=== PATIENT | female | born 1955 | race Caucasian/White ===

== ENCOUNTER → 2017-01-13 | Outpatient (CLI) | payer OTHER ==
[~2017-01-13] MED LIST: ALBU17IN INH; BISO5TAB2 PO; BUPR150T11 PO; CLOP75TA2 PO; ECOT81TA5 PO; FURO40TA2 PO; GABA250S PO; GEMF600T PO; K-TA10TA2 PO; METF500T PO; NEUR300C PO; PERCOCET PO; POTA10IN2 PO; PREG50CA PO; SERT-138 PO; SERT-141 PO; VESI10TA PO; VITAD1000T PO; cetrizine PO
== END ==
LOC: M LAB 12:04
PROVIDERS: ATTEND Family Medicine
DX: I10 Essential (primary) hypertension (principal)

== ENCOUNTER → 2017-01-17 | Outpatient (CLI) | payer OTHER ==
[~2017-01-17] VITALS: Ht 154.9 cm; Wt 108.9 kg
[~2017-01-17] MED LIST changes: +LIDOCAINE 2% INJ 100 MG/5 ML SDV (FOR ANES.) As Ordered ONE; +PROPOFOL 200 MG/20 ML VIAL As Ordered ONE
[2017-01-17] MEDS: NS 1,000 ML IV SCH ×2 (10:34→10:36)
--- NOTE | 2017-01-17 11:34 | ROOR ---
Patient Name: Gilmar John Procedure Date: 01/17/2017 11:13 AM Date of : 1955 Age: 61 Room: [facility] Gender: Female Note Status: Finalized Procedure: Colonoscopy Indications: Screening for colorectal malignant neoplasm Providers: Jose C PALACIOS MD Referring MD: Ryann Jean Baptiste MD Requesting Provider: Medicines: Monitored Anesthesia Care Complications: No immediate complications. Procedure: Pre-Anesthesia Assessment: - The heart rate, respiratory rate, oxygen saturations, blood pressure, adequacy of pulmonary ventilation, and response to care were monitored throughout the procedure. The Colonoscope was introduced through the anus and advanced to the cecum, identified by appendiceal orifice and ileocecal valve. The colonoscopy was performed without difficulty. The patient tolerated the procedure well. The quality of the bowel preparation was good. Findings: The perianal and digital rectal examinations were normal. (Exam: Complete, Prep: Good or Excellent.) A 10 mm polyp was found in the ileocecal valve. The polyp was flat. The polyp was removed with a hot snare. Polyp resection was incomplete. The resected tissue was retrieved. Coagulation for destruction of remaining portion of lesion using argon plasma at 0.8 liters/minute and 20 conner was successful. A few small-mouthed diverticula were found in the sigmoid colon. Small Internal Hemorrhoids. The exam was otherwise without abnormality on direct and retroflexion views. Impression: - One 10 mm polyp at the ileocecal valve, removed with a hot snare. Incomplete resection. Resected tissue retrieved. remaining polypoid tissue ablated/treated with argon plasma coagulation (APC). - No residual polyp is seen - Mild diverticulosis in the sigmoid colon and Small Internal Hemorrhoids. - The examination was otherwise normal on direct and retroflexion views. Recommendation: - Repeat colonoscopy in 3 years for surveillance. - Telephone endoscopist for pathology results in 2 weeks. Jose C Palacios MD Jose C PALACIOS MD 01/17/2017 11:33:41 AM This report has been signed electronically. Number of Addenda: 0 Note Initiated On: 01/17/2017 11:13 AM Estimated Blood Loss: Estimated blood loss: none.
[2017-01-17 11:59] VITALS: BP 150/80
== END | disposition home or self-care (01) ==
LOC: M OPP 08:56
PROVIDERS: ATTEND Internal Medicine Gastroenterology
DX: Z12.11 Encounter for screening for malignant neoplasm of colon (principal); D12.0 Benign neoplasm of cecum; K57.30 Diverticulosis of large intestine without perforation or abscess without bleeding; K64.8 Other hemorrhoids; Z86.010 Personal history of colon polyps; I10 Essential (primary) hypertension; E78.5 Hyperlipidemia, unspecified; E11.9 Type 2 diabetes mellitus without complications; R12 Heartburn; R06.83 Snoring; M19.90 Unspecified osteoarthritis, unspecified site; G25.81 Restless legs syndrome; J44.9 Chronic obstructive pulmonary disease, unspecified; R91.1 Solitary pulmonary nodule; R06.02 Shortness of breath; R93.429 Abnormal radiologic findings on diagnostic imaging of unspecified kidney; F12.20 Cannabis dependence, uncomplicated; Z79.82 Long term (current) use of aspirin; Z79.84 Long term (current) use of oral hypoglycemic drugs; Z79.899 Other long term (current) drug therapy; Z80.41 Family history of malignant neoplasm of ovary; Z80.8 Family history of malignant neoplasm of other organs or systems

== ENCOUNTER → 2017-02-16 | Outpatient (CLI) | payer OTHER ==
[~2017-02-16] MED LIST changes: -LIDOCAINE 2% INJ 100 MG/5 ML SDV (FOR ANES.) As Ordered ONE; -PROPOFOL 200 MG/20 ML VIAL As Ordered ONE; -SERT-141 PO; +SERT50TA PO
--- NOTE | 2017-02-16 11:16 | REPMRS ---
Patient History The patient states she had a clinical breast exam in 02/04 Patient is postmenopausal. Family history of uterine cancer in mother at age 50 or over. Digital Woman Screen Mammo: February 16, 2017 - Exam #: [id number] Bilateral CC and MLO view(s) were taken. Technologist: Madonna Bautista, Technologist Prior study comparison: January 16, 2016, digital woman screen mammo performed at [facility]. August 15, 2014, digital woman screen mammo performed at [facility]. FINDINGS: There are scattered fibroglandular densities. There has been no change in the appearance of the mammogram from the prior studies. There is a mild amount of residual fibroglandular tissue which is fairly symmetric. There is no interval development of dominant mass, architectural distortion, or clustered microcalcification suggestive of malignancy. There are scattered, small, benign calcifications of doubtful clinical significance including many secretory type calcifications in each breast, stable. Scattered lymph nodes are seen in the axillae. No significant changes when compared with prior studies. ASSESSMENT: BI-RADS/ACR category 2 mammogram. Benign finding(s). Recommendation Routine screening mammogram in 1 year (for women over age 40). This mammogram was interpreted with the aid of an FDA-approved computer-aided dectection system. A. Negative x-ray reports should not delay biopsy if a dominant or clinically suspicious mass is present. B. Four to eight percent of cancers are not identified by mammography. C. Adenosis and dense breast may obscure an underlying neoplasm. Electronically Signed By: Ankit Bush MD 02/16/17 [id number]
== END ==
LOC: M WHC 09:49
PROVIDERS: ATTEND Nurse Practitioner Family
DX: Z12.31 Encounter for screening mammogram for malignant neoplasm of breast (principal); Z78.0 Asymptomatic menopausal state; R92.8 Other abnormal and inconclusive findings on diagnostic imaging of breast

== ENCOUNTER → 2017-05-27 | Outpatient (CLI) | payer OTHER ==
[~2017-05-27] MED LIST changes: +METF500T13 PO; -VESI10TA PO; +VESI10TA2 PO
== END ==
LOC: M LAB 11:54
PROVIDERS: ATTEND Family Medicine
DX: E11.40 Type 2 diabetes mellitus with diabetic neuropathy, unspecified (principal)

== ENCOUNTER → 2017-05-27 | Outpatient (REF) | payer OTHER | LOC: M SFHCPLAZ 11:40 | PROVIDERS: ATTEND Family Medicine | DX: E11.40 Type 2 diabetes mellitus with diabetic neuropathy, unspecified (principal); Z53.9 Procedure and treatment not carried out, unspecified reason ==

== ENCOUNTER → 2017-09-01 | Outpatient (CLI) | payer OTHER ==
[2017-09-01 10:47] LABS: ANION GAP 6 MEQ/L (8-16); BLOOD UREA NITROGEN 16 MG/DL (7-18); CALCIUM LEVEL 9.3 MG/DL (8.8-10.2); CARBON DIOXIDE LEVEL 31 MEQ/L (21-32); CHLORIDE LEVEL 105 MEQ/L (98-107); CREATININE FOR GFR 0.71 MG/DL (0.55-1.02); GLOMERULAR FILTRATION RATE > 60.0 (>45); GLUCOSE, FASTING 128 MG/DL (80-110); POTASSIUM SERUM 4.2 MEQ/L (3.5-5.1); SODIUM LEVEL 142 MEQ/L (136-145)
== END ==
LOC: M LAB 09:28
PROVIDERS: ATTEND Family Medicine
DX: E11.40 Type 2 diabetes mellitus with diabetic neuropathy, unspecified (principal)

== ENCOUNTER → 2017-09-12 | Outpatient (REF) | payer OTHER ==
[2017-09-12 13:47] LABS: ANION GAP 7 MEQ/L (8-16); BLOOD UREA NITROGEN 15 MG/DL (7-18); CARBON DIOXIDE LEVEL 28 MEQ/L (21-32); CHLORIDE LEVEL 107 MEQ/L (98-107); CREATININE FOR GFR 0.59 MG/DL (0.55-1.02); GLOMERULAR FILTRATION RATE > 60.0 (>45); GLUCOSE, FASTING 101 MG/DL (80-110); POTASSIUM SERUM 4.2 MEQ/L (3.5-5.1); SODIUM LEVEL 142 MEQ/L (136-145)
== END ==
LOC: M SFHCPLAZ 11:22
PROVIDERS: ATTEND Family Medicine
DX: E87.6 Hypokalemia (principal)

== ENCOUNTER → 2017-12-13 | Outpatient (REF) | payer OTHER ==
[2017-12-13 14:39] LABS: ESTIMATED AVERAGE GLUCOSE 120 MG/DL (60-110); HEMOGLOBIN A1c 5.8 %
== END ==
LOC: M SFHCPLAZ 11:25
DX: E11.40 Type 2 diabetes mellitus with diabetic neuropathy, unspecified (principal)

== ENCOUNTER → 2018-04-13 | Outpatient (CLI) | payer OTHER | LOC: M WHC 13:49 | DX: Z12.31 Encounter for screening mammogram for malignant neoplasm of breast (principal) | CPT/HCPCS: 77067 ==

== ENCOUNTER → 2018-05-03 | Outpatient (REF) | payer OTHER ==
[2018-05-03 13:39] LABS: ESTIMATED AVERAGE GLUCOSE 128 MG/DL (60-110); HEMOGLOBIN A1c 6.1 %
[2018-05-03 13:40] LABS: ANION GAP 10 MEQ/L (8-16); BLOOD UREA NITROGEN 14 MG/DL (7-18); CALCIUM LEVEL 9.1 MG/DL (8.8-10.2); CARBON DIOXIDE LEVEL 28 MEQ/L (21-32); CHLORIDE LEVEL 107 MEQ/L (98-107); GLOMERULAR FILTRATION RATE > 60.0 (>45); GLUCOSE, FASTING 120 MG/DL (70-100); POTASSIUM SERUM 4.5 MEQ/L (3.5-5.1); SODIUM LEVEL 145 MEQ/L (136-145)
== END ==
LOC: M SFHCPLAZ 11:26
DX: E11.40 Type 2 diabetes mellitus with diabetic neuropathy, unspecified (principal); I10 Essential (primary) hypertension

== ENCOUNTER 2018-06-24 13:36 | Emergency (ER) | payer OTHER | END 2018-06-24 15:32 | disposition home or self-care (01) | LOC: M ED 13:36 | DX: Z77.098 Contact with and (suspected) exposure to other hazardous, chiefly nonmedicinal, chemicals (principal); R06.02 Shortness of breath; E11.9 Type 2 diabetes mellitus without complications; I10 Essential (primary) hypertension; Z79.899 Other long term (current) drug therapy; Z79.82 Long term (current) use of aspirin; Z79.84 Long term (current) use of oral hypoglycemic drugs | CPT/HCPCS: 99284 ==

== ENCOUNTER 2018-07-14 10:15 | Emergency (ER) | payer OTHER ==
[2018-07-14 11:34] LABS: KETONE, URINE AUTO RFX TRACE mg/dL (NEGATIVE); LEUKOCYTE ESTERASE UR AUTO RFX NEGATIVE (NEGATIVE); MUCUS, URINE RFX SMALL (NEGATIVE); NITRITE, URINE AUTO RFX NEGATIVE (NEGATIVE); RBC, URINE AUTO RFX 1 /HPF (0-3); SPECIFIC GRAVITY UR AUTO RFX 1.023 (1.002-1.035); SQUAM EPITHELIAL CELL UR AURFX 3 /HPF (0-6); WBC, URINE AUTO RFX 1 /HPF (0-3)
[2018-07-14 11:37] LABS: BASO % 0.3 % (0.0-1.0); EOS % 0.2 % (0.0-3.0); HEMATOCRIT 43.5 % (36.0-47.0); HEMOGLOBIN 14.6 g/dl (12.0-15.5); IMMATURE GRANULOCYTE % 0.9 % (0-3.0); LYMPH # 0.8 10^3/uL (1.5-4.5); MEAN CORPUSCULAR HEMOGLOBIN 29.3 pg (27.0-33.0); MEAN CORPUSCULAR HGB CONC 33.6 g/dl (32.0-36.5); MEAN CORPUSCULAR VOLUME 87.3 fl (80.0-96.0); MONO # 1.3 10^3/uL (0.0-0.8); MONO % 9.1 % (0.0-5.0); NEUTROPHILS # 11.6 10^3/uL (1.8-7.7); NEUTROPHILS % 83.5 % (36.0-66.0); PLATELET COUNT, AUTOMATED 143 10^3/uL (150-450); RED BLOOD COUNT 4.98 10^6/uL (4.00-5.40); RED CELL DISTRIBUTION WIDTH 15.6 % (11.5-14.5); WHITE BLOOD COUNT 13.9 10^3/uL (4.0-10.0)
[2018-07-14 11:51] LABS: ANION GAP 9 MEQ/L (8-16); BLOOD UREA NITROGEN 12 MG/DL (7-18); CARBON DIOXIDE LEVEL 25 MEQ/L (21-32); CHLORIDE LEVEL 102 MEQ/L (98-107); GLOMERULAR FILTRATION RATE > 60.0 (>45); GLUCOSE, FASTING 157 MG/DL (70-100); POTASSIUM SERUM 4.3 MEQ/L (3.5-5.1); SODIUM LEVEL 136 MEQ/L (136-145)
[2018-07-14 12:00] LABS: POS COUNT POS FLAG
[2018-07-14] MEDS: ONDANSETRON 4MG/2ML VIAL (J2405) IV (12:01)
[2018-07-14] MEDS: MORPHINE 4 MG/ML 1ML VIAL/SYRINGE (J2270) IV (12:02)
[2018-07-14] MEDS: NS 1,000 ML IV (12:02)
== END 2018-07-14 12:40 | disposition home or self-care (01) ==
LOC: M ED 10:15
DX: N28.1 Cyst of kidney, acquired (principal); N20.0 Calculus of kidney; R16.1 Splenomegaly, not elsewhere classified; E11.9 Type 2 diabetes mellitus without complications; I10 Essential (primary) hypertension; J44.9 Chronic obstructive pulmonary disease, unspecified; E78.5 Hyperlipidemia, unspecified; Z87.891 Personal history of nicotine dependence
CPT/HCPCS: J2270

== ENCOUNTER → 2018-07-17 | Outpatient (CLI) | payer OTHER | LOC: M SMT 15:08 | DX: J06.9 Acute upper respiratory infection, unspecified (principal) | CPT/HCPCS: 71046 ==

== ENCOUNTER → 2018-07-17 | Outpatient (REF) | payer OTHER ==
[2018-07-17 13:38] LABS: AMORPHOUS SEDIMENT LARGE (NEGATIVE); APPEARANCE, URINE TURBID (CLEAR); BACTERIA, URINE AUTO NEGATIVE (NEGATIVE); BILIRUBIN, URINE AUTO 1+ (NEGATIVE); BLOOD, URINE BLOOD NEGATIVE (NEGATIVE); GLUCOSE, URINE (UA) AUTO NEGATIVE (NEGATIVE); KETONE, URINE AUTO TRACE mg/dL (NEGATIVE); LEUKOCYTE ESTERASE, URINE AUTO NEGATIVE (NEGATIVE); MUCUS, URINE SMALL (NEGATIVE); NITRITE, URINE AUTO NEGATIVE (NEGATIVE); PROTEIN, URINE AUTO 1+ mg/dL (NEGATIVE); RBC, URINE AUTO 0 /HPF (0-3); SPECIFIC GRAVITY URINE AUTO 1.026 (1.002-1.035); SQUAMOUS EPITHELIAL CELL UR AU 0 /HPF (0-6); WBC, URINE AUTO 0 /HPF (0-3)
[2018-07-17 13:41] LABS: COLOR, URINE DK YELLOW (YELLOW)
== END ==
LOC: M SMT 12:55
DX: R31.0 Gross hematuria (principal)

== ENCOUNTER → 2018-10-18 | Outpatient (REF) | payer OTHER ==
[2018-10-18 18:13] LABS: APPEARANCE, URINE HAZY (CLEAR); BACTERIA, URINE AUTO NEGATIVE (NEGATIVE); BILIRUBIN, URINE AUTO NEGATIVE (NEGATIVE); BLOOD, URINE BLOOD NEGATIVE (NEGATIVE); COLOR, URINE YELLOW (YELLOW); GLUCOSE, URINE (UA) AUTO NEGATIVE (NEGATIVE); KETONE, URINE AUTO NEGATIVE (NEGATIVE); LEUKOCYTE ESTERASE, URINE AUTO NEGATIVE (NEGATIVE); MUCUS, URINE SMALL (NEGATIVE); NITRITE, URINE AUTO NEGATIVE (NEGATIVE); PROTEIN, URINE AUTO NEGATIVE (NEGATIVE); RBC, URINE AUTO 0 /HPF (0-3); SPECIFIC GRAVITY URINE AUTO 1.011 (1.002-1.035); SQUAMOUS EPITHELIAL CELL UR AU 2 /HPF (0-6); UROBILINOGEN, URINE AUTO 0.2 mg/dL (0.0-2.0); WBC, URINE AUTO 0 /HPF (0-3)
== END ==
LOC: M SMT 17:14
DX: R39.15 Urgency of urination (principal)
CPT/HCPCS: 81001

== ENCOUNTER → 2019-01-31 | Outpatient (REF) | payer OTHER ==
[~2019-01-31] MED LIST changes: +NAPR-50 PO; +NORCOTAB PO; +ZOFR4TAB14 PO
[2019-01-31 19:01] LABS: ALBUMIN 4.1 GM/DL (3.2-5.2); ALT/SGPT 29 U/L (12-78); BILIRUBIN,TOTAL 0.4 MG/DL (0.2-1.0); BLOOD UREA NITROGEN 12 MG/DL (7-18); CARBON DIOXIDE LEVEL 29 MEQ/L (21-32); CHLORIDE LEVEL 106 MEQ/L (98-107); CHOLESTEROL LEVEL 109 MG/DL (<200); CHOLESTEROL RISK RATIO 4.739 (<5); CREATININE FOR GFR 0.69 MG/DL (0.55-1.30); GLOMERULAR FILTRATION RATE > 60.0 (>45); GLUCOSE, FASTING 94 MG/DL (70-100); HDL CHOLESTEROL 23 MG/DL (>40); LDL CHOLESTEROL 49 MG/DL (<100); NON-HDL-C 86 MG/DL; POTASSIUM SERUM 4.6 MEQ/L (3.5-5.1); SODIUM LEVEL 142 MEQ/L (136-145); TRIGLYCERIDES LEVEL 185 MG/DL (<150)
[2019-01-31 19:47] LABS: HEMOGLOBIN A1c 5.7 %
== END ==
LOC: M SFHCPLAZ 14:55
PROVIDERS: ATTEND Family Medicine
DX: I10 Essential (primary) hypertension (principal); E11.40 Type 2 diabetes mellitus with diabetic neuropathy, unspecified; E78.5 Hyperlipidemia, unspecified

== ENCOUNTER → 2019-05-23 | Outpatient (CLI) | payer OTHER ==
[~2019-05-23] MED LIST changes: +HYDR-3715 PO; -NAPR-50 PO; +NAPR-837 PO; -NORCOTAB PO; +OXYC1TAB23 PO; -PERCOCET PO; +SERT-141 PO; -SERT50TA PO
--- NOTE | 2019-05-23 15:41 | REP ---
Clinical: Lung screening. History smoking. Comparison: 07/28/2012 Technique: Axial low-dose noncontrast images from the thoracic inlet to the upper abdomen using lung screening technique. Findings: There is a 3.5 cm mass along the posteromedial right upper lobe at the level of the yesenia inseparable from the mediastinum based on lung screening examination. Further mediastinal adenopathy cannot be excluded. No effusion. Impression: 3.5 cm mass lesion in the medial right upper lobe posteriorly and inseparable from the mediastinum. Contrast enhanced chest CT is recommended. Electronically Signed by Cristhian Estrada MD 05/23/2019 03:33 P
== END ==
LOC: M RAD 13:28
PROVIDERS: ATTEND Family Medicine
DX: F17.211 Nicotine dependence, cigarettes, in remission (principal); R91.8 Other nonspecific abnormal finding of lung field

== ENCOUNTER → 2019-06-01 | Outpatient (CLI) | payer OTHER ==
[~2019-06-01] MED LIST changes: +ALLE10TA62 PO; +ATOR1TAB21 PO; +BISO5TAB14 PO; +CARB5INJ3 IV; +DITR5TAB PO; +LIDO2.5C15 TOP; +LISI-542 PO; +OLAN10TA2 PO; +ONDA-83 PO; +ONDA8TAB8 PO; +OXYB5TAB10 PO; +PANT40TA3 PO; +PEG6SYR SC; +PROC10TA4 PO; +PROTPAK PO; +TECE1200 IV; +VENTAER INH; +ZOLO50TA PO; +[UNRECOGNIZED DRUG - CODE] IV; +[UNRECOGNIZED DRUG - OTHER] INH
--- NOTE | 2019-06-02 07:34 | REP ---
CT chest without contrast: History: "Other nonspecific abnormal finding of the lung field". Comparison CT study is from May 23, 2019. CT study from July 28, [address] findings: Today's CT study confirms the presence of an irregular nodular mass lesion in the right upper lobe posteriorly and medially. This measures 3.2 cm in greatest right to left dimension by 2.4 cm by 1.8 cm. It abuts the major fissure inferiorly and the visceral pleural surface anteriorly. There is a 4 mm nodule in the right upper lobe anteriorly visualized on page 41 of 94 in series 201 of today's study. There is also an area of pleuroparenchymal fibrosis in the right middle lobe anteromedially visualized on page 41. There is a subpleural nodular density 10 mm in diameter in the right middle lobe on page 51. There is a 5 mm nodule adjacent to the peripheral pleura of the right lower lobe on page 50. No contralateral pulmonary nodule is appreciated. There is fairly bulky right hilar adenopathy. There is subcarinal mediastinal adenopathy. The enlarged subcarinal node measures 2.3 x 2.7 cm. There is a 3.1 x 3.3 cm pretracheal lymph node and several other less enlarged lymph nodes. No adrenal lesion is seen. There is a low-density area at the upper pole of the left kidney suggestive of a cyst. This is not completely included in the field of view. There is mild diffuse fatty infiltration of the liver. No pleural or pericardial effusion is seen. No axillary or supraclavicular adenopathy is seen. Impression: Findings consistent with right upper lobe bronchogenic malignancy with right hilar and mediastinal lymphadenopathy. There are multiple small noncalcified pulmonary nodules in the right lung as well. All of these are unchanged however, from the [address] study. Probable upper pole left renal cyst. Electronically Signed by Nirmal Osei MD 06/02/2019 11:59 A
== END ==
LOC: M RAD 16:25
PROVIDERS: ATTEND Internal Medicine Pulmonary Disease
DX: R91.8 Other nonspecific abnormal finding of lung field (principal)

== ENCOUNTER 2019-06-21 11:29 | Day surgery (SDC) | payer OTHER ==
[~2019-06-21] VITALS: Ht 154.9 cm; Wt 100.2 kg
[~2019-06-21 11:29] MED LIST changes: -BISO5TAB14 PO; +BISO5TAB5 PO; -CARB5INJ3 IV; -LIDO2.5C15 TOP; +LIDOCAINE 2% INJ 100 MG/5 ML SDV (FOR ANES.) As Ordered ONE; +LR 1,000 ML IV ONE; +MIDAZOLAM INJ 2 MG/2 ML VIAL (J2250) As Ordered ONE; -OLAN10TA2 PO; -ONDA-83 PO; -ONDA8TAB8 PO; +ONDANSETRON 4MG/2ML VIAL (J2405) As Ordered ONE; -OXYB5TAB10 PO; -PANT40TA3 PO; -PEG6SYR SC; -PROC10TA4 PO; +PROPOFOL 200 MG/20 ML VIAL As Ordered ONE; -PROTPAK PO; +ROCURONIUM BROMIDE 50 MG/5 ML VIAL As Ordered ONE; -TECE1200 IV; -[UNRECOGNIZED DRUG - CODE] IV; -[UNRECOGNIZED DRUG - OTHER] INH; +dexameTHASONE 4 MG/ML 1ML VIAL (J1100) As Ordered ONE; +fentaNYL 100 MCG/2 ML INJECTION (J3010) As Ordered ONE
[2019-06-21] MEDS ORDERED: LIDOCAINE 1% MDV 20ML VIAL As Ordered ONE (12:08)
[2019-06-21] MEDS ORDERED: EPINEPHrine 1MG/10ML SYRINGE 1.5IN As Ordered ONE (12:08)
[2019-06-21] MEDS ORDERED: CETACAINE SPRAY 5GM As Ordered ONE (12:08)
[2019-06-21] MEDS ORDERED: THROMBIN SOLN 5,000 UNITS VIAL As Ordered ONE (12:08)
[2019-06-21] MEDS ORDERED: LIDOCAINE VISCOUS 2% SOLN 15ML UDC As Ordered ONE (12:09)
[2019-06-21] MEDS ORDERED: PHENYLEPHRINE 0.5% NASAL SPRAY 15 ML As Ordered ONE (12:09)
[2019-06-21] MEDS ORDERED: ACETYLCYSTEINE 20% 30 ML VIAL As Ordered ONE (12:09)
[2019-06-21] MEDS ORDERED: LABETALOL HCL 100 MG/20 ML VIAL As Ordered ONE (12:50)
[2019-06-21] MEDS ORDERED: PHENYLephrine HCL 500 MCG/5 ML (100MCG/ML) SYRINGE (J2370) As Ordered ONE (13:06)
[2019-06-21] MEDS ORDERED: SUGAMMADEX SODIUM 500 MG/5 ML VIAL (BRIDION) As Ordered ONE (13:24)
--- NOTE | 2019-06-21 13:43 | RO ---
DATE OF PROCEDURE: 06/21/2019 PREOPERATIVE DIAGNOSIS: Abnormal chest x-ray with right lung mass and mediastinal hilar adenopathy. POSTOPERATIVE DIAGNOSIS: Abnormal chest x-ray with right lung mass and mediastinal hilar adenopathy, with chronic obstructive bronchitis. PROCEDURE: Fiberoptic bronchoscopy with endobronchial ultrasound and right upper lobe biopsies done endobronchially as well as fine needle aspiration (FNA) of a subcarinal node. SURGEON: Alexander Zayas MD COMPUTER INFORMATION SYSTEMS INSTRUCTOR: ANESTHESIA: General. CONSENT: Informed consent was obtained prior to the procedure. OPERATIVE FINDINGS: 1. Significant compromise to the right upper lobe. 2. [place] of the medial basilar segment of the right lower lobe. 3. Diffuse changes of chronic bronchitis. PROCEDURE: After the patient was identified and the above anesthesia given, the fiberoptic bronchoscope was easily passed via the existing endotracheal tube. The trachea was patent. Yesenia was broadened and did not move well. Percepta brushes were passed in right and left mainstem bronchi The left lung was entered first. Diffuse changes of chronic bronchitis were noted, but all segments, subsegments easily identified and otherwise generally widely patent. Right lung was then entered. There was significant compromise of all the subsegments of the right upper lobe. Bronchus intermedius was opened as well as the right middle lobe, but there was significant fishmouth deformity of the superior segment of the right lower lobe. The remainder of the basilar segments were open and diffuse changes of chronic bronchitis were noted. Biopsies were taken of the right upper lobe main yesenia at the first subsegment. There was minimal bleeding easily controlled with 2 mL of topical epinephrine and saline lavage. The endobronchial ultrasound scope was then passed. Multiple passes were made with the 20 and 21 gauge needles under ultrasound guidances. Good cellular material was obtained. No bleeding was encountered. After four passes were made, the regular bronchoscope was then introduced. No bleeding was encountered. The scope was then withdrawn and that portion of the procedure was terminated. Thoracoscopic examination done immediately postprocedure showed no evidence of pneumothorax. The procedure was terminated. Care was then turned over to the anesthesia department for extubation. No immediate complications noted and oxygen saturation remained greater than 90% throughout the exam. [facility]
[2019-06-21] MEDS ORDERED: LEVALBUTEROL 1.25 MG/0.5 ML CONCENTRATE NEB As Ordered ONE (13:45)
[2019-06-21] MEDS ORDERED: PROMETHAZINE INJ 25 MG/ML VIAL (J2550) IV PRN (14:00)
[2019-06-21] MEDS ORDERED: oxyCODONE 5MG TAB PO PRN (14:00)
[2019-06-21] MEDS ORDERED: fentaNYL 100 MCG/2 ML INJECTION (J3010) IV PRN (14:00)
[2019-06-21] MEDS ORDERED: LR 1,000 ML IV SCH (14:00)
[2019-06-21] MEDS ORDERED: METOCLOPRAMIDE INJ 10MG/2ML VIAL (J2765) IV PRN (14:00)
[2019-06-21] MEDS ORDERED: LEVALBUTEROL 1.25 MG/0.5 ML CONCENTRATE NEB INH ONE (14:30)
[2019-06-21 15:10] VITALS: BP 104/51
== END 2019-06-21 15:15 | disposition home or self-care (01) ==
LOC: M SDC 11:29
PROVIDERS: ATTEND Internal Medicine Pulmonary Disease
DX: C34.11 Malignant neoplasm of upper lobe, right bronchus or lung (principal); R91.8 Other nonspecific abnormal finding of lung field; R59.0 Localized enlarged lymph nodes; E11.9 Type 2 diabetes mellitus without complications; I12.9 Hypertensive chronic kidney disease with stage 1 through stage 4 chronic kidney disease, or unspecified chronic kidney disease; E78.5 Hyperlipidemia, unspecified; K21.9 Gastro-esophageal reflux disease without esophagitis; F32.9 Major depressive disorder, single episode, unspecified; J44.9 Chronic obstructive pulmonary disease, unspecified; N18.9 Chronic kidney disease, unspecified; Z87.891 Personal history of nicotine dependence; F12.90 Cannabis use, unspecified, uncomplicated; Z79.899 Other long term (current) drug therapy
CPT/HCPCS: 31628; 31652; 76000; 88104; 88173; 88305; 88313; 88341; 88342; J1100; J2250; J2370; J2405; J3010

== ENCOUNTER → 2019-07-11 | Outpatient (CLI) | payer OTHER ==
[~2019-07-11] MED LIST changes: -LIDOCAINE 2% INJ 100 MG/5 ML SDV (FOR ANES.) As Ordered ONE; -LR 1,000 ML IV ONE; -MIDAZOLAM INJ 2 MG/2 ML VIAL (J2250) As Ordered ONE; -ONDANSETRON 4MG/2ML VIAL (J2405) As Ordered ONE; -PROPOFOL 200 MG/20 ML VIAL As Ordered ONE; -ROCURONIUM BROMIDE 50 MG/5 ML VIAL As Ordered ONE; +[UNRECOGNIZED DRUG - OTHER] INH; -dexameTHASONE 4 MG/ML 1ML VIAL (J1100) As Ordered ONE; -fentaNYL 100 MCG/2 ML INJECTION (J3010) As Ordered ONE
--- NOTE | 2019-07-11 21:24 | REP ---
Whole body PET CT scan for staging of lung malignancy: Comparison is the chest CT dated 06/01/2019. Whole-body scanning is performed from skull base to the upper thighs. Neck and supraclavicular areas: There are no hypermetabolic foci. Chest: There is hypermetabolic uptake in the patient's known right upper lobe posteromedial lung mass with a maximal standard uptake value of 10.7. There are enlarged lymph nodes in the right hilus, anterior mediastinum, superior mediastinum, thoracic inlet on the right and subcarinal mediastinum with a maximal standard uptake value of 12.1. Abdomen, pelvis and upper thighs: The there are no hepatic or adrenal foci. There are no retroperitoneal or mesenteric foci. There is nonspecific bowel uptake. There is a right renal cortical 8.2 cm Bosniak type 1 upper pole cyst. Impression: The patient's known posteromedial right upper lobe lung mass is hypermetabolic. There are confluent hypermetabolic lymph nodes in the anterior-superior mediastinum, right hilus and subcarinal mediastinum. There is a hypermetabolic focus at the thoracic inlet on the right. No other hypermetabolic foci are identified. The study is performed with 8.8 mCi of F 18 FDG. Electronically Signed by Chuck Hawthorne MD 07/11/2019 09:15 P
== END ==
LOC: M PLARAD 12:07
PROVIDERS: ATTEND Internal Medicine Pulmonary Disease
DX: C34.91 Malignant neoplasm of unspecified part of right bronchus or lung (principal)
CPT/HCPCS: 78815; A9552

== ENCOUNTER → 2019-07-12 | Outpatient (CLI) | payer OTHER ==
--- NOTE | 2019-07-16 12:29 | MEDONC ---
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 REFERRING PHYSICIAN: Alexander Zayas MD HISTORY OF PRESENT ILLNESS: Gilmar is a 63-year-old woman with COPD followed by Dr. Zayas, serially following lung findings. Since 2008 she has had some indeterminate nodular densities on chest CT, in 2011 pretracheal lymphadenopathy. Chest imaging resumed 2018 when on 06/01/[address] showed bulky right hilar adenopathy, subcarinal mediastinal adenopathy measuring 2.3 x 2.7 and 3.1 x 3.3. She underwent bronchoscopic biopsy 06/21/2019 of a right upper lobe lesion, positive for reactive squamous lining with unremarkable mucous glands but the subcarinal biopsy was positive for small cell carcinoma. PET CT on 07/11/2019 shows uptake in the known right upper lobe lung mass, the confluent mediastinal and hilar and subcarinal adenopathy. In addition, there is a right thoracic inlet hypermetabolic focus and right renal Bosniak type 8.2 cm upper pole cyst. Pulmonary function tests show a FEV-1 of 69% predicted, FEV-1 / FVC 90%. The patient has been seen by Dr. Linder of radiation oncology. The case is to be presented in tumor board next week to determine whether, after calculations of potential collateral lung damage, this patient is a reasonable candidate for chemoradiation or systemic therapy alone. Today she is accompanied by her daughter and healthcare proxy, Riya. She acknowledges an episode of hemoptysis after biopsy but not before. She has had about 20 pounds weight loss in the last 3-6 months. She has peripheral neuropathy from type 2 diabetes. She has a new primary care doctor, Ryann Jean Baptiste MD. PAST MEDICAL HISTORY: Type 2 diabetes, hypertension, hypercholesterolemia, peripheral neuropathy, osteoarthritis. PAST SURGICAL HISTORY: Multiple disk surgery involving cervical and lumbar spine. Question of bone cyst removal, D and C, tubal ligation, hysterectomy and unilateral ovary resection, carpal tunnel surgery, tendon release surgery. ALLERGIES: No known drug allergies. MEDICATIONS: - albuterol 2 puffs q. 4 to 6 hours p.r.n. - atorvastatin 20 mg daily - cetirizine 10 mg daily - Lisinopril 5 mg daily - oxybutynin chloride 5 mg daily - potassium chloride 10 mEq daily - sertraline 50 mg daily - Vaping 1 inhalation b.i.d. SOCIAL HISTORY The patient is , living with her daughter in [place]. Denies alcohol. She is on disability for back pain. 86 pack-year smoking history, stopped 10 years ago. FAMILY HISTORY: Mother had leukemia in her 70s and ovarian cancer in her 40s. Father had lung cancer, was a smoker sister. Sister had some kind of cancer. Another sister had cancer. REVIEW OF SYSTEMS: 12 system written review completed by the patient. Positive for shortness of breath with walking, wheezing with walking, occasional nausea, history of kidney stones, depression. Remainder of 12 system review negative. PHYSICAL EXAMINATION: Weight 101 kg, BMI 42, temperature 97.9, blood pressure 125/70, heart rate 101, respiratory 20, O2 sat 90%. Patient is an overweight, pleasant older woman in no distress, accompanied by a younger woman. Respiratory: Distant breath sounds bilaterally. No overt wheezing. No rales. Cardiac: S1, S2. Regular rate and rhythm. No murmur nor gallop. Abdomen: Protuberant, soft, nondistended, nontender. No hepatosplenomegaly or mass. Extremities: No edema. Lymph nodes: No submandibular, cervical, supraclavicular or axillary adenopathy bilaterally. LABORATORY DATA: CBC, CMP, PT/PTT pending. IMPRESSION: 63-year-old woman with limited versus extensive stage right lung small cell lung carcinoma with bulky hilar and mediastinal adenopathy, subcarinal node biopsy positive for small cell carcinoma, right lung biopsy negative. ECOG performance status of 1, history of peripheral neuropathy secondary to diabetes. PLAN: 1. Brain MRI with gadolinium to complete staging. 2. Discussed case in tumor board next week. 3. Provisionally, have planned treatment with carboplatin, etoposide for four cycles along with atezolizomab if extensive stage disease versus carboplatin, etoposide with radiation for 4 to 6 cycles if limited stage disease. I discussed with Gilmar and her daughter the prognosis of limited versus extensive stage disease today. I explained that without radiation, treatment is non curative, with radiation the recurrence rate within 5 years is quite high. I answered all of Gilmar's and her daughter's questions to their apparent satisfaction. 4. Port placement. 5. Return to clinic after MRI and tumor board. Electronically Signed by Trisha Wan MD 07/16/2019 06:18 P DD: Trisha Wan MD 07/12/2019 02:55 P DT: breann 07/16/2019 12:02 P CC: MD Alexander Cifuentes MD Kate E. Skipton, MD
--- NOTE | 2019-07-17 15:55 | RADONC ---
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 STAGE: Limited. ECOG PERFORMANCE STATUS: 0 CONSULTATION NOTE: Ms. John is a pleasant, 63-year-old white female with the diagnosis of what appears to be a limited stage small-cell lung carcinoma involving her mediastinum and right upper lobe who is presenting to us for discussion of possible consolidative thoracic radiation therapy combined with chemotherapy as a therapeutic option. HISTORY OF PRESENT ILLNESS: The patient was in her usual state of health until a low-dose lung screening CT scan was done on 05/23/2019. This showed a sizable right upper lobe mediastinal fullness. She was referred to Dr. Zayas and on 06/21/2019 a subcarinal lymph node biopsy was undertaken, which was diagnostic for small cell lung carcinoma. A subsequent PET scan was done, which showed hypermetabolic uptake in a right upper lobe mass. There were confluent hypermetabolic lymph nodes in the anterior/superior mediastinum, the right hilus and the subcarinal mediastinum. There was also hypermetabolic foci at the thoracic inlet on the right. Pulmonary functions were done and the patient's FEV-1 is 1.45. Her diffusion capacity is at 79% of predicted. The patient is now presenting to me for discussion of possible external beam ration therapy. PAST MEDICAL HISTORY: The patient's past medical history is positive for arthritis, asthma, COPD, diabetes, hypercholesterolemia, hypertension, and stress urinary incontinence. The patient has had cervical fusion surgery, a cholecystectomy, dilation and curettage, hysterectomy, laminectomy, pilonidal cyst removal, right carpal tunnel surgery and a tubal ligation. SOCIAL HISTORY: The patient has smoked two packs of cigarettes per day for 43 years for an 86 pack-year smoking history. She reports that she quit 10 years ago. She is also a heavy past alcoholic drinker and quit drinking 15 years ago. She reports using marijuana as well. She continues to smoke marijuana for pain control. ALLERGIES: The patient has NO KNOWN DRUG ALLERGIES. FAMILY HISTORY: The patient's family history is positive for a father with lung cancer and a mother with leukemia. REVIEW OF SYSTEMS: The patient's review of systems is positive for some anxiety, shortness of breath and dental problems. Her review of systems is otherwise noncontributory. Denies nausea, vomiting, fevers, chills, night sweats, diplopia, headaches, anxiety or depression, anorexia, weight loss, visual disturbances, chest pain, urinary or bowel difficulties, bone pain, or neurological problems. PHYSICAL EXAMINATION: The patient is a well-developed, well-nourished,.63-year-old female in no acute distress. HEENT exam is normocephalic, atraumatic. Extraocular movements are intact. There is no palpable cervical, supraclavicular, infraclavicular, axillary, or inguinal lymphadenopathy present. Lungs are clear to auscultation and percussion. Heart has a regular rate and rhythm. Abdomen is benign with no hepatosplenomegaly, masses, or tenderness. Skeletal examination reveals no tenderness to pressure or percussion of the bony skeleton. Extremities reveal no clubbing, cyanosis, or edema. Neurologic exam is grossly intact, as is the remainder of the physical examination. ASSESSMENT: At this point, the patient appears that she most likely will be able to undergo radiation therapy and indeed has limited stage disease. I therefore have discussed with the patient in detail the potential benefits as well as possible acute and chronic sequelae of external beam radiation therapy. We discussed the logistics of treatment planning, simulation and subsequent fractionated daily radiation treatments. At this time, however I cannot say for sure whether or not she can tolerate radiation. I have therefore set her up for a differential lung scan to further evaluate her overall ventilation and perfusion status. In addition, we are setting the patient up for initiation of CT guided treatment planning in order to generate a dose volume histogram. Once we have the differential lung scan and dose volume histogram, we can compare these and utilize her overall pulmonary functions in order to determine whether or not we can safely deliver radiation to incorporate all these areas of disease. I have personally reviewed and reviewed with the patient the patient's CT scan. There are multiple areas of disease and I suspect a significant portion of her right lung will be sacrificed in our treatment. Considering her actual FEV-1 is 1.45 this may be a limiting factor. I have discussed with this patient all of these issues. Once the studies are done, we will be sitting down and discussing this further to see whether or not she wishes to pursue initial radiation with concomitant chemotherapy. In addition, I have placed this patient on our list for discussion at our multidisciplinary tumor conference. I have also discussed this with her medical oncologist, Dr. Wan, to let her know our thought processes and that we are presently undergoing workup to see whether or not she can safely tolerate radiation. Once these issues are resolved, final recommendations can be made. Thank you for allowing us to participate in the care of this very pleasant woman. I will keep you informed as to any new developments as they occur. As always with warm personal regards. cc: MD Alexander Sanabria MD David Rechlin, DO, [facility] Ryann Jean Baptiste MD
== END ==
LOC: M ONCR 09:47
PROVIDERS: ATTEND Radiology Radiation Oncology
DX: C34.90 Malignant neoplasm of unspecified part of unspecified bronchus or lung (principal)

== ENCOUNTER → 2019-07-17 | Outpatient (CLI) | payer OTHER ==
[~2019-07-17] MED LIST changes: +BUPIVACAINE HCL 0.5% 10 ML VIAL As Ordered ONE; +LIDOCAINE 2% MDV 20 ML VIAL As Ordered ONE; +MIDAZOLAM INJ 2 MG/2 ML VIAL (J2250) As Ordered ONE; +ceFAZolin 1GM INJ (J0690 PER 500MG) As Ordered ONE; +diphenhydrAMINE INJ 50MG/ML VIAL (J1200) As Ordered ONE; +fentaNYL 100 MCG/2 ML INJECTION (J3010) As Ordered ONE
--- NOTE | 2019-07-17 14:48 | ROOPDOC ---
[facility] Report Of Operation Report of Operation DATE OF PROCEDURE: 07/17/2019 PREOPERATIVE DIAGNOSIS: Lung cancer. POSTOPERATIVE DIAGNOSIS: Lung cancer. PROCEDURE: Ultrasound guided right internal jugular vein cannulation. Fluoroscopic guided right internal jugular vein tunneled central venous catheter with subcutaneous port placement with placement of a power injectable Bard Matteson Power Port with 23 centimeter length catheter. SURGEON: Dr. Malachi Jones M.D. PIPELINE MAINTENANCE SUPERVISOR: Angela Peace ANESTHESIA: Local with sedation with 2 mg of Versed and 50 g of fentanyl and 20 mL of 2% lidocaine mixed with 0.5% Marcaine. SEDATION TIME: 28 minutes. The sedation was administered by myself through the access in the right internal jugular vein. The cardiopulmonary monitoring during sedation was performed by and gestured nurse monitoring the case. Administration of sedation and cardiopulmonary monitoring were performed under my direct supervision and direction. I was present for and directed the entire case. There were no sedation related complications. Patient was stable post sedation and returned to pre-sedation status. ANTIBIOTICS: Ancef 2 g FLUOROSCOPY TIME: 0.1 minutes. CONTRAST: None. ESTIMATED BLOOD LOSS: 15 mL. IV FLUID: 100 mL. COMPLICATIONS: None. DRAINS: None. SPECIMENS: None. IMPLANTS: Right internal jugular vein tunneled central venous catheter with subcutaneous port placement using a Bard Matteson Power Port which is power injectable. INDICATION: Patient is a 63-year-old female with lung cancer who requires access for chemotherapy and blood draws. Patient will undergo a right tunneled central venous catheter placement with subcutaneous port. Procedure was described and explained to the patient in detail including drawing of pictures showing the procedure and anatomy associated with insertion of the tunneled central venous catheter was subcutaneous port. Risks, benefits, and alternative treatment options were discussed with the patient. Alternative treatment options included, but were not limited to, no intervention. Benefits included, but were not limited to, access for chemotherapy infusion centrally, avoiding recurrent venous cannulations , IV placements and sclerosis of peripheral veins. Risks included, but were not limited to, infection, bleeding, pneumothorax, hemothorax, possible need for further open surgical intervention, renal failure requiring hemodialysis, failure of the tunneled central venous catheter with subcutaneous port to function requiring evaluation, revision and/or replacement, adverse and/or allergic reaction to the sedation medications and/or local anesthetics, anesthetic and sedation complication, possible need for transfusion of blood products, allergic reaction and/or complication from the prepping and draping materials, bruising, scarring, cerebrovascular accident, myocardial infarction, pulmonary embolus, deep venous thrombosis, poor satisfaction, poor results, poor outcome, loss of limb and loss of life. Risks of not performing the port insertion included but were not limited to inability to gain access for chemotherapy, inability to gain access for blood draws and laboratory evaluation, sclerosis and thrombophlebitis of peripheral veins and pain associated with continued peripheral cannulations. Patient's questions were answered. Patient voices understanding of these risks, benefits, and alternative treatment options. Patient voices acceptance of the risks associated with placement of a central venous tunneled catheter with subcutaneous port placement and consents to proceed with tunneled central venous catheter with subcutaneous port placement. No guarantees or promises were made to the patient regarding the results or outcome of the procedure. DESCRIPTION OF PROCEDURE: Patient was taken to the angiography suite, placed supine on the angiography room table, and prepped and draped in a standard surgical fashion. A time-out was conducted by myself and the team members involved in the procedure, confirming the correct procedure, patient, and laterality. Ultrasound was then used to evaluate the right internal jugular vein, which was noted to be easily compressible, widely patent, and free of thrombus. Ultrasound was then used to guide cannulation of the right internal jugular vein with a micropuncture needle with real-time concurrent visualization of the entry of the needle into the right internal jugular vein with a hardcopy image preserved. The skin overlying the right internal jugular vein was anesthetized with 2% lidocaine mixed with 0.5% Marcaine prior to cannulation. Once the right internal jugular vein was cannulated, the micropuncture wire was advanced through the micropuncture needle, which was up-sized to a micropuncture sheath. A J wire was advanced through the micropuncture sheath. The right internal jugular vein was then dilated under fluoroscopic guidance, and a #8-[place] Islander introducer sheath was positioned through the right internal jugular vein into the superior vena cava. The wire was removed, and the #8-[place] single lumen catheter, which had been tunneled from a puncture wound in the right chest and brought out at the puncture wound at the right internal jugular vein entry site, was advanced through the introducer sheath under fluoroscopic guidance. The introducer sheath was then removed, and the catheter was positioned with the tip in the superior vena cava/right atrial junction under fluoroscopic guidance. The catheter was cut to a length of 23 cm and attached to the port. A pocket was created in the right chest after anesthetizing the overlying tissue with 2% lidocaine mixed with 0.5% Marcaine. The port was placed in the pocket and cannulated using an access needle. The port was noted to aspirate and flush easily and then was flushed with heparinized saline. The incision in the chest was closed using # 4-0 Monocryl suture in inverted interrupted fashion. The puncture wound in the right neck was closed using a #4-0 Monocryl in inverted interrupted fashion. Steri-Strips and dressings were applied. Patient tolerated the procedure well. All instrument, sponge, and needle counts were correct at the end of the case. There were no complications. Dr. Jones was present for and directed the entire case. Patient was transferred to the recovery area and subsequently discharged in stable condition. The tunneled central venous catheter with subcutaneous port is stable for use for access. RADIOLOGIC SUPERVISION AND INTERPRETATION: The ultrasound showed the right internal jugular vein to be easily compressible, widely patent, and free of thrombus. Ultrasound was used to guide cannulation of the right internal jugular vein with real-time concurrent visualization of the entry of the needle into the right internal jugular vein. The right internal jugular vein was then dilated under fluoroscopic guidance with a #8-[place] introducer sheath placed under fluoroscopic guidance. The 8 [place] single lumen catheter was advanced through the introducer sheath positioned with the tip in the superior vena/right atrial junction using fluoroscopic guidance with final fluoroscopic image showing the catheter and port to be in good position and good alignment with the tip in the superior vena cava/right atrial junction with no pneumo- or hemothorax noted. The tunneled central venous catheter with subcutaneous port is stable for use. Delmar Jones MD Jul 17, 2019 14:48
[2019-07-17 15:36] VITALS: BP 134/72
--- NOTE | 2019-07-17 15:42 | ECGEPIP ---
[facility] Test Date: 2019-07-17 Pat Name: ABBE BLOOD Department: Room: - Gender: Female Extension Service Specialist In Charge: CIERA : 1955 Requested By: Delmar Clinton Order Number: [id number] Reading MD: Larisa Lincoln Measurements Intervals Boyd Rate: 80 P: 72 NC: 191 QRS: -30 QRSD: 150 T: 95 QT: 415 QTc: 481 Interpretive Statements SINUS RHYTHM LEFT BUNDLE BRANCH BLOCK NO PRIOR Electronically Signed on 07-17-2019 15:41:41 EDT by Larisa Lincoln
== END ==
LOC: M IRPRO 13:25
PROVIDERS: ATTEND Surgery Vascular Surgery
DX: C34.90 Malignant neoplasm of unspecified part of unspecified bronchus or lung (principal); I10 Essential (primary) hypertension; E11.9 Type 2 diabetes mellitus without complications; J44.9 Chronic obstructive pulmonary disease, unspecified; F32.9 Major depressive disorder, single episode, unspecified
CPT/HCPCS: 36563; 76937; 77001; 93005; 99152; 99153; C1788; C1894; J0690; J1200; J2250; J3010

== ENCOUNTER 2019-07-19 14:06 | Outpatient (RCR) | payer OTHER ==
[~2019-07-19 14:06] MED LIST changes: -BISO5TAB5 PO; +BISO5TAB9 PO; -BUPIVACAINE HCL 0.5% 10 ML VIAL As Ordered ONE; -LIDOCAINE 2% MDV 20 ML VIAL As Ordered ONE; -MIDAZOLAM INJ 2 MG/2 ML VIAL (J2250) As Ordered ONE; -ceFAZolin 1GM INJ (J0690 PER 500MG) As Ordered ONE; -diphenhydrAMINE INJ 50MG/ML VIAL (J1200) As Ordered ONE; -fentaNYL 100 MCG/2 ML INJECTION (J3010) As Ordered ONE
--- NOTE | 2019-07-21 07:12 | RADONC ---
RADIATION ONCOLOGY SIMULATION NOTE DATE: 07/19/2019 CHART #: [id number] Ms. John was taken to the CT scan for CT simulation of her right lung field. CT was accomplished without difficulty or discomfort. Radiation treatment planning is underway. As per my discussion with Dr. Wan, I am not yet quite sure whether or not this patient will tolerate radiation to incorporate such a large area. She has marginal pulmonary functions at this point. We have obtained a differential lung scan and we will generate a dose volume histogram from our treatment planning CT scan in order to further evaluate her overall breathing capacity once radiation is completed. Clearly, if the patient is able to tolerate radiation we will coordinate her care with her medical oncologist. If not, then systemic therapy alone would need to be given. An immobilization device was also created today without difficulty or discomfort. It will be used throughout the course of treatment. I was physically present throughout the course of CT simulation.
--- NOTE | 2019-07-22 09:12 | RADONC ---
RADIATION ONCOLOGY PROGRESS NOTE: DATE: 07/20/2019 CHART NUMBER: [id number] DIAGNOSIS: Small cell lung carcinoma. I have obtained the patient's pulmonary functions which show an FEV-1 of 1.45 and a diffusion capacity of 75%. We have also undertaken treatment planning and generated a dose volume histogram. According to the present level of comparison, I do not believe this patient will be able to tolerate radiation without significant lung compromise. She is overweight and the resulting residual lung would be extremely limited. For the sake of thoroughness, I have attempted to obtain a differential lung scan. She initially was scheduled to have her differential lung scan on the 07/18/2019, but did not show up for that one. It was rescheduled for today at 11 and the patient failed to show up for that one as well. I ordered those scans in order to rule out the possibility that we may be shahid and be able to treat this portion of lung without too much loss of lung function. We will again try and schedule this patient for a differential lung scan, however, I have spoken with Dr. Wan, and at this point with the information we have, I do not believe she is a candidate for concurrent chemo and radiation. I have recommended chemotherapy alone initially and re-evaluation and possible radiation if needed in attempt to achieve local control for any of her residual disease. Once again, if the patient does comply and undergo pulmonary function tests. I will leave it up to my covering physician Dr. Troy Drake MD to see whether or not he would feel comfortable treating this patient with her present pulmonary functions. Once again a full plan has been generated and should we be surprised with the results of the differential lung scan, recommendations may change. As of now chemotherapy is recommended. cc: Trisha Wan MD
== END 2019-07-21 ==
LOC: M ONCR 14:06
PROVIDERS: ATTEND Radiology Radiation Oncology
DX: C34.11 Malignant neoplasm of upper lobe, right bronchus or lung (principal)

== ENCOUNTER 2019-07-24 10:15 | Outpatient (RCR) | payer OTHER ==
[2019-08-08] MEDS ORDERED: OLAN10TA2 PO (10:37)
[2019-08-08] MEDS ORDERED: PROC10TA4 PO (10:37)
[2019-08-08] MEDS ORDERED: ONDA8TAB8 PO (10:37)
== END 2019-08-20 ==
LOC: M ONCR 10:15
PROVIDERS: ATTEND Radiology Radiation Oncology
DX: C34.11 Malignant neoplasm of upper lobe, right bronchus or lung (principal)

== ENCOUNTER → 2019-07-25 | Outpatient (CLI) | payer OTHER ==
[~2019-07-25] MED LIST changes: +BISO5TAB14 PO; -BISO5TAB9 PO; +CARB5INJ3 IV; +LIDO2.5C15 TOP; +OLAN10TA2 PO; +ONDA-83 PO; +ONDA8TAB8 PO; +OXYB5TAB10 PO; +PANT40TA3 PO; +PEG6SYR SC; +PROC10TA4 PO; +PROTPAK PO; +TECE1200 IV; +[UNRECOGNIZED DRUG - CODE] IV
--- NOTE | 2019-07-25 08:09 | REP ---
Clinical: History of lung cancer with chest pain. Technique: PA and lateral. Comparison: 07/17/2018. Findings: Cardiac silhouette is normal. Gpjbyk-J-[id number] identified with tip in the SVC. Hilar adenopathy cannot be excluded. Chronic changes noted without focal consolidation, obvious effusion or pneumothorax. Impression: 1. Cannot exclude hilar adenopathy. 2. Relatively chronic-appearing bibasilar changes. Electronically Signed by Cristhian Estrada MD 07/25/2019 08:00 A
--- NOTE | 2019-07-25 09:51 | REP ---
NUCLEAR LUNG DIFFERENTIATION VENTILATION AND PERFUSION SCAN: Following the intravenous administration of 1.0 mCi of technetium-99m tagged MAA and the inhalation of the 2 mCi of technetium-99m DTPA aerosol multiple images are obtained in the anterior and posterior projections. There are extensive matching ventilation and perfusion defects in both upper lobes and to a lesser extent in both lower lobes. Differentiated counts are obtained in the upper, middle, and lower thirds of each lung. The mean perfusion of the left lung is 46.3% and of the right lung is 53.7%. The mean ventilation of the left lung is 44.8%, on the right lung 55.2%. Electronically Signed by Chuck Mayo MD 07/25/2019 09:53 A
== END ==
LOC: M RAD 07:19
PROVIDERS: ATTEND Radiology Radiation Oncology
DX: C34.11 Malignant neoplasm of upper lobe, right bronchus or lung (principal)
CPT/HCPCS: 71046; 78598; A9540; A9567

== ENCOUNTER → 2019-09-07 | Outpatient (REF) | payer OTHER, MEDICAID ==
[~2019-09-07] MED LIST changes: -BISO5TAB14 PO; +BISO5TAB9 PO; -CARB5INJ3 IV; -LIDO2.5C15 TOP; -ONDA-83 PO; -OXYB5TAB10 PO; -PANT40TA3 PO; -PEG6SYR SC; -PROTPAK PO; -TECE1200 IV; -[UNRECOGNIZED DRUG - CODE] IV
[2019-09-07 19:17] LABS: BLOOD UREA NITROGEN 14 MG/DL (7-18); CALCIUM LEVEL 9.1 MG/DL (8.8-10.2); CARBON DIOXIDE LEVEL 28 MEQ/L (21-32); CHLORIDE LEVEL 105 MEQ/L (98-107); CREATININE FOR GFR 0.82 MG/DL (0.55-1.30); GLOMERULAR FILTRATION RATE > 60.0 (>45); GLUCOSE, FASTING 89 MG/DL (70-100); POTASSIUM SERUM 4.3 MEQ/L (3.5-5.1); SODIUM LEVEL 140 MEQ/L (136-145)
[2019-09-07 19:41] LABS: MALB URINE SIEMENS 21.5 MG/L
== END ==
LOC: M SFHCPLAZ 14:50
PROVIDERS: ATTEND Family Medicine
DX: E11.40 Type 2 diabetes mellitus with diabetic neuropathy, unspecified (principal); I10 Essential (primary) hypertension

== ENCOUNTER → 2019-09-14 | Outpatient (CLI) | payer OTHER ==
[~2019-09-14] MED LIST changes: +ISOVUE-370 76% 100ML VIAL (Q9967) As Ordered ONE; +LIDO2.5C15 TOP
--- NOTE | 2019-09-14 19:09 | REP ---
REASON FOR EXAM: Small cell carcinoma of the lung. COMPARISON: The latest prior 06/01/2019. CONTRAST: 100 mL Isovue-370. There is right paratracheal adenopathy which measures 1.3 cm short axis dimension. This has significantly improved compared to the prior exam. There is subcarinal and right hilar adenopathy which has markedly improved compared to the prior exam. There are no pleural or pericardial effusions. The imaged upper abdomen shows splenomegaly and a large partially imaged renal cyst on the left. Evaluation of the osseous structures shows them to be stable and intact. Evaluation of the lung boggs shows the right upper lobe lung mass seen on the prior exam to have decreased in size significantly. This previously measured 3.2 cm an its greatest right to left dimension and now measures 2.1 cm in that same dimension and previously measured 1.8 cm in the opposite dimension and today this measures 0.9 cm in the opposite dimension. Once again, it abuts the major fissure but is not causing tenting of the fissure. There are multiple small pulmonary nodules particularly in the right lung. These nodules have decreased in size and some of the smaller nodules have even abated. I see no definite evidence of an abnormal new nodule, mass or opacity. IMPRESSION:There has been significant improvement as described above. Electronically Signed by Osmany Jones DO 09/17/2019 02:50 P
== END ==
LOC: M RAD 09:53
PROVIDERS: ATTEND Internal Medicine Medical Oncology
DX: C34.90 Malignant neoplasm of unspecified part of unspecified bronchus or lung (principal)
CPT/HCPCS: 71260; Q9967

== ENCOUNTER 2019-10-15 10:37 | Inpatient (IN) | payer OTHER ==
[~2019-10-15] VITALS: Ht 152.4 cm; Wt 55.5 kg
[~2019-10-15 10:37] MED LIST changes: -ISOVUE-370 76% 100ML VIAL (Q9967) As Ordered ONE
[2019-10-15] MEDS ORDERED: ONDANSETRON 4MG/2ML VIAL (J2405) IV ONE (11:30)
[2019-10-15] MEDS ORDERED: ALBUTEROL SULFATE 2.5 MG/0.5 ML INH NEB SOLN NEB ONE (11:30)
[2019-10-15 11:54] LABS: INR 1.19; PROTHROMBIN TIME 14.8 SECONDS (11.8-14.0)
--- NOTE | 2019-10-15 11:56 | REP ---
Clinical: Coughing and wheezing. History of lung cancer . Comparison: 11/24/2018 . Technique: PA and lateral. Findings: The mediastinum and cardiac silhouette are normal. Ehcsmo-H-Jnwe with tip in the SVC remains stable. The lung boggs are clear and without acute consolidation, effusion, or pneumothorax. The skeletal structures are intact and normal. Impression: 1. No acute cardiopulmonary process. Electronically Signed by Cristhian Estrada MD 10/15/2019 11:47 A
[2019-10-15 12:16] LABS: ALBUMIN 3.9 GM/DL (3.2-5.2); ALT/SGPT 36 U/L (12-78); BILIRUBIN,DIRECT 0.3 MG/DL (0.0-0.2); CK-MB VALUE MASS < 1.0 NG/ML (<3.6); CPK CREATINE PHOSPHOKINASE 30 U/L (26-192); LIPASE 73 U/L (73-393); MB/CK RELATIVE INDEX 3.33 (< OR =4); TOTAL PROTEIN 6.7 GM/DL (6.4-8.2); TROPONIN I < 0.02 NG/ML (< 0.10)
[2019-10-15 12:22] LABS: HEMATOCRIT 26.1 % (36.0-47.0); HEMOGLOBIN 8.6 g/dl (12.0-15.5); MEAN CORPUSCULAR HEMOGLOBIN 30.1 pg (27.0-33.0); MEAN CORPUSCULAR VOLUME 91.3 fl (80.0-96.0); RED BLOOD COUNT 2.86 10^6/uL (4.00-5.40); WHITE BLOOD COUNT 12.4 10^3/uL (4.0-10.0)
[2019-10-15] MEDS ORDERED: NS 1,000 ML IV ONE (12:45)
[2019-10-15 13:00] LABS: PLATELET COUNT, AUTOMATED 94 10^3/uL (150-450)
[2019-10-15 13:03] LABS: LYMPHOCYTES 1 % (16-44); MONOCYTES 1 % (0-5); NEUTROPHILS 93 % (28-66)
[2019-10-15 13:04] LABS: ANISOCYTOSIS 2+; HYPOCHROMASIA 2+; PLATELET ESTIMATE DECREASED (NORMAL); TEAR DROP CELLS 1+
[2019-10-15] MEDS ORDERED: ISOVUE-370 76% 100ML VIAL (Q9967) As Ordered ONE (13:14)
--- NOTE | 2019-10-15 15:06 | REP ---
Clinical: Diffuse abdominal pain with history of lung cancer. Technique: Axial contrast enhanced images from the lung bases to the pubic symphysis with coronal and sagittal re-formations using 100 ml Isovue 370 intravenous contrast material. Comparison: 07/14/2018. Findings: Lung bases are clear. Visualized heart and pericardium normal. Liver suggests fatty infiltration and mild hepatomegaly without focal hepatic lesion identified. Mild splenomegaly is suspected. The pancreas is unremarkable. The patient is status post cholecystectomy. Bilateral adrenal glands and right kidney are normal. Large multiloculated cystic changes to the left kidney suggest dilated calyces rather than renal cyst and findings are relatively stable when compared to prior CT dated 2018. The enteric system is without obstruction or acute inflammatory process. Pelvis demonstrates normal bladder and evidence of prior hysterectomy. Atherosclerotic changes to the aorta and vasculature noted without aneurysm or dissection. No ascites. No free air. No intraperitoneal or retroperitoneal adenopathy. Musculoskeletal structures demonstrate age-related changes without focal abnormality. Impression: 1. Hepatosplenomegaly suggested along with mild hepatic steatosis. No focal hepatic or splenic lesion noted. 2. Large cystic component to the left kidney remains stable compared to 2018 and may represent focally dilated renal calyces versus multiloculated renal cyst. 3. No ascites. No adenopathy. No obvious mass lesion. Electronically Signed by Cristhian Estrada MD 10/15/2019 02:57 P
[2019-10-15] MEDS ORDERED: TECE1200 IV (15:55)
[2019-10-15] MEDS ORDERED: PEG6SYR SC (15:55)
[2019-10-15] MEDS ORDERED: CARB5INJ3 IV (15:55)
[2019-10-15] MEDS ORDERED: [UNRECOGNIZED DRUG - CODE] IV (15:55)
[2019-10-15] MEDS ORDERED: OXYB5TAB10 PO (15:55)
[2019-10-15] MEDS ORDERED: NORCO, ANEXSIA 5/325MG TABLET (HYDROcodone/ACETAMINOPHEN) PO PRN (17:15)
[2019-10-15] MEDS ORDERED: MORPHINE 2 MG/ML 1ML VIAL (J2270) IV PRN (17:15)
[2019-10-15] MEDS ORDERED: ALBUTEROL SULFATE 2.5 MG/0.5 ML INH NEB SOLN INH PRN (17:15)
[2019-10-15] MEDS ORDERED: ACETAMINOPHEN TAB 650MG DOSE (2X325MG) PO PRN (17:15)
--- NOTE | 2019-10-15 17:44 | HPE ---
DATE OF ADMISSION: 10/15/2019 PRIMARY CARE PROVIDER: Ryann Jean Baptiste MD ONCOLOGIST: Trisha Wan MD CHIEF COMPLAINT: Abdominal pain, nausea, vomiting. HISTORY: Gilmar John is a 64-year-old patient of Dr. Jean Baptiste'mattie, being treated through [facility] for small cell lung cancer diagnosed 07/09, is on carboplatin/etoposide/atezolizumab with treatments on 10/08/2019, 10/09/2019, and 10/10/2019. She has been having abdominal pain, nausea, and vomiting since then. She denies diarrhea. No fever or chills. No flank pain. She feels "sick all over." She was seen by Sharon Marie, Nurse Practitioner at [facility] on 10/08/2019, noted she was having nausea despite antiemetics, though she was not specific which antiemetic she had taken to try to help her. She was sent by [facility] to the emergency room for nausea and diffuse abdominal pain. CT of the abdomen and pelvis showed no clear cause for this. She is being admitted for further evaluation. She has a past history of smoking-induced chronic obstructive pulmonary disease (COPD), with an FEV1 of 1.45. There is a history of degenerative disc disease with chronic back pain , type 2 diabetes, hyperlipidemia, history of depression, hypertensive heart disease, left hydronephrosis with a complex renal cyst, stress incontinence, restless leg syndrome, vitamin D deficiency, peripheral arterial disease, and a history of renal stones. SURGICAL HISTORY: L4-L5 discectomy 2003, C1-C2 discectomy 2003, tubal ligation 1977, adenomatous colon polyp 2006, redo multilevel decompression lumbar laminectomy L4-L5, removal of scar tissue, decompression of nerve roots 01/01, hysteroscopy with polypectomy 01/02, total vaginal hysterectomy with left salpingo-oophorectomy (LSO) and cystoscopy for postmenopausal bleeding 12/03, right carpal tunnel 2012, colonoscopy 01/07 with tubovillous adenoma removed, port placed for chemotherapy 07/09, bronchoscopy 07/09. FAMILY HISTORY: Father of liver cancer, had hypertension. Mother had ovarian cancer, leukemia and hypertension. Sister with hypertension and pancreatitis. SOCIAL HISTORY: Quit smoking 5 years ago. No alcohol use. She went through 10th grade; it was special education. It should be noted she is functionally illiterate and education material needs to be provided with recognition of this. ALLERGIES: None known. MEDICATIONS: - albuterol inhaler two puffs every 6 hours as needed - lisinopril 5 mg daily - sertraline 50 mg daily - atorvastatin 20 mg daily - potassium chloride 10 mEq twice a day - cetirizine 10 mg daily - oxybutynin 5 mg twice daily REVIEW OF SYSTEMS: No rectal bleeding, epistaxis, hematemesis, hematuria, flank pain, chest pain, cough, wheeze, rashes. PHYSICAL EXAMINATION: Blood pressure 148/68, pulse of 100, respiratory rate 19, 99% oxygen (O2) saturation, afebrile. Ill appearance. She has chemotherapy alopecia. Pupils equal and reactive to light. Tympanic membranes (TMs) normal, pharynx benign. Neck: No masses. Lungs: Clear. Heart: Regular without murmur. Abdomen: Soft, diffusely mildly tender. No guarding, rebound or referred pain. No ascites. Extremities: No clubbing, cyanosis, edema. LABORATORY: White count 12.4 with 93% neutrophils, hemoglobin 8.6, platelets 94, INR is 1.1. Sodium 137, potassium 3.6, creatinine 0.6. Liver functions normal. Lipase normal. CT of the abdomen and pelvis showed no acute findings. Hepatosplenomegaly, fatty liver, large cystic component left kidney, stable from 2018. No ascites, no adenopathy. Chest x-ray: No active disease. IMPRESSION: 1. Abdominal pain, etiology is unknown. Could be related to chemotherapy. She will be admitted to the hospitalist service, put her on clear liquids, IV fluids will be provided. Repeat lab work in the morning. Analgesics have been ordered. 2. Diabetes. His last hemoglobin A1c was 6% showing excellent control on dietary therapy. Not ordering fingersticks or sliding scale. She is essentially under dietary control and her blood sugar can be monitored off daily labs. 3. Hypertension. Continue lisinopril 5 mg daily. 4. Hyperlipidemia. Continue current dose of atorvastatin. 5. Urinary incontinence. Continue oxybutynin 5 mg twice a day. 6. History of depression. Continue sertraline 50 mg daily to avoid selective serotonin reuptake inhibitor (SSRI) withdrawal syndrome.
[2019-10-15] MEDS: PANTOPRAZOLE 40MG INJ (PROTONIX) (C9113) IV SCH (18:45)
[2019-10-15] MEDS: ATORVASTATIN 20 MG TAB PO SCH (18:46)
[2019-10-15] MEDS: SERTRALINE HCL 50 MG TAB PO SCH (18:46)
[2019-10-15] MEDS: LISINOPRIL 5 MG TAB PO SCH (18:46)
--- NOTE | 2019-10-15 19:38 | ECGEPIP ---
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
[2019-10-15] MEDS: ALBUTEROL SULFATE 2.5 MG/0.5 ML INH NEB SOLN INH SCH (20:00)
[2019-10-15] MEDS ORDERED: ENOXAPARIN 40 MG/0.4 ML SYRINGE (J1650) SC SCH (21:00)
[2019-10-15] MEDS: POTASSIUM CHLORIDE 10 MEQ SR TABLET PO SCH (21:13)
[2019-10-15] MEDS: oxyBUTYnin 5 MG TAB PO SCH (21:13)
[2019-10-15] MEDS: KCL 20MEQ IN D5/0.45NS 1000ML 1,000 ML IV SCH (21:13)
[2019-10-15 22:00] VITALS: BP 161/77
[2019-10-16 02:00] VITALS: BP 154/68
[2019-10-16] MEDS: ONDANSETRON 4MG/2ML VIAL (J2405) IV PRN ×2 (05:19→15:12)
[2019-10-16] MEDS: KCL 20MEQ IN D5/0.45NS 1000ML 1,000 ML IV SCH ×3 (05:20→20:19)
[2019-10-16 06:00] VITALS: BP 104/55
[2019-10-16 07:02] LABS: HEMATOCRIT 22.8 % (36.0-47.0); HEMOGLOBIN 7.2 g/dl (12.0-15.5); MEAN CORPUSCULAR HEMOGLOBIN 29.3 pg (27.0-33.0); MEAN CORPUSCULAR HGB CONC 31.6 g/dl (32.0-36.5); MEAN CORPUSCULAR VOLUME 92.7 fl (80.0-96.0); RED BLOOD COUNT 2.46 10^6/uL (4.00-5.40); WHITE BLOOD COUNT 4.9 10^3/uL (4.0-10.0)
[2019-10-16 07:03] LABS: PLATELET COUNT, AUTOMATED 66 10^3/uL (150-450)
[2019-10-16] MEDS: ALBUTEROL SULFATE 2.5 MG/0.5 ML INH NEB SOLN INH SCH ×4 (07:17→20:00)
[2019-10-16 07:26] LABS: ALBUMIN 3.2 GM/DL (3.2-5.2); ALT/SGPT 34 U/L (12-78); AMYLASE 32 U/L (25-115); BILIRUBIN,TOTAL 0.8 MG/DL (0.2-1.0); BLOOD UREA NITROGEN 22 MG/DL (7-18); CALCIUM LEVEL 8.2 MG/DL (8.8-10.2); CARBON DIOXIDE LEVEL 28 MEQ/L (21-32); CHLORIDE LEVEL 105 MEQ/L (98-107); CREATININE FOR GFR 0.59 MG/DL (0.55-1.30); GLOMERULAR FILTRATION RATE > 60.0 (>45); GLUCOSE, FASTING 123 MG/DL (70-100); LIPASE 135 U/L (73-393); POTASSIUM SERUM 3.7 MEQ/L (3.5-5.1); SODIUM LEVEL 138 MEQ/L (136-145); TOTAL PROTEIN 5.7 GM/DL (6.4-8.2)
[2019-10-16] MEDS ORDERED: METOCLOPRAMIDE INJ 10MG/2ML VIAL (J2765) As Ordered ONE (09:00)
[2019-10-16] MEDS ORDERED: METOCLOPRAMIDE INJ 10MG/2ML VIAL (J2765) IV ONE (09:15)
[2019-10-16] MEDS: SERTRALINE HCL 50 MG TAB PO SCH (09:48)
[2019-10-16] MEDS: ATORVASTATIN 20 MG TAB PO SCH (09:49)
[2019-10-16] MEDS: POTASSIUM CHLORIDE 10 MEQ SR TABLET PO SCH ×2 (09:49→20:20)
[2019-10-16] MEDS: oxyBUTYnin 5 MG TAB PO SCH ×2 (09:49→20:19)
[2019-10-16] MEDS: LISINOPRIL 5 MG TAB PO SCH (09:49)
[2019-10-16 10:00] VITALS: BP 108/48
[2019-10-16] MEDS ORDERED: PROMETHAZINE 25 MG TAB PO PRN (13:15)
[2019-10-16] MEDS: METOCLOPRAMIDE INJ 10MG/2ML VIAL (J2765) IV SCH ×2 (13:35→20:20)
[2019-10-16 14:00] VITALS: BP 113/55
[2019-10-16] MEDS: PANTOPRAZOLE 40MG INJ (PROTONIX) (C9113) IV SCH (17:46)
[2019-10-16 18:00] VITALS: BP 107/51
[2019-10-16 22:00] VITALS: BP 139/87
[2019-10-16] MEDS ORDERED: PROCHLORPERAZINE 10 MG/2 ML VIAL (J0780) IV PRN (22:00)
[2019-10-17] VITALS (16 sets, daily range): BP systolic 111–143; BP diastolic 53–95
[2019-10-17] MEDS: METOCLOPRAMIDE INJ 10MG/2ML VIAL (J2765) IV SCH ×4 (02:22→20:44)
[2019-10-17] MEDS: KCL 20MEQ IN D5/0.45NS 1000ML 1,000 ML IV SCH ×3 (04:29→17:15)
[2019-10-17 05:54] LABS: MEAN CORPUSCULAR HEMOGLOBIN 29.8 pg (27.0-33.0); MEAN CORPUSCULAR HGB CONC 32.2 g/dl (32.0-36.5); MEAN CORPUSCULAR VOLUME 92.6 fl (80.0-96.0); RED BLOOD COUNT 2.15 10^6/uL (4.00-5.40); WHITE BLOOD COUNT 3.6 10^3/uL (4.0-10.0)
[2019-10-17 05:55] LABS: HEMATOCRIT 19.9 % (36.0-47.0); HEMOGLOBIN 6.4 g/dl (12.0-15.5)
[2019-10-17 05:59] LABS: PLATELET COUNT, AUTOMATED 44 10^3/uL (150-450)
[2019-10-17 06:40] LABS: ALBUMIN 3.1 GM/DL (3.2-5.2); ALT/SGPT 30 U/L (12-78); BILIRUBIN,TOTAL 0.5 MG/DL (0.2-1.0); BLOOD UREA NITROGEN 11 MG/DL (7-18); CARBON DIOXIDE LEVEL 28 MEQ/L (21-32); CHLORIDE LEVEL 108 MEQ/L (98-107); CREATININE FOR GFR 0.54 MG/DL (0.55-1.30); GLOMERULAR FILTRATION RATE > 60.0 (>45); GLUCOSE, FASTING 102 MG/DL (70-100); SODIUM LEVEL 139 MEQ/L (136-145); TOTAL PROTEIN 5.5 GM/DL (6.4-8.2)
[2019-10-17] MEDS: ONDANSETRON 4MG/2ML VIAL (J2405) IV PRN ×2 (06:42→12:52)
[2019-10-17] MEDS: ALBUTEROL SULFATE 2.5 MG/0.5 ML INH NEB SOLN INH SCH ×3 (08:00→20:00)
--- NOTE | 2019-10-17 08:11 | IPNPDOC ---
Text Note Date of Service The patient was seen on 10/16/19. NOTE This is a note for an encounter on 10/16/2019: Subjective: -Profound nausea with dry heaving, not responding to zofran 4mg -Otherwise no pain at this time Objective: General: Pale, ill appearing, lying in bed in NAD HEENT: Alopecia, anicteric, pallor, MMM, clear posterior oropharynx Pulm: CTAB Cardiac: RRR, no noted murmurs, no JVD Ext: No edema, warm, good pulses Neuro: Cranial nerves appear intact, no focal deficits, AOx3 Labs: Worsening anemia, thrombocytopenia and borderline leukopenia. reviewed. WBC 3.6, Hgb 7.2, plts 66, Cr stable at 0.54 Micro: BCx negative, bland admission UA Assessment: 64 year old woman with squamous cells lung cancer on carbo/etop/atezo, last tx on 10/10/2019 who presented with abdominal pain with profound nausea with dry heaving with course complicated by persistent nausea and dry heaving with ongoing antiemetics escalation and now dropping counts with worsening anemia, thrombocytopenia and leukopenia. Plan: 1. Abdominal pain, etiology is unknown. Likely to be related to chemotherapy. -continue IV fluids with K at 125cc/hr -Pain has subsided with adequate analgesics N/V persists, for now placed on zofran at 8Q6 IV PRN, compazine 10Q6 PRN and reglan 10Q6 IV PRN -EKG 10/17 AM given escalating antiemetics -continue protonix 2. Diabetes. His last hemoglobin A1c was 6% showing excellent control on dietary therapy. -Monitored blood sugars in daily BMP 3. Hypertension. -Continue lisinopril 5 mg daily. 4. Hyperlipidemia. -Continue current dose of atorvastatin. 5. Urinary incontinence. -Continue oxybutynin 5 mg twice a day. 6. History of depression. -Continue sertraline 50 mg daily to avoid selective serotonin reuptake inhibitor (SSRI) withdrawal syndrome. 7. Developing pancytopenia in the setting of recent chemotherapy: -monitor daily -supportive blood products as needed DVT ppx: none, give declining platelets Dispo: inpatient VS,Fishbone, I+O VS, Fishbone, I+O Laboratory Tests 10/17/19 05:39 Vital Signs Date Time Temp Pulse Resp B/P (MAP) Pulse Ox O2 Delivery O2 Flow Rate FiO2 10/17/19 06:00 97.4 77 18 122/55 (77) 95 Room Air I&O- Last 24 Hours up to 6 AM 10/17/19 06:00 Intake Total 3350 ml Output Total 2200 ml Balance 1150 ml FARZAD LORENZANA MD Oct 17, 2019 08:11
[2019-10-17] MEDS: SODIUM CHLORIDE 0.9% INJ 10 ML SYR IV SCH (09:00)
[2019-10-17] MEDS: POTASSIUM CHLORIDE 10 MEQ SR TABLET PO SCH ×2 (09:16→20:45)
[2019-10-17] MEDS: oxyBUTYnin 5 MG TAB PO SCH ×2 (09:16→20:44)
[2019-10-17] MEDS: LISINOPRIL 5 MG TAB PO SCH (09:16)
[2019-10-17] MEDS: ATORVASTATIN 20 MG TAB PO SCH (09:16)
[2019-10-17] MEDS: SERTRALINE HCL 50 MG TAB PO SCH (09:16)
--- NOTE | 2019-10-17 17:54 | IPNPDOC ---
Text Note Date of Service The patient was seen on 10/17/19. NOTE Subjective: -Much improvement in her nausea and dry heaving -Otherwise no abdominal pain at this time Objective: Vitals: see below. hemodynamically stable and afebrile General: Very pale as has been previously noted, ill appearing, sitting up in bed in NAD, more awake, alert and interactive today, conversant even. HEENT: Alopecia, anicteric, pallor, MMM, clear posterior oropharynx Pulm: CTAB Cardiac: RRR, no noted murmurs, no JVD Abd: Normoactive bowel sounds, distended, nontender on palpation Ext: No edema, warm, good pulses Neuro: Cranial nerves appear intact, no focal deficits, AOx3 Labs: Worsening anemia, thrombocytopenia and borderline leukopenia. reviewed. WB C 3.6, Hgb 6.4, plts 44, Cr stable at 0.54 Micro: BCx negative, bland admission UA Assessment: 64 year old woman with squamous cells lung cancer on carbo/etop/atezo, last tx on 10/10/2019 who presented with abdominal pain with profound nausea with dry heaving with course complicated by persistent nausea and dry heaving with ongoing antiemetics escalation and now dropping counts with worsening anemia, thrombocytopenia and leukopenia. Plan: 1. Abdominal pain, etiology is unknown. Likely to be related to chemotherapy with profound nausea -continue IV fluids with K at 125cc/hr -Pain has subsided with adequate analgesics N/V persists, for now placed on zofran at 8Q6 IV PRN, compazine 10Q6 PRN and reglan 10Q6 IV PRN and working relative well -Follow up on ordered EKG not yet done, given escalating antiemetics -continue protonix -Liberalize her diet to regular, she hates the jello diet and it makes her nauseous, prefers soup 2. Diabetes. His last hemoglobin A1c was 6% showing excellent control on dietary therapy. -Monitored blood sugars in daily BMP 3. Hypertension. -Continue lisinopril 5 mg daily. 4. Hyperlipidemia. -Continue current dose of atorvastatin. 5. Urinary incontinence. -Continue oxybutynin 5 mg twice a day. 6. History of depression. -Continue sertraline 50 mg daily to avoid selective serotonin reuptake inhibitor (SSRI) withdrawal syndrome. 7. Developing pancytopenia 2/2 reent chemotherapy: -monitor daily -supportive blood products as needed, receiving 2u of pRBCs today -neutropenic precautions 8. SCLC: on carbo/etoposide/atezo on 10/10. -developing post chemo pancytopenia and giving supportive measures and products as stated above -To call oncologist on Tuesday, did not get to before 5PM today DVT ppx: none, given worsening thrombocytopenia, SCDs Dispo: inpatient VS,Fishbone, I+O VS, Fishbone, I+O Laboratory Tests 10/17/19 05:39 Vital Signs Date Time Temp Pulse Resp B/P (MAP) Pulse Ox O2 Delivery O2 Flow Rate FiO2 10/17/19 06:00 97.4 77 18 122/55 (77) 95 Room Air I&O- Last 24 Hours up to 6 AM 10/17/19 06:00 Intake Total 3350 ml Output Total 2200 ml Balance 1150 ml FARZAD LORENZANA MD Oct 17, 2019 08:14
[2019-10-17] MEDS: PANTOPRAZOLE 40MG INJ (PROTONIX) (C9113) IV SCH (20:44)
[2019-10-18] VITALS (7 sets, daily range): BP systolic 123–147; BP diastolic 60–68
[2019-10-18] MEDS: KCL 20MEQ IN D5/0.45NS 1000ML 1,000 ML IV SCH ×3 (01:15→16:15)
[2019-10-18] MEDS: METOCLOPRAMIDE INJ 10MG/2ML VIAL (J2765) IV SCH ×4 (01:59→20:16)
[2019-10-18] MEDS: ONDANSETRON 4MG/2ML VIAL (J2405) IV PRN (04:13)
[2019-10-18 05:46] LABS: HEMATOCRIT 23.7 % (36.0-47.0); HEMOGLOBIN 7.8 g/dl (12.0-15.5); MEAN CORPUSCULAR HEMOGLOBIN 30.2 pg (27.0-33.0); MEAN CORPUSCULAR HGB CONC 32.9 g/dl (32.0-36.5); MEAN CORPUSCULAR VOLUME 91.9 fl (80.0-96.0); RED BLOOD COUNT 2.58 10^6/uL (4.00-5.40)
[2019-10-18 06:09] LABS: ALBUMIN 3.1 GM/DL (3.2-5.2); ALT/SGPT 26 U/L (12-78); BILIRUBIN,TOTAL 1.2 MG/DL (0.2-1.0); BLOOD UREA NITROGEN 12 MG/DL (7-18); CARBON DIOXIDE LEVEL 27 MEQ/L (21-32); CHLORIDE LEVEL 109 MEQ/L (98-107); CREATININE FOR GFR 0.61 MG/DL (0.55-1.30); GLOMERULAR FILTRATION RATE > 60.0 (>45); GLUCOSE, FASTING 105 MG/DL (70-100); POTASSIUM SERUM 4.3 MEQ/L (3.5-5.1); SODIUM LEVEL 141 MEQ/L (136-145); TOTAL PROTEIN 5.2 GM/DL (6.4-8.2)
[2019-10-18 06:11] LABS: PLATELET COUNT, AUTOMATED 26 10^3/uL (150-450); WHITE BLOOD COUNT 1.9 10^3/uL (4.0-10.0)
[2019-10-18] MEDS: ALBUTEROL SULFATE 2.5 MG/0.5 ML INH NEB SOLN INH SCH ×4 (07:34→20:00)
[2019-10-18] MEDS: SODIUM CHLORIDE 0.9% INJ 10 ML SYR IV SCH (07:55)
[2019-10-18] MEDS: ATORVASTATIN 20 MG TAB PO SCH (08:06)
[2019-10-18] MEDS: oxyBUTYnin 5 MG TAB PO SCH ×2 (08:06→20:16)
[2019-10-18] MEDS: POTASSIUM CHLORIDE 10 MEQ SR TABLET PO SCH (08:06)
[2019-10-18] MEDS: LISINOPRIL 5 MG TAB PO SCH (08:06)
[2019-10-18] MEDS: SERTRALINE HCL 50 MG TAB PO SCH (08:06)
[2019-10-18 08:49] LABS: BASO % 1.1 % (0.0-1.0); EOS % 1.1 % (0.0-3.0); LYMPH # 0.7 10^3/uL (1.5-5.0); MONO # 0.1 10^3/uL (0.0-0.8); MONO % 5.1 % (0.0-5.0); NEUTROPHILS % 45.6 % (36.0-66.0)
[2019-10-18 08:59] LABS: NEUTROPHILS # 0.8 10^3/uL (1.5-8.5)
--- NOTE | 2019-10-18 11:44 | ECGEPIP ---
[facility] Test Date: 2019-10-17 Pat Name: ABBE BLOOD Department: Room: [place] [address] Gender: Female Hourly Shift: KARLA : 1955 Requested By: FARZAD Abraham Order Number: [id number] Reading MD: Dereck Govea Measurements Intervals [place] Rate: 80 P: 64 HI: 176 QRS: 2 QRSD: 78 T: 69 QT: 351 QTc: 405 Interpretive Statements SINUS RHYTHM SEPTAL INFARCT, PROBABLY OLD NON-SPECIFIC STT ABNORMALITIES SEPTAL INFARCT NEW COMPARED TO 10/15/2019 LIKELY DUE TO DIFFERENT LEAD PLACEMENT Electronically Signed on 10-18-2019 11:44:40 EST by Dereck Govea
--- NOTE | 2019-10-18 13:15 | IPNPDOC ---
Text Note Date of Service The patient was seen on 10/18/19. NOTE Subjective: -Great improvement in her nausea, tolerating a regular diet -No abdominal pain at this time -No subjective fevers, chills, bleeding, diarrhea, or sore throat. 12 point ROS was reviewed and otherwise negative Objective: Vitals: see below. hemodynamically stable and afebrile General: Pale, lying in bed in NAD, conversant, expecting daughter to visit her today HEENT: Alopecia, anicteric, pallor, MMM, clear posterior oropharynx Pulm: CTAB Cardiac: RRR, no noted murmurs, no JVD Abd: Normoactive bowel sounds, distended, nontender on palpation Ext: No edema, warm, good pulses Neuro: Cranial nerves appear intact, no focal deficits, AOx3 Labs: Reviewed. Worsening pancytopenia. WBC 1,8, ANC 0.8, Hgb now 7.8 after 2u pRBCs yesterday, plts 26 Micro: BCx negative, bland admission UA EKG: with QTc <400. NSR Assessment: 64 year old woman with squamous cells lung cancer on carbo/etop/atezo, last tx on 10/10/2019 who presented with abdominal pain with profound nausea with dry heaving with course complicated now under control with 3 IV antiemetics, with course now c/b worsening pancytopenia 2/2 recent chemo. Plan: 1. Abdominal pain, etiology is unknown. Likely to be related to chemotherapy with profound nausea -continue IV fluids with 20K at 125cc/hr -Pain has subsided with adequate analgesics -Continue zofran 8Q6 IV PRN, compazine 10Q6 PRN and reglan 10Q6 IV PRN working relative well staggered -EKG was without prolonged QTc on 10/17 -continue protonix -Tolerating some of her regular diet now 2. Diabetes. His last hemoglobin A1c was 6% showing excellent control on dietary therapy. -Monitored blood sugars in daily BMP 3. Hypertension. -Continue lisinopril 5 mg daily. 4. Hyperlipidemia. -Continue current dose of atorvastatin. 5. Urinary incontinence. -Continue oxybutynin 5 mg twice a day. 6. History of depression. -Continue sertraline 50 mg daily to avoid selective serotonin reuptake inhibitor (SSRI) withdrawal syndrome. 7. Worsening pancytopenia 2/2 recent chemotherapy: -monitor daily -supportive blood products as needed, s/p 2u of pRBCs on 10/17 -neutropenic precautions -Spoke with Dr. Genao, covering for onc about pancytopenia and recommended on holding off the granulocyte stimulant (neupogen) at this time, may need it if pancytopenia worsens and is persistent. 8. SCLC: on carbo/etoposide/atezo on 10/10. -developing post chemo pancytopenia and giving supportive measures and products as stated above -To call oncologist on Tuesday, did not get to before 5PM today DVT ppx: none, given worsening thrombocytopenia, SCDs Dispo: inpatient floor until ANC>1.5 and nausea can be controlled with PO antiemetics VS,Fishbone, I+O VS, Fishbone, I+O Laboratory Tests 10/18/19 05:28 Vital Signs Date Time Temp Pulse Resp B/P (MAP) Pulse Ox O2 Delivery O2 Flow Rate FiO2 10/18/19 10:00 98.7 78 18 147/68 (94) 98 Room Air I&O- Last 24 Hours up to 6 AM 10/18/19 06:00 Intake Total 3000 ml Output Total 1500 ml Balance 1500 ml FARZAD LORENZANA MD Oct 18, 2019 13:15
[2019-10-18] MEDS: PANTOPRAZOLE 40MG INJ (PROTONIX) (C9113) IV SCH (17:23)
[2019-10-19] MEDS: KCL 20MEQ IN D5/0.45NS 1000ML 1,000 ML IV SCH ×2 (00:31→08:24)
[2019-10-19] MEDS: METOCLOPRAMIDE INJ 10MG/2ML VIAL (J2765) IV SCH ×4 (01:24→20:54)
[2019-10-19 02:00] VITALS: BP 125/62
[2019-10-19 06:00] VITALS: BP 109/46
[2019-10-19 06:33] LABS: HEMATOCRIT 24.3 % (36.0-47.0); MEAN CORPUSCULAR HEMOGLOBIN 30.3 pg (27.0-33.0); MEAN CORPUSCULAR HGB CONC 32.9 g/dl (32.0-36.5); RED BLOOD COUNT 2.64 10^6/uL (4.00-5.40)
[2019-10-19 06:38] LABS: ALBUMIN 3.1 GM/DL (3.2-5.2); ALT/SGPT 25 U/L (12-78); BILIRUBIN,TOTAL 0.6 MG/DL (0.2-1.0); BLOOD UREA NITROGEN 8 MG/DL (7-18); CALCIUM LEVEL 8.4 MG/DL (8.8-10.2); CARBON DIOXIDE LEVEL 27 MEQ/L (21-32); CHLORIDE LEVEL 108 MEQ/L (98-107); CREATININE FOR GFR 0.58 MG/DL (0.55-1.30); GLOMERULAR FILTRATION RATE > 60.0 (>45); GLUCOSE, FASTING 111 MG/DL (70-100); POTASSIUM SERUM 4.2 MEQ/L (3.5-5.1); SODIUM LEVEL 141 MEQ/L (136-145); TOTAL PROTEIN 5.5 GM/DL (6.4-8.2)
[2019-10-19 06:40] LABS: WHITE BLOOD COUNT 1.3 10^3/uL (4.0-10.0)
[2019-10-19 06:42] LABS: PLATELET COUNT, AUTOMATED 13 10^3/uL (150-450)
[2019-10-19] MEDS: ALBUTEROL SULFATE 2.5 MG/0.5 ML INH NEB SOLN INH SCH ×4 (07:47→19:41)
[2019-10-19] MEDS: SERTRALINE HCL 50 MG TAB PO SCH (08:21)
[2019-10-19] MEDS: oxyBUTYnin 5 MG TAB PO SCH ×2 (08:21→20:55)
[2019-10-19] MEDS: ATORVASTATIN 20 MG TAB PO SCH (08:22)
[2019-10-19] MEDS: LISINOPRIL 5 MG TAB PO SCH (08:22)
[2019-10-19] MEDS: SODIUM CHLORIDE 0.9% INJ 10 ML SYR IV SCH (08:24)
[2019-10-19 10:00] VITALS: BP 116/62
[2019-10-19 13:00] LABS: BASO % 0.8 % (0.0-1.0); EOS % 2.3 % (0.0-3.0); LYMPH # 0.8 10^3/uL (1.5-5.0); LYMPH % 62.1 % (24.0-44.0); MONO # 0.1 10^3/uL (0.0-0.8); MONO % 6.1 % (0.0-5.0); NEUTROPHILS % 28.7 % (36.0-66.0)
[2019-10-19 13:01] LABS: NEUTROPHILS # 0.4 10^3/uL (1.5-8.5)
--- NOTE | 2019-10-19 13:18 | IPNPDOC ---
Text Note Date of Service The patient was seen on 10/19/19. NOTE Subjective: -Nausea well controlled with IV antimetics -Anxious to get home and asking when she might be able to go -No abdominal pain -No subjective fevers, chills, bleeding, diarrhea, or sore throat. 10 point ROS was reviewed and otherwise negative Objective: Vitals: see below. hemodynamically stable and afebrile General: Pale, grooming herself in NAD, conversant, asking about potential of discharge home HEENT: Alopecia, anicteric, pallor, MMM, clear posterior oropharynx Pulm: CTAB Cardiac: RRR, no noted murmurs, no JVD Abd: Normoactive bowel sounds, obese, non distended, nontender on palpation Ext: No edema, warm, good pulses Neuro: Cranial nerves appear intact, no focal deficits, AOx3, normal gait Labs: Reviewed. Worsening pancytopenia. WBC 1,3, ANC pending, Hgb stable at 8, plts downtrended to 13 Micro: BCx negative, bland admission UA EKG: with QTc <400. NSR on 10/17 Assessment: 64 year old woman with squamous cells lung cancer on carbo/etop/atezo, last tx on 10/10/2019 who presented with abdominal pain with profound nausea with dry heaving with course complicated now under control with 3 IV antiemetics, with course now c/b worsening pancytopenia 2/2 recent chemo. Plan: 1. Abdominal pain, etiology is unknown. Likely to be related to chemotherapy with profound nausea -continue IV fluids with 20K at 125cc/hr -Pain has subsided with adequate analgesics -Switch zofran 8Q6 IV PRN to PO, while maintaining compazine 10Q6 PRN if persistent -continue protonix -Tolerating a regular diet now 2. Diabetes. His last hemoglobin A1c was 6% showing excellent control on dietary therapy. -Monitored blood sugars in daily BMP 3. Hypertension. -Continue lisinopril 5 mg daily. 4. Hyperlipidemia. -Continue current dose of atorvastatin. 5. Urinary incontinence. -Continue oxybutynin 5 mg twice a day. 6. History of depression. -Continue sertraline 50 mg daily to avoid selective serotonin reuptake inhibitor (SSRI) withdrawal syndrome. 7. Worsening pancytopenia 2/2 recent chemotherapy: -monitor daily -supportive blood products as needed, s/p 2u of pRBCs on 10/17 -neutropenic precautions -Spoke with Dr. Genao, covering for onc about pancytopenia and no neupogen at this time, may need it if pancytopenia worsens and is persistent. -Goal plts>10 when afebrile, >20 if febrile, >50 if evidence of bleeding -Hgb goal>8 8. SCLC: on carbo/etoposide/atezo on 10/10. -developing post chemo pancytopenia and giving supportive measures and products as stated above DVT ppx: none, given worsening thrombocytopenia, SCDs Dispo: inpatient floor until ANC>1.5 and nausea can be controlled with PO antiemetics VS,Fishbone, I+O VS, Fishbone, I+O Laboratory Tests 10/19/19 05:56 Vital Signs Date Time Temp Pulse Resp B/P (MAP) Pulse Ox O2 Delivery O2 Flow Rate FiO2 10/19/19 10:00 97.8 90 16 116/62 (80) 96 Room Air I&O- Last 24 Hours up to 6 AM 10/19/19 06:00 Intake Total 2156 ml Output Total 0 ml Balance 2156 ml FARZAD LORENZANA MD Oct 19, 2019 13:18
[2019-10-19] MEDS ORDERED: ONDANSETRON 4 MG TAB (S0181) PO PRN (13:45)
[2019-10-19] MEDS ORDERED: FLUCONAZOLE 50MG TABLET PO ONE (13:45)
[2019-10-19 14:00] VITALS: BP 122/62
[2019-10-19] MEDS: SODIUM CHLORIDE 0.9% INJ 10 ML SYR IV PRN ×3 (16:38→20:55)
[2019-10-19] MEDS: PANTOPRAZOLE 40MG INJ (PROTONIX) (C9113) IV SCH (17:59)
[2019-10-19 18:00] VITALS: BP 123/56
[2019-10-19] MEDS: CLOTRIMAZOLE 1% VAG CR 45 GM TOP SCH (20:55)
[2019-10-19 22:00] VITALS: BP 141/68
[2019-10-20] VITALS (9 sets, daily range): BP systolic 107–152; BP diastolic 49–71
[2019-10-20] MEDS: SODIUM CHLORIDE 0.9% INJ 10 ML SYR IV PRN ×2 (02:11→05:51)
[2019-10-20] MEDS: METOCLOPRAMIDE INJ 10MG/2ML VIAL (J2765) IV SCH (02:11)
[2019-10-20 06:12] LABS: HEMATOCRIT 24.6 % (36.0-47.0); MEAN CORPUSCULAR HGB CONC 32.5 g/dl (32.0-36.5); MEAN CORPUSCULAR VOLUME 92.1 fl (80.0-96.0); RED BLOOD COUNT 2.67 10^6/uL (4.00-5.40)
[2019-10-20 06:40] LABS: ALBUMIN 3.1 GM/DL (3.2-5.2); ALT/SGPT 26 U/L (12-78); BILIRUBIN,TOTAL 0.6 MG/DL (0.2-1.0); BLOOD UREA NITROGEN 9 MG/DL (7-18); CALCIUM LEVEL 8.7 MG/DL (8.8-10.2); CARBON DIOXIDE LEVEL 29 MEQ/L (21-32); CHLORIDE LEVEL 106 MEQ/L (98-107); CREATININE FOR GFR 0.69 MG/DL (0.55-1.30); GLOMERULAR FILTRATION RATE > 60.0 (>45); GLUCOSE, FASTING 82 MG/DL (70-100); POTASSIUM SERUM 4.2 MEQ/L (3.5-5.1); SODIUM LEVEL 141 MEQ/L (136-145); TOTAL PROTEIN 5.8 GM/DL (6.4-8.2)
[2019-10-20 06:42] LABS: WHITE BLOOD COUNT 1.7 10^3/uL (4.0-10.0)
[2019-10-20 06:44] LABS: PLATELET COUNT, AUTOMATED 9 10^3/uL (150-450)
[2019-10-20] MEDS: ALBUTEROL SULFATE 2.5 MG/0.5 ML INH NEB SOLN INH SCH ×4 (07:34→20:00)
[2019-10-20 07:51] LABS: BASO % 0.6 % (0.0-1.0); EOS % 1.7 % (0.0-3.0); LYMPH # 1.1 10^3/uL (1.5-5.0); LYMPH % 60.6 % (24.0-44.0); MONO # 0.1 10^3/uL (0.0-0.8); MONO % 5.6 % (0.0-5.0); NEUTROPHILS % 30.9 % (36.0-66.0)
[2019-10-20 07:57] LABS: NEUTROPHILS # 0.6 10^3/uL (1.5-8.5)
[2019-10-20] MEDS: POTASSIUM CHLORIDE 10 MEQ SR TABLET PO SCH (08:43)
[2019-10-20] MEDS: oxyBUTYnin 5 MG TAB PO SCH ×2 (08:43→21:09)
[2019-10-20] MEDS: ATORVASTATIN 20 MG TAB PO SCH (08:44)
[2019-10-20] MEDS: SERTRALINE HCL 50 MG TAB PO SCH (08:44)
[2019-10-20] MEDS: LISINOPRIL 5 MG TAB PO SCH (08:46)
[2019-10-20] MEDS: SODIUM CHLORIDE 0.9% INJ 10 ML SYR IV SCH (08:46)
[2019-10-20] MEDS: CLOTRIMAZOLE 1% VAG CR 45 GM TOP SCH ×2 (08:47→21:10)
[2019-10-20] MEDS: PANTOPRAZOLE 40MG INJ (PROTONIX) (C9113) IV SCH (17:25)
--- NOTE | 2019-10-20 17:38 | IPNPDOC ---
Text Note Date of Service The patient was seen on 10/20/19. NOTE Subjective: -Nausea well controlled now with good PO -Yesterday she reported symptoms c/w vaginal candidiasis and got 150mg fluconazole and started on clotrimazole external cream for relief --> this morning has some improvement in the itching. -No abdominal pain -No subjective fevers, chills, bleeding, diarrhea, or sore throat. 10 point ROS was reviewed and otherwise negative Objective: Vitals: see below. hemodynamically stable and afebrile General: Pale, no NAD, conversant HEENT: Alopecia, anicteric, pallor, MMM, clear posterior oropharynx with no thrush or lesions Pulm: CTAB Cardiac: RRR, no noted murmurs, no JVD Abd: Normoactive bowel sounds, obese, non distended, nontender on palpation Ext: No edema, warm, good pulses Neuro: Cranial nerves appear intact, no focal deficits, AOx3, normal gait Labs: Reviewed. Worsening pancytopenia. WBC 1.7 this AM from 1.3, ANC now back up to 0.6, Hgb stable at 8, plts now 9 Micro: BCx negative, bland admission UA EKG: with QTc <400. NSR on 10/17 Assessment: 64 year old woman with squamous cells lung cancer on carbo/etop/atezo, last tx on 10/10/2019 who presented with abdominal pain with profound nausea with dry heaving with course complicated now under control, with course c/b worsening pancytopenia 2/2 recent chemo. Plan: 1. Abdominal pain, etiology is unknown. Likely to be related to chemotherapy with profound nausea -s/p IV fluids, now taking good PO -Pain has resolved with adequate analgesics -Continue zofran 8Q6 IV PRN to PO, dc IV reglan -continue protonix PO -Tolerating a regular diet now 2. Diabetes. His last hemoglobin A1c was 6% showing excellent control on dietary therapy. -Monitorblood sugars in daily BMP 3. Hypertension. -Continue lisinopril 5 mg daily. 4. Hyperlipidemia. -Continue current dose of atorvastatin. 5. Urinary incontinence. -Continue oxybutynin 5 mg twice a day. 6. History of depression. -Continue sertraline 50 mg daily to avoid selective serotonin reuptake inhibitor (SSRI) withdrawal syndrome. 7. Worsening pancytopenia 2/2 recent chemotherapy: -monitor daily -supportive blood products as needed, s/p 2u of pRBCs on 10/17, and got 1 pool of platelets 10/20 -neutropenic precautions -Spoke with Dr. Genao, covering for onc about pancytopenia and no neupogen at this time, may need it if pancytopenia worsens and is persistent, will monitor for now -Goal plts>10 when afebrile, >20 if febrile, >50 if evidence of bleeding. Transfuse 1 pool of leukoreduced platelets this morning, 10/20. -Hgb goal>8 8. SCLC: on carbo/etoposide/atezo on 10/10. -Has post chemo pancytopenia and giving supportive measures and products as stated above -Will follow up with oncologist as an outpatient DVT ppx: none, given thrombocytopenia, SCDs Dispo: inpatient floor until ANC>500 and nausea can be controlled with PO antiemetics VS,Fishbone, I+O VS, Fishbone, I+O Laboratory Tests 10/20/19 05:53 Vital Signs Date Time Temp Pulse Resp B/P (MAP) Pulse Ox O2 Delivery O2 Flow Rate FiO2 10/20/19 06:00 97.6 78 15 152/71 (98) 98 Room Air I&O- Last 24 Hours up to 6 AM 10/20/19 06:00 Intake Total 3110 ml Balance 3110 ml FARZAD LORENZANA MD Oct 20, 2019 07:43
[2019-10-21] VITALS (11 sets, daily range): BP systolic 107–133; BP diastolic 55–77
[2019-10-21 05:32] LABS: HEMATOCRIT 24.2 % (36.0-47.0); HEMOGLOBIN 7.9 g/dl (12.0-15.5); MEAN CORPUSCULAR HEMOGLOBIN 30.5 pg (27.0-33.0); MEAN CORPUSCULAR HGB CONC 32.6 g/dl (32.0-36.5); MEAN CORPUSCULAR VOLUME 93.4 fl (80.0-96.0); RED BLOOD COUNT 2.59 10^6/uL (4.00-5.40); WHITE BLOOD COUNT 2.3 10^3/uL (4.0-10.0)
[2019-10-21 05:37] LABS: PLATELET COUNT, AUTOMATED 7 10^3/uL (150-450)
[2019-10-21 06:02] LABS: ALBUMIN 3.2 GM/DL (3.2-5.2); ALT/SGPT 25 U/L (12-78); BILIRUBIN,TOTAL 0.5 MG/DL (0.2-1.0); BLOOD UREA NITROGEN 9 MG/DL (7-18); CALCIUM LEVEL 8.5 MG/DL (8.8-10.2); CARBON DIOXIDE LEVEL 29 MEQ/L (21-32); CHLORIDE LEVEL 108 MEQ/L (98-107); CREATININE FOR GFR 0.67 MG/DL (0.55-1.30); GLOMERULAR FILTRATION RATE > 60.0 (>45); GLUCOSE, FASTING 86 MG/DL (70-100); SODIUM LEVEL 142 MEQ/L (136-145); TOTAL PROTEIN 5.9 GM/DL (6.4-8.2)
[2019-10-21 07:15] LABS: BASO % 0.9 % (0.0-1.0); EOS % 1.4 % (0.0-3.0); LYMPH # 1.3 10^3/uL (1.5-5.0); LYMPH % 57.3 % (24.0-44.0); MONO # 0.1 10^3/uL (0.0-0.8); MONO % 4.6 % (0.0-5.0); NEUTROPHILS % 34.9 % (36.0-66.0)
[2019-10-21 07:18] LABS: NEUTROPHILS # 0.8 10^3/uL (1.5-8.5)
[2019-10-21] MEDS: ALBUTEROL SULFATE 2.5 MG/0.5 ML INH NEB SOLN INH SCH ×3 (07:29→15:09)
[2019-10-21] MEDS: ATORVASTATIN 20 MG TAB PO SCH (10:47)
[2019-10-21] MEDS: SERTRALINE HCL 50 MG TAB PO SCH (10:47)
[2019-10-21] MEDS: POTASSIUM CHLORIDE 10 MEQ SR TABLET PO SCH (10:47)
[2019-10-21] MEDS: LISINOPRIL 5 MG TAB PO SCH (10:48)
[2019-10-21] MEDS: oxyBUTYnin 5 MG TAB PO SCH (10:48)
[2019-10-21] MEDS: CLOTRIMAZOLE 1% VAG CR 45 GM TOP SCH (10:49)
[2019-10-21] MEDS: SODIUM CHLORIDE 0.9% INJ 10 ML SYR IV SCH (10:49)
[2019-10-21] MEDS: SODIUM CHLORIDE 0.9% INJ 10 ML SYR IV PRN (14:39)
[2019-10-21 15:58] LABS: HEMATOCRIT 23.1 % (36.0-47.0); HEMOGLOBIN 7.5 g/dl (12.0-15.5); MEAN CORPUSCULAR HEMOGLOBIN 30.4 pg (27.0-33.0); MEAN CORPUSCULAR HGB CONC 32.5 g/dl (32.0-36.5); MEAN CORPUSCULAR VOLUME 93.5 fl (80.0-96.0); RED BLOOD COUNT 2.47 10^6/uL (4.00-5.40); WHITE BLOOD COUNT 3.1 10^3/uL (4.0-10.0)
[2019-10-21 16:01] LABS: PLATELET COUNT, AUTOMATED 17 10^3/uL (150-450)
[2019-10-21] MEDS ORDERED: PROTPAK PO (16:25)
[2019-10-21] MEDS ORDERED: ONDA4TAB5 PO (16:25)
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
== END 2019-10-21 17:15 | disposition home or self-care (01) | DRG 660 ==
LOC: M ED 10:37 → M ED INP 10:38 → M MS4PR 18:34 → OBSVTOIN 10-16 20:42 → M MSPAV 10-17 16:02
PROVIDERS: ADMIT Family Medicine; ATTEND Internal Medicine
PROC: 30233N1 Transfusion of Nonautologous Red Blood Cells into Peripheral Vein, Percutaneous Approach (ICD-10-PCS; principal; 2019-10-17)
DX: D61.810 Antineoplastic chemotherapy induced pancytopenia (principal); E11.51 Type 2 diabetes mellitus with diabetic peripheral angiopathy without gangrene; I11.9 Hypertensive heart disease without heart failure; C34.91 Malignant neoplasm of unspecified part of right bronchus or lung; B37.3 Candidiasis of vulva and vagina; E55.9 Vitamin D deficiency, unspecified; J44.9 Chronic obstructive pulmonary disease, unspecified; R10.9 Unspecified abdominal pain; R11.2 Nausea with vomiting, unspecified; Z79.899 Other long term (current) drug therapy; E78.5 Hyperlipidemia, unspecified; G25.81 Restless legs syndrome; Z87.891 Personal history of nicotine dependence; R32 Unspecified urinary incontinence; F32.9 Major depressive disorder, single episode, unspecified

== ENCOUNTER 2019-10-25 08:23 | Outpatient (CLI) | payer OTHER ==
[~2019-10-25] VITALS: Ht 152.4 cm; Wt 91.6 kg
[2019-10-25] VITALS (9 sets, daily range): BP systolic 124–152; BP diastolic 56–71
[~2019-10-25 08:23] MED LIST changes: +CARB5INJ3 IV; +ONDA4TAB5 PO; +OXYB5TAB10 PO; +PANT40TA3 PO; +PEG6SYR SC; +PROTPAK PO; +TECE1200 IV; +[UNRECOGNIZED DRUG - CODE] IV
[2019-10-25] MEDS ORDERED: diphenhydrAMINE 50 MG CAP PO ONE (08:45)
[2019-10-25] MEDS ORDERED: ACETAMINOPHEN TAB 650MG DOSE (2X325MG) PO ONE (08:45)
[2019-10-25] MEDS ORDERED: SODIUM CHLORIDE 0.9% INJ 10 ML SYR IV SCH (09:00)
== END 2019-10-25 13:00 | disposition home or self-care (01) ==
LOC: M INFU 08:23
PROVIDERS: ATTEND Internal Medicine Medical Oncology
DX: D64.9 Anemia, unspecified (principal)
CPT/HCPCS: 36430; P9016

== ENCOUNTER → 2019-10-30 | Day surgery (SDC) | payer OTHER ==
[~2019-10-30] VITALS: Ht 152.4 cm; Wt 91.1 kg
[~2019-10-30] MED LIST changes: +LIDOCAINE 2% INJ 100 MG/5 ML SDV (FOR ANES.) As Ordered ONE; +NS 1,000 ML IV ONE; +PROPOFOL 200 MG/20 ML VIAL As Ordered ONE; +ePHEDrine SULFATE 25 MG/5 ML(5MG/ML) SYRINGE As Ordered ONE
--- NOTE | 2019-10-30 12:10 | ROOR ---
Patient Name: Gilmar John Procedure Date: 10/30/2019 11:07 AM Date of : 1955 Age: 64 Room: [facility] Gender: Female Note Status: Finalized Procedure: Upper GI endoscopy Indications: Acute post hemorrhagic anemia Providers: Shiv Dietz MD Referring MD: Ryann Jean Baptiste MD Requesting Provider: Medicines: Monitored Anesthesia Care Complications: No immediate complications. Procedure: Pre-Anesthesia Assessment: - Prior to the procedure, a History and Physical was performed, and patient medications and allergies were reviewed. The patient is competent. The risks and benefits of the procedure and the sedation options and risks were discussed with the patient. All questions were answered and informed consent was obtained. Patient identification and proposed procedure were verified by the physician, the nurse and the anesthesiologist in the procedure room. Mental Status Examination: alert and oriented. Airway Examination: normal oropharyngeal airway and neck mobility. Respiratory Examination: clear to auscultation. CV Examination: normal. Prophylactic Antibiotics: The patient does not require prophylactic antibiotics. Prior Anticoagulants: The patient has taken no previous anticoagulant or antiplatelet agents. ASA Grade Assessment: III - A patient with severe systemic disease. After reviewing the risks and benefits, the patient was deemed in satisfactory condition to undergo the procedure. The anesthesia plan was to use monitored anesthesia care (MAC). Immediately prior to administration of medications, the patient was re-assessed for adequacy to receive sedatives. The heart rate, respiratory rate, oxygen saturations, blood pressure, adequacy of pulmonary ventilation, and response to care were monitored throughout the procedure. The physical status of the patient was re-assessed after the procedure. The Endoscope was introduced through the mouth, and advanced to the second part of duodenum. The upper GI endoscopy was accomplished without difficulty. The patient tolerated the procedure well. Findings: The examined esophagus was normal. No gross lesions were noted in the entire examined stomach. Biopsies were taken with a cold forceps for Helicobacter pylori testing. Verification of patient identification for the specimen was done by the physician and nurse using the patient's name, date and medical record number. Estimated blood loss was minimal. One non-bleeding cratered duodenal ulcer with a clean ulcer base (Maurilio Class III) was found in the duodenal bulb. The lesion was 10 mm in largest dimension. Impression: - Normal esophagus. - No gross lesions in the stomach. Biopsied. - One non-bleeding duodenal ulcer with a clean ulcer base (Maurilio Class III). Recommendation: - Patient has a contact number available for emergencies. The signs and symptoms of potential delayed complications were discussed with the patient. Return to normal activities tomorrow. Written discharge instructions were provided to the patient. - Clear liquid diet for 1 day, then advance as tolerated to high fiber diet. - Continue present medications. - Await pathology results. - Use Protonix (pantoprazole) 40 mg PO twice daily - to be taken in morning (1/2 hour before breakfast) and at bedtime ( atleast 3 hours after last meal) for 8 weeks. - If Biopsy shows H. pylori will need therapy with antibiotic course.. - Telephone GI clinic for pathology results in 2 weeks. - Return to primary care physician. Shiv Dietz MD Shiv Dietz MD 10/30/2019 12:09:54 PM Electronically signed by Shiv Dietz MD Number of Addenda: 0 Note Initiated On: 10/30/2019 11:07 AM Estimated Blood Loss: Estimated blood loss was minimal.
[2019-10-30 12:26] VITALS: BP 122/57
--- NOTE | 2019-10-30 14:16 | ROOR ---
Patient Name: Gilmar John Procedure Date: 10/30/2019 11:08 AM Date of : 1955 Age: 64 Room: [facility] Gender: Female Note Status: Finalized Procedure: Colonoscopy Indications: Acute post hemorrhagic anemia Providers: Shiv Dietz MD Referring MD: Ryann Jean Baptiste MD Requesting Provider: Medicines: Monitored Anesthesia Care Complications: No immediate complications. Procedure: Pre-Anesthesia Assessment: - Prior to the procedure, a History and Physical was performed, and patient medications and allergies were reviewed. The patient is competent. The risks and benefits of the procedure and the sedation options and risks were discussed with the patient. All questions were answered and informed consent was obtained. Patient identification and proposed procedure were verified by the physician, the nurse and the anesthesiologist in the procedure room. Mental Status Examination: alert and oriented. Airway Examination: normal oropharyngeal airway and neck mobility. Respiratory Examination: clear to auscultation. CV Examination: normal. Prophylactic Antibiotics: The patient does not require prophylactic antibiotics. Prior Anticoagulants: The patient has taken no previous anticoagulant or antiplatelet agents. ASA Grade Assessment: III - A patient with severe systemic disease. After reviewing the risks and benefits, the patient was deemed in satisfactory condition to undergo the procedure. The anesthesia plan was to use monitored anesthesia care (MAC). Immediately prior to administration of medications, the patient was re-assessed for adequacy to receive sedatives. The heart rate, respiratory rate, oxygen saturations, blood pressure, adequacy of pulmonary ventilation, and response to care were monitored throughout the procedure. The physical status of the patient was re-assessed after the procedure. The Colonoscope was introduced through the anus and advanced to the terminal ileum, with identification of the appendiceal orifice and IC valve. The colonoscopy was performed without difficulty. The patient tolerated the procedure well. The quality of the bowel preparation was good. The terminal ileum, ileocecal valve, appendiceal orifice, and rectum were photographed. Scope insertion time was 4 minutes. Scope withdrawal time was 9 minutes. The total duration of the procedure was 14 minutes. Findings: The perianal and digital rectal examinations were normal. The terminal ileum appeared normal. A 15 mm polyp was found in the ileocecal valve. The polyp was sessile. The polyp was removed with a cold snare. Resection and retrieval were complete. Verification of patient identification for the specimen was done by the physician and nurse using the patient's name, date and medical record number. Estimated blood loss was minimal. For hemostasis, two hemostatic clips were successfully placed. There was no bleeding at the end of the procedure. Two sessile polyps were found in the ascending colon. The polyps were 4 to 6 mm in size. These polyps were removed with a cold biopsy forceps. Resection and retrieval were complete. Non-bleeding external and internal hemorrhoids were found during retroflexion. The hemorrhoids were medium-sized. Impression: - The examined portion of the ileum was normal. - One 15 mm polyp at the ileocecal valve, removed with a cold snare. Resected and retrieved. Clips were placed. - Two 4 to 6 mm polyps in the ascending colon, removed with a cold biopsy forceps. Resected and retrieved. - Non-bleeding external and internal hemorrhoids. Recommendation: - Resume previous diet. - Continue present medications. - Await pathology results. - Repeat colonoscopy in 3 years for surveillance based on pathology results. - Return to GI clinic in [facility] (address [address], [address], [place] [address]) in 4 -- 6 weeks. Please call GI clinic @ [phone] for apppointment date and time. - Return to primary care physician. Shiv Dietz MD Shiv Dietz MD 10/30/2019 2:15:54 PM Electronically signed by Shiv Dietz MD Number of Addenda: 0 Note Initiated On: 10/30/2019 11:08 AM Estimated Blood Loss: Estimated blood loss was minimal.
== END | disposition home or self-care (01) ==
LOC: M OPP 10:32
PROVIDERS: ATTEND Internal Medicine Gastroenterology
DX: K64.8 Other hemorrhoids (principal); D12.0 Benign neoplasm of cecum; D12.2 Benign neoplasm of ascending colon; K26.9 Duodenal ulcer, unspecified as acute or chronic, without hemorrhage or perforation; D62 Acute posthemorrhagic anemia; E11.9 Type 2 diabetes mellitus without complications; Z79.899 Other long term (current) drug therapy

== ENCOUNTER → 2019-11-07 | Outpatient (CLI) | payer OTHER ==
[~2019-11-07] MED LIST changes: +ISOVUE-370 76% 100ML VIAL (Q9967) As Ordered ONE; -LIDOCAINE 2% INJ 100 MG/5 ML SDV (FOR ANES.) As Ordered ONE; -NS 1,000 ML IV ONE; -PROPOFOL 200 MG/20 ML VIAL As Ordered ONE; -ePHEDrine SULFATE 25 MG/5 ML(5MG/ML) SYRINGE As Ordered ONE
--- NOTE | 2019-11-07 15:48 | REP ---
CT brain: 11/07/2019. Indication: Small cell lung carcinoma. Metastatic workup. Comparison: None. Technique: Axial images of the brain were obtained from skull base to vertex with and without IV contrast. 75 ml Isovue 370 were administered. Findings: There is no acute intracranial hemorrhage, acute cortical infarction, mass effect, hydrocephalus or cranial pathologic contrast enhancement. The calvarium is intact. Impression: No acute intracranial process or intracranial metastatic disease. Electronically Signed by Fredi Pugh DO 11/07/2019 03:40 P
== END ==
LOC: M RAD 14:54
PROVIDERS: ATTEND Internal Medicine Medical Oncology
DX: C34.90 Malignant neoplasm of unspecified part of unspecified bronchus or lung (principal)
CPT/HCPCS: 70470; Q9967

== ENCOUNTER → 2019-12-17 | Outpatient (REF) | payer OTHER, MEDICAID ==
[~2019-12-17] MED LIST changes: +BISO5TAB14 PO; -BISO5TAB9 PO; -ISOVUE-370 76% 100ML VIAL (Q9967) As Ordered ONE; +ONDA-83 PO; -ONDA4TAB5 PO
[2019-12-17 18:06] LABS: APPEARANCE, URINE CLEAR (CLEAR); BACTERIA, URINE AUTO NEGATIVE (NEGATIVE); BILIRUBIN, URINE AUTO NEGATIVE (NEGATIVE); BLOOD, URINE BLOOD NEGATIVE (NEGATIVE); COLOR, URINE YELLOW (YELLOW); GLUCOSE, URINE (UA) AUTO NEGATIVE (NEGATIVE); KETONE, URINE AUTO NEGATIVE (NEGATIVE); LEUKOCYTE ESTERASE, URINE AUTO NEGATIVE (NEGATIVE); NITRITE, URINE AUTO NEGATIVE (NEGATIVE); PROTEIN, URINE AUTO NEGATIVE (NEGATIVE); RBC, URINE AUTO 0 /HPF (0-3); SPECIFIC GRAVITY URINE AUTO 1.015 (1.002-1.035); SQUAMOUS EPITHELIAL CELL UR AU 1 /HPF (0-6); WBC, URINE AUTO 2 /HPF (0-3)
== END ==
LOC: M SMT 17:10
PROVIDERS: ATTEND Nurse Practitioner Women's Health
DX: R39.15 Urgency of urination (principal)

== ENCOUNTER → 2019-12-18 | Outpatient (CLI) | payer OTHER ==
--- NOTE | 2019-12-19 13:05 | RADONC ---
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 STAGE: Limited. ECOG PERFORMANCE STATUS: 0. CONSULTATION NOTE: Ms. John is a very pleasant 64-year-old white female with what was originally thought to be a limited stage small-cell lung carcinoma who was initially seen by me on July 12, 2019 for discussion of thoracic consolidative radiation therapy combined with her chemotherapy. At that time, great care was taken in treatment planning and lung evaluation. It was determined that we could not incorporate the areas of disease safely within in a radiation field without causing significant damage to her breathing and quality of life. Since then, the patient has undergone chemotherapy consisting of four cycles of carboplatin, etoposide, and atezolizumab. Radiation was given from 08/08/2019 to 10/08/2019. A CT scan of the chest was done on September 14, 2019 and showed only a partial response. There was a 1.3 cm right paratracheal lymph node and a right lung mass measuring 2.1 cm. There were multiple pulmonary nodules present, particularly in the right lung, that had decreased in size. Some of the smaller nodules had even abated. This was noted to be a significant improvement, but still just a partial response. No PET scan has been done and no repeat CT scan of the chest has been done now over 3 months later. The patient has been referred to me, however, for discussion of prophylactic cranial irradiation. PAST MEDICAL HISTORY: The patient's past medical history is positive for arthritis, asthma, COPD, diabetes, hypercholesterolemia, hypertension and stress urinary incontinence. The patient has had cervical fusion surgery, cholecystectomy, dilation and curettage, hysterectomy, laminectomy, pilonidal cyst removal, and right carpal tunnel surgery, as well as, a tubal ligation. ALLERGIES: The patient has NO KNOWN DRUG ALLERGIES. SOCIAL HISTORY: The patient has smoked two packs of cigarettes per day for 43 years, for an 86 pack-year smoking history, she says she quit 10 years ago. She was a heavy drinker in the past, but quit drinking 15 years ago. FAMILY HISTORY: The patient's family history is positive for a father with lung cancer and a mother with leukemia. REVIEW OF SYSTEMS: The patient's review of systems is positive for shortness of breath and dental problems. It is otherwise generally noncontributory. Denies nausea, vomiting, fevers, chills, night sweats, diplopia, headaches, anxiety or depression, anorexia, weight loss, visual disturbances, chest pain, urinary or bowel difficulties, bone pain, or neurological problems. PHYSICAL EXAMINATION: The patient is a well-developed, well-nourished female in no acute distress. HEENT exam is normocephalic, atraumatic. Extraocular movements are intact. There is no palpable cervical, supraclavicular, infraclavicular, axillary, or inguinal lymphadenopathy present. Lungs are clear to auscultation and percussion. Heart has a regular rate and rhythm. Abdomen is benign with no hepatosplenomegaly, masses, or tenderness. Skeletal examination reveals no tenderness to pressure or percussion of the bony skeleton. Extremities reveal no clubbing, cyanosis, or edema. Neurologic exam is grossly intact, as is the remainder of the physical examination. ASSESSMENT: At this time, I do not believe this patient would be a candidate for prophylactic cranial irradiation. Indeed, she has only achieved a partial response to treatment as of her CT scan in August. Clearly, there is no theoretical basis for treating the brain when we have not achieved complete response below the blood brain barrier. At this time, however, I do not have all the information necessary. I am ordering a PET/CT scan to be undertaken to further evaluate her present level of disease. Indeed, the CT scan which she had done was delivered prior to her last chemotherapy. Once again, in summary, I am ordering a PET/CT scan to be undertaken on this patient to find out whether or not she is in remission. We will be seeing her following the PET/CT for reconsultation and final recommendations. If there is active disease, then clearly she would not be a candidate for prophylactic cranial irradiation. If there is no evidence of disease, then further discussion will be undertaken. Thank you for allowing us to participate in the care of this very pleasant woman. If I could be of any further assistance or provide you with any information, please feel free to contact me at anytime. As always warm regards. cc: MD Alexander Sanabria MD David Rechlin DO, [facility] Ryann Jean Baptiste MD
== END ==
LOC: M ONCR 13:26
PROVIDERS: ATTEND Radiology Radiation Oncology
DX: C34.91 Malignant neoplasm of unspecified part of right bronchus or lung (principal)

== ENCOUNTER → 2019-12-26 | Outpatient (CLI) | payer OTHER ==
--- NOTE | 2019-12-26 16:55 | REPMRS ---
Patient History The patient states she had a clinical breast exam in 07/2019. Patient is postmenopausal, has history of lung cancer at age 63, and had previous chemotherapy at age 63. Family history of endometrial cancer at age 50 or over in mother. No Hormone Replacement Therapy Digital Woman Screen Mammo: December 26, 2019 - Exam #: [id number] Bilateral CC and MLO view(s) were taken. Technologist: Sona Mulligan, Technologist Prior study comparison: April 13, 2018, digital woman screen mammo performed at [facility]. February 16, 2017, digital woman screen mammo performed at [facility]. January 16, 2016, digital woman screen mammo performed at [facility]. FINDINGS: There are scattered fibroglandular densities. There is a stable pattern of bilateral benign secretory calcifications. There has been no change in the appearance of the mammogram from the prior studies. There is a mild amount of scattered fibroglandular density which is fairly symmetric. There is no interval development of dominant mass, architectural distortion, or grouped microcalcification suggestive of malignancy. 3-D tomosynthesis shows no additional findings. Assessment: BI-RADS/ACR category 2 mammogram. Benign Findings. Recommendation Routine screening mammogram of both breasts in 1 year (for women over age 40). This patient's Lifetime Breast Cancer Risk is estimated at 6.9 %. This mammogram was interpreted with the aid of an FDA-approved computer-aided dectection system. Electronically Signed By: Axel Osei MD 12/26/19 0039
== END ==
LOC: M WHC 12:16
PROVIDERS: ATTEND Nurse Practitioner Family
DX: Z12.31 Encounter for screening mammogram for malignant neoplasm of breast (principal)

== ENCOUNTER → 2020-01-07 | Outpatient (CLI) | payer OTHER ==
[~2020-01-07] MED LIST changes: +GASTROGRAFIN SOLUTION 30ML (Q9963) As Ordered ONE; +ISOVUE-370 76% 100ML VIAL (Q9967) As Ordered ONE
[2020-01-07 14:00] LABS: BLOOD UREA NITROGEN 15 MG/DL (7-18); CREATININE FOR GFR 0.72 MG/DL (0.55-1.30); GLOMERULAR FILTRATION RATE > 60.0 (>45)
--- NOTE | 2020-01-07 15:33 | REP ---
CT chest with IV contrast: History: Malignant neoplasm of the right upper lobe. CT contrast dose: 100 mL of intravenous Isovue 370. CT comparison study: September 14, 2019. CT findings: There is a right-sided Egxotb-I-Bkff catheter noted in place. There is continued improvement in the residual small curvilinear band-like opacity at the site where originally, June 01, [address] study showed a 3 cm lung mass. There are stable scattered predominately subpleural non-calcified sub-centimeter pulmonary parenchymal nodules unchanged. No new pulmonary mass lesion or nodule is seen. No pleural effusion is noted. No adrenal lesion is seen. The bottom edge of the field of view demonstrates low density at the upper pole of the left kidney consistent with the previously identified cyst. No pleural or pericardial effusion is seen. There is vascular calcification including left coronary artery vascular calcification. No bony destructive lesion is seen. The patient is status post anterior discectomy and fusion plating in the cervical spine. Impression: Significant improvement noted right upper lobe opacity with a small residual curvilinear band of density. Stable subcentimeter noncalcified pulmonary nodules. No acute disease. Electronically Signed by Nirmal Osei MD 01/07/2020 04:23 P
--- NOTE | 2020-01-07 15:48 | REP ---
CT abdomen and pelvis with IV and oral contrast: History: Malignant neoplasm right upper lobe lung. Comparison CT abdomen and pelvis October 15, 2019. CT contrast dose: 100 mL of intravenous Isovue [address] findings: There is mild diffuse fatty infiltration of the liver again noted. No focal liver mass lesion is seen. No adrenal lesion is observed. Spleen is homogeneous in texture, and enlarged measuring 15.6 cm in craniocaudal dimension. This is similar to the prior study. 14.3 cm in craniocaudal span on 10/15/2019 by my measurement. No focal splenic lesion is seen. There is a cyst in the upper pole of the left kidney which measures 8.2 cm in greatest diameter. This is unchanged. No pancreatic lesion is observed. No retroperitoneal mass or adenopathy is seen. Small and large intestinal bowel loops are unremarkable. The uterus is surgically absent. No ovarian or adnexal pathology is appreciated. Small and large intestinal bowel loops are unremarkable. Urinary bladder is intact. Vascular calcification is noted in the aorta and its branches. Impression: Fatty infiltration of the liver. No acute abdominal or pelvic abnormality. Splenomegaly again observed. Left renal cyst unchanged. Electronically Signed by Nirmal Osei MD 01/07/2020 04:23 P
== END ==
LOC: M RAD 12:31
PROVIDERS: ATTEND Radiology Radiation Oncology
DX: C34.11 Malignant neoplasm of upper lobe, right bronchus or lung (principal)
CPT/HCPCS: 36415; 71260; 74177; 82565; 84520; Q9963; Q9967

== ENCOUNTER → 2020-04-24 | Outpatient (CLI) | payer OTHER ==
[~2020-04-24] MED LIST changes: -ISOVUE-370 76% 100ML VIAL (Q9967) As Ordered ONE; +ISOVUE-370 76% 100ML VIAL As Ordered ONE
--- NOTE | 2020-04-25 06:06 | REP ---
Clinical: History of small cell lung cancer. Technique: Axial contrast enhanced images from the thoracic inlet to the upper abdomen (followed by contrast enhanced CT of the abdomen and pelvis) with coronal and sagittal re-formations using 100 ml Isovue 370 intravenous contrast material. Comparison: 01/07/2020. Findings: The bilateral lung boggs are relatively well aerated, symmetric and essentially clear. Few small noncalcified nodules measuring up to approximately 3.5 mm (right upper lobe image 40) remain stable. Small band like area of scarring in the posterior right perihilar region remains unchanged. No consolidation, significant nodule or mass lesion. No pleural effusion. No pneumothorax. Tracheobronchial tree is patent. No axillary, hilar, or mediastinal adenopathy. Mediastinum demonstrates stable atherosclerotic changes to the thoracic aorta and coronary arteries without aortic aneurysm/dissection or cardiomegaly. No pericardial effusion. [id number] identified with tip in the SVC. Surrounding musculoskeletal structures are intact. Limited upper abdomen demonstrates normal bilateral adrenal glands and partial visualization of 6.9 cm left renal cyst. Impression: 1. No acute mediastinal or pleuroparenchymal process. No evidence for metastatic disease or recurrence. No adenopathy. 2. Few stable scattered noncalcified nodules unchanged. Electronically Signed by Cristhian Estrada MD 04/25/2020 05:58 A
--- NOTE | 2020-04-25 06:11 | REP ---
Clinical: History small cell lung cancer. Technique: Axial contrast enhanced images from the lung bases to the pubic symphysis using oral (per protocol) and 100 ml Isovue 370 intravenous contrast material with coronal and sagittal re-formations. Comparison: 01/07/2020. Findings: Hepatomegaly and hepatic steatosis again noted without focal hepatic lesion identified. Splenomegaly remains stable. Pancreas, bilateral adrenal glands, and right kidney are normal. Left kidney includes large 8.2 cm simple cyst unchanged from prior examination. Evidence of prior cholecystectomy noted. The enteric system is without obstruction or acute inflammatory process. Pelvis demonstrates normal bladder and evidence of prior hysterectomy. No ascites. No free air. No adenopathy. Atherosclerotic changes of the aorta and vasculature without aneurysm or dissection. Musculoskeletal structures demonstrate age-related changes without focal abnormality. Impression: 1. Stable hepatosplenomegaly and hepatic steatosis without focal hepatic or splenic lesion identified. 2. Stable simple 8.2 cm left renal cyst. 3. No further acute abdominopelvic pathology appreciated. Electronically Signed by Cristhian Estrada MD 04/25/2020 06:03 A
== END ==
LOC: M RAD 14:31
PROVIDERS: ATTEND Internal Medicine Medical Oncology
DX: C34.90 Malignant neoplasm of unspecified part of unspecified bronchus or lung (principal); R91.8 Other nonspecific abnormal finding of lung field; I70.0 Atherosclerosis of aorta; I25.10 Atherosclerotic heart disease of native coronary artery without angina pectoris; Z95.828 Presence of other vascular implants and grafts
CPT/HCPCS: 71260; 74177; J1642; Q9963; Q9967

== ENCOUNTER → 2020-06-10 | Outpatient (CLI) | payer OTHER, MEDICAID ==
[~2020-06-10] MED LIST changes: -GASTROGRAFIN SOLUTION 30ML (Q9963) As Ordered ONE; -ISOVUE-370 76% 100ML VIAL As Ordered ONE; +PANT40TA29 PO; -PANT40TA3 PO; +[UNRECOGNIZED DRUG - OTHER] INH
[2020-06-10 11:01] LABS: BASO % 0.5 % (0.0-1.0); EOS # 0.1 10^3/uL (0.0-0.5); EOS % 1.6 % (0.0-3.0); HEMATOCRIT 40.7 % (36.0-47.0); HEMOGLOBIN 13.6 g/dl (12.0-15.5); LYMPH # 1.1 10^3/uL (1.5-5.0); LYMPH % 17.9 % (24.0-44.0); MEAN CORPUSCULAR HEMOGLOBIN 29.2 pg (27.0-33.0); MEAN CORPUSCULAR HGB CONC 33.4 g/dl (32.0-36.5); MEAN CORPUSCULAR VOLUME 87.5 fl (80.0-96.0); MONO # 0.4 10^3/uL (0.0-0.8); MONO % 6.1 % (0.0-5.0); NEUTROPHILS # 4.6 10^3/uL (1.5-8.5); NEUTROPHILS % 73.6 % (36.0-66.0); PLATELET COUNT, AUTOMATED 113 10^3/uL (150-450); RED BLOOD COUNT 4.65 10^6/uL (4.00-5.40); WHITE BLOOD COUNT 6.2 10^3/uL (4.0-10.0)
[2020-06-10 12:32] LABS: BLOOD UREA NITROGEN 15 MG/DL (7-18); CREATININE FOR GFR 0.86 MG/DL (0.55-1.30); FERRITIN 48 NG/ML (8-252); GLOMERULAR FILTRATION RATE > 60.0 (>45); IRON (FE) 57 UG/DL (50-170); PERCENT SATURATION 20.5 % (13.2-45.0); TOTAL IRON BINDING CAPACITY 278 UG/DL (250-450); VITAMIN B12 LEVEL 426 PG/ML
[2020-06-10 12:33] LABS: FOLATE 10.9 NG/ML
== END ==
LOC: M LAB 10:26
PROVIDERS: ATTEND Internal Medicine Gastroenterology
DX: K26.9 Duodenal ulcer, unspecified as acute or chronic, without hemorrhage or perforation (principal)

== ENCOUNTER → 2020-07-21 | Outpatient (CLI) | payer OTHER, MEDICAID ==
[2020-07-21 11:53] LABS: HEMATOCRIT 42.1 % (36.0-47.0); HEMOGLOBIN 14.3 g/dl (12.0-15.5); MEAN CORPUSCULAR HEMOGLOBIN 29.6 pg (27.0-33.0); MEAN CORPUSCULAR VOLUME 87.2 fl (80.0-96.0); PLATELET COUNT, AUTOMATED 130 10^3/uL (150-450); RED BLOOD COUNT 4.83 10^6/uL (4.00-5.40); WHITE BLOOD COUNT 6.4 10^3/uL (4.0-10.0)
[2020-07-21 12:29] LABS: ALT/SGPT 36 U/L (12-78); BILIRUBIN,TOTAL 0.5 MG/DL (0.2-1.0); BLOOD UREA NITROGEN 16 MG/DL (7-18); CALCIUM LEVEL 9.5 MG/DL (8.8-10.2); CARBON DIOXIDE LEVEL 29 MEQ/L (21-32); CHLORIDE LEVEL 106 MEQ/L (98-107); CREATININE FOR GFR 0.94 MG/DL (0.55-1.30); GLOMERULAR FILTRATION RATE > 60.0 (>45); GLUCOSE, FASTING 141 MG/DL (70-100); POTASSIUM SERUM 4.4 MEQ/L (3.5-5.1); SODIUM LEVEL 142 MEQ/L (136-145)
--- NOTE | 2020-08-18 07:36 | REP ---
CHEST X-RAY CLINICAL: History of lung cancer. TECHNIQUE: PA and lateral. COMPARISON: 10/15/2019. FINDINGS: The mediastinum and cardiac silhouette are within normal limits and stable. Infusaport identified with tip in the SVC. The lung boggs demonstrate chronic stable changes. No focal consolidation, effusion, or pneumothorax. Skeletal structures are intact. Evidence for prior cervical fixation noted. IMPRESSION: Chronic stable chest x-ray. MTDD
== END ==
LOC: M LAB 11:22
PROVIDERS: ATTEND Internal Medicine Medical Oncology
DX: C34.90 Malignant neoplasm of unspecified part of unspecified bronchus or lung (principal); Z98.1 Arthrodesis status

== ENCOUNTER → 2020-07-21 | Outpatient (CLI) | payer OTHER, MEDICAID | LOC: M LAB 11:16 | PROVIDERS: ATTEND Internal Medicine Gastroenterology | DX: K26.9 Duodenal ulcer, unspecified as acute or chronic, without hemorrhage or perforation (principal); B96.81 Helicobacter pylori [H. pylori] as the cause of diseases classified elsewhere ==

== ENCOUNTER → 2020-07-30 | Outpatient (REF) | payer OTHER, MEDICAID | LOC: M LAB REF 13:20 | PROVIDERS: ATTEND Internal Medicine Gastroenterology | DX: K26.9 Duodenal ulcer, unspecified as acute or chronic, without hemorrhage or perforation (principal); B96.81 Helicobacter pylori [H. pylori] as the cause of diseases classified elsewhere ==

== ENCOUNTER → 2020-09-02 | Outpatient (CLI) | payer MEDICARE, OTHER ==
[2020-09-02 17:58] LABS: HEMOGLOBIN A1c 5.9 %
--- NOTE | 2020-09-05 13:56 | REPPI ---
RIGHT FOOT SERIES CLINICAL: Pain with prior trauma. TECHNIQUE: AP and lateral views of the right foot. FINDINGS: Generalized age-related changes are appreciated. No evidence for acute or healed injury identified. Surrounding soft tissues are unremarkable. IMPRESSION: Generalized age-related degenerative changes. No obvious acute injury. MTDD
== END ==
LOC: M PLAIMG 14:47
PROVIDERS: ATTEND Family Medicine
DX: S99.921A Unspecified injury of right foot, initial encounter (principal); X58.XXXA Exposure to other specified factors, initial encounter; Y92.9 Unspecified place or not applicable; Z79.899 Other long term (current) drug therapy

== ENCOUNTER → 2020-09-08 | Outpatient (CLI) | payer MEDICARE, OTHER ==
[~2020-09-08] MED LIST changes: +GASTROGRAFIN SOLUTION 30ML (Q9963) As Ordered ONE; +ISOVUE-370 76% 100ML VIAL As Ordered ONE
--- NOTE | 2020-09-08 17:11 | REP ---
INDICATION: LUNG CA COMPARISON: 04/24/2020 TECHNIQUE: Axial contrast enhanced images from the thoracic inlet to the upper abdomen with coronal and sagittal reformations using 100 ml Isovue 370 intravenous contrast material. Examination followed by CT of the abdomen and pelvis. This CT examination was performed using the following dose reduction techniques: Automated exposure control, adjustment of mA and/or kv according to the patient's size, and use of iterative reconstruction technique. FINDINGS: The bilateral lung boggs are relatively well aerated. There is a 5 mm nodule in the periphery of the right upper lobe (image 35) which appears to be slightly increased in size when compared with 09/14/2019 and 04/24/2020. Smaller adjacent nodule measures 2 mm (image 39) and 4 mm nodule along the medial aspect of the right upper (image 39) remains stable. No further suspicious consolidation, nodule or mass. No pleural effusion. No pneumothorax. Tracheobronchial tree is patent. No significant adenopathy. Further evaluation of the mediastinum demonstrates atherosclerotic changes to the thoracic aorta and coronary arteries without aortic aneurysm or cardiomegaly. No pericardial effusion. [id number]-[id number] identified in the SVC. Musculoskeletal structures without acute osseous abnormality. IMPRESSION: 1. Small 5 mm pulmonary nodule in the periphery of the right upper lobe appears slightly increased from 09/14/2019. Consider continued 3-6 month follow-up. <Electronically signed by Cristhian Estrada > 09/08/20 0909
--- NOTE | 2020-09-08 17:16 | REP ---
INDICATION: LUNG CA. COMPARISON: 04/24/2020 TECHNIQUE: Axial contrast-enhanced images from the lung bases to the pubic symphysis using 100 cc Isovue 370 intravenous contrast material. Coronal and sagittal reformations as well as delayed images of the abdomen obtained. This CT examination was performed using the following dose reduction techniques: Automated exposure control, adjustment of mA and/or kv according to the patient's size, and the use of iterative reconstruction technique. FINDINGS: Fatty infiltration of the liver noted. Spleen, pancreas, bilateral adrenal glands and right kidney are normal. Left kidney demonstrates stable septated peripelvic cysts versus focally dilated renal pelvis and upper pole calices without perinephric stranding. The enteric system is without obstruction or acute inflammatory process. Pelvis demonstrates normal bladder and evidence for prior hysterectomy. No ascites. No free air. No intraperitoneal or retroperitoneal adenopathy. Abdominal aorta and vasculature appear grossly normal. Musculoskeletal structures demonstrate degenerative changes and prior lumbar laminectomy. IMPRESSION: 1. Hepatosteatosis without obvious focal hepatic lesion. 2. Stable cysts and/or dilated left renal pelvis/upper pole calices. 3. No acute abdominopelvic pathology appreciated. No evidence for ascites, adenopathy, focal inflammatory stranding, or metastasis. <Electronically signed by Cristhian Estrada > 09/08/20 [id number]
== END ==
LOC: M RAD 15:01
PROVIDERS: ATTEND Internal Medicine Medical Oncology
DX: C34.90 Malignant neoplasm of unspecified part of unspecified bronchus or lung (principal)
CPT/HCPCS: 71260; 74177; Q9963; Q9967

== ENCOUNTER → 2020-09-30 | Outpatient (CLI) | payer MEDICARE, OTHER ==
[~2020-09-30] MED LIST changes: -GASTROGRAFIN SOLUTION 30ML (Q9963) As Ordered ONE; -ISOVUE-370 76% 100ML VIAL As Ordered ONE
--- NOTE | 2020-09-30 15:19 | RADONC ---
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 She remains in CR on most recent imaging from 09/08/20 with only an indeterminate 5 mm RUL nodule as any sign of disease. She is seen today for consideration of PCI at the request of Dr. Ziegler. Diagnosis/Treatment History Oncologic History As above Interval History Feels well overall. Here with her daughter. She has chronic DOTY. No cough or hemoptysis. She is a former smoker. She denies SCHULZ, weight loss, weakness or imbalance. Current Therapy Surveillance Stage SCLC limited stage Social History: Former smoker 50+ pk year quit 2014 Non-drinker Allergies / Meds Allergies: Coded Allergies: No Known Allergies (Unverified , 10/29/19) Home Meds Active Scripts Lidocaine/Prilocaine (Lidocaine-Prilocaine Cream) 2.5%/2.5% Cream..g., 1 APLCT TOP ASDIRECTED, #30 GRAM 5 Refills Prov:Trisha Wan MD 09/18/19 Reported Medications [fluconsone] No Conflict Check, 113 MCG INH BID 08/19/20 Pantoprazole Sodium (Pantoprazole Sodium) 40 Mg Tablet.dr, 40 MG PO DAILY for 30 Days, #30 TAB 12/18/19 Oxybutynin Chloride (Oxybutynin Chloride) 5 Mg Tablet, 5 MG PO BID, TAB 10/15/19 Sertraline Hcl (Zoloft) 50 Mg Tablet, 50 MG PO DAILY, TAB 06/19/19 Cetirizine HCl (24Hour Allergy) 10 Mg Tablet, 10 MG PO DAILY, TAB 06/19/19 Atorvastatin Calcium (Atorvastatin Calcium) 20 Mg Tablet, 20 MG PO DAILY, TAB 06/19/19 Albuterol Sulfate (Ventolin Hfa) 18 Gm Hfa.aer.ad, 2 PUFF INH Q4-6HP PRN for SOB/WHEEZING 06/19/19 Potassium Chloride (K-Tab ER) 10 Meq Tab, 10 MEQ PO DAILY, TAB 01/07/17 Review of Systems Review of Systems Constitutional: Denies: ROS Unabtainable, Chills, Fever, Malaise, Night Sweats, Weakness, Fatigue, Weight Loss, Lethargy, Normal appetite, Other symptoms Eyes: Denies: Pain, Vision change, Conjunctivae inflammation, Eyelid inflammation, Redness, Other HEENT: Denies: Head Aches, Ear Pain, Dysphagia, Sinus Congestion, Post Nasal Drip, Sore Throat, Epistaxis, Other Symptoms Skin: Denies: Rash, Lesions, Jaundice, Bruising, Other Pulmonary: Denies: Dyspnea, Cough, Pleuritic Chest Pain, Other Symptoms Cardiovascular: Denies: Chest Pain, Palpitations, Orthopnea, Paroxysmal Noc. Dyspnea, Edema, Lt Headedness, Other Symptoms Gastrointestinal: Denies: Nausea, Vomiting, Abdominal Pain, Diarrhea, Constipation, Melena, Hematochezia, Other Symptoms Genitourinary: Denies: Dysuria, Frequency, Incontinence, Hematuria, Retention, Other Symptoms Hematologic: Denies: Bruising, Bleeding Excessively, Petecchia, Purpura, Enlarged Lymph Nodes, Other Hematologic Endocrine: Denies: Polydipsia, Polyphagia, Polyuria, Heat Intolerance, Cold Intolerance, Other Endocrine Sx Musculoskeletal: Denies: Neck pain, Shoulder pain, Arm pain, Back pain, Hand pain, Leg pain, Foot pain, Joint pain, Muscle pain, Spasms, Gout, Joint sweling, Muscle stiffness, Midthoracic pain, Other Neurological: Denies: Weakness, Numbness, Incoordination, Change in Speech, Confusion, Seizures, Other Symptoms Psych: Denies: Mood Normal, Anxiety, Depression, Memory Issues, Thoughts of Self Harm, Anger, Thoughts of harming Other, Other Psych Physical Examination Vital Signs Ht 61" Wt 223 lbs BMI 42 T 98 P 81 RR 20 BP 143/79 O2 94% Pain 0 Fatigue 0 General Exam: Positive: Alert, Cooperative, No Acute Distress Eye Exam: Positive: PERRLA, EOMI ENT EXAM: Positive: Atraumatic, Mucous membr. moist/pink, Pharynx Normal Neck Exam: Positive: Supple, Other (Anterior lower neck scars noted, reports history of cervical disc disease s/p operation); Negative: Lymphadenopathy Chest Exam: Positive: Clear to auscultation, Normal air movement; Negative: Rales, Rhonchi, Wheezing Heart Exam: Positive: Rate Normal, Regular Rhythm Abdomen Exam: Positive: Normal bowel sounds, Soft; Negative: Tenderness Extremity Exam: Positive: Edema (2+ pretibial) Skin Exam: Positive: Nl turgor and temperature; Negative: Rash Neuro Exam: Positive: Normal Gait, Normal Speech, Strength at 5/5 X4 ext, Cranial Nerves 3-12 NL Psych Exam: Positive: Mental status NL, Mood NL, Memory Intact, Oriented x 3; Negative: Anxiety Diagnostic and Laboratory Diagnostic Review Radiologic images, relevant labs and pathology reports were personally reviewed and discussed with Ms. John. Assessment and Plan Impression Assessment Ms. 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 She remains in CR on most recent imaging from 09/08/20 with only an indeterminate 5 mm RUL nodule as any sign of disease. She is seen today for consideration of PCI at the request of Dr. Ziegler. She is doing well overall no concerning pulmonary or neurologic symptoms. She remains in CR in the chest from August 2020 scans. There is no role for consolidative chest RT in her case as the OS benefit on the CREST trial was limited to those who had [id number] post systemic therapy. With respect to PCI, she has not had recent brain imaging, therefore to inform my recommendation I am ordering an MRI. If she has overt metastatic lesions, then I would offer WBRT+namenda without hesitation. If she has no metastatic lesions, I would offer the option of PCI+namenda versus q3m MRI surveillance, which per more recent studies has been shown to be a via ble alternative approach and may spare her the deleterious effects of WBRT. We did review the toxicities of WBRT in detail including alopecia, fatigue, and neurocognitive dysfunction. Performance Status ECOG 0 Plan MRI head w/wo contrast Final recommendations contingent upon MRI results as discussed above Follow up after MRI to finalize plan Ms. John was encouraged to call with questions or concerns in the interim period. LYNNE POLANCO MD Sep 30, 2020 15:19
== END ==
LOC: M ONCR 13:54
PROVIDERS: ATTEND Radiology Radiation Oncology
DX: Z85.118 Personal history of other malignant neoplasm of bronchus and lung (principal); Z92.21 Personal history of antineoplastic chemotherapy

== ENCOUNTER → 2020-10-20 | Outpatient (CLI) | payer MEDICARE, OTHER ==
[~2020-10-20] MED LIST changes: +PROHANCE 279.3MG/ML 15ML VIAL As Ordered ONE; +PROHANCE 279.3MG/ML 5ML VIAL As Ordered ONE
--- NOTE | 2020-10-20 19:23 | REPVR ---
PROCEDURE INFORMATION: Exam: MR Head Without and With Contrast Exam date and time: 10/20/2020 6:50 PM Age: 65 years old Clinical indication: Condition or disease; History of cancer (specify primary cancer site): ; Primary cancer: Sclc; Additional info: Limited stage sclc S/P chemoimmunotherapy restaging TECHNIQUE: Imaging protocol: MR of the head without and with intravenous contrast. Contrast material: PROHANCE; Contrast volume: 20 ml; Contrast route: INTRAVENOUS (IV); COMPARISON: CT Head W/O FOLL BY WITH CONTR 11/07/2019 3:23 PM FINDINGS: Brain: Normal. No acute infarct. No hemorrhage. No significant white matter disease. No edema. Cerebral ventricles: Normal. No ventriculomegaly. Bones/joints: Unremarkable. Paranasal sinuses: Normal as visualized. No acute sinusitis. Mastoid air cells: Normal as visualized. No mastoid effusion. Orbits: Unremarkable. Soft tissues: Unremarkable. IMPRESSION: No acute findings. Electronically signed by: Lowell Tai On 10/20/2020 19:23:42 PM
== END ==
LOC: M RAD 16:55
PROVIDERS: ATTEND General Practice
DX: C34.90 Malignant neoplasm of unspecified part of unspecified bronchus or lung (principal)
CPT/HCPCS: 70553; A9576

== ENCOUNTER → 2020-10-29 | Outpatient (CLI) | payer MEDICARE ==
[~2020-10-29] MED LIST changes: -PROHANCE 279.3MG/ML 15ML VIAL As Ordered ONE; -PROHANCE 279.3MG/ML 5ML VIAL As Ordered ONE
--- NOTE | 2020-10-29 15:40 | RADONC ---
Radiation Oncology Hx/FUP Radiation Oncology Hx/FUP Date of Service: Oct 29, 2020 Pt Identifier Gilmar John is a 65 year old female seen for a followup visit today at the department of radiation oncology for a history of LS SCLC treated with 4 cycles carboplatin/etoposide/atezolizumab alone (without RT) completed 10/08/19. She remains in CR on most recent imaging from 09/08/20 with only an indeterminate 5 mm RUL nodule as any sign of disease. She has undergone restaging MRI on 10/20/20 and is here to discuss PCI versus continuing MRI surveillance. Diagnosis/Treatment History Oncologic History As above Recent data: 10/20/20 MRI brain FINDINGS: Brain: Normal. No acute infarct. No hemorrhage. No significant white matter disease. No edema. Cerebral ventricles: Normal. No ventriculomegaly. Bones/joints: Unremarkable. Paranasal sinuses: Normal as visualized. No acute sinusitis. Mastoid air cells: Normal as visualized. No mastoid effusion. Orbits: Unremarkable. Soft tissues: Unremarkable. IMPRESSION: No acute findings. Interval History Gilmar is here alone today. Reports she feels well overall but is tired, no attribution as to why. No complaints. No SCHULZ, N, V, CP. Has chronic DOTY. No cough. When asked about memory and cognitive symptoms she states she is already forgetful, relies on her daughter. Current Therapy Surveillance Stage SCLC limited stage Social History: Former smoker 50+ pk year quit 2014 Non-drinker Allergies / Meds Allergies: Coded Allergies: No Known Allergies (Unverified , 10/29/19) Home Meds Active Scripts Lidocaine/Prilocaine (Lidocaine-Prilocaine Cream) 2.5%/2.5% Cream..g., 1 APLCT TOP ASDIRECTED, #30 GRAM 5 Refills Prov:Trisha Wan MD 09/18/19 Reported Medications [fluconsone] No Conflict Check, 113 MCG INH BID 08/19/20 Pantoprazole Sodium (Pantoprazole Sodium) 40 Mg Tablet.dr, 40 MG PO DAILY for 30 Days, #30 TAB 12/18/19 Oxybutynin Chloride (Oxybutynin Chloride) 5 Mg Tablet, 5 MG PO BID, TAB 10/15/19 Cetirizine HCl (24Hour Allergy) 10 Mg Tablet, 10 MG PO DAILY, TAB 06/19/19 Atorvastatin Calcium (Atorvastatin Calcium) 20 Mg Tablet, 20 MG PO DAILY, TAB 06/19/19 Albuterol Sulfate (Ventolin Hfa) 18 Gm Hfa.aer.ad, 2 PUFF INH Q4-6HP PRN for SOB/WHEEZING 06/19/19 Potassium Chloride (K-Tab ER) 10 Meq Tab, 10 MEQ PO DAILY, TAB 01/07/17 Discontinued Reported Medications Sertraline Hcl (Zoloft) 50 Mg Tablet, 50 MG PO DAILY, TAB 06/19/19 Review of Systems Review of Systems General: Denies: Chills, Night Sweats, Fatigue, Malaise Eyes: Denies: Pain, Vision change HEENT: Denies: Head Aches Skin: Denies: Rash Pulmonary: Reports: Dyspnea; Denies: Cough, Pleuritic Chest Pain Cardiovascular: Denies: Chest Pain, Palpitations Gastrointestinal: Denies: Nausea, Vomiting Genitourinary: Denies: Dysuria Musculoskeletal: Denies: Neck pain, Back pain Neurological: Denies: Weakness, Numbness Psych: Reports: Mood Normal Physical Examination Vital Signs Ht 60" Wt 225 lb BMI 44 T 98 P 77 RR 16 BP 175/76 O2 90% Pain 0 Fatigue 6 General Exam: Positive: Alert, Cooperative; Negative: No Acute Distress Eye Exam: Positive: PERRLA, EOMI ENT EXAM: Positive: Atraumatic, Mucous membr. moist/pink Neck Exam: Positive: Supple Chest Exam: Positive: Clear to auscultation, Normal air movement Heart Exam: Positive: Rate Normal, Regular Rhythm Abdomen Exam: Positive: Normal bowel sounds, Soft; Negative: Tenderness Skin Exam: Positive: Nl turgor and temperature Neuro Exam: Positive: Normal Gait, Normal Speech, Cranial Nerves 3-12 NL Psych Exam: Positive: Mental status NL, Oriented x 3 Diagnostic and Laboratory Diagnostic Review Radiologic images, relevant labs and pathology reports were personally reviewed and discussed with Ms. John. Assessment and Plan Impression Assessment Ms. 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 She remains in CR on most recent imaging from 09/08/20 with only an indeterminate 5 mm RUL nodule as any sign of disease. She has undergone restaging MRI on 10/20/20 and is here to discuss PCI versus continuing MRI surveillance. We discussed the pros and cons of PCI versus MRI surveillance. PCI has been associated with improved OS on 40 years worth of studies but the bulk of this data comes from the pre-MRI era. Newer studies have shown that MRI surveillance does not compromise survival outcomes. I reviewed the neurocognitive sequelae of PCI and the use of Namenda to mitigate this risk. Gilmar is already forgetful by her own admission and I explained that in her case this forgetfulness would likely get worse with treatment. Because of this Gilmar has elected to pursue MRI surveillance for now, we will reserve WBRT for intracranial progression (if it occurs). In the meantime she will have ongoing body surveillance per Dr. Ziegler. If there is progression in the body in the future, RT may be of great use as she did not receive RT initially. I will see her in 3 months with MRI brain. Performance Status ECOG 0 Plan Patient opts for MRI brain surveillance 3 months w/ MRI brain Body imaging per Dr Ziegler Ms. John was encouraged to call with questions or concerns in the interim period. LYNNE POLANCO MD Oct 29, 2020 15:40
== END ==
LOC: M ONCR 14:04
PROVIDERS: ATTEND General Practice
DX: C34.11 Malignant neoplasm of upper lobe, right bronchus or lung (principal)

== ENCOUNTER → 2020-11-04 | Outpatient (CLI) | payer MEDICARE ==
[~2020-11-04] MED LIST changes: +ISOVUE-370 76% 100ML VIAL As Ordered ONE
--- NOTE | 2020-11-04 17:36 | REP ---
INDICATION: LUNG CA F/U. COMPARISON: 09/14/2019, 04/24/2020 and 09/08/2020. TECHNIQUE: CT of the chest with IV contrast. FINDINGS: At the known lung mass in the posteromedial right upper lobe on image 37 continues to decrease in size measuring 1.4 x 0.4 cm today. This measured 2.1 x 1.8 cm on 09/14/2019. There are several other tiny right lung nodules Adderall similar size or decreased in size. No enlarging nodules are identified. The right paratracheal lymph node enlargement has almost entirely resolved. There are few normal size right paratracheal nodes today. The right hilar adenopathy is decreased measuring 12 mm short axis. This measured 15 mm on 09/14/2019. There are no infiltrates or pleural effusions. Thoracic aorta is unremarkable. Cardiac size is normal. There is no pericardial effusion. The upper abdomen spleen is less liver is less dense than the spleen suggesting hepato steatosis. This is unchanged spleen is enlarged measuring 15 cm AP diameter. Measured 16 cm in 09/14/2019. No focal splenic lesions are identified. There is a large left renal upper pole cyst partially included in the scan. This is unchanged. There is no adrenal nodule. This is unchanged. IMPRESSION: The known adenopathy and lung nodules are either stable in size or decreased in size. No enlarging lymph nodes or nodules are identified. There are no infiltrates or pleural effusions. No adrenal nodules. Hepato steatosis, unchanged. Splenomegaly, unchanged. Right renal upper pole cyst partially included. This is unchanged. <Electronically signed by Chuck Hawthorne > 11/04/20 [id number]
== END ==
LOC: M RAD 14:44
PROVIDERS: ATTEND Internal Medicine Medical Oncology
DX: C34.11 Malignant neoplasm of upper lobe, right bronchus or lung (principal)
CPT/HCPCS: 71260; Q9967

== ENCOUNTER 2021-01-20 13:31 | Outpatient (RCR) | payer MEDICARE, OTHER ==
[~2021-01-20 13:31] MED LIST changes: -ISOVUE-370 76% 100ML VIAL As Ordered ONE; -LISI-542 PO; +LISI-898 PO
[2021-01-20] MEDS ORDERED: SODIUM CHLORIDE 0.9% INJ 10 ML SYR IV PRN (13:45)
[2021-01-20 15:05] LABS: ALBUMIN 3.6 GM/DL (3.2-5.2); BILIRUBIN,TOTAL 0.5 MG/DL (0.2-1.0); CREATININE FOR GFR 1.01 MG/DL (0.55-1.30); GLOMERULAR FILTRATION RATE 58.6 (>45); POTASSIUM SERUM 4.1 MEQ/L (3.5-5.1); TOTAL PROTEIN 6.8 GM/DL (6.4-8.2)
[2021-02-10] MEDS ORDERED: SODIUM CHLORIDE 0.9% INJ 10 ML SYR IV PRN (08:00)
[2021-03-02] MEDS ORDERED: COVI2.5V IM (14:52)
== END 2021-02-18 ==
LOC: M ONCR 13:31 → M ONCM 13:31
PROVIDERS: ATTEND General Practice
DX: C34.91 Malignant neoplasm of unspecified part of right bronchus or lung (principal)

== ENCOUNTER → 2021-01-27 | Outpatient (CLI) | payer MEDICARE ==
[~2021-01-27] MED LIST changes: +PROHANCE 279.3MG/ML 15ML VIAL As Ordered ONE
--- NOTE | 2021-01-27 16:16 | REP ---
INDICATION: LUNG CA. History of small cell lung carcinoma, brain surveillance. COMPARISON: Comparison MRI study is from October 20, 2020.. TECHNIQUE: Axial and sagittal imaging planes are utilized for T1 and T2-weighted scans. Sequences include spin-echo, fast spin echo, FLAIR, and diffusion weighted sequences. 10 mL of intravenous ProHance is administered and post gadolinium enhanced T1 weighted images are acquired in all 3 planes. FINDINGS: The bony calvarium remains intact. Craniocervical junction is unremarkable. There is no MR evidence of significant paranasal sinus disease. A mucous retention cyst is again noted in the right maxillary sinus. No intraorbital abnormality is appreciated. There are minimal small vessel atherosclerotic changes again noted in the periventricular white matter and subcortical white matter. There is no evidence of intracranial mass lesion. No extra-axial fluid collection or infarct is seen. Diffusion-weighted scans show no evidence of focally restricted diffusion to suggest acute ischemia or other abnormality. Post gadolinium enhanced images show enhancement of normal vascular structures. No abnormal intracranial gadolinium enhancement is seen. IMPRESSION: There is no evidence of intracranial metastasis. Minimal small vessel changes again noted. <Electronically signed by Axel Osei > 01/27/21 [id number]
== END ==
LOC: M RAD 14:21
PROVIDERS: ATTEND General Practice
DX: C34.90 Malignant neoplasm of unspecified part of unspecified bronchus or lung (principal)
CPT/HCPCS: 70553; A9576

== ENCOUNTER → 2021-02-04 | Outpatient (CLI) | payer MEDICARE ==
[~2021-02-04] MED LIST changes: -PROHANCE 279.3MG/ML 15ML VIAL As Ordered ONE
--- NOTE | 2021-02-04 15:29 | RADONC ---
Radiation Oncology Hx/FUP Radiation Oncology Hx/FUP Date of Service: Feb 04, 2021 Pt Identifier Gilmar John is a 65 year old female seen for a followup visit today at the department of radiation oncology for a history of LS SCLC treated with 4 cycles carboplatin/etoposide/atezolizumab alone (without RT) completed 10/08/19. She had a major MO to systemic therapy and was referred for consideration of PCI after negative restaging MRI head on 10/20/20. She elected to pursue MRI surveillance due to concern for neurocognitive sequelae of PCI. Diagnosis/Treatment History Oncologic History As above. Recent data: 01/27/21 MRI head Negative 11/04/20 CT chest IMPRESSION: The known adenopathy and lung nodules are either stable in size or decreased in size. No enlarging lymph nodes or nodules are identified. There are no infiltrates or pleural effusions. No adrenal nodules. Hepato steatosis, unchanged. Splenomegaly, unchanged. Right renal upper pole cyst partially included. This is unchanged. Interval History Gilmar is here with her daughter. Gilmar complains of increased DOTY. Can go about 50 feet before getting winded. She has a rescue inhaler as well as a steroid/LABA inhaler, both from Dr. Zayas. Gilmar states she uses both only as needed. She does not know if she has a follow up with Dr. Zayas scheduled. She has no complaints of SCHULZ, weakness or sensory changes. She has stable weight and preserved appetite. Current Therapy Surveillance Stage SCLC limited stage Social History: Former smoker 50+ pack year history Non-drinker Allergies / Meds Allergies: Coded Allergies: No Known Allergies (Unverified , 10/29/19) Home Meds Active Scripts Lidocaine/Prilocaine (Lidocaine-Prilocaine Cream) 2.5%/2.5% Cream..g., 1 APLCT TOP ASDIRECTED, #30 GRAM 5 Refills Prov:Trisha Wan MD 09/18/19 Reported Medications [fluconsone] No Conflict Check, 113 MCG INH BID 08/19/20 Pantoprazole Sodium (Pantoprazole Sodium) 40 Mg Tablet., 40 MG PO DAILY for 30 Days, #30 TAB 12/18/19 Oxybutynin Chloride (Oxybutynin Chloride) 5 Mg Tablet, 5 MG PO BID, TAB 10/15/19 Cetirizine HCl (24Hour Allergy) 10 Mg Tablet, 10 MG PO DAILY, TAB 06/19/19 Atorvastatin Calcium (Atorvastatin Calcium) 20 Mg Tablet, 20 MG PO DAILY, TAB 06/19/19 Albuterol Sulfate (Ventolin Hfa) 18 Gm Hfa.aer.ad, 2 PUFF INH Q4-6HP PRN for SOB/WHEEZING 06/19/19 Potassium Chloride (K-Tab ER) 10 Meq Tab, 10 MEQ PO DAILY, TAB 01/07/17 Review of Systems Review of Systems Constitutional: Denies: Chills, Night Sweats, Fatigue, Weight Loss Eyes: Denies: Pain HEENT: Denies: Head Aches Skin: Denies: Rash Pulmonary: Reports: Dyspnea, Cough; Denies: Pleuritic Chest Pain Cardiovascular: Denies: Chest Pain, Palpitations Gastrointestinal: Denies: Abdominal Pain Hematologic: Denies: Bruising Musculoskeletal: Denies: Neck pain, Back pain Neurological: Denies: Weakness, Numbness Psych: Reports: Mood Normal Physical Examination Vital Signs Ht 60" Wt 225 BMI 43 T 98 P 77 RR 20 BP 127/76 O2 98% Pain 0 Fatigue 0 General Exam: Positive: Alert, Cooperative, No Acute Distress Eye Exam: Positive: PERRLA, EOMI ENT EXAM: Positive: Atraumatic Neck Exam: Positive: Supple Chest Exam: Positive: Clear to auscultation, Rhonchi Heart Exam: Positive: Rate Normal Abdomen Exam: Positive: Soft Extremity Exam: Negative: Edema Skin Exam: Positive: Nl turgor and temperature Neuro Exam: Positive: Normal Gait, Normal Speech, Cranial Nerves 3-12 NL Psych Exam: Positive: Mental status NL Diagnostic and Laboratory Diagnostic Review Radiologic images, relevant labs and pathology reports were personally reviewed and discussed with Ms. John. Assessment and Plan Impression Assessment Ms. 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 She had a major MO to systemic therapy and was referred for consideration of PCI after negative restaging MRI head on 10/20/20. She elected to pursue MRI surveillance due to concern for neurocognitive sequelae of PCI. Her latest MRI head is without evidence of metastases, will continue surveillance next in 3-4 months time. Her most recent chest CT shows stable subcentimeter nodules and adenopathy without any evidence of progression. Dr. Ziegler alludes to another CT chest due in the coming months. As long as she remains in near-CR I would reserve thoracic RT for recurrence. With respect to her DOTY, this is COPD related. I explained that she should be using her steroid/LABA inhaler twice a day everyday (she has admittedly only been using intermittently and as needed). If regular use fails to improve her breathing then I suggested she call Dr. Zayas's office for an appointment. She may benefit from additional inhaled medications. Daughter stated they would do this. Performance Status ECOG 1 Plan MRI head 3-4 months Ms. John was encouraged to call with questions or concerns in the interim period. Billing Statement Total time of [23] minutes was spent preparing for the visit [2], obtaining HPI [3], examining the patient [2], reviewing diagnostic tests [3], discussing management options [5], coordinating care [1], and writing this note [7]. LYNNE POLANCO MD Feb 04, 2021 15:29
== END ==
LOC: M ONCR 14:03
PROVIDERS: ATTEND General Practice
DX: C34.11 Malignant neoplasm of upper lobe, right bronchus or lung (principal)

== ENCOUNTER → 2021-03-03 | Outpatient (CLI) | payer MEDICARE ==
[~2021-03-03] MED LIST changes: +COVI2.5V IM
--- NOTE | 2021-03-03 14:46 | REPMRS ---
Patient History The patient states she had a clinical breast exam in January 2021. Family history of endometrial cancer at age 50 or over in mother. No Hormone Replacement Therapy 3D TOMOSYNTHESIS WAS PERFORMED. [facility] lifetime risk for [facility] cancer is 6.6%. Volpara breast density a. Digital Woman Screen Mammo: March 03, 2021 - Exam #: [id number] Bilateral CC and MLO view(s) were taken. Technologist: RT Christopher Prior study comparison: December 26, 2019, bilateral digital woman screen mammo performed at [facility]. April 13, 2018, digital woman screen mammo performed at [facility]. FINDINGS: There are scattered fibroglandular densities. There has been no change in the appearance of the mammogram from the prior studies. There is a mild amount of residual fibroglandular tissue which is fairly symmetric. There is no interval development of dominant mass, architectural distortion, or clustered microcalcification suggestive of malignancy. Large coarse benign appearing calcifications are present. No significant changes when compared with prior studies. Assessment: BI-RADS/ACR category 1 mammogram. Negative Mammogram. Recommendation Routine screening mammogram in 1 year (for women over age 40). This mammogram was interpreted with the aid of an FDA-approved computer-aided dectection system. Electronically Signed By: Chuck Mayo MD 03/03/21 [id number]
== END ==
LOC: M WHC 13:28
PROVIDERS: ATTEND Nurse Practitioner Family
DX: Z12.31 Encounter for screening mammogram for malignant neoplasm of breast (principal)

== ENCOUNTER → 2021-03-31 | Outpatient (CLI) | payer MEDICARE ==
[~2021-03-31] MED LIST changes: +GASTROGRAFIN SOLUTION 30ML (Q9963) As Ordered ONE; +ISOVUE-370 76% 100ML VIAL As Ordered ONE; +LIDO1CRE42 TOP; -LIDO2.5C15 TOP
--- NOTE | 2021-04-01 05:54 | REP ---
INDICATION: SCLC COMPARISON: 11/04/2020 TECHNIQUE: Axial contrast enhanced images from the thoracic inlet to the upper abdomen with coronal and sagittal reformations using 75 ml Isovue 370 intravenous contrast material. This CT examination was performed using the following dose reduction techniques: Automated exposure control, adjustment of mA and/or kv according to the patient's size, and use of iterative reconstruction technique. FINDINGS: The lung boggs demonstrate stable chronic interstitial changes and few stable small nodule/chronic scarring. However, a right upper lobe nodule (series 204; image 34) currently measures roughly 8.5 mm and appears increased from prior examination (6 mm on 11/04/2020). No new consolidation, nodule or mass. No effusion. No pneumothorax. Tracheobronchial tree is patent. No obvious adenopathy. Mediastinum demonstrates stable atherosclerotic changes to the thoracic aorta and coronary arteries without aortic aneurysm or cardiomegaly. No pericardial effusion. Musculoskeletal structures intact and without acute osseous abnormality. [id number] identified with tip in the SVC/right atrium. Limited upper abdomen again demonstrates hepatosteatosis and incomplete visualization of left renal cyst. IMPRESSION: 1. Cannot exclude slight increased size to a right upper lobe nodule currently measuring approximately 8.5 mm (previously measuring 6 mm). Consider short-term follow-up examination. 2. No further new acute mediastinal or pleuroparenchymal process appreciated. <Electronically signed by Cristhian Estrada > 04/01/21 [id number]
--- NOTE | 2021-04-01 06:04 | REP ---
INDICATION: SCLC. COMPARISON: 09/08/2020 TECHNIQUE: Axial contrast-enhanced images from the lung bases to the pubic symphysis using oral and 100 cc Isovue 370 intravenous contrast material. Coronal and sagittal reformations obtained along with delayed images of the abdomen. This CT examination was performed using the following dose reduction techniques: Automated exposure control, adjustment of mA and/or kv according to the patient's size, and the use of iterative reconstruction technique. FINDINGS: Liver demonstrates diffuse hepatosteatosis without focal hepatic lesion. The spleen, pancreas, bilateral adrenal glands and right kidney are normal. 7.5 cm simple benign left renal cyst noted and 9 mm nonobstructing right renal calculus suggested. The enteric system including stomach, small, and large bowel appears normal. No evidence for obstruction or acute inflammatory process. Normal terminal ileum and appendix are identified in the right lower quadrant. Pelvis demonstrates normal bladder and evidence for prior hysterectomy.. No ascites. No free air. No intraperitoneal or retroperitoneal adenopathy. Abdominal aorta and vasculature appear normal. Musculoskeletal structures are intact and without acute osseous abnormality. IMPRESSION: 1. No acute abdominopelvic pathology appreciated. 2. No evidence for metastatic disease. No ascites. No adenopathy. No focal stranding. 3. Stable benign left renal cyst and 9 mm nonobstructing left renal calculus. 4. Hepatosteatosis. <Electronically signed by Cristhian Estrada > 04/01/21 0601
== END ==
LOC: M RAD 11:59
PROVIDERS: ATTEND Internal Medicine Medical Oncology
DX: C34.90 Malignant neoplasm of unspecified part of unspecified bronchus or lung (principal)
CPT/HCPCS: 71260; 74177; Q9963; Q9967

== ENCOUNTER → 2021-05-20 | Outpatient (CLI) | payer MEDICARE ==
[~2021-05-20] MED LIST changes: +FLUT1INH2 INH; -GASTROGRAFIN SOLUTION 30ML (Q9963) As Ordered ONE; -ISOVUE-370 76% 100ML VIAL As Ordered ONE
--- NOTE | 2021-05-20 13:48 | RADENCPD ---
Date/Time of Encounter Date of Encounter: May 20, 2021 Time of Encounter: 13:42 Encounter Gilmar came in for a brief follow up today after her port flush. She did not have her MRI brain done for SCLC metastasis surveillance on 05/13/21. She didn't recall she had an appointment for this. She agreed to reschedule the scan and come back and see me after. She did mention today that she has been having increased pain and weakness in the right hand for the last several weeks. She has a history of carpal tunnel syndrome on that side and prior surgery there. She does not have an orthopedic provider to follow this as her last MD in [place] left and she did not want to go back there. I examined her hand and she has a small longitudinal scar volar right wrist c/w prior carpal tunnel release. I had her emulate gavi sign and this elicited pain and tingling in the right fingers, particular the thumb. Tinel sign was negative. There is clear diminished pediatrician managing partner strength in the right hand versus left. I discussed referral to orthopedics here for evaluation and she agreed. Will place non-urgent referral. I will see her back after her MRI brain is done to review results and determine next steps. LYNNE POLANCO MD May 20, 2021 13:48
== END ==
LOC: M ONCR 13:05
PROVIDERS: ATTEND General Practice
DX: C34.11 Malignant neoplasm of upper lobe, right bronchus or lung (principal); M25.041 Hemarthrosis, right hand; R20.2 Paresthesia of skin

== ENCOUNTER → 2021-05-20 | Outpatient (CLI) | payer MEDICARE ==
[~2021-05-20] MED LIST changes: -OLAN10TA2 PO; +OLAN1TAB20 PO
[2021-05-20 14:32] LABS: ALBUMIN 3.9 GM/DL (3.2-5.2); ALT/SGPT 41 U/L (12-78); BILIRUBIN,TOTAL 0.6 MG/DL (0.2-1.0); BLOOD UREA NITROGEN 15 MG/DL (7-18); CALCIUM LEVEL 9.3 MG/DL (8.8-10.2); CARBON DIOXIDE LEVEL 28 MEQ/L (21-32); CHLORIDE LEVEL 106 MEQ/L (98-107); CREATININE FOR GFR 0.83 MG/DL (0.55-1.30); GLOMERULAR FILTRATION RATE > 60.0 (>45); GLUCOSE, FASTING 218 MG/DL (70-100); POTASSIUM SERUM 4.1 MEQ/L (3.5-5.1); SODIUM LEVEL 139 MEQ/L (136-145); TOTAL PROTEIN 7.3 GM/DL (6.4-8.2)
== END ==
LOC: M ONCR 13:41
PROVIDERS: ATTEND General Practice
DX: C34.11 Malignant neoplasm of upper lobe, right bronchus or lung (principal)

== ENCOUNTER → 2021-06-04 | Outpatient (CLI) | payer MEDICARE ==
--- NOTE | 2021-06-04 15:50 | REP ---
INDICATION: CARPAL TUNNEL SYNDROME. COMPARISON: None. TECHNIQUE: Four views each wrist FINDINGS: Right wrist: Degenerative changes seen throughout the right wrist particularly the 1st carpometacarpal joint space with there is subchondral sclerosis and narrowing. Marginal osteophyte formation is also identified. There is no acute fracture. Left wrist: No evidence of an acute fracture or destructive osseous lesion. No evidence of significant degenerative change IMPRESSION: As above <Electronically signed by Osmany Jones > 06/04/21 [id number]
== END ==
LOC: M SOG 13:15
PROVIDERS: ATTEND Orthopaedic Surgery Sports Medicine
DX: M19.031 Primary osteoarthritis, right wrist (principal); G56.03 Carpal tunnel syndrome, bilateral upper limbs; R30.0 Dysuria

== ENCOUNTER → 2021-06-04 | Outpatient (REF) | payer MEDICARE ==
[2021-06-04 17:24] LABS: APPEARANCE, URINE CLOUDY (CLEAR); BACTERIA, URINE AUTO NEGATIVE (NEGATIVE); BILIRUBIN, URINE AUTO NEGATIVE (NEGATIVE); BLOOD, URINE BLOOD 3+ (NEGATIVE); CALCIUM OXALATE CRYSTALS SMALL; COLOR, URINE YELLOW (YELLOW); GLUCOSE, URINE (UA) AUTO 2+ mg/dL (NEGATIVE); KETONE, URINE AUTO NEGATIVE (NEGATIVE); LEUKOCYTE ESTERASE, URINE AUTO NEGATIVE (NEGATIVE); MUCUS, URINE SMALL (NEGATIVE); NITRITE, URINE AUTO NEGATIVE (NEGATIVE); PROTEIN, URINE AUTO 2+ mg/dL (NEGATIVE); RBC, URINE AUTO 44 /HPF (0-3); SPECIFIC GRAVITY URINE AUTO 1.018 (1.002-1.035); SQUAMOUS EPITHELIAL CELL UR AU 5 /HPF (0-6); URIC ACID CRYSTALS SMALL; UROBILINOGEN, URINE AUTO 0.2 mg/dL (0.0-2.0); WBC, URINE AUTO 3 /HPF (0-3)
== END ==
LOC: M SMT 16:46
PROVIDERS: ATTEND Nurse Practitioner Women's Health
DX: R30.0 Dysuria (principal)

== ENCOUNTER → 2021-06-11 | Outpatient (CLI) | payer MEDICARE ==
[2021-06-11 17:34] LABS: HEMOGLOBIN A1c 6.8 %
[2021-06-11 17:35] LABS: CHOLESTEROL RISK RATIO 4.5 (<5)
[2021-06-11 17:42] LABS: CREATININE, URINE 97.9 MG/DL; MAU/CREAT RATIO 207.3 MCG/MG (0.0-30.0)
== END ==
LOC: M PLALAB 15:09
PROVIDERS: ATTEND Family Medicine
DX: E11.40 Type 2 diabetes mellitus with diabetic neuropathy, unspecified (principal); E78.2 Mixed hyperlipidemia
CPT/HCPCS: 36415; 80061; 82043; 83036; G0463

== ENCOUNTER → 2021-06-15 | Outpatient (CLI) | payer MEDICARE ==
[~2021-06-15] MED LIST changes: +PROHANCE 279.3MG/ML 15ML VIAL As Ordered ONE; +PROHANCE 279.3MG/ML 5ML VIAL As Ordered ONE
--- NOTE | 2021-06-16 13:02 | REPVR ---
PROCEDURE INFORMATION: Exam: MR Head Without and With Contrast Exam date and time: 06/15/2021 3:59 PM Age: 65 years old Clinical indication: Primary cancer: Lung; Additional info: Lung CA TECHNIQUE: Imaging protocol: MR of the head without and with intravenous contrast. Contrast material: PROHANCE; Contrast volume: 20 ml; Contrast route: INTRAVENOUS (IV); COMPARISON: MRI-Brain W/O FOLL BY WITH 01/27/2021 2:55 PM FINDINGS: Brain: There are occasional nonspecific foci of high signal abnormality in the sylvester radiata and centrum semiovale. These are best seen on the flair images. These foci may represent areas of gliosis, demyelination, and/or chronic ischemic change. Cerebral ventricles: Normal. No ventriculomegaly. Bones/joints: Unremarkable. Paranasal sinuses: Normal as visualized. No acute sinusitis. Mastoid air cells: Normal as visualized. No mastoid effusion. Orbital cavity: Unremarkable. Soft tissues: Unremarkable. There is no abnormal enhancement. IMPRESSION: No evidence of intracranial metastases. Electronically signed by: Pradeep Solano On 06/16/2021 13:01:17 PM
== END ==
LOC: M RAD 14:02
PROVIDERS: ATTEND General Practice
DX: C34.11 Malignant neoplasm of upper lobe, right bronchus or lung (principal)
CPT/HCPCS: 70553; A9576

== ENCOUNTER → 2021-06-17 | Outpatient (CLI) | payer MEDICARE ==
[~2021-06-17] MED LIST changes: -PROHANCE 279.3MG/ML 15ML VIAL As Ordered ONE; -PROHANCE 279.3MG/ML 5ML VIAL As Ordered ONE
--- NOTE | 2021-06-17 15:33 | RADONC ---
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 She had a major [place] to systemic therapy and was referred for consideration of PCI after negative restaging MRI head on 10/20/20. She elected to pursue MRI surveillance due to concern for neurocognitive sequelae of PCI. Diagnosis/Treatment History Oncologic History As above. Recent data: 06/15/21 MRI head No metastases 03/31/21 CT chest abdomen pelvis RUL nodule possible slight growth to 0.85 cm No evidence of metastases Interval History Gilmar reports she has no changes in her breathing, no cough, no SOB. Reports she is forgetful as ever. No SCHULZ, N, V, vertigo, or weakness. She does have ongoing wrist pain, seeing orthopedics for this. Current Therapy Surveillance Stage SCLC limited stage Social History: Former smoker 50+ pack year history Non-drinker Allergies / Meds Allergies: Coded Allergies: No Known Allergies (Unverified , 10/29/19) Home Meds Active Scripts Lidocaine/Prilocaine (Lidocaine-Prilocaine Cream) 2.5%/2.5% Cream..g., 1 APLCT TOP ASDIRECTED, #30 GRAM 5 Refills Prov:LYNNE POLANCO MD 05/20/21 Reported Medications Fluticasone Propion/Salmeterol (Fluticasone-Salmeterol 113-14) 1 Each Aer.pow.ba, 1 PUFF INH BID for 30 Days, #1 INHALER 04/09/21 Covid-19 Vac,Ad26(Ranjan)/Pf ([employer] Covid19 Vacc(Unapprov)) 0.5 Ml Vial, 2.5 ML IM, VIAL 03/02/21 Pantoprazole Sodium (Pantoprazole Sodium) 40 Mg Tablet.dr, 40 MG PO DAILY for 30 Days, #30 TAB 12/18/19 Oxybutynin Chloride (Oxybutynin Chloride) 5 Mg Tablet, 5 MG PO BID, TAB 10/15/19 Cetirizine HCl (24Hour Allergy) 10 Mg Tablet, 10 MG PO DAILY, TAB 06/19/19 Atorvastatin Calcium (Atorvastatin Calcium) 20 Mg Tablet, 20 MG PO DAILY, TAB 06/19/19 Albuterol Sulfate (Ventolin Hfa) 18 Gm Hfa.aer.ad, 2 PUFF INH Q4-6HP PRN for SOB/WHEEZING 06/19/19 Potassium Chloride (K-Tab ER) 10 Meq Tab, 10 MEQ PO DAILY, TAB 01/07/17 Review of Systems Review of Systems Constitutional: Denies: Fatigue, Weight Loss Eyes: Denies: Pain HEENT: Denies: Head Aches Skin: Denies: Rash Pulmonary: Denies: Dyspnea, Cough Cardiovascular: Denies: Chest Pain Gastrointestinal: Denies: Nausea, Vomiting, Abdominal Pain Genitourinary: Denies: Dysuria Musculoskeletal: Reports: Joint pain; Denies: Neck pain, Back pain Neurological: Denies: Weakness, Numbness Psych: Reports: Mood Normal Physical Examination Vital Signs Wt 228 lbs T 96.5 P 70 RR 20 BP 151/74 O2 92% Pain 0 Fatigue 0 General Exam: Positive: Alert, Cooperative, No Acute Distress Eye Exam: Positive: PERRLA, EOMI ENT EXAM: Positive: Atraumatic Neck Exam: Positive: Supple Chest Exam: Positive: Clear to auscultation, Normal air movement Heart Exam: Positive: Rate Normal, Regular Rhythm Abdomen Exam: Positive: Soft Extremity Exam: Negative: Edema Skin Exam: Positive: Nl turgor and temperature, Rash Neuro Exam: Positive: Normal Gait, Normal Speech, Cranial Nerves 3-12 NL Psych Exam: Positive: Mental status NL Diagnostic and Laboratory Diagnostic Review Radiologic images, relevant labs and pathology reports were personally reviewed and discussed with Ms. John. Assessment and Plan Impression Assessment Ms. 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 She had a major [place] to systemic therapy and was referred for consideration of PCI after negative restaging MRI head on 10/20/20. She elected to pursue MRI surveillance due to concern for neurocognitive sequelae of PCI. She has continued negative brain MRI surveillance. She is approaching 2 years s /p completion of primary treatment, thus after 2 years I discussed extending her scans to 2-3 per year. She agreed to this. In the meantime I will see her again in 3-[address] Ziegler continues to order body scans. Performance Status ECOG 1 Plan 3-4 months with MRI head Body imaging per Dr. Ziegler Ms. John was encouraged to call with questions or concerns in the interim period. Billing Statement Total time of [22] minutes was spent preparing for the visit [1], obtaining HPI [4], examining the patient [2], reviewing diagnostic tests [3], discussing management options [5], coordinating care [1], and writing this note [6]. LYNNE POLANCO MD Jun 17, 2021 15:33
== END ==
LOC: M ONCR 14:12
PROVIDERS: ATTEND General Practice
DX: C34.11 Malignant neoplasm of upper lobe, right bronchus or lung (principal); Z79.899 Other long term (current) drug therapy; Z87.891 Personal history of nicotine dependence; Z92.21 Personal history of antineoplastic chemotherapy

== ENCOUNTER → 2021-06-23 | Outpatient (REF) | payer MEDICARE ==
[2021-06-23 13:34] LABS: APPEARANCE, URINE CLOUDY (CLEAR); BACTERIA, URINE AUTO NEGATIVE (NEGATIVE); BILIRUBIN, URINE AUTO NEGATIVE (NEGATIVE); BLOOD, URINE BLOOD 2+ (NEGATIVE); COLOR, URINE YELLOW (YELLOW); GLUCOSE, URINE (UA) AUTO NEGATIVE (NEGATIVE); KETONE, URINE AUTO NEGATIVE (NEGATIVE); LEUKOCYTE ESTERASE, URINE AUTO NEGATIVE (NEGATIVE); MUCUS, URINE SMALL (NEGATIVE); NITRITE, URINE AUTO NEGATIVE (NEGATIVE); PROTEIN, URINE AUTO NEGATIVE (NEGATIVE); RBC, URINE AUTO 0 /HPF (0-3); SPECIFIC GRAVITY URINE AUTO 1.016 (1.002-1.035); SQUAMOUS EPITHELIAL CELL UR AU 1 /HPF (0-6); URIC ACID CRYSTALS SMALL; UROBILINOGEN, URINE AUTO 0.2 mg/dL (0.0-2.0); WBC, URINE AUTO 1 /HPF (0-3)
== END ==
LOC: M SMT 13:14
PROVIDERS: ATTEND Nurse Practitioner Women's Health
DX: R35.0 Frequency of micturition (principal)
CPT/HCPCS: 81001; 87086; G0463

== ENCOUNTER → 2021-07-02 | Outpatient (CLI) | payer MEDICARE ==
--- NOTE | 2021-07-02 14:49 | REP ---
INDICATION: LT FLANK PAIN W/ HEMATURIA W/ STONES. COMPARISON: None. TECHNIQUE: Scans were obtained without contrast administration. FINDINGS: In the lower lungs are clear. The gallbladder is not identified. The liver is enlarged and shows diffuse fatty infiltration. The spleen is slightly enlarged. There is no abnormal area of attenuation within the spleen. The pancreas shows normal size and attenuation. The adrenal glands are not enlarged. The aorta shows normal caliber. The right kidney shows normal size. A calcification is noted in the upper pole renal artery branch. If her a 7 x 5 cm lobulated cyst is present in the upper pole of the left kidney. There is a 1.2 cm calculus in for upper pole calyx left kidney. There is a tiny calculus in the path of the distal left ureter an additional tiny calculus at the left lesion vesicle junction either of these or both could represent left ureteral calculi. There is minimal dilatation of the left ureter. Contrast enhancement would be helpful to clarify the status of these 2 calcifications. The bladder wall is not thickened no mass or stone is demonstrated in the bladder. IMPRESSION: Fatty liver. Hepatosplenomegaly. Large calculus left kidney. Large cyst left kidney. Possible tiny calculi distal portion left ureter with mild dilatation of the left ureter. <Electronically signed by Joe Santana > 07/02/21 [id number]
== END ==
LOC: M PLAIMG 13:50
PROVIDERS: ATTEND Nurse Practitioner Women's Health
DX: K76.0 Fatty (change of) liver, not elsewhere classified (principal); N20.0 Calculus of kidney; N28.1 Cyst of kidney, acquired; R31.9 Hematuria, unspecified

== ENCOUNTER → 2021-08-04 | Outpatient (CLI) | payer MEDICARE, MEDICAID ==
[~2021-08-04] MED LIST changes: +ISOVUE-370 76% 100ML VIAL As Ordered ONE; +LISI-898
[2021-08-04 15:30] LABS: BASO % 0.3 % (0.0-1.0); EOS # 0.1 10^3/uL (0.0-0.5); EOS % 2.1 % (0.0-3.0); HEMATOCRIT 43.4 % (36.0-47.0); HEMOGLOBIN 14.5 g/dl (12.0-15.5); LYMPH # 1.5 10^3/uL (1.5-5.0); LYMPH % 21.6 % (24.0-44.0); MEAN CORPUSCULAR HEMOGLOBIN 29.3 pg (27.0-33.0); MEAN CORPUSCULAR HGB CONC 33.4 g/dl (32.0-36.5); MEAN CORPUSCULAR VOLUME 87.7 fl (80.0-96.0); MONO # 0.4 10^3/uL (0.0-0.8); MONO % 6.2 % (2.0-8.0); NEUTROPHILS # 4.7 10^3/uL (1.5-8.5); NEUTROPHILS % 69.4 % (36.0-66.0); PLATELET COUNT, AUTOMATED 123 10^3/uL (150-450); RED BLOOD COUNT 4.95 10^6/uL (4.00-5.40); WHITE BLOOD COUNT 6.8 10^3/uL (4.0-10.0)
[2021-08-04 16:08] LABS: ALBUMIN 4.1 GM/DL (3.2-5.2); ALT/SGPT 42 U/L (12-78); BILIRUBIN,TOTAL 0.7 MG/DL (0.2-1.0); BLOOD UREA NITROGEN 15 MG/DL (7-18); CALCIUM LEVEL 9.7 MG/DL (8.8-10.2); CARBON DIOXIDE LEVEL 24 MEQ/L (21-32); CHLORIDE LEVEL 106 MEQ/L (98-107); CREATININE FOR GFR 0.74 MG/DL (0.55-1.30); GLOMERULAR FILTRATION RATE > 60.0 (>45); GLUCOSE, FASTING 122 MG/DL (70-100); POTASSIUM SERUM 4.1 MEQ/L (3.5-5.1); SODIUM LEVEL 140 MEQ/L (136-145)
--- NOTE | 2021-08-04 16:08 | REP ---
INDICATION: LUNG CA LUNG NODULES-LABS FIRST COMPARISON: Multiple the latest 03/31/2021 TECHNIQUE: Standard helical technique after the intravenous administration of 100 cc Isovue 370. FINDINGS: The mediastinum and pulmonary tonya are stable. No mass or adenopathy has developed. There no pleural or pericardial effusions. There is no change in the imaged osseous structures. Evaluation of the lung boggs shows no change in appearance of the nodule in the right upper lobe. There are multiple additional 3 and 4 mm sized scattered nodules bilateral and all of which appears stable. There is a stable ground-glass nodule in the right upper lobe having a maximal dimension of 9 mm. No new abnormal nodules, masses, or opacities have developed. IMPRESSION: Stable CT examination of the chest. <Electronically signed by Osmany Jones > 08/04/21 [id number]
== END ==
LOC: M LAB 14:35
PROVIDERS: ATTEND Internal Medicine Medical Oncology
DX: C34.11 Malignant neoplasm of upper lobe, right bronchus or lung (principal)
CPT/HCPCS: 36415; 71260; 80053; 85025; Q9967

== ENCOUNTER → 2021-09-29 | Outpatient (CLI) | payer MEDICARE, MEDICAID ==
[~2021-09-29] MED LIST changes: +ALBU8.5H INH; +FISH1000 PO; -ISOVUE-370 76% 100ML VIAL As Ordered ONE; -LISI-898; +OXYB10TA23 PO; +POTA1TAB23 PO; +SERT50TA29 PO; +TAMS1CAP17 PO
[2021-09-29 18:33] LABS: ALBUMIN 3.9 GM/DL (3.2-5.2); ALT/SGPT 37 U/L (12-78); BILIRUBIN,TOTAL 0.5 MG/DL (0.2-1.0); BLOOD UREA NITROGEN 16 MG/DL (7-18); CARBON DIOXIDE LEVEL 30 MEQ/L (21-32); CHLORIDE LEVEL 105 MEQ/L (98-107); CREATININE FOR GFR 0.98 MG/DL (0.55-1.30); GLOMERULAR FILTRATION RATE > 60.0 (>45); GLUCOSE, FASTING 130 MG/DL (70-100); POTASSIUM SERUM 4.5 MEQ/L (3.5-5.1); SODIUM LEVEL 141 MEQ/L (136-145); TOTAL PROTEIN 7.2 GM/DL (6.4-8.2)
== END ==
LOC: M PLALAB 14:58
PROVIDERS: ATTEND General Practice
DX: C34.11 Malignant neoplasm of upper lobe, right bronchus or lung (principal)

== ENCOUNTER → 2021-09-30 | Outpatient (CLI) | payer MEDICARE, MEDICAID ==
[~2021-09-30] MED LIST changes: +PROHANCE 279.3MG/ML 15ML VIAL As Ordered ONE; +PROHANCE 279.3MG/ML 5ML VIAL As Ordered ONE
--- NOTE | 2021-09-30 18:26 | REPVR ---
PROCEDURE INFORMATION: Exam: MR Head Without and With Contrast Exam date and time: 09/30/2021 4:05 PM Age: 66 years old Clinical indication: Screening for metastatic disease. Lung; Additional info: H/o lung CA TECHNIQUE: Imaging protocol: MR of the head without and with intravenous contrast. Contrast material: PROHANCE; Contrast volume: 20 ml; Contrast route: INTRAVENOUS (IV); COMPARISON: MRI-Brain W/O FOLL BY WITH 06/15/2021 3:01 PM FINDINGS: Brain: Few minimal nonspecific T2/FLAIR hyperintensities of the periventricular and deep subcortical white matter, most likely secondary to chronic small vessel ischemic change. No intracranial hemorrhage or extra-axial fluid collection. No evidence of mass effect or midline shift. No restricted diffusion to suggest acute infarct. No abnormal intracranial enhancement. Cerebral ventricles: No ventriculomegaly. Bones/joints: Unremarkable. Paranasal sinuses: Small right maxillary sinus retention cyst. Mastoid air cells: No mastoid effusion. Orbital cavity: Unremarkable. Soft tissues: Unremarkable. IMPRESSION: No acute intracranial pathology. No evidence of metastatic disease to the brain. Electronically signed by: Lupillo Kirk On 09/30/2021 18:25:56 PM
== END ==
LOC: M RAD 14:12
PROVIDERS: ATTEND General Practice
DX: C34.11 Malignant neoplasm of upper lobe, right bronchus or lung (principal)
CPT/HCPCS: 70553; A9576

== ENCOUNTER → 2021-10-05 | Outpatient (CLI) | payer MEDICARE, MEDICAID ==
[~2021-10-05] MED LIST changes: +ALL10TAB PO; -PROHANCE 279.3MG/ML 15ML VIAL As Ordered ONE; -PROHANCE 279.3MG/ML 5ML VIAL As Ordered ONE
--- NOTE | 2021-10-05 12:36 | REP ---
INDICATION: CALCULUS OF KIDNEY COMPARISON: 07/21/2020 TECHNIQUE: PA and lateral. FINDINGS: Mediastinum and cardiac silhouette are stable. [id number] identified with tip in the SVC. Evidence for prior cervical fixation. Lung boggs demonstrate chronic changes. Superimposed basilar atelectasis cannot be excluded. No effusion. No pneumothorax. Skeletal structures are grossly intact. IMPRESSION: Cannot exclude basilar atelectasis. <Electronically signed by Cristhian Estrada > 10/05/21 2000
[2021-10-05 13:46] LABS: HEMOGLOBIN 14.5 g/dl (12.0-15.5); MEAN CORPUSCULAR HEMOGLOBIN 29.4 pg (27.0-33.0); MEAN CORPUSCULAR VOLUME 89.2 fl (80.0-96.0); PLATELET COUNT, AUTOMATED 138 10^3/uL (150-450); RED BLOOD COUNT 4.93 10^6/uL (4.00-5.40); WHITE BLOOD COUNT 7.6 10^3/uL (4.0-10.0)
[2021-10-05 14:01] LABS: PROTHROMBIN TIME 13.6 SECONDS (12.7-14.5)
[2021-10-05 14:02] LABS: PARTIAL THROMBOPLASTIN TIME 29.9 SECONDS (25.9-37.0)
[2021-10-05 14:28] LABS: BLOOD UREA NITROGEN 18 MG/DL (7-18); CALCIUM LEVEL 9.8 MG/DL (8.8-10.2); CARBON DIOXIDE LEVEL 27 MEQ/L (21-32); CHLORIDE LEVEL 105 MEQ/L (98-107); CREATININE FOR GFR 0.81 MG/DL (0.55-1.30); GLOMERULAR FILTRATION RATE > 60.0 (>45); GLUCOSE, FASTING 147 MG/DL (70-100); POTASSIUM SERUM 4.2 MEQ/L (3.5-5.1); SODIUM LEVEL 141 MEQ/L (136-145)
[2021-10-05 14:30] LABS: HEMOGLOBIN A1c 6.5 %
== END ==
LOC: M PLAIMG 12:09
PROVIDERS: ATTEND Nurse Practitioner Women's Health
DX: Z01.818 Encounter for other preprocedural examination (principal); N20.0 Calculus of kidney; E11.40 Type 2 diabetes mellitus with diabetic neuropathy, unspecified
CPT/HCPCS: 36415; 71046; 80048; 83036; 85027; 85610; 85730; 93005; G0463

== ENCOUNTER → 2021-10-19 | Outpatient (CLI) | payer MEDICARE, MEDICAID ==
[~2021-10-19] MED LIST changes: +FLOM0.4C39 PO; -LISI-898 PO; +LISI5TAB11 PO; +ONDA4TAB6 PO; +PERC5TAB12 PO; -PROC10TA4 PO; +PROC10TA5 PO
== END ==
LOC: M LABSMTC 09:58
PROVIDERS: ATTEND Anesthesiology
DX: Z01.812 Encounter for preprocedural laboratory examination (principal); Z20.822 Contact with and (suspected) exposure to COVID-19

== ENCOUNTER → 2021-10-20 | Outpatient (CLI) | payer MEDICARE ==
[2021-10-20 12:09] LABS: APPEARANCE, URINE HAZY (CLEAR); BACTERIA, URINE AUTO NEGATIVE (NEGATIVE); BILIRUBIN, URINE AUTO NEGATIVE (NEGATIVE); BLOOD, URINE BLOOD 2+ (NEGATIVE); COLOR, URINE YELLOW (YELLOW); GLUCOSE, URINE (UA) AUTO NEGATIVE (NEGATIVE); KETONE, URINE AUTO NEGATIVE (NEGATIVE); LEUKOCYTE ESTERASE, URINE AUTO TRACE (NEGATIVE); MUCUS, URINE SMALL (NEGATIVE); NITRITE, URINE AUTO NEGATIVE (NEGATIVE); PROTEIN, URINE AUTO NEGATIVE (NEGATIVE); RBC, URINE AUTO 0 /HPF (0-3); SPECIFIC GRAVITY URINE AUTO 1.017 (1.002-1.035); SQUAMOUS EPITHELIAL CELL UR AU 2 /HPF (0-6); UROBILINOGEN, URINE AUTO 0.2 mg/dL (0.0-2.0); WBC, URINE AUTO 5 /HPF (0-3)
== END ==
LOC: M PLALAB 09:30
PROVIDERS: ATTEND Nurse Practitioner Women's Health
DX: Z01.818 Encounter for other preprocedural examination (principal); N20.0 Calculus of kidney

== ENCOUNTER 2021-10-23 06:14 | Observation (INO) | payer MEDICARE, MEDICAID ==
[~2021-10-23] VITALS: Ht 154.9 cm; Wt 99.6 kg
[~2021-10-23 06:14] MED LIST changes: -FLOM0.4C39 PO; +LISI-898 PO; -LISI5TAB11 PO; +LR 1,000 ML IV ONE; -ONDA4TAB6 PO; -PERC5TAB12 PO; +PROC10TA4 PO; -PROC10TA5 PO; +ceFAZolin SOD 2 GM in IV 1 EA IV ONE
[2021-10-23] MEDS ORDERED: CONRAY-60 60% 50ML VIAL (Q9961) As Ordered ONE (07:08)
[2021-10-23] MEDS ORDERED: ROCURONIUM BROMIDE 50 MG/5 ML VIAL As Ordered ONE (07:43)
[2021-10-23] MEDS ORDERED: ONDANSETRON 4MG/2ML VIAL As Ordered ONE ×2 (07:43→13:14)
[2021-10-23] MEDS ORDERED: MIDAZOLAM INJ 2MG/2ML VIAL (J2250 PER 1MG) As Ordered ONE (07:43)
[2021-10-23] MEDS ORDERED: propofoL 200 MG/20 ML VIAL As Ordered ONE (07:43)
[2021-10-23] MEDS ORDERED: fentaNYL 100 MCG/2 ML INJECTION (J3010) As Ordered ONE ×2 (07:43→08:26)
[2021-10-23] MEDS ORDERED: LIDOCAINE 2% 100MG/5ML SDV (FOR ANES.) As Ordered ONE (07:43)
[2021-10-23] MEDS ORDERED: dexameTHASONE 4 MG/ML 1ML VIAL (J1100 PER 1MG) As Ordered ONE (07:43)
[2021-10-23] MEDS ORDERED: PHENYLephrine 500MCG 5ML (100MCG/ML) SYRINGE As Ordered ONE (07:47)
[2021-10-23] MEDS ORDERED: ACETAMINOPHEN 1000MG 100ML IV BTL (OFIRMEV) (J0131 PER 10MG) As Ordered ONE (08:00)
[2021-10-23] MEDS ORDERED: SUGAMMADEX SODIUM 500 MG/5 ML VIAL (BRIDION) As Ordered ONE (08:03)
[2021-10-23] MEDS ORDERED: LIDOCAINE 2% INJ 100 MG/5 ML SYRINGE As Ordered ONE (10:51)
[2021-10-23] MEDS ORDERED: LABETALOL 100MG/20ML VIAL As Ordered ONE (10:52)
--- NOTE | 2021-10-23 10:59 | REP ---
INDICATION: LEFT STENT PLACEMENT. COMPARISON: None. TECHNIQUE: Three spot views obtained during left-sided double pigtail stent placement 31 seconds of fluoroscopy time was provided Dr. Emiliano Regalado for the procedure. FINDINGS: The double pigtail stent is seen on the left the proximal portion of which is in the region of the renal pelvis and within 1 of the mid polar calices. The distal portion is in the urinary bladder IMPRESSION: As above <Electronically signed by Osmany Jones > 10/23/21 1057
[2021-10-23] MEDS ORDERED: PERCOCET 5MG/325MG TAB PO PRN (11:05)
[2021-10-23] MEDS ORDERED: fentaNYL 100 MCG/2 ML INJECTION (J3010) IV PRN (11:05)
[2021-10-23] MEDS ORDERED: ONDANSETRON 4MG/2ML VIAL IV PRN (11:05)
[2021-10-23] MEDS ORDERED: LR 1,000 ML IV SCH (11:05)
[2021-10-23] MEDS ORDERED: METOCLOPRAMIDE INJ 10MG/2ML VIAL (J2765 PER 1) IV PRN (11:05)
[2021-10-23] MEDS ORDERED: ALBUTEROL SULFATE 2.5 MG/0.5 ML INH NEB SOLN INH ONE (11:05)
--- NOTE | 2021-10-23 11:44 | RO ---
OPERATIVE NOTE DATE OF OPERATION: 10/23/2021 PREOPERATIVE DIAGNOSIS: Left kidney stone. POSTOPERATIVE DIAGNOSIS: Left kidney stone. PROCEDURES: 1. Cystoscopy. 2. Left ureteroscopy with laser lithotripsy and basket extraction of stones. 3. Left retrograde pyelogram with intraoperative interpretation of images. 4. Left ureteral stent placement. SURGEON: Emiliano Regalado MD. KINDERGARTEN PARAPROFESSIONAL: None. ANESTHESIA: General. OPERATIVE INDICATIONS: This is a 66-year-old female with an approximately 1.3-cm left kidney stone. She was brought to the operating room today for treatment. DESCRIPTION OF PROCEDURE: The patient was brought to the operating room and general anesthesia was induced. Prophylactic antibiotics were infused. She was then placed in the dorsal lithotomy position and prepped and draped in the usual sterile fashion. A rigid cystoscope was inserted into urethral meatus and advanced to the bladder. A guidewire was advanced up the left collecting system. A ureteral access sheath was advanced up the left collecting system. I went up the access sheath with a flexible ureteroscope and of note, the ureteropelvic junction was moderately narrow. I had a difficult time negotiating the ureteroscope back and forth through the ureteropelvic junction. Inside the kidney, the calices were examined and within the upper pole calyx the large stone was seen. I utilized a 272 micron laser fiber to fragment the stone into smaller pieces. The majority of the larger fragments were removed using a basket. The remaining stone fragments were dusted into small enough pieces that should be able to pass. Once done, a retrograde pyelogram was performed and was notable for mild left hydronephrosis with no extravasation. I then withdrew the ureteroscope along with the access sheath and only very tiny stone fragments were seen in the ureter. I then utilized the guidewire to advance the 7-Vincentian x 22-32 cm JJ ureteral stent up the left collecting system. The wire was removed and there were adequate curls of the stent in the left renal pelvis and in the bladder. The bladder was emptied of all fluids and this marked the conclusion of the procedure. The patient was then taken out of the dorsal lithotomy position, awakened from anesthesia, and transported to the recovery room in stable condition. ESTIMATED BLOOD LOSS: 5 mL. COMPLICATIONS: None. SPECIMEN: Kidney stone fragments. PLAN: Of note, the patient's stone appeared to be radiolucent. I will get a followup renal ultrasound in a few weeks prior to removing her stent.
[2021-10-23] MEDS: HumaLOG INSULIN (NovoLOG) PER UNIT SC SCH ×2 (12:00→17:56)
[2021-10-23 12:09] LABS: BASO % 0.3 % (0.0-1.0); EOS % 0.4 % (0.0-3.0); HEMATOCRIT 42.8 % (36.0-47.0); HEMOGLOBIN 14.3 g/dl (12.0-15.5); LYMPH # 0.9 10^3/uL (1.5-5.0); LYMPH % 11.3 % (24.0-44.0); MEAN CORPUSCULAR HEMOGLOBIN 29.5 pg (27.0-33.0); MEAN CORPUSCULAR HGB CONC 33.4 g/dl (32.0-36.5); MEAN CORPUSCULAR VOLUME 88.4 fl (80.0-96.0); MONO # 0.2 10^3/uL (0.0-0.8); NEUTROPHILS # 6.5 10^3/uL (1.5-8.5); NEUTROPHILS % 85.1 % (36.0-66.0); PLATELET COUNT, AUTOMATED 118 10^3/uL (150-450); RED BLOOD COUNT 4.84 10^6/uL (4.00-5.40); WHITE BLOOD COUNT 7.6 10^3/uL (4.0-10.0)
[2021-10-23 12:36] LABS: ALBUMIN 3.6 GM/DL (3.2-5.2); BILIRUBIN,TOTAL 0.5 MG/DL (0.2-1.0); CALCIUM LEVEL 9.1 MG/DL (8.8-10.2); CREATININE FOR GFR 1.03 MG/DL (0.55-1.30); GLOMERULAR FILTRATION RATE 57.1 (>45); MAGNESIUM LEVEL 1.7 MG/DL (1.8-2.4); POTASSIUM SERUM 4.6 MEQ/L (3.5-5.1); TOTAL PROTEIN 6.5 GM/DL (6.4-8.2)
[2021-10-23 12:43] LABS: CK-MB VALUE MASS 1.7 NG/ML (<3.6); MB/CK RELATIVE INDEX 2.62 (< OR =4)
[2021-10-23] MEDS ORDERED: GLUCOSE 4GM CHEW TABLET PO PRN (12:55)
[2021-10-23] MEDS ORDERED: MAALOX 30 ML SUSP *UDC PO PRN (12:55)
[2021-10-23] MEDS ORDERED: ACETAMINOPHEN TAB 650MG DOSE (2X325MG) PO PRN (12:55)
[2021-10-23] MEDS ORDERED: MOM 30ML SUSPENSION UDC PO PRN (12:55)
[2021-10-23] MEDS ORDERED: GLUCAGON INJ 1MG VIAL SC PRN (12:55)
[2021-10-23] MEDS ORDERED: DEXTROSE 50% 50 ML SYRINGE IV PRN (12:55)
[2021-10-23] MEDS ORDERED: MAGNESIUM SULFATE 1GM/100ML D5W BAG (10MG/ML) As Ordered ONE (13:03)
[2021-10-23] MEDS ORDERED: MAG SULF 1GM/100ML (MAG RUN) 1 GM in IV 1 EA IV ONE (13:15)
[2021-10-23] MEDS ORDERED: HOME MED LIST COMPLETE! XX SCH (13:45)
[2021-10-23 14:53] LABS: MB/CK RELATIVE INDEX 2.67 (< OR =4)
[2021-10-23] MEDS ORDERED: ALBUTEROL 90 MCG/ACT 8GM HFA INHALER INH PRN (15:40)
[2021-10-23] MEDS ORDERED: OLANZapine 10 MG TAB PO PRN (15:40)
[2021-10-23 16:00] VITALS: BP 142/72
[2021-10-23] MEDS: hydrALAZINE 20MG/ML 1ML VIAL (J0360 PER 20MG) IV SCH ×2 (16:11→23:00)
--- NOTE | 2021-10-23 16:22 | HPEPDOC ---
[facility] Medical History & Physical Date of Admission Oct 23, 2021 Date of Service: Oct 23, 2021 History and Physical Chief complaint: Called by staff in PACU after patient was noted to have a change in rhythm dur ing procedure History of present illness: Patient is 66-year-old female with a PMHx of Lung CA (R lung small cell), COPD, HTN, NIDDM2, DLP, PAD, Stress incontinence, RLS, Vitamin D deficiency, Depression, Chronic back pain 2/2 DDD, Ulcer/GERD who presented to [facility] for a procedure with urology. Patient had a left kidney stone and left hydronephrosis and was scheduled to receive a cystoscopy with left ureteroscopy, laser lithotripsy and ureteral stent placement with Dr. Regalado. Patient received medical care from her primary care provider as an outpatient. Patient does not have any prior history of heart attacks or strokes. During the procedure, patient was noted to have a change in rhythm that lasted for about 1 hour before resorting back to pre-procedure rhythm. I was called to evaluate patient postoperatively. Currently patient denies any nausea, vomiting, chest pain, short of breath, palpitations, abdominal pain, constipation, diarrhea, or urinary discomfort. Patient denies any recent fevers or chills as above. Patient reports that her weight and appetite have been relatively the same. Past Medical History: Lung CA (R lung small cell), COPD, HTN, NIDDM2, DLP, PAD, Stress incontinence, RLS, Vitamin D deficiency, Depression, Chronic back pain 2/2 DDD, Duodenal ulcer/GERD Past Surgical History: Discectomy L4/L5 (2003), Discectomy C1/C2 (2003) Multilevel Lumbar laminectomy Tubal libation 1977 Colonoscopy; removal of adenomatous polyp 2006 Dilation and curettage 11/01 Total vaginal hysterectomy. Left-sided salpingo-oophorectomy 2012 Right carpal tunnel surgery 2013 Colonoscopy with polyp removal 2016 Port placed for chemotherapy 2019 EGD and colonoscopy 2019 Allergies: See below Medications: See below Family History: - Father with a history of liver cancer. Mother with a history of ovarian cancer and leukemia Social History: - Denies the use of alcohol; patient reports that she quit smoking; patient reports that she uses marijuana - Denies recent travel or sick contacts - Patient lives with her son Review of Systems: 10 point review of systems complete, all negative otherwise stated in HPI Physical exam: - Vitals: BP [172/68], HR [82], RR [18], Sat [97%NC3L], Temp [98.3F] - General: Lying in bed, Speaking in full sentences, AAOx3 - HEENT: NC, AT, PERRLA - CVS: RRR, +S1S2, - Murmurs / rubs / gallops - Lungs: Fair air entry bilaterally, No appreciable wheezing / rales / rhonchi - Abdomen: Soft, Non-distended, Non-tender - Extremities: No lower extremity edema, No calf tenderness - Neuro: No focal motor or sensory deficit - Skin: No visible rashes Labs: See below Imaging: See below EKG: See below Assessment and Plan: Change in rhythm noted during procedure - Preoperative EKG revels LBBB, however during procedure patient had a change from complex morphology that lasted for ~1 hour - Postoperative EKG revealed LBBB consistent with prior EKGS - Patient denies any chest pain, shortness of breath or palpitations - Patient denies any prior history of heart attacks - Troponin were ordered and checked [id number] and have trended negative - c/w Telemetry monitoring - Patient will likely require outpatient follow-up with cardiology for additional stress testing Lactic acidosis - Will defer on additional fluid hydration - Will follow up repeat lactic acid level in 4 hours Hypomagnesemia - Will supplement Recent L ureteral stent placement - Patient a procedure completed today with Dr. 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 Ziegler COPD - No evidence of wheezing - c/w inhaled therapy as ordered HTN - Blood pressure in PACU appears to be elevated - Will resume Lisinopril - Will provide Hydralazine PRN SBP >160 NIDDM2 - Will start ISS DLP / PAD - c/w Atorvastatin Stress incontinence - c/w Oxybutynin RLS - Currently not on any medications Vitamin D deficiency - Currently not on any medications Depression - c/w Sertraline Chronic back pain 2/2 DDD - c/w Tylenol PRN Duodenal ulcer/GERD - c/w Protonix DVT prophylaxis - Will start Heparin Disposition: - Pending clinical improvement Vital Signs Vital Signs Date Time Temp Pulse Resp B/P (MAP) Pulse Ox O2 Delivery O2 Flow Rate FiO2 10/23/21 16:06 92 Nasal Cannula 2.0 10/23/21 16:00 98.9 83 16 142/72 (95) Laboratory Data Labs 24H Laboratory Tests 2 10/23/21 06:54: Bedside Glucose (Misc Panel) 166H 10/23/21 07:11: 10/23/21 11:52: Immature Granulocyte % (Auto) 0.9, Neutrophils (%) (Auto) 85.1H, Lymphocytes (%) (Auto) 11.3L, Monocytes (%) (Auto) 2.0, Eosinophils (%) (Auto) 0.4, Basophils (%) (Auto) 0.3, Neutrophils # (Auto) 6.5, Lymphocytes # (Auto) 0.9L, Monocytes # (Auto) 0.2, Eosinophils # (Auto) 0.0, Basophils # (Auto) 0.0, Nucleated Red Bl ood Cells % (auto) 0.0, Anion Gap 8, Glomerular Filtration Rate 57.1, Lactic Acid Level 3.0*H, Calcium Level 9.1, Magnesium Level 1.7L, Total Bilirubin 0.5, Aspartate Amino Transf (AST/SGOT) 52H, Alanine Aminotransferase (ALT/SGPT) 72, Alkaline Phosphatase 85, Total Creatine Kinase 65, Creatine Kinase MB 1.7, Creatine Kinase MB Relative Index 2.62, Troponin I High Sensitivity 12.0, YW-Gah-O-Type Natriuretic Peptide 81, Total Protein 6.5, Albumin 3.6, Albumin/Globulin Ratio 1.2 10/23/21 14:14: Total Creatine Kinase 75, Creatine Kinase MB 2.0, Creatine Kinase MB Relative Index 2.67, Troponin I High Sensitivity 10.0 CBC/BMP Laboratory Tests 10/23/21 11:52 Home Medications Scheduled Atorvastatin Calcium (Atorvastatin Calcium) 20 Mg Tablet, 20 MG PO DAILY Cetirizine HCl (All Day Allergy) 10 Mg Tablet, 10 MG PO DAILY Fluticasone Propion/Salmeterol (Fluticasone-Salmeterol 113-14) 1 Each Aer.pow.ba, 1 PUFF INH BID Lisinopril (Lisinopril) 5 Mg Tablet, 1 TAB PO DAILY [place]-3 Fatty Acids/Fish Oil (Fish Oil 1,000 mg Capsule) 1 Each Capsule, 1,000 MG PO BID Oxybutynin Chloride (Oxybutynin Chloride ER) 10 Mg Tab.er.24, 10 MG PO DAILY Pantoprazole Sodium (Pantoprazole Sodium) 40 Mg Tablet.dr, 40 MG PO BID Potassium Chloride (Potassium Chloride) 10 Meq Tablet.er, 10 MEQ PO BID Sertraline Hcl (Zoloft) 50 Mg Tablet, 50 MG PO DAILY Tamsulosin Hcl (Tamsulosin HCl) 0.4 Mg Capsule, 0.4 MG PO DAILY Scheduled PRN Albuterol Sulfate (Ventolin Hfa) 18 Gm Hfa.aer.ad, 2 PUFF INH Q4-6HP PRN for SOB/WHEEZING Olanzapine (Olanzapine) 10 Mg Tablet, 10 MG PO DAILYPRN PRN for SEVERE NAUSEA Allergies Coded Allergies: No Known Allergies (Unverified , 10/29/19) YONY JOHNSON MD Oct 23, 2021 16:22
[2021-10-23 18:30] LABS: CK-MB VALUE MASS 2.9 NG/ML (<3.6); MB/CK RELATIVE INDEX 2.07 (< OR =4)
--- NOTE | 2021-10-23 19:17 | ECGEPIP ---
[facility] Test Date: 2021-10-23 Pat Name: ABBE BLOOD Department: Room: - Gender: Female [employer] Mgr: [employer] : [id number] Requested By: Eitan Waters Order Number: [id number] Reading MD: Jose C Kasper Measurements Intervals [place] Rate: 85 P: 70 NE: 210 QRS: -42 QRSD: 140 T: 98 QT: 428 QTc: 509 Interpretive Statements Sinus rhythm with 1st degree AV block Left axis deviation Left bundle branch block new from tracing done 10-17-19 Prolonged QTc interval Electronically Signed on 10-23-2021 19:17:07 EST by Jose C Kasper
[2021-10-23 20:00] VITALS: BP 147/64
[2021-10-23] MEDS: DOCUSATE SODIUM 100MG CAPSULE PO SCH (20:32)
[2021-10-23] MEDS: PANTOPRAZOLE 40MG TAB (PROTONIX) PO SCH (20:32)
[2021-10-23] MEDS ORDERED: HumaLOG INSULIN (NovoLOG) PER UNIT SC SCH (21:00)
[2021-10-23] MEDS: HEPARIN SOD (PORCINE) 5000UNITS/ML 1ML VIAL/SYRINGE SC SCH (21:54)
[2021-10-24] VITALS: BP 147/70
[2021-10-24] MEDS ORDERED: PERCOCET 5MG/325MG TAB PO PRN (02:00)
[2021-10-24 04:00] VITALS: BP 143/66
[2021-10-24] MEDS: hydrALAZINE 20MG/ML 1ML VIAL (J0360 PER 20MG) IV SCH ×3 (05:00→17:00)
[2021-10-24 05:48] LABS: BASO % 0.2 % (0.0-1.0); EOS # 0.1 10^3/uL (0.0-0.5); EOS % 1.2 % (0.0-3.0); HEMATOCRIT 41.6 % (36.0-47.0); HEMOGLOBIN 13.6 g/dl (12.0-15.5); LYMPH # 1.4 10^3/uL (1.5-5.0); LYMPH % 16.8 % (24.0-44.0); MEAN CORPUSCULAR HEMOGLOBIN 29.4 pg (27.0-33.0); MEAN CORPUSCULAR HGB CONC 32.7 g/dl (32.0-36.5); MEAN CORPUSCULAR VOLUME 89.8 fl (80.0-96.0); MONO # 0.5 10^3/uL (0.0-0.8); MONO % 6.4 % (2.0-8.0); NEUTROPHILS # 6.1 10^3/uL (1.5-8.5); NEUTROPHILS % 74.8 % (36.0-66.0); PLATELET COUNT, AUTOMATED 125 10^3/uL (150-450); RED BLOOD COUNT 4.63 10^6/uL (4.00-5.40); WHITE BLOOD COUNT 8.2 10^3/uL (4.0-10.0)
[2021-10-24 06:11] LABS: BLOOD UREA NITROGEN 15 MG/DL (7-18); CALCIUM LEVEL 8.8 MG/DL (8.8-10.2); CARBON DIOXIDE LEVEL 29 MEQ/L (21-32); CHLORIDE LEVEL 106 MEQ/L (98-107); CREATININE FOR GFR 0.85 MG/DL (0.55-1.30); GLOMERULAR FILTRATION RATE > 60.0 (>45); GLUCOSE, FASTING 152 MG/DL (70-100); MAGNESIUM LEVEL 1.8 MG/DL (1.8-2.4); SODIUM LEVEL 143 MEQ/L (136-145)
[2021-10-24] MEDS: HEPARIN SOD (PORCINE) 5000UNITS/ML 1ML VIAL/SYRINGE SC SCH ×2 (06:18→13:23)
[2021-10-24 08:00] VITALS: BP 148/68
[2021-10-24] MEDS ORDERED: TAMSULOSIN 0.4 MG CAP PO SCH (09:00)
[2021-10-24] MEDS ORDERED: CETIRIZINE (ZyrTEC) 10 MG TAB PO SCH (09:00)
[2021-10-24] MEDS ORDERED: oxyBUTYnin *DITROPAN XL* 5 MG TABCR PO SCH (09:00)
[2021-10-24] MEDS ORDERED: lisinopriL 5 MG TAB PO SCH (09:00)
[2021-10-24] MEDS ORDERED: ATORVASTATIN 20 MG TAB PO SCH (09:00)
[2021-10-24] MEDS ORDERED: SERTRALINE HCL 50 MG TAB PO SCH (09:00)
[2021-10-24] MEDS: HumaLOG INSULIN (NovoLOG) PER UNIT SC SCH ×2 (10:00→12:00)
[2021-10-24] MEDS: DOCUSATE SODIUM 100MG CAPSULE PO SCH (10:02)
[2021-10-24] MEDS: PANTOPRAZOLE 40MG TAB (PROTONIX) PO SCH (10:13)
--- NOTE | 2021-10-24 15:33 | DS.PDOC ---
Discharge Summary General Date of Admission 10/23/2021 Date of Discharge 10/24/2021 Discharge Summary PROCEDURES PERFORMED DURING STAY: 10/23/2021: Cystoscopy with left ureteroscopy, laser lithotripsy and ureteral stent placement with Dr. Regalado. ADMITTING DIAGNOSES / DISCHARGE DIAGNOSES: Change in rhythm noted during procedure Lactic acidosis - likely 2/2 LR s/p Hypomagnesemia Recent L ureteral stent placement Lung CA (R lung small cell) COPD HTN NIDDM2 DLP / PAD Stress incontinence RLS Vitamin D deficiency Depression Chronic back pain 2/2 DDD Duodenal ulcer/GERD DVT prophylaxis COMPLICATIONS/CHIEF COMPLAINT: Nephrolithiasis. HISTORY OF PRESENT ILLNESS: Patient is 66-year-old female with a PMHx of Lung CA (R lung small cell), COPD, HTN, NIDDM2, DLP, PAD, Stress incontinence, RLS, Vitamin D deficiency, Depression, Chronic back pain 2/2 DDD, Ulcer/GERD who presented to [facility] for a procedure with urology. Patient had a left kidney stone and left hydronephrosis and was scheduled to receive a cystoscopy with left ureteroscopy, laser lithotripsy and ureteral stent placement with Dr. Regalado. Patient received medical clearance from her primary care provider as an outpatient. Patient does not have any prior history of heart attacks or strokes. During the procedure, patient was noted to have a change in morphology on telemetry that lasted for about 1 hour before resorting back to pre-procedure rhythm. Patient was kept on the hospitalist service for observation overnight. Patient was seen and examined at bedside. Patient denies any nausea, vomiting, chest pain, shortness of breath, palpitations, abdominal pain, diarrhea, or urinary discomfort. HOSPITAL COURSE: Change in rhythm noted during procedure - Preoperative EKG revels LBBB, however during procedure patient had a change from complex morphology that lasted for ~1 hour - Postoperative EKG revealed LBBB consistent with prior EKGS - This morning patient remained asymptomatic without evidence of chest pain, shortness of breath or palpitations - Patient denies any prior history of heart attacks - Troponin trend negative - c/w Telemetry monitoring - Will have outpatient follow-up with PCP and cardiology within the next 7 days Lactic acidosis - likely 2/2 LR - No signs of infection - No indication for antibiotics - Will hold IV fluid hydration; no signs of hypoperfusion s/p Hypomagnesemia Recent L ureteral stent placement - Patient a procedure completed on 10/[address] 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 Ziegler COPD - No evidence of wheezing - c/w inhaled therapy as ordered HTN - BP in the PACU on 10/23 was elevated; has since improved - s/p Hydralazine PRN SBP >160 - c/w Lisinopril NIDDM2 - c/w ISS while inpatient DLP / PAD - c/w Atorvastatin Stress incontinence - c/w Oxybutynin RLS - Currently not on any medications Vitamin D deficiency - Currently not on any medications Depression - c/w Sertraline Chronic back pain / DDD - c/w Tylenol PRN Duodenal ulcer/GERD - c/w Protonix DVT prophylaxis - c/w Heparin DISCHARGE MEDICATIONS: Please see below. ALLERGIES: Please see below. PHYSICAL EXAMINATION ON DISCHARGE: Vitals (See below) General: Lying in bed, appears comfortable, AAOx3 HEENT: NC, AT CVS: +S1S2 Lungs: Fair air entry b/l, no evidence of wheezing, rales or rhonchi Abdomen: Soft, ND, NT Extremities: No evidence of edema , - Calf tenderness LABORATORY DATA: Please see below. IMAGING: None ACTIVITY: [As tolerated]. DISCHARGE PLAN: Will have outpatient follow-up with primary care provider, Cardiology and Urology within the next 7 days Remain compliant with treatment plan and medications Return to the ER if you experience any problems DISPOSITION: Home with services DISCHARGE CONDITION: [Stable]. TIME SPENT ON DISCHARGE: 35 minutes Vital Signs/I&Os Vital Signs Date Time Temp Pulse Resp B/P (MAP) Pulse Ox O2 Delivery O2 Flow Rate FiO2 10/24/21 12:44 19 95 Nasal Cannula 1.0 10/24/21 12:00 148/68 10/24/21 08:00 97.9 91 I&O- Last 24 Hours up to 6 AM 10/24/21 05:59 Intake Total 2040 ml Output Total 1925 ml Balance 115 ml Laboratory Data Labs 24H Laboratory Tests 2 10/23/21 16:14: Bedside Glucose (Misc Panel) 197H 10/23/21 17:13: Lactic Acid Followup at 4 Hours 3.0*H, Total Creatine Kinase 140#, Creatine Kinase MB 2.9, Creatine Kinase MB Relative Index 2.07, Troponin I High Sensitivity 10.0 10/23/21 20:25: Bedside Glucose (Misc Panel) 168H 10/24/21 05:19: Immature Granulocyte % (Auto) 0.6, Neutrophils (%) (Auto) 74.8H, Lymphocytes (%) (Auto) 16.8L, Monocytes (%) (Auto) 6.4, Eosinophils (%) (Auto) 1.2, Basophils (%) (Auto) 0.2, Neutrophils # (Auto) 6.1, Lymphocytes # (Auto) 1.4L, Monocytes # (Auto) 0.5, Eosinophils # (Auto) 0.1, Basophils # (Auto) 0.0, Nucleated Red Blood Cells % (auto) 0.0, Anion Gap 8, Glomerular Filtration Rate > 60.0, Calcium Level 8.8, Magnesium Level 1.8 10/24/21 09:59: Bedside Glucose (Misc Panel) 159H 10/24/21 12:17: Bedside Glucose (Misc Panel) 204H CBC/BMP Laboratory Tests 10/24/21 05:19 FSBS Laboratory Tests Test 10/23/21 16:14 10/23/21 20:25 10/24/21 09:59 10/24/21 12:17 Range/Units Bedside Glucose (Misc Panel) 197 168 159 204 80-115 MG/DL Discharge Medications Scheduled Atorvastatin Calcium (Atorvastatin Calcium) 20 Mg Tablet, 20 MG PO DAILY, (Reported) Cetirizine HCl (All Day Allergy) 10 Mg Tablet, 10 MG PO DAILY, (Reported) Fluticasone Propion/Salmeterol (Fluticasone-Salmeterol 113-14) 1 Each Aer.pow.ba, 1 PUFF INH BID, (Reported) Lisinopril (Lisinopril) 5 Mg Tablet, 1 TAB PO DAILY, (Reported) [place]-3 Fatty Acids/Fish Oil (Fish Oil 1,000 mg Capsule) 1 Each Capsule, 1,000 MG PO BID, (Reported) Oxybutynin Chloride (Oxybutynin Chloride ER) 10 Mg Tab.er.24, 10 MG PO DAILY, (Reported) Pantoprazole Sodium (Pantoprazole Sodium) 40 Mg Tablet.dr, 40 MG PO BID, (Reported) Potassium Chloride (Potassium Chloride) 10 Meq Tablet.er, 10 MEQ PO BID, (Reported) Sertraline Hcl (Zoloft) 50 Mg Tablet, 50 MG PO DAILY, (Reported) Tamsulosin Hcl (Tamsulosin HCl) 0.4 Mg Capsule, 0.4 MG PO DAILY, (Reported) Scheduled PRN Albuterol Sulfate (Ventolin Hfa) 18 Gm Hfa.aer.ad, 2 PUFF INH Q4-6HP PRN for SOB/WHEEZING, (Reported) Olanzapine (Olanzapine) 10 Mg Tablet, 10 MG PO DAILYPRN PRN for SEVERE NAUSEA, (Reported) Allergies Coded Allergies: No Known Allergies (Unverified , 10/29/19) YONY JOHNSON MD Oct 24, 2021 15:32
[2021-10-24 16:28] VITALS: BP 128/60
[2021-10-24 17:00] VITALS: BP 128/60
--- OUTSIDE RECORDS SUMMARY | 2021-10-26 13:46 | CCD ---
Author Author [facility] Organization [facility] Address Unknown Phone Unavailable Care Team Providers Care Diagnostic Tech Name Role Phone Yesy Farnsworth Unavailable PROBLEMS Type Condition ICD9-CM Code [id number] Code Onset Dates Condition S tatus W/U Status Risk SNOMED Code Notes Problem Osteoarthritis of spine with radiculopathy, lumbar region M47.26 Active confirmed 971328200 Problem Stress incontinence N39.3 Active confirmed 69463771 Problem Major depressive disorder wi th single episode, remission status unspecified F32.9 Active confirmed 67717448 Problem Essential hypertension I10 Active confirmed 72627138 Problem 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 Active confirmed 363609657 Problem Cigarette nicotine dependence in remission F17.211 Active confirmed 318570804 Problem Left bundle branch block (LBBB) on electrocardiogram I44.7 Active confirmed 994630871 Problem Kidney stone on left side N20.0 Active confirmed 83167763 Problem Seasonal allergic rhinitis, unspecified allergic rhinitis trigger J30.2 Active confirmed 274870879 Problem Calculus of kidney with calculus of ureter N20.2 Active confirmed 689945427 Problem Type 2 diabetes mellitus wit h diabetic neuropathy, without long-term current use of insulin E11.40 Active confirmed 6341157 6 Problem Small cell lung cancer C34.90 Active confirmed 799571064 Problem Duodenal ulcer K26.9 Active confirmed 37588 009 Problem Mixed hyperlipidemia E78.2 Active confirmed 138193067 Problem Osteoarthritis of right thumb M18.11 Active confirm ed 37530403 ALLERGIES No Known Allergies ENCOUNTERS from 1955 to 2021-08-20 Encounter Location Date Provider Diagnosis [facility] [address] [phone] [place] [address] Jul, Yesy Farnsworth Kidney stone on left side N20.0 and Pre- op testing Z01.818 IMMUNIZATIONS Vaccine Route Administration Date Status Influenza 6mo & up Fluzone IM Intramuscular Sep 12, 2017 Admi nistered Influenza 6mo & up Fluzone IM Intramuscular Nov 04, 2016 Admi nistered SOCIAL HISTORY Tobacco Use: Social History Observation Description Date Details (start date - stop date) Former Smoker Sex Assigned At : Social History Observation Description Sex Assigned At Unknown Audit Question Answer Notes Total Score: 0 Interpretation: Alcohol Education Language: Question Answer Notes Languages spoken: Thai Anabaptism: Question Answer Notes Anabaptism 33 None Drug and Alcohol Question Answer Notes Total Score: 2 Interpretation: Low level BMI Care Goal Follow-Up Question Answer Notes Above Normal BMI Follow-Up Giving encouragement to exercise Tobacco Use: Question Answer Notes Are you a: former smoker How long has it been since you last smoked? 5-10 years REASON FOR REFERRAL No Information VITAL SIGNS Weight 227 lbs Jul, Weight-kg 102.97 kg Jul, Height 60.5 in Jul, BMI 43.60 kg/m2 Jul, Heart Rate 72 /min Jul, Respiratory Rate 18 /min Jul, Temperature 98.5 degrees Fahrenheit Jul, Oximetry 94% Jul, Blood pressure systolic 128 mm Hg Jul, Blood pressure diastolic 82 mm Hg Jul, MEDICATIONS Medication SIG (Take, Route, Frequency, Duration) Notes Start Da te End Date Status Clotrimazole 1 % 1 application Externally vulva daily for 7 days Jan, Active Protonix 40 MG 1 tablet Orally bid A ctive Nystatin 619824 UNIT/GM 1 null to affected area Exte rnally under breasts Daily for 10 Active Potassium Chloride 10 MEQ 2 capsules with food Orally once daily for 90 days Active Fluticasone-Salmeterol 113-14 MCG/ACT 1 puff Inhalation Twice a day Active Flomax 0.4 MG 1 capsule Orally Once a day for 30 day(s) Jun, Active Lisinopril 5 MG 1 tablet Orally Once a day for 90 day(s) 2 3 May, 2021 Active Oxybutynin Chloride ER 10 MG TAKE 1 TABLET BY MOUTH ONCE A DAY for 30 Active Sertraline HCl 50 MG TAKE ONE TABLET BY MOUTH EVERY DAY for 30 Active Cetirizine HCl 10 MG TAKE ONE TABLET BY MOUTH ONCE A DAY orally Daily for 30 Not-Taking Percocet 5-325 MG 1 tablet as needed Orally every 6 hrs, MDD 4 Jun, Active Atorvastatin Calcium 20 MG TAKE ONE TABLET BY MOUTH EVERY DAY Active Proventil HFA 108 (90 Base) MCG/ACT 2 puffs as needed Inhalation every 6 hrs Active PROCEDURES No Information RESULTS No Results REASON FOR VISIT fu kidney stones MEDICAL (GENERAL) HISTORY Type Description Date Medical History Lung cancer - right lung small cell Medical History DDD/DD chronic back pain with nerve dam age to her legs Medical History hyperlipidemia Medical History hypertension Medical History depression/mood swings Medical History COPD Medical History Diabetes mellitus - diet controlled Medical History post menopausal bleeding due to polyp/hassan rgery 11/01 Medical History left hydronephrosis, complex renal cyst and upper pole diverticulum Medical History Stress incontinence Medical History Restless leg syndrome Medical History Vitamin D deficiency Medical History Mild PAD Medical History Kidney stone Medical History 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 Don Torres ([facility]) 12/25/2010 Surgical History hysteroscopy, d&c, polypectomy 11/01 Surgical History TVH and LSO and cystoscopy for PMB with polyps 11/2012 Surgical History Right carpal tunnel surgery 2013 Surgical History Colonoscopy - Dr. Palacios; 10 mm Tubulovillous adnoma removed; repeat recommended in 3 years 01/17/2017 Surgical History port placed for chemo 06/2019 Surgical History EGD/Colonoscopy - Dr. Palacios , repeat in 3 years, duodenal ulcer seen on EGD 10/2019 Hospitalization History surgery related Hospitalization History n/v from chemo treatments 10/16/2019 Goals Section No Information Health Concerns No Information MEDICAL EQUIPMENT No Information MENTAL STATUS No Information FUNCTIONAL STATUS No Information ASSESSMENTS Encounter Date Diagnosis Assessment Notes Treatment Notes Treatm ent Clinical Notes Jul, Kidney stone on left side (ICD-10 - N20.0) Jul, Pre-op testing (ICD-10 - Z01.818) Jul, Other Laser lithotrips y material was printed,Laser lithotripsy home care material was printed,Ureteral stent placement material was printed,Ureteral stent placement home care material was printed PLAN OF TREATMENT Treatment Notes Test Name Order Date PLZ CHEST 2 VIEW 2021-08-19 Electrocardiogram (EKG) 2021-08-19 Future Test Test Name Order Date Basic Metabolic Profile (BMP) [id number] CBC - Complete Blood Count [id number] PT & APTT [id number] UA URINALYSIS [id number] URINE CULTURE [id number] Next Appt Details Provider Name:Ryann Jean Baptiste, 2021-09-18 02:30:00 PM, [address] [facility], , [place], [address], Insurance Providers Payer Name Payer Address Payer Phone Insured Name Patient Relati onship to Insured Coverage Start Date Coverage End Date MEDICARE COMPLETE [employer] [address] [address] [facility] [phone] ABBE BLOOD self
--- OUTSIDE RECORDS SUMMARY | 2021-10-26 13:46 | CCD ---
Author Author [facility] Organization [facility] Address Unknown Phone Unavailable Care Team Providers Care Metal Loader Name Role Phone FabricioEmiliano Unavailable PROBLEMS Type Condition ICD9-CM Code NAD93-GC Code Onset Dates Condition S tatus W/U Status Risk SNOMED Code Notes Problem Calculus of kidney N20.0 Active confirmed 9 8809948 Problem Essential hypertension I10 Active confirmed 91815578 Problem Osteoarthritis of spine with radiculopathy, lumbar region M47.26 Active confirmed 443746843 Problem Type 2 diabetes mellitus wit h diabetic neuropathy, without long-term current use of insulin E11.40 Active confirmed 6775775 6 Problem Stress incontinence N39.3 Active confirmed 63461207 Problem Cigarette nicotine dependence in remission F17.211 Active confirmed 751679457 Problem Osteoarthritis of right thumb M18.11 Active confirm ed 54168096 Problem Major depressive disorder wi th single episode, remission status unspecified F32.9 Active confirmed 58824471 Problem Chronic obstructive pulmonary disease, unspecified COPD ty pe J44.9 Active confirmed 11526233 Problem Seasonal allergic rhinitis, unspecified allergic rhinitis trigger J30.2 Active confirmed 487398651 Problem Left bundle branch block (LBBB) on electrocardiogram I44.7 Active confirmed 520331400 Problem Small cell lung cancer C34.90 Active confirmed 469476566 Problem Duodenal ulcer K26.9 Active confirmed 79688 009 Problem Mixed hyperlipidemia E78.2 Active confirmed 299886798 ALLERGIES No Known Allergies ENCOUNTERS from 1955 to 2021-10-20 Encounter Location Date Provider Diagnosis [facility] [address] [phone] [place] [address] Sep, Emiliano Regalado IMMUNIZATIONS Vaccine Route Administration Date Status Influenza [...] Education Language: Question Answer Notes Languages spoken: Austrian Uatsdin: Question Answer Notes Uatsdin 33 None Drug and Alcohol Question Answer Notes Total Score: 2 Interpretation: Low level BMI Care Goal Follow-Up Question Answer Notes Above Normal BMI Follow-Up Giving encouragement to exercise Tobacco Use: Question Answer Notes Are you a: former smoker How long has it been since you last smoked? 5-10 years REASON FOR REFERRAL No Information VITAL SIGNS No information MEDICATIONS Medication SIG (Take, Route, Frequency, Duration) Notes Start Da te End Date Status Nystatin 045143 UNIT/GM 1 null to affected area Exte rnally under breasts Daily for 10 Active Lisinopril 5 MG 1 tablet Orally Once a day May, Active Tamsulosin HCl 0.4 MG TAKE 1 CAPSULE BY MOUTH ONCE A DAY for 30 Active Sertraline HCl 50 MG TAKE ONE TABLET BY MOUTH EVERY DAY for 30 Active Potassium Chloride 10 MEQ 2 capsules with food Orally once daily Active Percocet 5-325 MG 1 tablet as needed Orally every 6 hrs, MDD 4 Sep, Active Proventil HFA 108 (90 Base) MCG/ACT 2 puffs as needed Inhalation every 6 hrs Active Protonix 40 MG 1 tablet Orally bid A ctive Atorvastatin Calcium 20 MG TAKE ONE TABLET BY MOUTH EVERY DAY Active Fluticasone-Salmeterol 113-14 MCG/ACT 1 puff Inhalation Twice a day Active Clotrimazole 1 % 1 application Externally vulva daily for 7 days Jan, Active Oxybutynin Chloride ER 10 MG TAKE 1 TABLET BY MOUTH ONCE A DAY for 30 Active Cetirizine HCl 10 MG 1 tablet orally Daily for 90 days Active PROCEDURES No Information RESULTS No Results REASON FOR VISIT No Information MEDICAL (GENERAL) HISTORY Type Description Date Medical [...] of nerve roots - Dr. Don Torres ([facility]) 12/25/2010 Surgical History hysteroscopy, d&c, [...] No Information FUNCTIONAL STATUS No Information ASSESSMENTS No Information PLAN OF TREATMENT Medication Medication Name Sig Start Date Stop Date Lisinopril 5 MG 1 tablet Orally Once a day May, Potassium Chloride 10 MEQ 2 capsules with food Orally once daily Cetirizine HCl 10 MG 1 tablet orally Daily for 90 days Protonix 40 MG 1 tablet Orally bid Atorvastatin Calcium 20 MG TAKE ONE TABLET BY MOUTH EVERY DAY Percocet 5-325 MG 1 tablet as needed Orally every 6 hrs, MDD 4 0 4 Sep, 2021 Next Appt Details Provider Name:Emiliano Regalado, 10:45:00 AM, [address], , [place], [address], Provider Name:Ryann Jean Baptiste, 2022-03-17 01:45:00 PM, [address] [facility], , [place], [address], Insurance Providers Payer Name Payer Address Payer Phone Insured Name Patient Relati onship to Insured Coverage Start Date Coverage End Date MEDICARE COMPLETE [facility] [address] [address] [facility] [id number] ABBE BLOOD self
--- OUTSIDE RECORDS SUMMARY | 2021-10-26 13:46 | CCD ---
Author Author [facility] Organization [facility] Address Unknown Phone Unavailable Care Team Providers Care Accounts Payable Professional Name Role Phone Emiliano Regalado Unavailable PROBLEMS Type Condition ICD9-CM Code QTO36-EH Code Onset Dates Condition S tatus W/U Status Risk SNOMED Code Notes Problem Osteoarthritis of spine with radiculopathy, lumbar region M47.26 Active confirmed 269799805 Problem Seasonal allergic rhinitis, unspecified allergic rhinitis trigger J30.2 Active confirmed 998520139 Problem Essential hypertension I10 Active confirmed 33197574 Problem Stress incontinence N39.3 Active confirmed 57929884 Problem Cigarette nicotine dependence in remission F17.211 Active confirmed 215168129 Problem Left bundle branch block (LBBB) on electrocardiogram I44.7 Active confirmed 260322967 Problem Chronic obstructive pulmonary disease, unspecified COPD ty pe J44.9 Active confirmed 04800724 Problem Type 2 diabetes mellitus wit h diabetic neuropathy, without long-term current use of insulin E11.40 Active confirmed 6470350 6 Problem Kidney stone N20.0 Active confirmed 4376983 7 Problem Major depressive disorder wi th single episode, remission status unspecified F32.9 Active confirmed 03121185 Problem Small cell lung cancer C34.90 Active confirmed 524953329 Problem Duodenal ulcer K26.9 Active confirmed 10895 009 Problem Mixed hyperlipidemia E78.2 Active confirmed 215664105 Problem Osteoarthritis of right thumb M18.11 Active confirm ed 21426929 ALLERGIES No Known Allergies ENCOUNTERS from 1955 to 2021-10-23 Encounter Location Date Provider Diagnosis [facility] [address] [phone] [place] [address] Oct, Emiliano Regalado Kidney stone N20.0 IMMUNIZATIONS Vaccine Route Administration Date Status Influenza [...] Education Language: Question Answer Notes Languages spoken: Spanish Adventist: Question Answer Notes Adventist 33 None Drug and Alcohol Question Answer [...] Start Da te End Date Status Nystatin 997899 UNIT/GM 1 null to affected area Exte [...] Information RESULTS No Results REASON FOR VISIT Appt Change, Renal US MEDICAL (GENERAL) HISTORY Type Description Date Medical [...] of nerve roots - Dr. Don Torres ([facility]) 12/25/2010 Surgical History hysteroscopy, d&c, polypectomy 11/01 [...] Notes Treatment Notes Treatm ent Clinical Notes Oct, Kidney stone (ICD-10 - N20.0) PLAN OF TREATMENT Medication Medication Name Sig [...] hrs, MDD 4 0 4 Sep, 2021 Future Test Test Name Order Date [facility] RENAL US [id number] Next Appt Details Provider Name:Emiliano Regalado, 01:00:00 PM, [address], , [place], [address], Provider Name:Ryann Jean Baptiste, 2022-03-17 01:45:00 PM, [address] [facility], , [place], [address], Insurance Providers Payer Name Payer Address Payer Phone Insured Name Patient Relati onship to Insured Coverage Start Date Coverage End Date MEDICARE COMPLETE [employer] [address] [address] [facility] [phone] ABBE BLOOD self
--- OUTSIDE RECORDS SUMMARY | 2021-10-26 13:46 | CCD ---
Author Author [facility] Organization [facility] Address Unknown Phone Unavailable Care Team Providers Care Acid Retort Operator Name Role Phone Ryann Jean Baptiste Unavailable PROBLEMS ALLERGIES No Known Allergies ENCOUNTERS from 1955 to 2021-09-22 IMMUNIZATIONS SOCIAL HISTORY REASON FOR REFERRAL No Information VITAL SIGNS MEDICATIONS PROCEDURES No Information RESULTS No Results REASON FOR VISIT MEDICAL (GENERAL) HISTORY Goals Section Health Concerns MEDICAL EQUIPMENT No Information MENTAL STATUS FUNCTIONAL STATUS ASSESSMENTS No Information PLAN OF TREATMENT Insurance Providers
--- OUTSIDE RECORDS SUMMARY | 2021-10-26 13:46 | CCD ---
Author Author [facility] Organization [facility] Address Unknown Phone Unavailable Care Team Providers Care Retail Salesperson Name Role Phone Yesy Farnsworth Unavailable PROBLEMS Type Condition ICD9-CM Code [id number] Code Onset Dates Condition S tatus W/U Status Risk SNOMED Code Notes Problem Stress incontinence N39.3 Active confirmed 71482841 Problem Calculus of kidney N20.0 Active confirmed 9 0775638 Problem Seasonal allergic rhinitis, unspecified allergic rhinitis trigger J30.2 Active confirmed 621490131 Problem Major depressive disorder wi th single episode, remission status unspecified F32.9 Active confirmed 17556887 Problem Type 2 diabetes mellitus wit h diabetic neuropathy, without long-term current use of insulin E11.40 Active confirmed 2213585 6 Problem Mixed hyperlipidemia E78.2 Active confirmed 539565833 Problem Essential hypertension I10 Active confirmed 88318254 Problem Osteoarthritis of right thumb M18.11 Active confirm ed 89373037 Problem Osteoarthritis of spine with radiculopathy, lumbar region M47.26 Active confirmed 733708799 Problem Cigarette nicotine dependence in remission F17.211 Active confirmed 554563844 Problem Left bundle branch block (LBBB) on electrocardiogram I44.7 Active confirmed 300512890 Problem Small cell lung cancer C34.90 Active confirmed 760601825 Problem Duodenal ulcer K26.9 Active confirmed 26416 009 ALLERGIES No Known Allergies ENCOUNTERS from 1955 to 2021-09-24 Encounter Location Date Provider Diagnosis [facility] [address] [phone] [place] [address] Sep, Yesy Farnsworth Calculus of kidney with calculus of uret er N20.2 IMMUNIZATIONS Vaccine Route Administration Date Status Influenza [...] Education Language: Question Answer Notes Languages spoken: Frisian Spiritism: Question Answer Notes Spiritism 33 None Drug and Alcohol Question Answer [...] Notes Start Da te End Date Status Proventil HFA 108 (90 Base) MCG/ACT 2 puffs as needed Inhalation every 6 hrs Active Nystatin 500099 UNIT/GM 1 null to affected area Exte rnally under breasts Daily for 10 Active Atorvastatin Calcium 20 MG TAKE ONE TABLET BY MOUTH EVERY DAY for 30 Active Fluticasone-Salmeterol 113-14 MCG/ACT 1 puff Inhalation Twice a day Active Percocet 5-325 MG 1 tablet as needed Orally every 6 hrs, MDD 4 Sep, Active Clotrimazole 1 % 1 application Externally vulva daily for 7 days Jan, Active Cetirizine HCl 10 MG TAKE ONE TABLET BY MOUTH ONCE A DAY orally Daily for 30 Not-Taking Potassium Chloride 10 MEQ 2 capsules with food Orally once daily for 90 days Active Sertraline HCl 50 MG TAKE ONE TABLET BY MOUTH EVERY DAY for 30 Active Oxybutynin Chloride ER 10 MG TAKE 1 TABLET BY MOUTH ONCE A DAY for 30 Active Lisinopril 5 MG 1 tablet Orally Once a day for 90 day(s) 2 3 May, 2021 Active Tamsulosin HCl 0.4 MG TAKE 1 CAPSULE BY MOUTH ONCE A DAY for 30 Active Protonix 40 MG 1 tablet Orally bid A ctive PROCEDURES No Information RESULTS No Results REASON FOR VISIT rx MEDICAL (GENERAL) HISTORY Type Description Date Medical [...] of nerve roots - Dr. Don Torres ([facility]) 12/25/2010 Surgical History hysteroscopy, d&c, [...] Notes Treatment Notes Treatm ent Clinical Notes Sep, Calculus of kidney with calculus of ureter (ICD- 10 - N20.2) PLAN OF TREATMENT Medication Medication Name Sig Start Date Stop Date Percocet 5-325 MG 1 tablet as needed Orally every 6 hrs, MDD 4 0 4 Sep, 2021 Tamsulosin HCl 0.4 MG TAKE 1 CAPSULE BY MOUTH ONCE A DAY for 30 Atorvastatin Calcium 20 MG TAKE ONE TABLET BY MOUTH EVERY DAY fo 30 Next Appt Details Provider Name:Ryann Jean Baptiste, 2021-10-05 11:15:00 AM, [address] [facility], , [place], [address], Provider Name:Emiliano Regalado, 10:45:00 AM, [address], , [place], [address], Insurance Providers Payer Name Payer Address Payer Phone Insured Name Patient Relati onship to Insured Coverage Start Date Coverage End Date MEDICARE COMPLETE [employer] [address] [address] [facility] [id number] ABBE BLOOD self
--- OUTSIDE RECORDS SUMMARY | 2021-10-26 13:46 | CCD ---
Author Author [facility] Organization [facility] Address Unknown Phone Unavailable Care Team Providers Care Medical Device Name Role Phone Ryann Jean Baptiste Unavailable PROBLEMS ALLERGIES No Known Allergies ENCOUNTERS from 1955 to 2021-10-06 IMMUNIZATIONS SOCIAL HISTORY REASON FOR REFERRAL No Information VITAL SIGNS MEDICATIONS PROCEDURES from 1955 to 2021-10-06 RESULTS REASON FOR VISIT MEDICAL (GENERAL) HISTORY Goals Section Health Concerns MEDICAL EQUIPMENT No Information MENTAL STATUS FUNCTIONAL STATUS ASSESSMENTS PLAN OF TREATMENT Insurance Providers
--- OUTSIDE RECORDS SUMMARY | 2021-10-26 13:46 | CCD ---
Author Author [facility] Organization [facility] Address Unknown Phone Unavailable Care Team Providers Care Rotary Dump Operator Name Role Phone Yesy Farnsworth Unavailable PROBLEMS Type Condition ICD9-CM Code [id number] Code Onset Dates Condition S tatus W/U Status Risk SNOMED Code Notes Problem Osteoarthritis of spine with radiculopathy, lumbar region M47.26 Active confirmed 330804420 Problem Stress incontinence N39.3 Active confirmed 50186970 Problem Major depressive disorder wi th single episode, remission status unspecified F32.9 Active confirmed 37775109 Problem Essential hypertension I10 Active confirmed 00417186 Problem 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 Active confirmed 869624155 Problem Cigarette nicotine dependence in remission F17.211 Active confirmed 886121315 Problem Left bundle branch block (LBBB) on electrocardiogram I44.7 Active confirmed 223935493 Problem Kidney stone on left side N20.0 Active confirmed 30751740 Problem Seasonal allergic rhinitis, unspecified allergic rhinitis trigger J30.2 Active confirmed 388338035 Problem Calculus of kidney with calculus of ureter N20.2 Active confirmed 492897627 Problem Type 2 diabetes mellitus wit h diabetic neuropathy, without long-term current use of insulin E11.40 Active confirmed 4059609 6 Problem Small cell lung cancer C34.90 Active confirmed 289673536 Problem Duodenal ulcer K26.9 Active confirmed 63184 009 Problem Mixed hyperlipidemia E78.2 Active confirmed 334546486 Problem Osteoarthritis of right thumb M18.11 Active confirm ed [id number] ALLERGIES No Known Allergies ENCOUNTERS from 1955 to 2021-09-01 Encounter Location Date Provider Diagnosis [facility] [address] [phone] [place] [address] Aug, Yesy Farnsworth Calculus of kidney with calculus [...] Education Language: Question Answer Notes Languages spoken: [place] Islander Scientologist: Question Answer Notes Scientologist 33 None Drug and Alcohol Question Answer [...] Notes Start Da te End Date Status Cetirizine HCl 10 MG TAKE ONE TABLET BY MOUTH ONCE A DAY orally Daily for 30 Not-Taking Potassium Chloride 10 MEQ 2 capsules with food Orally once daily for 90 days Active Fluticasone-Salmeterol 113-14 MCG/ACT 1 puff Inhalation Twice a day Active Nystatin 323799 UNIT/GM 1 null to affected area Exte rnally under breasts Daily for 10 Active Atorvastatin Calcium 20 MG TAKE ONE TABLET BY MOUTH EVERY DAY for 30 Active Lisinopril 5 MG 1 tablet Orally Once a day for 90 day(s) 2 3 May, 2021 Active Clotrimazole 1 % 1 application Externally vulva daily for 7 days Jan, Active Protonix 40 MG 1 tablet Orally bid A ctive Sertraline HCl 50 MG TAKE ONE TABLET BY MOUTH EVERY DAY for 30 Active Proventil HFA 108 (90 Base) MCG/ACT 2 puffs as needed Inhalation every 6 hrs Active Flomax 0.4 MG 1 capsule Orally Once a day for 30 day(s) Jun, Active Percocet 5-325 MG 1 tablet as needed Orally every 6 hrs, MDD 4 12 Aug, 2021 Active Oxybutynin Chloride ER 10 MG TAKE 1 TABLET BY MOUTH ONCE A DAY for 30 Active PROCEDURES No Information RESULTS No Results REASON FOR VISIT pain medication MEDICAL (GENERAL) HISTORY Type Description Date Medical [...] of nerve roots - Dr. Don Torres ([facility]) 12/25/2010 Surgical History hysteroscopy, d&c, polypectomy 11/01 [...] Notes Treatment Notes Treatm ent Clinical Notes Aug, Calculus of kidney with calculus of ureter (ICD- 10 - N20.2) PLAN OF TREATMENT Medication Medication Name Sig Start Date Stop Date Atorvastatin Calcium 20 MG TAKE ONE TABLET BY MOUTH EVERY DAY fo r 30 Percocet 5-325 MG 1 tablet as needed Orally every 6 hrs, MDD 4 1 2 Aug, 2021 Next Appt Details Provider Name:Ryann Lozoya Rociomauro, 2021-09-18 02:30:00 PM, [address] [facility], , [place], [address], Insurance Providers Payer Name Payer Address Payer Phone Insured Name Patient Relati onship to Insured Coverage Start Date Coverage End Date MEDICARE COMPLETE [employer] [address] [address] [facility] [id number] ABBE BLOOD self
--- OUTSIDE RECORDS SUMMARY | 2021-10-26 13:47 | CCD ---
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 Role Phone Elma Duncan MD Unavailable Unavailable Elma Duncan MD Unavailable Unavailable Elma Duncan MD Unavailable Unavailable Elma Duncan MD Unavailable Unavailable Elma Duncan MD Unavailable Unavailable Elma Duncan MD Unavailable Unavailable Elma Duncan MD Unavailable Unavailable Elma Duncan MD Unavailable Unavailable Elma Duncan MD Unavailable Unavailable Elma Duncan MD Unavailable Unavailable Elma Duncan MD Unavailable Unavailable Elma Duncan MD Unavailable Unavailable Elma Duncan MD Unavailable Unavailable Elma Duncan MD Unavailable Unavailable Elma Duncan MD Unavailable Unavailable Elma Duncan MD Unavailable Unavailable Elma Duncan MD Unavailable Unavailable Elma Duncan MD Unavailable Unavailable Mollison, Elma George MD Unavailable Unavailable Mollison, Elma George MD Unavailable Unavailable Mollison, Elma George MD Unavailable Unavailable Mollison, Elma George MD Unavailable Unavailable Mollison, Elma George MD Unavailable Unavailable Mollison, Elma George MD Unavailable Unavailable Mollison, Elma George MD Unavailable Unavailable Mollison, Elma George MD Unavailable Unavailable Mollison, Elma George MD Unavailable Unavailable Mollison, Elma George MD Unavailable Unavailable Mollison, Elma George MD Unavailable Unavailable Mollison, Elma George MD Unavailable Unavailable Mollison, Elma George MD Unavailable Unavailable Zayas, Lucian Munoz MD Unavailable Unavailable Zayas, Lucian Munoz MD Unavailable Unavailable Zayas, Lucian Munoz MD Unavailable Unavailable Zayas, Lucian Munoz MD Unavailable Unavailable Zayas, Lucian Munoz MD Unavailable Unavailable Zayas, Lucian Munoz MD Unavailable Unavailable Zayas, Lucian Munoz MD Unavailable Unavailable Zayas, Lucian Munoz MD Unavailable Unavailable Zayas, Lucian Munoz MD Unavailable Unavailable Zayas, Lucian Munoz MD Unavailable Unavailable Zayas, Lucian Munoz MD Unavailable Unavailable Zayas, Lucian Munoz MD Unavailable Unavailable Lucian Zayas MD Unavailable Unavailable Lucian Zayas MD Unavailable Unavailable Lucian Zayas MD Unavailable Unavailable Lucian Zayas MD Unavailable Unavailable ZayasLucian MD Unavailable Unavailable ZayasLucian MD Unavailable Unavailable ZyaasLucian MD Unavailable Unavailable ZayasLucian MD Unavailable Unavailable ZayasLucian MD Unavailable Unavailable Lucian Zayas MD Unavailable Unavailable Lucian aZyas MD Unavailable Unavailable Lucian Zayas MD Unavailable Unavailable ZayasLucian MD Unavailable Unavailable ZayasLucian MD Unavailable Unavailable ZayasLucian MD Unavailable Unavailable Lucian Zayas MD Unavailable Unavailable Lucian Zayas MD Unavailable Unavailable Lucian Zayas MD Unavailable Unavailable Lucian Zayas MD Unavailable Unavailable Lucian Zayas MD Unavailable Unavailable Lucian Zayas MD Unavailable Unavailable Lucian Zayas MD Unavailable Unavailable ZayasLucian MD Unavailable Unavailable Lucian Zayas MD Unavailable Unavailable Lucian Zayas MD Unavailable Unavailable ZayasLucian MD Unavailable Unavailable Lucian Zayas MD Unavailable Unavailable Lucian Zayas MD Unavailable Unavailable Lucian Zayas MD Unavailable Unavailable Lucian Zayas MD Unavailable Unavailable Lucian Zayas MD Unavailable Unavailable Lucian Zayas MD Unavailable Unavailable ZayasLucian MD Unavailable Unavailable ZayasLucian MD Unavailable Unavailable ZayasLucian MD Unavailable Unavailable ZayasLucian MD Unavailable Unavailable Lucian Zayas MD Unavailable Unavailable Lucian Zayas MD Unavailable Unavailable Lucian Zayas MD Unavailable Unavailable Lucian Zayas MD Unavailable Unavailable Lucian Zayas MD Unavailable Unavailable ZayasLucian MD Unavailable Unavailable ZayasLucian MD Unavailable Unavailable Re-disclosure Warning The records that you are about to access may contain information from federally-assisted alcohol or drug abuse programs. If such information is present, then the following federally mandated warning applies: This information has been disclosed to you from records protected by federal confidentiality rules (42 CFR part 2). The federal rules prohibit you from making any further disclosure of this information unless further disclosure is expressly permitted by the written consent of the person to whom it pertains or as otherwise permitted by 42 CFR part 2. A general authorization for the release of medical or other information is NOT sufficient for this purpose. The Federal rules restrict any use of the information to criminally investigate or prosecute any alcohol or drug abuse patient.The records that you are about to access may contain highly sensitive health information, the redisclosure of which is protected by Article 27-F of the [place] Public Health law. If you continue you may have access to information: Regarding HIV / AIDS; Provided by facilities licensed or operated by the [place] Office of Mental [facility]; or Provided by the [place] Office for People With Developmental Disabilities. If such information is present, then the following [place] mandated warning applies: This information has been disclosed to you from confidential records which are protected by state law. State law prohibits you from making any further disclosure of this information without the specific written consent of the person to whom it pertains, or as otherwise permitted by law. Any unauthorized further disclosure in violation of state law may result in a fine or fpc sentence or both. A general authorization for the release of medical or other information is NOT sufficient authorization for further disc losure. Family History Family Member Name Family Member Gender Family Member Status Date o f Status Description Data Source(s) Unknown Unknown Problem MEDENT ([facility]) /uterine mom and blood cancer Unknown Male Problem MEDENT ([facility]) Unknown Male Problem MEDENT ([facility] () Encounters Encounter Providers Location Date Indications Data Source(s ) [place] [address] [facility] [facility] [address] 10/23/2021 12:00:00 AM EST eCW1 ([facility]) [place] [address] [facility] [address] 10/19/2021 12:00:00 AM EST eCW1 ([facility]) [place] [address] [facility] [address] 10/05/2021 12:00:00 AM EST eCW1 ([facility]) [place] [address] [facility] [address] 09/24/2021 12:00:00 AM EDT eCW1 ([facility]) [place] [address] [facility] [address] 09/22/2021 12:00:00 AM EDT eCW1 ([facility]) [place] [address] [facility] [address] 09/01/2021 12:00:00 AM EDT eCW1 [facility] [place] [address] [facility] [address] 08/19/2021 12:00:00 AM EDT eCW1 ([facility]) [place] [address] [facility] [address] 07/14/2021 12:00:00 AM EDT eCW1 ([facility]) Outpatient Attender: Ariel Chairez/Dariela/Jean/Re indl 07/03/2021 11:15:00 AM EDT MEDENT ([facility]) [place] [address] [facility] [facility] [address] 06/23/2021 12:00:00 AM EDT eCW1 ([facility]) [place] [address] [facility] [address] 06/12/2021 12:00:00 AM EDT eCW1 [facility] [place] [address] [facility] [address] 06/11/2021 12:00:00 AM EDT eCW1 ([facility]) Outpatient Attender: Ariel Chairez/Dariela/Jean/Re indl 06/04/2021 01:00:00 PM EDT MEDENT ([facility]) [place] [address] [address] 06/04/2021 12:00:00 AM EDT eCW1 ([facility]) Outpatient Attender: Alexander Chairez/Dariela/Jean/R eindl 05/18/2021 01:30:00 PM EDT MEDENT ([facility]) ([facility] Exam [address] [place] [address] 02/10/2021 12:00:00 AM EDT eCW1 ([facility]) Outpatient Attender: Alexander Chairez/Dariela/Jean/R eindl 01/15/2021 01:45:00 PM EST MEDENT ([facility]) [place] [address] [address] 09/14/2020 12:00:00 AM EDT eCW1 ([facility]) Outpatient [address] [facility] [address] 09/02/2020 12:00:00 AM EDT eCW1 ([facility]) Immunizations Vaccine Date Status Description Data Source(s) COVID-19 VACCINE Ranjan 02/18/2021 12:00:00 AM EDT completed [facility] Vaccine Series Complete: YESThis Data wa s Submitted to [facility] Via [employer]. Medications Medication Brand Name Start Date Product Form Dose Route Admi nistrative Instructions Pharmacy Instructions Status Indications Reaction Description Data Source(s) 10 mg 10/05/2021 12:00:00 AM EST tablet 90 TAKE 1 TABLET BY MOUTH DAILY TAKE 1 TABLET BY MOUTH DAILY SOLD: 10/06/2021 [facility] atorvastatin 20 MG Oral Tablet ATORVASTATIN CALCIUM 10/02/2021 1 2:00:00 AM EST tablet 30 TAKE ONE TABLET BY MOUTH EVERY D AY TAKE ONE TABLET BY MOUTH EVERY DAY SOLD: 10/04/2021 [facility] 90 mcg/actuation 09/26/2021 12:00:00 AM EDT HFA aerosol inha ler 8 INHALE 2 PUFFS BY MOUTH FOUR TIMES A DAY NEEDED INHALE 2 PUFFS BY MOUTH FOUR TIMES A DAY NEEDED SOLD: 09/27/2021 [facility] 90 mcg/actuation 09/26/2021 12:00:00 AM EDT HFA aerosol inha ler 8 INHALE 2 PUFFS BY MOUTH FOUR TIMES A DAY NEEDED INHALE 2 PUFFS BY MOUTH FOUR TIMES A DAY NEEDED SOLD: 10/20/2021 [facility] 5-325 mg 09/24/2021 12:00:00 AM EDT tablet 28 TAKE ONE TABLET BY MOUTH EVERY 6 HOURS NEEDED MAXIMUM DAILY DOSE = 4 TABLETS TAKE ONE TABLET BY MOUTH EVERY 6 HOURS NEEDED MAXIMUM DAILY DOSE = 4 TABLETS SOLD: 09/24/2021 [facility] Acetaminophen 325 MG / Oxycodone Hydroch loride 5 MG Oral Tablet [Percocet] Percocet 5-325 MG Percocet 5-325 MG 09/24/2021 12:00:00 AM EDT 1 .0 {tablet_as_needed} active Percocet 5-32 5 MG eCW1 ([facility]) Acetaminophen 325 MG / Oxycodone Hydroch loride 5 MG Oral Tablet [Percocet] Percocet 5-325 MG Percocet 5-325 MG 09/24/2021 12:00:00 AM EDT 1 .0 {tablet_as_needed} active eCW1 ([facility]) Acetaminophen 325 MG / Oxycodone Hydroch loride 5 MG Oral Tablet [Percocet] Percocet 5-325 MG Percocet 5-325 MG 09/24/2021 12:00:00 AM EDT 1 .0 {tablet_as_needed} active Percocet 5-32 5 MG eCW1 ([facility]) Acetaminophen 325 MG / Oxycodone Hydroch loride 5 MG Oral Tablet [Percocet] Percocet 5-325 MG Percocet 5-325 MG 09/24/2021 12:00:00 AM EDT 1 .0 {tablet_as_needed} active Percocet 5-32 5 MG eCW1 ([facility]) pantoprazole 40 MG Delayed Release Oral Tablet PANTOPRAZOLE SODIUM 09/15/2021 12:00:00 AM EDT tablet,delayed release (DR/EC) 60 T PETRA 1 TAB. IN A.M.30MIN.PRIOR TO BREAKFAST & BEDTIME -TAPER AFTER 8 WEEKS TAKE 1 TAB. IN A.M.30MIN.PRIOR TO BREAKFAST & BEDTIME -TAPER AFTER 8 WEEKS SOLD: 10/13/2021 [facility] pantoprazole 40 MG Delayed Release Oral Tablet PANTOPRAZOLE SODIUM 09/15/2021 12:00:00 AM EDT tablet,delayed release (DR/EC) 60 T PETRA 1 TAB. IN A.M.30MIN.PRIOR TO BREAKFAST & BEDTIME -TAPER AFTER 8 WEEKS TAKE 1 TAB. IN A.M.30MIN.PRIOR TO BREAKFAST & BEDTIME -TAPER AFTER 8 WEEKS SOLD: 09/15/2021 [facility] 0.4 mg 09/07/2021 12:00:00 AM EDT capsule 30 TAKE ONE CAPSULE BY MOUTH EVERY DAY TAKE ONE CAPSULE BY MOUTH EVERY DAY SOLD: 09/08/2021 [facility] 0.4 mg 09/07/2021 12:00:00 AM EDT capsule 30 TAKE ONE CAPSULE BY MOUTH EVERY DAY TAKE ONE CAPSULE BY MOUTH EVERY DAY SOLD: 10/06/2021 [facility] Acetaminophen 325 MG / Oxycodone Hydroch loride 5 MG Oral Tablet [Percocet] Percocet 5-325 MG Percocet 5-325 MG 09/01/2021 12:00:00 AM EDT 1 .0 {tablet_as_needed} active eCW1 ([facility]) 5-325 mg 09/01/2021 12:00:00 AM EDT tablet 28 TAKE ONE TABLET BY MOUTH EVERY 6 HOURS NEEDED * MAXIMUM DAILY DOSE = 4 TAKE ONE TABLET BY MOUTH EVERY 6 HOURS NEEDED * MAXIMUM DAILY DOSE = 4 SOLD: 09/01/2021 [facility] Acetaminophen 325 MG / Oxycodone Hydroch loride 5 MG Oral Tablet [Percocet] Percocet 5-325 MG Percocet 5-325 MG 09/01/2021 12:00:00 AM EDT 1 .0 {tablet_as_needed} active Percocet 5-32 5 MG eCW1 ([facility]) atorvastatin 20 MG Oral Tablet ATORVASTATIN CALCIUM 08/30/2021 1 2:00:00 AM EDT tablet 30 TAKE ONE TABLET BY MOUTH EVERY D AY TAKE ONE TABLET BY MOUTH EVERY DAY SOLD: 08/30/2021 [facility] 60 ACTUAT Fluticasone propionate 0.113 M G/ACTUAT / Salmeterol xinafoate 0.014 MG/ACTUAT Dry Powder Inhaler 113-14 mcg/actuation FLUTICASONE PROPION/SALMETEROL 08/25/2021 12:00:00 AM EDT aerosol powdr breath activated 1 INHALE 1 PUFF BY MOUTH TWO TIMES A DAY INHALE 1 PUFF BY MOUTH TWO TIMES A DAY SOLD: 09/22/2021 [facility] 60 ACTUAT Fluticasone propionate 0.113 M G/ACTUAT / Salmeterol xinafoate 0.014 MG/ACTUAT Dry Powder Inhaler 113-14 mcg/actuation FLUTICASONE PROPION/SALMETEROL 08/25/2021 12:00:00 AM EDT aerosol powdr breath activated 1 INHALE 1 PUFF BY MOUTH TWO TIMES A DAY INHALE 1 PUFF BY MOUTH TWO TIMES A DAY SOLD: 08/25/2021 [facility] 60 ACTUAT Fluticasone propionate 0.113 M G/ACTUAT / Salmeterol xinafoate 0.014 MG/ACTUAT Dry Powder Inhaler 113-14 mcg/actuation FLUTICASONE PROPION/SALMETEROL 08/25/2021 12:00:00 AM EDT aerosol powdr breath activated 1 INHALE 1 PUFF BY MOUTH TWO TIMES A DAY INHALE 1 PUFF BY MOUTH TWO TIMES A DAY SOLD: 10/20/2021 [facility] 10 mg 08/05/2021 12:00:00 AM EDT tablet extended release 24hr 30 TAKE ONE TABLET BY MOUTH EVERY DAY TAKE ONE TABLET BY MOUTH EVERY DAY SOLD: 08/06/2021 [facility] 10 mg 08/05/2021 12:00:00 AM EDT tablet extended release 24hr 30 TAKE ONE TABLET BY MOUTH EVERY DAY TAKE ONE TABLET BY MOUTH EVERY DAY SOLD: 09/03/2021 [facility] 10 mg 08/05/2021 12:00:00 AM EDT tablet extended release 24hr 30 TAKE ONE TABLET BY MOUTH EVERY DAY TAKE ONE TABLET BY MOUTH EVERY DAY SOLD: 10/01/2021 [facility] Potassium Chloride 10 MEQ Extended Release Oral Tablet POTAS SIUM CHLORIDE 07/21/2021 12:00:00 AM EDT tablet extended release 180 TAKE TWO TABLETS BY MOUTH ONCE A DAY WITH FOOD TAKE TWO TABLETS BY MOUTH ONCE A DAY WITH FOOD SOLD: 07/21/2021 [facility] Potassium Chloride 10 MEQ Extended Release Oral Tablet POTAS SIUM CHLORIDE 07/21/2021 12:00:00 AM EDT tablet extended release 180 TAKE TWO TABLETS BY MOUTH ONCE A DAY WITH FOOD TAKE TWO TABLETS BY MOUTH ONCE A DAY WITH FOOD SOLD: 10/17/2021 [facility] 50 mg 07/20/2021 12:00:00 AM EDT tablet 30 TAKE ONE TABLET BY MOUTH EVERY DAY TAKE ONE TABLET BY MOUTH EVERY DAY SOLD: 08/18/2021 [facility] 50 mg 07/20/2021 12:00:00 AM EDT tablet 30 TAKE ONE TABLET BY MOUTH EVERY DAY TAKE ONE TABLET BY MOUTH EVERY DAY SOLD: 09/15/2021 [facility] 50 mg 07/20/2021 12:00:00 AM EDT tablet 30 TAKE ONE TABLET BY MOUTH EVERY DAY TAKE ONE TABLET BY MOUTH EVERY DAY SOLD: 10/13/2021 [facility] 50 mg 07/20/2021 12:00:00 AM EDT tablet 30 TAKE ONE TABLET BY MOUTH EVERY DAY TAKE ONE TABLET BY MOUTH EVERY DAY SOLD: 07/21/2021 [facility] 5-325 mg 07/14/2021 12:00:00 AM EDT tablet 28 TAKE ONE TABLET BY MOUTH EVERY 6 HOURS NEEDED MAXIMUM DAILY DOSE = 4 TABLETS TAKE ONE TABLET BY MOUTH EVERY 6 HOURS NEEDED MAXIMUM DAILY DOSE = 4 TABLETS SOLD: 07/14/2021 [facility] 0.4 mg 07/14/2021 12:00:00 AM EDT capsule 30 TAKE 1 CAPSULE BY MOUTH ONCE A DAY TAKE 1 CAPSULE BY MOUTH ONCE A DAY SOLD: 07/14/2021 [facility] Acetaminophen 325 MG / Oxycodone Hydroch loride 5 MG Oral Tablet [Percocet] Percocet 5-325 MG Percocet 5-325 MG 07/14/2021 12:00:00 AM EDT 1 .0 {tablet_as_needed} active Percocet 5-32 5 MG eCW1 ([facility]) Acetaminophen 325 MG / Oxycodone Hydroch loride 5 MG Oral Tablet [Percocet] Percocet 5-325 MG Percocet 5-325 MG 07/14/2021 12:00:00 AM EDT 1 .0 {tablet_as_needed} active Percocet 5-32 5 MG eCW1 ([facility]) Tamsulosin hydrochloride 0.4 MG Oral Capsule [Flomax] Flomax 0.4 MG Flomax 0.4 MG 07/14/2021 12:00:00 AM EDT 1.0 {capsule} active Flomax 0.4 MG eCW1 ([facility]) Tamsulosin hydrochloride 0.4 MG Oral Capsule [Flomax] Flomax 0.4 MG Flomax 0.4 MG 07/14/2021 12:00:00 AM EDT 1.0 {capsule} active Flomax 0.4 MG eCW1 ([facility]) Tamsulosin hydrochloride 0.4 MG Oral Capsule [Flomax] Flomax 0.4 MG Flomax 0.4 MG 07/14/2021 12:00:00 AM EDT 1.0 {capsule} active Flomax 0.4 MG eCW1 ([facility]) 0.4 mg 07/14/2021 12:00:00 AM EDT capsule 30 TAKE 1 CAPSULE BY MOUTH ONCE A DAY TAKE 1 CAPSULE BY MOUTH ONCE A DAY SOLD: 08/09/2021 [facility] pantoprazole 40 MG Delayed Release Oral Tablet PANTOPRAZOLE SODIUM 06/23/2021 12:00:00 AM EDT tablet,delayed release (DR/EC) 60 T PETRA 1 TAB. IN A.M.30MIN.PRIOR TO BREAKFAST & BEDTIME -TAPER AFTER 8 WEEKS TAKE 1 TAB. IN A.M.30MIN.PRIOR TO BREAKFAST & BEDTIME -TAPER AFTER 8 WEEKS SOLD: 06/23/2021 [facility] pantoprazole 40 MG Delayed Release Oral Tablet PANTOPRAZOLE SODIUM 06/23/2021 12:00:00 AM EDT tablet,delayed release (DR/EC) 60 T PETRA 1 TAB. IN A.M.30MIN.PRIOR TO BREAKFAST & BEDTIME -TAPER AFTER 8 WEEKS TAKE 1 TAB. IN A.M.30MIN.PRIOR TO BREAKFAST & BEDTIME -TAPER AFTER 8 WEEKS SOLD: 08/18/2021 [facility] pantoprazole 40 MG Delayed Release Oral Tablet PANTOPRAZOLE SODIUM 06/23/2021 12:00:00 AM EDT tablet,delayed release (DR/EC) 60 T PETRA 1 TAB. IN A.M.30MIN.PRIOR TO BREAKFAST & BEDTIME -TAPER AFTER 8 WEEKS TAKE 1 TAB. IN A.M.30MIN.PRIOR TO BREAKFAST & BEDTIME -TAPER AFTER 8 WEEKS SOLD: 07/21/2021 [facility] Nystatin 100 UNT/MG Topical Powder 100,000 unit/gram [place]STATI N 06/13/2021 12:00:00 AM EDT powder 15 APPLY DAILY EXTE RNALLY TO AFFECTED AREA(S) UNDER BREASTS FOR 10 DAYS APPLY DAILY EXTERNALLY TO AFFECTED AREA( S) UNDER BREASTS FOR 10 DAYS SOLD: 06/14/2021 [facility] Lisinopril 5 MG Oral Tablet Lisinopril 5 MG 06/12/2021 12:00:00 AM EDT 1.0 {tablet} active Lisinopril 5 MG eCW1 ([facility]) Lisinopril 5 MG Oral Tablet Lisinopril 5 MG 06/12/2021 12:00:00 AM EDT 1.0 {tablet} active Lisinopril 5 MG eCW1 ([facility]) Lisinopril 5 MG Oral Tablet Lisinopril 5 MG 06/12/2021 12:00:00 AM EDT 1.0 {tablet} active Lisinopril 5 MG eCW1 ([facility]) Lisinopril 5 MG Oral Tablet Lisinopril 5 MG 06/12/2021 12:00:00 AM EDT 1.0 {tablet} active Lisinopril 5 MG eCW1 ([facility]) Lisinopril 5 MG Oral Tablet Lisinopril 5 MG 06/12/2021 12:00:00 AM EDT 1.0 {tablet} active eCW1 ([facility]) Lisinopril 5 MG Oral Tablet Lisinopril 5 MG 06/12/2021 12:00:00 AM EDT 1.0 {tablet} active Lisinopril 5 MG eCW1 ([facility]) Lisinopril 5 MG Oral Tablet Lisinopril 5 MG 06/12/2021 12:00:00 AM EDT 1.0 {tablet} active Lisinopril 5 MG eCW1 ([facility]) Lisinopril 5 MG Oral Tablet Lisinopril 5 MG 06/12/2021 12:00:00 AM EDT 1.0 {tablet} active Lisinopril 5 MG eCW1 ([facility]) Lisinopril 5 MG Oral Tablet Lisinopril 5 MG 06/12/2021 12:00:00 AM EDT 1.0 {tablet} active Lisinopril 5 MG eCW1 ([facility]) Lisinopril 5 MG Oral Tablet Lisinopril 5 MG 06/12/2021 12:00:00 AM EDT 1.0 {tablet} active eCW1 ([facility]) 5 mg 06/12/2021 12:00:00 AM EDT tablet 90 TAKE 1 TABLET BY MOUTH ONCE A DAY TAKE 1 TABLET BY MOUTH ONCE A DAY SOLD: 06/14/2021 [facility] 5 mg 06/12/2021 12:00:00 AM EDT tablet 90 TAKE 1 TABLET BY MOUTH ONCE A DAY TAKE 1 TABLET BY MOUTH ONCE A DAY SOLD: 09/10/2021 [facility] Lisinopril 5 MG Oral Tablet Lisinopril 5 MG 06/12/2021 12:00:00 AM EDT 1.0 {tablet} active Lisinopril 5 MG eCW1 ([facility]) atorvastatin 20 MG Oral Tablet ATORVASTATIN CALCIUM 06/01/2021 1 2:00:00 AM EDT tablet 30 TAKE ONE TABLET BY MOUTH EVERY D AY TAKE ONE TABLET BY MOUTH EVERY DAY SOLD: 06/02/2021 [facility] 2.5-2.5 % 05/21/2021 12:00:00 AM EDT cream 30 APPLY 1 APPLICATION TOPICALLY DIRECTED APPLY 1 APPLICATION TOPICALLY DIRECTED SOLD: 09/17/2021 [facility] 2.5-2.5 % 05/21/2021 12:00:00 AM EDT cream 30 APPLY 1 APPLICATION TOPICALLY DIRECTED APPLY 1 APPLICATION TOPICALLY DIRECTED SOLD: 05/21/2021 [facility] 2.5-2.5 % 05/21/2021 12:00:00 AM EDT cream 30 APPLY 1 APPLICATION TOPICALLY DIRECTED APPLY 1 APPLICATION TOPICALLY DIRECTED SOLD: 07/28/2021 [facility] 2.5-2.5 % 05/21/2021 12:00:00 AM EDT cream 30 APPLY 1 APPLICATION TOPICALLY DIRECTED APPLY 1 APPLICATION TOPICALLY DIRECTED SOLD: 06/28/2021 [facility] 90 mcg/actuation 05/09/2021 12:00:00 AM EDT HFA aerosol inha ler 8 INHALE 2 PUFFS BY MOUTH FOUR TIMES A DAY NEEDED INHALE 2 PUFFS BY MOUTH FOUR TIMES A DAY NEEDED SOLD: 09/03/2021 [facility] 90 mcg/actuation 05/09/2021 12:00:00 AM EDT HFA aerosol inha ler 8 INHALE 2 PUFFS BY MOUTH FOUR TIMES A DAY NEEDED INHALE 2 PUFFS BY MOUTH FOUR TIMES A DAY NEEDED SOLD: 05/09/2021 [facility] 90 mcg/actuation 05/09/2021 12:00:00 AM EDT HFA aerosol inha ler 8 INHALE 2 PUFFS BY MOUTH FOUR TIMES A DAY NEEDED INHALE 2 PUFFS BY MOUTH FOUR TIMES A DAY NEEDED SOLD: 07/18/2021 [facility] 90 mcg/actuation 05/09/2021 12:00:00 AM EDT HFA aerosol inha ler 8 INHALE 2 PUFFS BY MOUTH FOUR TIMES A DAY NEEDED INHALE 2 PUFFS BY MOUTH FOUR TIMES A DAY NEEDED SOLD: 06/02/2021 [facility] 90 mcg/actuation 05/09/2021 12:00:00 AM EDT HFA aerosol inha ler 8 INHALE 2 PUFFS BY MOUTH FOUR TIMES A DAY NEEDED INHALE 2 PUFFS BY MOUTH FOUR TIMES A DAY NEEDED SOLD: 06/25/2021 [facility] 90 mcg/actuation 05/09/2021 12:00:00 AM EDT HFA aerosol inha ler 8 INHALE 2 PUFFS BY MOUTH FOUR TIMES A DAY NEEDED INHALE 2 PUFFS BY MOUTH FOUR TIMES A DAY NEEDED SOLD: 08/11/2021 [facility] 10 mg 05/06/2021 12:00:00 AM EDT tablet 30 TAKE ONE TABLET BY MOUTH EVERY DAY TAKE ONE TABLET BY MOUTH EVERY DAY SOLD: 05/07/2021 [facility] 10 mg 04/16/2021 12:00:00 AM EDT tablet extended release 24hr 30 TAKE 1 TABLET BY MOUTH ONCE A DAY TAKE 1 TABLET BY MOUTH ONCE A DAY SOLD: 06/11/2021 [facility] 10 mg 04/16/2021 12:00:00 AM EDT tablet extended release 24hr 30 TAKE 1 TABLET BY MOUTH ONCE A DAY TAKE 1 TABLET BY MOUTH ONCE A DAY SOLD: 05/14/2021 [facility] 10 mg 04/16/2021 12:00:00 AM EDT tablet extended release 24hr 30 TAKE 1 TABLET BY MOUTH ONCE A DAY TAKE 1 TABLET BY MOUTH ONCE A DAY SOLD: 07/09/2021 [facility] 10 mg 04/16/2021 12:00:00 AM EDT tablet extended release 24hr 30 TAKE 1 TABLET BY MOUTH ONCE A DAY TAKE 1 TABLET BY MOUTH ONCE A DAY SOLD: 04/16/2021 [facility] 2.5-2.5 % 03/31/2021 12:00:00 AM EDT cream 30 APPLY 1 APPLICATION 30 MINUTES PRIOR TO PORT ACCESS APPLY 1 APPLICATION 30 MINUTES PRIOR TO PORT ACCESS SO LD: 03/31/2021 [facility] pantoprazole 40 MG Delayed Release Oral Tablet PANTOPRAZOLE SODIUM 03/30/2021 12:00:00 AM EDT tablet,delayed release (DR/EC) 60 T PETRA 1 TAB. IN A.M.30MIN.PRIOR TO BREAKFAST & BED-TAPER AFTER 8 WEEKS TAKE 1 TAB. IN A.M.30MIN.PRIOR TO BREAKFAST & BED-TAPER AFTER 8 WEEKS SOLD: 03/31/2021 [facility] pantoprazole 40 MG Delayed Release Oral Tablet PANTOPRAZOLE SODIUM 03/30/2021 12:00:00 AM EDT tablet,delayed release (DR/EC) 60 T PETRA 1 TAB. IN A.M.30MIN.PRIOR TO BREAKFAST & BED-TAPER AFTER 8 WEEKS TAKE 1 TAB. IN A.M.30MIN.PRIOR TO BREAKFAST & BED-TAPER AFTER 8 WEEKS SOLD: 05/26/2021 [facility] 10 mg 03/30/2021 12:00:00 AM EDT tablet 30 TAKE ONE TABLET BY MOUTH EVERY DAY TAKE ONE TABLET BY MOUTH EVERY DAY SOLD: 03/31/2021 [facility] pantoprazole 40 MG Delayed Release Oral Tablet PANTOPRAZOLE SODIUM 03/30/2021 12:00:00 AM EDT tablet,delayed release (DR/EC) 60 T PETRA 1 TAB. IN A.M.30MIN.PRIOR TO BREAKFAST & BED-TAPER AFTER 8 WEEKS TAKE 1 TAB. IN A.M.30MIN.PRIOR TO BREAKFAST & BED-TAPER AFTER 8 WEEKS SOLD: 04/28/2021 [facility] Potassium Chloride 10 MEQ Extended Release Oral Tablet POTJUAN JOSE SIUM CHLORIDE 03/20/2021 12:00:00 AM EDT tablet extended release 180 TAKE TWO TABLETS BY MOUTH WITH FOOD ONCE DAILY TAKE TWO TABLETS BY MOUTH WITH FOOD ONCE DAILY SOLD: 03/22/2021 [facility] 50 mg 02/25/2021 12:00:00 AM EDT tablet 30 TAKE ONE TABLET BY MOUTH EVERY DAY TAKE ONE TABLET BY MOUTH EVERY DAY SOLD: 04/25/2021 [facility] 50 mg 02/25/2021 12:00:00 AM EDT tablet 30 TAKE ONE TABLET BY MOUTH EVERY DAY TAKE ONE TABLET BY MOUTH EVERY DAY SOLD: 06/21/2021 [facility] 50 mg 02/25/2021 12:00:00 AM EDT tablet 30 TAKE ONE TABLET BY MOUTH EVERY DAY TAKE ONE TABLET BY MOUTH EVERY DAY SOLD: 03/26/2021 [facility] 50 mg 02/25/2021 12:00:00 AM EDT tablet 30 TAKE ONE TABLET BY MOUTH EVERY DAY TAKE ONE TABLET BY MOUTH EVERY DAY SOLD: 02/26/2021 [facility] 50 mg 02/25/2021 12:00:00 AM EDT tablet 30 TAKE ONE TABLET BY MOUTH EVERY DAY TAKE ONE TABLET BY MOUTH EVERY DAY SOLD: 05/24/2021 [facility] 10 mg 02/24/2021 12:00:00 AM EDT tablet 30 TAKE ONE TABLET BY MOUTH EVERY DAY TAKE ONE TABLET BY MOUTH EVERY DAY SOLD: 02/24/2021 [facility] Clotrimazole 10 MG/ML Topical Cream Clotrimazole 1 % Clotrim azole 1 % 02/10/2021 12:00:00 AM EDT 1.0 {application} active Clotrimazole 1 % eCW1 ([facility]) Clotrimazole 10 MG/ML Topical Cream Clotrimazole 1 % Clotrim azole 1 % 02/10/2021 12:00:00 AM EDT 1.0 {application} active Clotrimazole 1 % eCW1 ([facility]) Clotrimazole 10 MG/ML Topical Cream Clotrimazole 1 % Clotrim azole 1 % 02/10/2021 12:00:00 AM EDT 1.0 {application} active Clotrimazole 1 % eCW1 ([facility]) Clotrimazole 10 MG/ML Topical Cream Clotrimazole 1 % Clotrim azole 1 % 02/10/2021 12:00:00 AM EDT 1.0 {application} active Clotrimazole 1 % eCW1 ([facility]) Clotrimazole 10 MG/ML Topical Cream Clotrimazole 1 % Clotrim azole 1 % 02/10/2021 12:00:00 AM EDT 1.0 {application} active Clotrimazole 1 % eCW1 ([facility]) Clotrimazole 10 MG/ML Topical Cream Clotrimazole 1 % Clotrim azole 1 % 02/10/2021 12:00:00 AM EDT 1.0 {application} active eCW1 ([facility]) 113-14 mcg/actuation 02/10/2021 12:00:00 AM EDT aerosol powdr breath activated 1 INHALE ONE PUFF BY MOUTH TWICE A DAY INHA LE ONE PUFF BY MOUTH TWICE A DAY SOLD: 02/10/2021 [facility] Clotrimazole 10 MG/ML Topical Cream Clotrimazole 1 % Clotrim azole 1 % 02/10/2021 12:00:00 AM EDT 1.0 {application} active eCW1 ([facility]) Clotrimazole 10 MG/ML Topical Cream Clotrimazole 1 % Clotrim azole 1 % 02/10/2021 12:00:00 AM EDT 1.0 {application} active Clotrimazole 1 % eCW1 ([facility]) Clotrimazole 10 MG/ML Topical Cream Clotrimazole 1 % Clotrim azole 1 % 02/10/2021 12:00:00 AM EDT 1.0 {application} active Clotrimazole 1 % eCW1 ([facility]) Clotrimazole 10 MG/ML Topical Cream Clotrimazole 1 % Clotrim azole 1 % 02/10/2021 12:00:00 AM EDT 1.0 {application} active Clotrimazole 1 % eCW1 ([facility]) Clotrimazole 10 MG/ML Topical Cream Clotrimazole 1 % Clotrim azole 1 % 02/10/2021 12:00:00 AM EDT 1.0 {application} active Clotrimazole 1 % eCW1 ([facility]) Clotrimazole 10 MG/ML Topical Cream CLOTRIMAZOLE 02/10/2021 1 2:00:00 AM EDT cream 15 APPLY 1 APPLICATION EXTERNALLY T O VULVA DAILY FOR 7 DAYS APPLY 1 APPLICATION EXTERNALLY TO VULVA DAILY FOR 7 DAYS SOLD: 02/10/2021 [facility] 60 ACTUAT Fluticasone propionate 0.113 M G/ACTUAT / Salmeterol xinafoate 0.014 MG/ACTUAT Dry Powder Inhaler 113-14 mcg/actuation FLUTICASONE PROPION/SALMETEROL 02/10/2021 12:00:00 AM EDT aerosol powdr breath activated 1 INHALE ONE PUFF BY MOUTH TWICE A DAY INHALE ONE PUFF BY MOUTH TWICE A DAY SOLD: 04/05/2021 [facility] Clotrimazole 10 MG/ML Topical Cream Clotrimazole 1 % Clotrim azole 1 % 02/10/2021 12:00:00 AM EDT 1.0 {application} active Clotrimazole 1 % eCW1 ([facility]) Clotrimazole 10 MG/ML Topical Cream Clotrimazole 1 % Clotrim azole 1 % 02/10/2021 12:00:00 AM EDT 1.0 {application} active Clotrimazole 1 % eCW1 ([facility]) Clotrimazole 10 MG/ML Topical Cream Clotrimazole 1 % Clotrim azole 1 % 02/10/2021 12:00:00 AM EDT 1.0 {application} active Clotrimazole 1 % eCW1 ([facility]) 10 mg 01/19/2021 12:00:00 AM EST tablet 30 TAKE 1 TABLET BY MOUTH ONCE A DAY TAKE 1 TABLET BY MOUTH ONCE A DAY SOLD: 01/20/2021 [facility] 60 ACTUAT Fluticasone propionate 0.113 M G/ACTUAT / Salmeterol xinafoate 0.014 MG/ACTUAT Dry Powder Inhaler 113-14 mcg/actuation FLUTICASONE PROPION/SALMETEROL 01/16/2021 12:00:00 AM EST aerosol powdr breath activated 1 INHALE 1 PUFF BY MOUTH TWO TIMES A DAY INHALE 1 PUFF BY MOUTH TWO TIMES A DAY SOLD: 06/28/2021 [facility] 60 ACTUAT Fluticasone propionate 0.113 M G/ACTUAT / Salmeterol xinafoate 0.014 MG/ACTUAT Dry Powder Inhaler 113-14 mcg/actuation FLUTICASONE PROPION/SALMETEROL 01/16/2021 12:00:00 AM EST aerosol powdr breath activated 1 INHALE 1 PUFF BY MOUTH TWO TIMES A DAY INHALE 1 PUFF BY MOUTH TWO TIMES A DAY SOLD: 05/03/2021 [facility] 113-14 mcg/actuation 01/16/2021 12:00:00 AM EST aerosol powdr breath activated 1 INHALE 1 PUFF BY MOUTH TWO TIMES A DAY INHALE 1 PUFF BY MOUTH TWO TIMES A DAY SOLD: 01/20/2021 [facility] 60 ACTUAT Fluticasone propionate 0.113 M G/ACTUAT / Salmeterol xinafoate 0.014 MG/ACTUAT Dry Powder Inhaler 113-14 mcg/actuation FLUTICASONE PROPION/SALMETEROL 01/16/2021 12:00:00 AM EST aerosol powdr breath activated 1 INHALE 1 PUFF BY MOUTH TWO TIMES A DAY INHALE 1 PUFF BY MOUTH TWO TIMES A DAY SOLD: 07/28/2021 [facility] 60 ACTUAT Fluticasone propionate 0.113 M G/ACTUAT / Salmeterol xinafoate 0.014 MG/ACTUAT Dry Powder Inhaler 113-14 mcg/actuation FLUTICASONE PROPION/SALMETEROL 01/16/2021 12:00:00 AM EST aerosol powdr breath activated 1 INHALE 1 PUFF BY MOUTH TWO TIMES A DAY INHALE 1 PUFF BY MOUTH TWO TIMES A DAY SOLD: 05/30/2021 [facility] Fluticasone Propionate/Salmeterol Fluticasone Propionate/Jose meterol 01/16/2021 12:00:00 AM EST RESPIRATORY active MEDENT ([facility], ) 60 ACTUAT Fluticasone propionate 0.113 M G/ACTUAT / Salmeterol xinafoate 0.014 MG/ACTUAT Dry Powder Inhaler 113-14 mcg/actuation FLUTICASONE PROPION/SALMETEROL 01/16/2021 12:00:00 AM EST aerosol powdr breath activated 1 INHALE 1 PUFF BY MOUTH TWO TIMES A DAY INHALE 1 PUFF BY MOUTH TWO TIMES A DAY SOLD: 03/10/2021 [facility] atorvastatin 20 MG Oral Tablet ATORVASTATIN CALCIUM 01/12/2021 1 2:00:00 AM EST tablet 30 TAKE ONE TABLET BY MOUTH EVERY D AY TAKE ONE TABLET BY MOUTH EVERY DAY SOLD: 04/05/2021 [facility] atorvastatin 20 MG Oral Tablet ATORVASTATIN CALCIUM 01/12/2021 1 2:00:00 AM EST tablet 30 TAKE ONE TABLET BY MOUTH EVERY D AY TAKE ONE TABLET BY MOUTH EVERY DAY SOLD: 01/13/2021 [facility] atorvastatin 20 MG Oral Tablet ATORVASTATIN CALCIUM 01/12/2021 1 2:00:00 AM EST tablet 30 TAKE ONE TABLET BY MOUTH EVERY D AY TAKE ONE TABLET BY MOUTH EVERY DAY SOLD: 03/10/2021 [facility] atorvastatin 20 MG Oral Tablet ATORVASTATIN CALCIUM 01/12/2021 1 2:00:00 AM EST tablet 30 TAKE ONE TABLET BY MOUTH EVERY D AY TAKE ONE TABLET BY MOUTH EVERY DAY SOLD: 05/03/2021 [facility] atorvastatin 20 MG Oral Tablet ATORVASTATIN CALCIUM 01/12/2021 1 2:00:00 AM EST tablet 30 TAKE ONE TABLET BY MOUTH EVERY D AY TAKE ONE TABLET BY MOUTH EVERY DAY SOLD: 02/10/2021 [facility] pantoprazole 40 MG Delayed Release Oral Tablet PANTOPRAZOLE SODIUM 01/03/2021 12:00:00 AM EST tablet,delayed release (DR/EC) 60 T PETRA 1 TAB. IN A.M.30MIN.PRIOR TO BREAKFAST & BED-TAPER AFTER 8 WEEKS TAKE 1 TAB. IN A.M.30MIN.PRIOR TO BREAKFAST & BED-TAPER AFTER 8 WEEKS SOLD: 03/05/2021 [facility] pantoprazole 40 MG Delayed Release Oral Tablet PANTOPRAZOLE SODIUM 01/03/2021 12:00:00 AM EST tablet,delayed release (DR/EC) 60 T PETRA 1 TAB. IN A.M.30MIN.PRIOR TO BREAKFAST & BED-TAPER AFTER 8 WEEKS TAKE 1 TAB. IN A.M.30MIN.PRIOR TO BREAKFAST & BED-TAPER AFTER 8 WEEKS SOLD: 02/05/2021 [facility] pantoprazole 40 MG Delayed Release Oral Tablet PANTOPRAZOLE SODIUM 01/03/2021 12:00:00 AM EST tablet,delayed release (DR/EC) 60 T PETRA 1 TAB. IN A.M.30MIN.PRIOR TO BREAKFAST & BED-TAPER AFTER 8 WEEKS TAKE 1 TAB. IN A.M.30MIN.PRIOR TO BREAKFAST & BED-TAPER AFTER 8 WEEKS SOLD: 01/04/2021 [facility] 90 mcg/actuation 12/18/2020 12:00:00 AM EST HFA aerosol inha ler 18 INHALE 2 PUFFS BY MOUTH FOUR TIMES A DAY NEEDED INHALE 2 PUFFS BY MOUTH FOUR TIMES A DAY NEEDED SOLD: 02/05/2021 [facility] 90 mcg/actuation 12/18/2020 12:00:00 AM EST HFA aerosol inha ler 18 INHALE 2 PUFFS BY MOUTH FOUR TIMES A DAY NEEDED INHALE 2 PUFFS BY MOUTH FOUR TIMES A DAY NEEDED SOLD: 03/01/2021 [facility] 90 mcg/actuation 12/18/2020 12:00:00 AM EST HFA aerosol inha ler 18 INHALE 2 PUFFS BY MOUTH FOUR TIMES A DAY NEEDED INHALE 2 PUFFS BY MOUTH FOUR TIMES A DAY NEEDED SOLD: 12/18/2020 [facility] 90 mcg/actuation 12/18/2020 12:00:00 AM EST HFA aerosol inha ler 18 INHALE 2 PUFFS BY MOUTH FOUR TIMES A DAY NEEDED INHALE 2 PUFFS BY MOUTH FOUR TIMES A DAY NEEDED SOLD: 04/16/2021 [facility] 90 mcg/actuation 12/18/2020 12:00:00 AM EST HFA aerosol inha ler 18 INHALE 2 PUFFS BY MOUTH FOUR TIMES A DAY NEEDED INHALE 2 PUFFS BY MOUTH FOUR TIMES A DAY NEEDED SOLD: 01/10/2021 [facility] 90 mcg/actuation 12/18/2020 12:00:00 AM EST HFA aerosol inha ler 18 INHALE 2 PUFFS BY MOUTH FOUR TIMES A DAY NEEDED INHALE 2 PUFFS BY MOUTH FOUR TIMES A DAY NEEDED SOLD: 03/24/2021 [facility] 60 ACTUAT Albuterol 0.09 MG/ACTUAT Metered Dose Inhaler Albu terol Sulfate HFA 12/17/2020 12:00:00 AM EST RESPIRATORY active MEDENT ([facility], ) 10 mg 11/27/2020 12:00:00 AM EST tablet extended release 24hr 30 TAKE 1 TABLET BY MOUTH ONCE A DAY TAKE 1 TABLET BY MOUTH ONCE A DAY SOLD: 11/27/2020 [facility] 10 mg 11/27/2020 12:00:00 AM EST tablet extended release 24hr 30 TAKE 1 TABLET BY MOUTH ONCE A DAY TAKE 1 TABLET BY MOUTH ONCE A DAY SOLD: 02/19/2021 [facility] 10 mg 11/27/2020 12:00:00 AM EST tablet extended release 24hr 30 TAKE 1 TABLET BY MOUTH ONCE A DAY TAKE 1 TABLET BY MOUTH ONCE A DAY SOLD: 12/25/2020 [facility] 10 mg 11/27/2020 12:00:00 AM EST tablet extended release 24hr 30 TAKE 1 TABLET BY MOUTH ONCE A DAY TAKE 1 TABLET BY MOUTH ONCE A DAY SOLD: 01/22/2021 [facility] 10 mg 11/27/2020 12:00:00 AM EST tablet extended release 24hr 30 TAKE 1 TABLET BY MOUTH ONCE A DAY TAKE 1 TABLET BY MOUTH ONCE A DAY SOLD: 03/19/2021 [facility] 10 mg 11/24/2020 12:00:00 AM EST tablet 30 TAKE 1 TABLET BY MOUTH ONCE A DAY TAKE 1 TABLET BY MOUTH ONCE A DAY SOLD: 11/25/2020 [facility] Potassium Chloride 10 MEQ Extended Release Oral Tablet POTAS SIUM CHLORIDE 10/07/2020 12:00:00 AM EST tablet extended release 180 TAKE TWO TABLETS BY MOUTH ONCE A DAY WITH FOOD TAKE TWO TABLETS BY MOUTH ONCE A DAY WITH FOOD SOLD: 12/23/2020 [facility] Potassium Chloride 10 MEQ Extended Release Oral Tablet POTAS SIUM CHLORIDE 10/07/2020 12:00:00 AM EST tablet extended release 180 TAKE TWO TABLETS BY MOUTH ONCE A DAY WITH FOOD TAKE TWO TABLETS BY MOUTH ONCE A DAY WITH FOOD SOLD: 10/07/2020 [facility] Potassium Chloride 10 MEQ Extended Release Oral Tablet POTAS SIUM CHLORIDE 09/12/2020 12:00:00 AM EDT tablet extended release 60 TAKE ONE TABLET BY MOUTH TWICE A DAY TAKE ONE TABLET BY MOUTH TWICE A DAY SOLD: 09/14/2020 [facility] 50 mg 09/10/2020 12:00:00 AM EDT tablet 30 TAKE ONE TABLET BY MOUTH EVERY DAY TAKE ONE TABLET BY MOUTH EVERY DAY SOLD: 10/09/2020 [facility] 50 mg 09/10/2020 12:00:00 AM EDT tablet 30 TAKE ONE TABLET BY MOUTH EVERY DAY TAKE ONE TABLET BY MOUTH EVERY DAY SOLD: 12/04/2020 [facility] 50 mg 09/10/2020 12:00:00 AM EDT tablet 30 TAKE ONE TABLET BY MOUTH EVERY DAY TAKE ONE TABLET BY MOUTH EVERY DAY SOLD: 11/06/2020 [facility] 50 mg 09/10/2020 12:00:00 AM EDT tablet 30 TAKE ONE TABLET BY MOUTH EVERY DAY TAKE ONE TABLET BY MOUTH EVERY DAY SOLD: 09/11/2020 [facility] 50 mg 09/10/2020 12:00:00 AM EDT tablet 30 TAKE ONE TABLET BY MOUTH EVERY DAY TAKE ONE TABLET BY MOUTH EVERY DAY SOLD: 01/29/2021 [facility] 50 mg 09/10/2020 12:00:00 AM EDT tablet 30 TAKE ONE TABLET BY MOUTH EVERY DAY TAKE ONE TABLET BY MOUTH EVERY DAY SOLD: 01/01/2021 [facility] 90 mcg/actuation 07/31/2020 12:00:00 AM EDT HFA aerosol inha ler 18 INHALE 2 PUFFS BY MOUTH FOUR TIMES A DAY NEEDED INHALE 2 PUFFS BY MOUTH FOUR TIMES A DAY NEEDED SOLD: 09/16/2020 [facility] 90 mcg/actuation 07/31/2020 12:00:00 AM EDT HFA aerosol inha ler 18 INHALE 2 PUFFS BY MOUTH FOUR TIMES A DAY NEEDED INHALE 2 PUFFS BY MOUTH FOUR TIMES A DAY NEEDED SOLD: 11/25/2020 [facility] 90 mcg/actuation 07/31/2020 12:00:00 AM EDT HFA aerosol inha ler 18 INHALE 2 PUFFS BY MOUTH FOUR TIMES A DAY NEEDED INHALE 2 PUFFS BY MOUTH FOUR TIMES A DAY NEEDED SOLD: 10/09/2020 [facility] 90 mcg/actuation 07/31/2020 12:00:00 AM EDT HFA aerosol inha ler 18 INHALE 2 PUFFS BY MOUTH FOUR TIMES A DAY NEEDED INHALE 2 PUFFS BY MOUTH FOUR TIMES A DAY NEEDED SOLD: 11/02/2020 [facility] 113-14 mcg/actuation 07/30/2020 12:00:00 AM EDT aerosol powdr breath activated 1 INHALE ONE PUFF BY MOUTH TWICE A DAY INHA LE ONE PUFF BY MOUTH TWICE A DAY SOLD: 12/20/2020 [facility] 113-14 mcg/actuation 07/30/2020 12:00:00 AM EDT aerosol powdr breath activated 1 INHALE ONE PUFF BY MOUTH TWICE A DAY INHA LE ONE PUFF BY MOUTH TWICE A DAY SOLD: 08/28/2020 [facility] 113-14 mcg/actuation 07/30/2020 12:00:00 AM EDT aerosol powdr breath activated 1 INHALE ONE PUFF BY MOUTH TWICE A DAY INHA LE ONE PUFF BY MOUTH TWICE A DAY SOLD: 11/22/2020 [facility] 113-14 mcg/actuation 07/30/2020 12:00:00 AM EDT aerosol powdr breath activated 1 INHALE ONE PUFF BY MOUTH TWICE A DAY INHA LE ONE PUFF BY MOUTH TWICE A DAY SOLD: 10/26/2020 [facility] atorvastatin 20 MG Oral Tablet ATORVASTATIN CALCIUM 07/26/2020 1 2:00:00 AM EDT tablet 30 TAKE ONE TABLET BY MOUTH EVERY D AY TAKE ONE TABLET BY MOUTH EVERY DAY SOLD: 12/14/2020 [facility] atorvastatin 20 MG Oral Tablet ATORVASTATIN CALCIUM 07/26/2020 1 2:00:00 AM EDT tablet 30 TAKE ONE TABLET BY MOUTH EVERY D AY TAKE ONE TABLET BY MOUTH EVERY DAY SOLD: 10/21/2020 [facility] atorvastatin 20 MG Oral Tablet ATORVASTATIN CALCIUM 07/26/2020 1 2:00:00 AM EDT tablet 30 TAKE ONE TABLET BY MOUTH EVERY D AY TAKE ONE TABLET BY MOUTH EVERY DAY SOLD: 08/26/2020 [facility] atorvastatin 20 MG Oral Tablet ATORVASTATIN CALCIUM 07/26/2020 1 2:00:00 AM EDT tablet 30 TAKE ONE TABLET BY MOUTH EVERY D AY TAKE ONE TABLET BY MOUTH EVERY DAY SOLD: 11/16/2020 [facility] pantoprazole 40 MG Delayed Release Oral Tablet PANTOPRAZOLE SODIUM 07/17/2020 12:00:00 AM EDT tablet,delayed release (DR/EC) 60 T PETRA 1 TAB. IN A.M.30MIN.PRIOR TO BREAKFAST & BED-TAPER AFTER 8 WEEKS TAKE 1 TAB. IN A.M.30MIN.PRIOR TO BREAKFAST & BED-TAPER AFTER 8 WEEKS SOLD: 11/29/2020 [facility] 2.5-2.5 % 07/08/2020 12:00:00 AM EDT cream 30 APPLY 1 APPLICATION 30 MINUTES PRIOR TO PORT ACCESS APPLY 1 APPLICATION 30 MINUTES PRIOR TO PORT ACCESS SO LD: 09/21/2020 [facility] 2.5-2.5 % 07/08/2020 12:00:00 AM EDT cream 30 APPLY 1 APPLICATION 30 MINUTES PRIOR TO PORT ACCESS APPLY 1 APPLICATION 30 MINUTES PRIOR TO PORT ACCESS SO LD: 01/01/2021 [facility] Lidocaine 25 MG/ML / Prilocaine 25 MG/ML Topical Cream 2.5-2.5 % LIDOCAINE/PRILOCAINE 07/08/2020 12:00:00 AM EDT cream 30 APPLY 1 APPLICATION 30 MINUTES PRIOR TO PORT ACCESS APPLY 1 APPLICATION 30 MINUTES PRIOR TO PORT ACCESS SOLD: 11/25/2020 [facility] 10 mg 06/02/2020 12:00:00 AM EDT tablet extended release 24hr 30 TAKE 1 TABLET BY MOUTH ONCE A DAY TAKE 1 TABLET BY MOUTH ONCE A DAY SOLD: 10/02/2020 [facility] 10 mg 06/02/2020 12:00:00 AM EDT tablet extended release 24hr 30 TAKE 1 TABLET BY MOUTH ONCE A DAY TAKE 1 TABLET BY MOUTH ONCE A DAY SOLD: 09/02/2020 [facility] 10 mg 06/02/2020 12:00:00 AM EDT tablet extended release 24hr 30 TAKE 1 TABLET BY MOUTH ONCE A DAY TAKE 1 TABLET BY MOUTH ONCE A DAY SOLD: 10/30/2020 [facility] Insurance Providers Payer name Policy type / Coverage type Policy ID Covered republican ID Covered republican's relationship to bradley Policy [place] Plan Information MEDICAID [id number] SP [id number] [facility] Community Plan Commercial [id number] Self [id number] [facility] Health Maintenance Organization (HMO) [id number] Self [id number] [facility] Health Maintenance Organization (HMO) [id number] Self [id number] [employer] COMMUNITY PLAN MCDHMO [id number] SP [id number] [facility] MEDICAID [id number] Beatrice [id number] [employer]HC COMMUNITY PLAN MCDHMO [id number] SP [id number] [facility] MCRO [id number] SP [id number] [facility] [id number] SP [id number] [facility] [id number] SP [id number] MEDICARE [id number] SP [id number] MEDICARE C [id number] S [id number] [id number] SP [id number] MEDICAID [id number] S [id number] Medicaid Dental P [id number] S [id number] MEDICAID [id number] SP [id number] UNHC COMMUNITY PLAN XIX [id number] 18 [id number] [facility] Communty Plan Medicaid [id number] Self [id number] [facility] COMMUNTY PLAN MC UNAVAILABLE 18 UNAVAILABLE UNHC COMMUNITY PLAN XIX -RECURRING [id number] 18 [id number] Medicaid [place] Medigap Part B [id number] Self [id number] ANSI-Medicaid [id number] ANSI-Medicaid [id number] ANSI-Medicaid [id number] ANSI-Medicaid [id number] [facility] Communty Plan Medicaid [id number] Self [id number] [facility] Communty Plan Medicaid [id number] Self [id number] ANSI-Medicaid [id number] ANSI-Medicaid [id number] ANSI-Medicaid [id number] ANSI-Medicaid [id number] ANSI-Medicaid [id number] ANSI-Medicaid [id number] ANSI-Medicaid [id number] ANSI-Medicaid [id number] ANSI-Medicaid [id number] ANSI-Medicaid [id number] ANSI-Medicaid [id number] ANSI-Medicaid [id number] ANSI-Medicaid [id number] ANSI-Medicaid [id number] ANSI-Medicaid [id number] ANSI-Medicaid [id number] ANSI-Medicaid [id number] ANSI-Medicaid [id number] ANSI-Medicaid [id number] ANSI-Medicaid [id number] ANSI-Medicaid [id number] ANSI-Medicaid [id number] ANSI-Medicaid [id number] ANSI-Medicaid [id number] ANSI-Medicaid [id number] ANSI-Medicaid [id number] ANSI-Medicaid [id number] ANSI-Medicaid [id number] ANSI-Medicaid [id number] ANSI-Medicaid [id number] ANSI-Medicaid [id number] ANSI-Medicaid [id number] ANSI-Medicaid [id number] ANSI-Medicaid [id number] ANSI-Medicaid [id number] ANSI-Medicaid [id number] [facility] [id number] Self [id number] ANSI-Medicaid [id number] ANSI-Medicaid [id number] ANSI-Medicaid [id number] ANSI-Medicaid [id number] ANSI-Medicaid [id number] ANSI-Medicaid [id number] ANSI-Medicaid [id number] ANSI-Medicaid [id number] ANSI-Medicaid [id number] ANSI-Medicaid [id number] ANSI-Medicaid [id number] [facility]-Medicaid [id number] ANSI-Medicaid [id number] [facility]-Medicaid [id number] [facility] [id number] Self [id number] [facility] O [id number] S [id number] Medicaid [place] Medigap Part B [id number] Self [facility] Health Maintenance Organization (HMO) [id number] Self MEDICAID-O/P UNAVAILABLE UNAVA ILABLE MEDICAID - CLINIC [id number] AN [id number] MEDICAID-O/P [id number] MEDICAID - CLINIC [id number] AN [id number] MEDICAID -PHYSICIAN [id number] [facility] MEDICAID [id number] SP [id number] G [facility] [id number] SP [id number] MEDICARE COMPLETE [id number] SP [id number] [facility] [id number] SP [id number] MEDICARE COMPLETE [id number] SP [id number] [facility] [id number] SP [id number] [facility] [id number] SP [id number] [place] [id number] SP [id number] [facility] O [id number] S [id number] Problems, Conditions, and Diagnoses Code Display Name Description Problem Type Effective Dates Data Source(s) N20.0 Kidney stone Kidney stone Problem 10/23/2021 12:00:00 A M EST eCW1 ([facility]) J44.9 70929023 Chronic obstructive pulmonary di sease, unspecified COPD type Problem 10/05/2021 12:00:00 AM EST eCW1 ([facility]) N20.0 [id number] Calculus of kidney Problem 09/08/2021 12:00: 00 AM EDT eCW1 [facility] [facility] N20.2 Calculus of kidney with calculus of uret er Calculus of kidney with calculus of ureter Problem 07/14/2021 12:00:00 AM EDT eCW1 ([facility]) N20.0 Kidney stone Kidney stone on left side Problem 06/23/20 12:00:00 AM EDT eCW1 ([facility]) M18.11 [id number] Osteoarthritis of right thumb Problem 09/02/2020 12:00:00 AM EDT eCW1 ([facility]) Surgeries/Procedures Procedure Description Date Indications Data Source(s) ECG ROUTINE ECG W/LEAST 12 LDS W/I&R 10/05/2021 12:00: 00 AM EST eCW1 ([facility]) OFFICE OUTPATIENT VISIT 25 MINUTES 07/03/2021 12:00:00 AM EDT MEDENT ([facility], ) OFFICE OUTPATIENT VISIT 25 MINUTES 07/03/2021 12:00:00 AM EDT MEDENT ([facility], ) Needle electromyography, each extremity, with related paraspinal areas, when performed, done with nerve conduction, amplitude and latency/velocity study; complete, five or more muscles studied, innervated by three or more nerves or four or more spinal levels (list separately in addition to the code for primary procedure). 06/11/2021 12:00:00 AM EDT MEDSUZIE T ([facility], ) Needle electromyography, each extremity, with related paraspinal areas, when performed, done with nerve conduction, amplitude and latency/velocity study; complete, five or more muscles studied, innervated by three or more nerves or four or more spinal levels (list separately in addition to the code for primary procedure). 06/11/2021 12:00:00 AM EDT MEDEN T ([facility], ) Needle Electromyography Non Extremity Done With Nerve Conduc tion 06/11/2021 12:00:00 AM EDT MEDENT ([facility], ) Needle Electromyography Non Extremity Done With Nerve Conduc tion 06/11/2021 12:00:00 AM EDT MEDENT ([facility], ) [address]42 Nerve conduction studies 13 or more studies NEW 201206/11/2021 12:00:00 AM EDT MEDENT ([facility], ) OFFICE OUTPATIENT NEW 45 MINUTES 06/04/2021 12:00:00 A M EDT MEDENT ([facility]) Spirometry 05/18/2021 12:00:00 AM EDT M EDENT ([facility]) OFFICE OUTPATIENT VISIT 25 MINUTES 05/18/2021 12:00:00 AM EDT MEDENT ([facility]) Spirometry 01/15/2021 12:00:00 AM EST M EDENT ([facility]) OFFICE OUTPATIENT VISIT 25 MINUTES 01/15/2021 12:00:00 AM EST MEDENT ([facility]) Results ID Date Data Source [id number] 10/19/2021 09:50:00 AM EST [facility] Name Value Range Interpretation Code Description Data Venus rce(s) Supporting Document(s) SARS-CoV-2 (COVID-19) RNA [Presence] in Respiratory specimen by JAYY with probe detection Not Detected [facility] This lab was ordered by [facility] and reported by [employer]. ID Date Data Source PT & APTT 10/05/2021 12:00:00 AM EST eCW1 ([facility]) Name Value Range Interpretation Code Description Data Venus rce(s) Supporting Document(s) 13.6 12.7-14.5 eCW1 ([facility]) 1.00 eCW1 ([facility]) 29.9 25.9-37.0 eCW1 ([facility]) ID Date Data Source Basic Metabolic Profile (BMP) 10/05/2021 12:00:00 AM EST eCW 1 ([facility]) Name Value Range Interpretation Code Description Data Venus rce(s) Supporting Document(s) 18 7-18 BLOOD UREA NITROGEN eCW1 ([facility]) 147 70-100 GLUCOSE, FASTING eCW1 ([facility]) > 60.0 >45 GLOMERULAR FILTRATION RATE eCW 1 ([facility]) 0.81 0.55-1.30 CREATININE FOR GFR eCW1 ([facility]) 141 136-145 SODIUM LEVEL eCW1 ([facility]) 9.8 8.8-10.2 CALCIUM LEVEL eCW1 ([facility]) 105 98-107 CHLORIDE LEVEL eCW1 ([facility]) 27 21-32 CARBON DIOXIDE LEVEL eCW1 ([facility]) 4.2 3.5-5.1 POTASSIUM SERUM eCW1 ([facility]) ID Date Data Source [id number] 10/05/2021 12:00:00 AM EST eCW1 ([facility]) Name Value Range Interpretation Code Description Data Venus rce(s) Supporting Document(s) Hemoglobin A1c/Hemoglobin.total in Blood 6.5 HEMOGLOBIN A1c eCW1 ([facility]) ID Date Data Source CBC - Complete Blood Count 10/05/2021 12:00:00 AM EST eCW1 ( [facility]) Name Value Range Interpretation Code Description Data Venus rce(s) Supporting Document(s) 4.93 4.00-5.40 eCW1 ([facility]) 7.6 4.0-10.0 eCW1 ([facility]) 14.5 12.0-15.5 eCW1 ([facility]) 44.0 36.0-47.0 eCW1 ([facility]) 29.4 27.0-33.0 eCW1 ([facility]) 89.2 80.0-96.0 eCW1 ([facility]) 33.0 32.0-36.5 eCW1 ([facility]) 138 150-450 eCW1 ([facility]) 15.7 11.5-14.5 eCW1 ([facility]) ID Date Data Source URINE CULTURE 06/04/2021 12:00:00 AM EDT eCW1 ([facility]) Name Value Range Interpretation Code Description Data Venus rce(s) Supporting Document(s) Laboratory studies (set) URINE CULTU RE eCW1 ([facility]) ID Date Data Source UA URINALYSIS 06/04/2021 12:00:00 AM EDT eCW1 ([facility]) Name Value Range Interpretation Code Description Data Venus rce(s) Supporting Document(s) Laboratory studies (set) UA URINALYS IS eCW1 ([facility]) ID Date Data Source [id number] 01/15/2021 02:18:00 PM EST MEDENT ([facility], ) Name Value Range Interpretation Code Description Data Venus rce(s) Supporting Document(s) PDFReport Laboratory test result MEDENT ([facility], ) FVC-Pred 2.69 L MEDENT ([facility]) FVC-Pre 1.87 L MEDENT ([facility]) FVC-%Pred-Pre 69 L MEDENT ([facility], ) FVC-LLN 2.08 L MEDENT ([facility]) Fev1-Pred 2.05 L MEDENT ([facility]) Fev1-Pre 1.31 L MEDENT ([facility]) Fev1-LLN 1.53 L MEDENT ([facility]) Fev1-%Pred-Pre 64 L MEDENT ([facility], ) Fev6-Pred 2.57 L MEDENT ([facility]) Fev6-%Pred-Pre 72 L MEDENT ([facility]) Fev6-Pre 1.87 L MEDENT ([facility]) Fev6-LLN 1.98 L MEDENT ([facility]) Xyw4frm-Becd 77 % MEDENT ([facility]) Ngw4fsv-Xfe 70 % MEDENT ([facility]) Ojl6uum-%Pred-Pre 91 % MEDENT ([facility]) Hvr9saj-Ucj 100 % MEDENT ([facility]) Hwi1vhj-Lzwa 96 % MEDENT ([facility]) Jxg5gjn-GIW 67 % MEDENT ([facility]) FEFMax-Pred 5.40 L/E/sec MEDENT ([facility]) Eos0gpz-%Pred-Pre 104 % MEDENT ([facility]) FEFMax-LLN 3.89 L/E/sec MEDENT ([facility]) FEFMax-Pre 4.55 L/E/sec MEDENT ([facility]) FEFMax-%Pred-Pre 84 L/E/sec MEDENT ([facility]) [id number]-Fsk 0.79 L/E/sec MEDENT ([facility]) Lbl4945-Qbxm 1.91 L/E/sec MEDENT ([facility]) Aul1869-GKX 0.82 L/E/sec MEDENT ([facility]) Ajm1065-%Pred-Pre 41 L/E/sec MEDENT ([facility]) ExpTime-Pre 5.68 sec MEDENT ([facility]) Jln2usk5-Gdt 70 % MEDENT ([facility]) Mwb5txh5-Atfw 80 % MEDENT ([facility]) Boq6yjs2-RBM 71 % MEDENT ([facility]) Qtu4njn1-%Pred-Pre 87 % MEDENT ([facility]) Procedure Social History Code Duration Value Status Description Data Source(s ) Smoking 10/05/2021 12:00:00 AM EST Former Smoker completed Former Smoker eCW1 ([facility]) Smoking 10/05/2021 12:00:00 AM EST Former Smoker completed Former Smoker eCW1 ([facility]) Smoking 10/05/2021 12:00:00 AM EST Former Smoker completed Former Smoker eCW1 ([facility]) Smoking 08/19/2021 12:00:00 AM EDT Former Smoker completed Former Smoker eCW1 ([facility]) Smoking 08/19/2021 12:00:00 AM EDT Former Smoker completed Former Smoker eCW1 ([facility]) Smoking 08/19/2021 12:00:00 AM EDT Former Smoker completed Former Smoker eCW1 ([facility]) Smoking 08/19/2021 12:00:00 AM EDT Former Smoker completed Former Smoker eCW1 ([facility]) Smoking 07/14/2021 12:00:00 AM EDT Former Smoker completed Former Smoker eCW1 ([facility]) Smoking 06/23/2021 12:00:00 AM EDT Former Smoker completed Former Smoker eCW1 ([facility]) Smoking 06/11/2021 12:00:00 AM EDT Former Smoker completed Former Smoker eCW1 ([facility]) Smoking 06/11/2021 12:00:00 AM EDT Former Smoker completed Former Smoker eCW1 ([facility]) Smoking 05/18/2021 12:00:00 AM EDT - 11/21/2014 12:00:00 AM EST Patient is a former smoker completed Patient is a former smoker MEDSTAN ([facility], ) Smoking 02/10/2021 12:00:00 AM EDT Former Smoker completed Former Smoker eCW1 ([facility]) Smoking 02/10/2021 12:00:00 AM EDT Former Smoker completed Former Smoker eCW1 ([facility]) Smoking 02/10/2021 12:00:00 AM EDT Former Smoker completed Former Smoker eCW1 ([facility]) Smoking 09/02/2020 12:00:00 AM EDT Former Smoker completed Former Smoker eCW1 ([facility]) Smoking 09/02/2020 12:00:00 AM EDT Former Smoker completed Former Smoker eCW1 ([facility]) Vital Signs ID Date Data Source UNK Name Value Range Interpretation Code Description Data Source(s) Body weight 227 [lb_av] 227 [lb_av] eCW1 ([facility]) Body height 60.5 [in_i] 60.5 [in_i] eCW1 ([facility]) Body mass index (BMI) [Ratio] 43.60 kg/m2 43.60 kg/m2 eCW1 ([facility]) Heart rate 97 /min 97 /min eCW1 ([facility]) Respiratory rate 18 /min 18 /min eCW1 ([facility]) Body temperature 98.3 [degF] 98.3 [degF] eCW1 ( [facility]) Systolic blood pressure 142 mm[Hg] 142 mm[Hg] e CW1 ([facility]) Diastolic blood pressure 78 mm[Hg] 78 mm[Hg] eCW1 ([facility]) Body weight 227 [lb_av] 227 [lb_av] eCW1 ([facility]) Body mass index (BMI) [Ratio] 43.60 kg/m2 43.60 kg/m2 eCW1 ([facility]) Heart rate 72 /min 72 /min eCW1 ([facility]) Respiratory rate 18 /min 18 /min eCW1 ([facility]) Body temperature 98.5 [degF] 98.5 [degF] eCW1 ( [facility]) Systolic blood pressure 128 mm[Hg] 128 mm[Hg] e CW1 ([facility]) Diastolic blood pressure 82 mm[Hg] 82 mm[Hg] eCW1 ([facility]) Body weight 102.97 kg 102.97 kg eCW1 ([facility]) Body height 60.5 [in_i] 60.5 [in_i] eCW1 ([facility]) Body weight 224 [lb_av] 224 [lb_av] eCW1 ([facility]) Body weight 101.61 kg 101.61 kg eCW1 ([facility]) Body height 60.5 [in_i] 60.5 [in_i] eCW1 ([facility]) Body mass index (BMI) [Ratio] 43.02 kg/m2 43.02 kg/m2 eCW1 ([facility]) Heart rate 64 /min 64 /min eCW1 ([facility]) Respiratory rate 10 /min 10 /min eCW1 ([facility]) Body temperature 97.2 [degF] 97.2 [degF] eCW1 ( [facility]) Systolic blood pressure 128 mm[Hg] 128 mm[Hg] e CW1 ([facility]) Diastolic blood pressure 74 mm[Hg] 74 mm[Hg] eCW1 ([facility]) Body mass index (BMI) [Ratio] 43.60 kg/m2 43.60 kg/m2 eCW1 ([facility]) Body weight 227 [lb_av] 227 [lb_av] eCW1 ([facility]) Body weight 102.97 kg 102.97 kg eCW1 ([facility]) Heart rate 82 /min 82 /min eCW1 ([facility]) Respiratory rate 18 /min 18 /min eCW1 ([facility]) Diastolic blood pressure 78 mm[Hg] 78 mm[Hg] eCW1 ([facility]) Body temperature 97.4 [degF] 97.4 [degF] eCW1 ( [facility]) Systolic blood pressure 138 mm[Hg] 138 mm[Hg] e CW1 ([facility]) Body height 60.5 [in_i] 60.5 [in_i] eCW1 ([facility]) Systolic blood pressure 122 mm[Hg] 122 mm[Hg] e CW1 ([facility]) Body weight 229 [lb_av] 229 [lb_av] eCW1 ([facility]) Body height 60.5 [in_i] 60.5 [in_i] eCW1 ([facility]) Body mass index (BMI) [Ratio] 43.98 kg/m2 43.98 kg/m2 eCW1 ([facility]) Heart rate 78 /min 78 /min eCW1 ([facility]) Respiratory rate 18 /min 18 /min eCW1 ([facility]) Body temperature 96.2 [degF] 96.2 [degF] eCW1 ( [facility]) Diastolic blood pressure 78 mm[Hg] 78 mm[Hg] eCW1 ([facility]) Body temperature 98.8 [degF] 98.8 [degF] MEDENT ([facility]) Body weight 102.514 kg 102.514 kg [facility] ([facility]) Body surface area Derived from formula 1.97 m2 1.97 m2 [facility] ([facility]) [place] body weight 100 [lb_av] 100 [lb_av] MEDEN T ([facility]) Heart rate 79 /min 79 /min [facility] ([facility]) Systolic blood pressure 132 mm[Hg] 132 mm[Hg] M EDENT ([facility]) Diastolic blood pressure 82 mm[Hg] 82 mm[Hg] [facility] Body height 60 [in_i] 60 [in_i] [facility] ([facility]) 5'0" Body weight 226.00 [lb_av] 226.00 [lb_av] MEDEN T ([facility]) Oxygen saturation in Arterial blood by Pulse oximetry 93 % 93 % [facility] ([facility]) Room Air Body mass index (BMI) [Ratio] 44.1 kg/m2 44.1 k g/m2 [facility] ([facility]) Body height 60 [in_i] 60 [in_i] [facility] ([facility]) 5'0" Body weight 226.00 [lb_av] 226.00 [lb_av] MEDEN T ([facility]) Body mass index (BMI) [Ratio] 44.1 kg/m2 44.1 k g/m2 [facility] ([facility]) [place] body weight 100 [lb_av] 100 [lb_av] MEDEN T ([facility]) Body weight 102.514 kg 102.514 kg [facility] ([facility]) Body surface area Derived from formula 1.97 m2 1.97 m2 [facility] ([facility]) Oxygen saturation in Arterial blood by Pulse oximetry 93 % 93 % [facility] ([facility]) Room Air Body weight 222 [lb_av] 222 [lb_av] eCW1 ([facility]) Body weight 100.7 kg 100.7 kg eCW1 ([facility]) Body height 60.5 [in_i] 60.5 [in_i] eCW1 ([facility]) Body mass index (BMI) [Ratio] 42.64 kg/m2 42.64 kg/m2 eCW1 ([facility]) Systolic blood pressure 138 mm[Hg] 138 mm[Hg] e CW1 ([facility]) Diastolic blood pressure 80 mm[Hg] 80 mm[Hg] eCW1 ([facility]) Body height 60 [in_i] 60 [in_i] [facility] ([facility]) 5'0" Body weight 224.00 [lb_av] 224.00 [lb_av] MEDEN T ([facility]) Body mass index (BMI) [Ratio] 43.7 kg/m2 43.7 k g/m2 [facility] ([facility]) [place] body weight 100 [lb_av] 100 [lb_av] MEDEN T ([facility]) Systolic blood pressure 110 mm[Hg] 110 mm[Hg] M EDENT ([facility]) Diastolic blood pressure 82 mm[Hg] 82 mm[Hg] [facility] ([facility]) Heart rate 72 /min 72 /min [facility] ([facility]) Oxygen saturation in Arterial blood by Pulse oximetry 91 % 91 % [facility] ([facility]) Room Air Body weight 101.606 kg 101.606 kg [facility] ([facility]) Body surface area Derived from formula 1.96 m2 1.96 m2 [facility] ([facility]) Systolic blood pressure 140 mm[Hg] 140 mm[Hg] e CW1 ([facility]) Body weight 225 [lb_av] 225 [lb_av] eCW1 ([facility]) Body height 60.5 [in_i] 60.5 [in_i] eCW1 ([facility]) Body mass index (BMI) [Ratio] 43.21 kg/m2 43.21 kg/m2 eCW1 ([facility]) Heart rate 77 /min 77 /min eCW1 ([facility]) Respiratory rate 18 /min 18 /min eCW1 ([facility]) Body temperature 96.6 [degF] 96.6 [degF] eCW1 ( [facility]) Diastolic blood pressure 80 mm[Hg] 80 mm[Hg] eCW1 ([facility]) Patient Treatment Plan of Care Planned Activity Planned Date Details Description Data Source (s) Acetaminophen 325 MG / Oxycodone Hydrochloride 5 MG Or al Tablet [Percocet] 09/24/2021 12:00:00 AM EDT eCW1 ([facility]) Acetaminophen 325 MG / Oxycodone Hydrochloride 5 MG Or al Tablet [Percocet] 09/24/2021 12:00:00 AM EDT eCW1 ([facility]) Acetaminophen 325 MG / Oxycodone Hydrochloride 5 MG Or al Tablet [Percocet] 09/24/2021 12:00:00 AM EDT eCW1 ([facility]) Acetaminophen 325 MG / Oxycodone Hydrochloride 5 MG Or al Tablet [Percocet] 09/24/2021 12:00:00 AM EDT eCW1 ([facility]) Acetaminophen 325 MG / Oxycodone Hydrochloride 5 MG Or al Tablet [Percocet] 09/01/2021 12:00:00 AM EDT eCW1 ([facility]) Acetaminophen 325 MG / Oxycodone Hydrochloride 5 MG Or al Tablet [Percocet] 09/01/2021 12:00:00 AM EDT eCW1 ([facility]) Acetaminophen 325 MG / Oxycodone Hydrochloride 5 MG Or al Tablet [Percocet] 07/14/2021 12:00:00 AM EDT eCW1 ([facility]) Tamsulosin hydrochloride 0.4 MG Oral Capsule [Flomax] 07/14/2021 12:00:00 AM EDT eCW1 ([facility]) Lisinopril 5 MG Oral Tablet 06/12/2021 12:00:00 AM EDT eCW1 ([facility]) Lisinopril 5 MG Oral Tablet 06/12/2021 12:00:00 AM EDT eCW1 ([facility]) Lisinopril 5 MG Oral Tablet 06/12/2021 12:00:00 AM EDT eCW1 ([facility]) Lisinopril 5 MG Oral Tablet 06/12/2021 12:00:00 AM EDT eCW1 ([facility]) Lisinopril 5 MG Oral Tablet 06/12/2021 12:00:00 AM EDT eCW1 ([facility]) Clotrimazole 10 MG/ML Topical Cream 02/10/2021 12:00:00 AM EDT eCW1 ([facility]) Clotrimazole 10 MG/ML Topical Cream 02/10/2021 12:00:00 AM EDT eCW1 ([facility]) Clotrimazole 10 MG/ML Topical Cream 02/10/2021 12:00:00 AM EDT eCW1 ([facility])
== END 2021-10-24 18:34 | disposition home or self-care (01) ==
LOC: M SDC 06:14 → M PCU 12:52 → M SDC 16:00 → M PCU 10-24 18:34
PROVIDERS: ADMIT Internal Medicine; ATTEND Urology
DX: I49.9 Cardiac arrhythmia, unspecified (principal); E87.2 Acidosis; E83.42 Hypomagnesemia; K21.9 Gastro-esophageal reflux disease without esophagitis; C34.91 Malignant neoplasm of unspecified part of right bronchus or lung; Z92.21 Personal history of antineoplastic chemotherapy; G25.81 Restless legs syndrome; I73.9 Peripheral vascular disease, unspecified; E55.9 Vitamin D deficiency, unspecified; I10 Essential (primary) hypertension; E11.9 Type 2 diabetes mellitus without complications; F32.9 Major depressive disorder, single episode, unspecified; Z87.891 Personal history of nicotine dependence; Z79.899 Other long term (current) drug therapy; G89.29 Other chronic pain; N39.3 Stress incontinence (female) (male)
CPT/HCPCS: 36415; 52356; 74420; 80048; 80053; 82365; 82550; 82553; 83605; 83735; 83880; 84484; 85025; 88300; 93005; C1769; C1894; C2617; G0378; J0131; J0690; J1100; J1644; J2250; J2370; J2405; J3010; J3475; Q9961

== ENCOUNTER → 2021-11-11 | Outpatient (CLI) | payer MEDICARE, MEDICAID ==
[~2021-11-11] MED LIST changes: -LR 1,000 ML IV ONE; -ceFAZolin SOD 2 GM in IV 1 EA IV ONE
--- NOTE | 2021-11-11 12:11 | REP ---
INDICATION: KIDNEY STONE COMPARISON: None TECHNIQUE: Real time painter scale ultrasound examination using curved array transducer. FINDINGS: Right kidney measures 11.1 x 5.6 x 5.1 cm and is normal in contour, size, echogenicity, and reniform shape. No hydronephrosis, nephrolithiasis, cystic or renal mass lesion. Left kidney measures 9.7 x 7.1 x 6.1 cm excluding 8.1 x 3.8 x 5.0 cm complex upper pole partially exophytic cyst. No hydronephrosis, nephrolithiasis or renal mass lesion. No stent noted. Bladder is normal in appearance and a ureteral stent is identified extending via the left ureter. IMPRESSION: 1. Normal right kidney. 2. Left kidney includes large upper pole complex cyst without hydronephrosis and the renal stent which is visible in the bladder is not visible within the left renal pelvis and possibly migrated into the ureter. <Electronically signed by Cristhian Estrada > 11/11/21 [id number]
== END ==
LOC: M RAD 11:01
PROVIDERS: ATTEND Urology
DX: N28.1 Cyst of kidney, acquired (principal); N20.0 Calculus of kidney

== ENCOUNTER 2021-11-28 16:13 | Emergency (ER) | payer MEDICARE, MEDICAID ==
[~2021-11-28] VITALS: Ht 154.9 cm; Wt 103.2 kg
[~2021-11-28 16:13] MED LIST changes: -LISI-898 PO; +LISI5TAB11 PO; -PROC10TA4 PO; +PROC10TA5 PO
[2021-11-28] MEDS ORDERED: KETOROLAC 60MG 2ML VIAL IM ONE (17:55)
[2021-11-28] MEDS ORDERED: FLOM0.4C39 PO (18:26)
[2021-11-28] MEDS ORDERED: ONDA4TAB6 PO (18:26)
[2021-11-28] MEDS ORDERED: PERC5TAB12 PO (18:26)
[2021-11-28 18:41] VITALS: BP 168/93
== END 2021-11-28 18:50 | disposition home or self-care (01) ==
LOC: EDBD 16:13 → M ED 16:13
DX: N20.1 Calculus of ureter (principal); E11.9 Type 2 diabetes mellitus without complications; I10 Essential (primary) hypertension; E78.5 Hyperlipidemia, unspecified; J44.9 Chronic obstructive pulmonary disease, unspecified
CPT/HCPCS: 74176; 81001; 96372; 99284; J1885

== ENCOUNTER 2021-12-04 10:39 | Observation (INO) | payer MEDICARE, MEDICAID ==
[~2021-12-04] VITALS: Ht 153.7 cm; Wt 95.4 kg
[~2021-12-04 10:39] MED LIST changes: +FLOM0.4C39 PO; +ONDA4TAB6 PO; +PERC5TAB12 PO
[2021-12-04] MEDS ORDERED: ALBUTEROL 90 MCG/ACT 8GM HFA INHALER INH ONE (17:10)
[2021-12-04] MEDS ORDERED: NS 500 ML IV ONE (18:10)
[2021-12-04 18:39] LABS: BASO % 0.2 % (0.0-1.0); EOS % 0.4 % (0.0-3.0); LYMPH # 1.4 10^3/uL (1.5-5.0); LYMPH % 26.7 % (24.0-44.0); MEAN CORPUSCULAR HEMOGLOBIN 28.1 pg (27.0-33.0); MEAN CORPUSCULAR HGB CONC 32.6 g/dl (32.0-36.5); MEAN CORPUSCULAR VOLUME 86.1 fl (80.0-96.0); MONO # 0.3 10^3/uL (0.0-0.8); NEUTROPHILS # 3.4 10^3/uL (1.5-8.5); NEUTROPHILS % 66.1 % (36.0-66.0); PLATELET COUNT, AUTOMATED 158 10^3/uL (150-450); RED BLOOD COUNT 5.34 10^6/uL (4.00-5.40); WHITE BLOOD COUNT 5.1 10^3/uL (4.0-10.0)
[2021-12-04 18:44] LABS: ABG BASE EXCESS -3.5 (-2.0-2.0); ABG HCO3 22.3 MEQ/L (22.0-26.0); ABG O2 SATURATION 87.7 % (95.0-99.0); ABG PARTIAL PRESSURE CO2 43.1 mmHg (35.0-45.0); ABG PARTIAL PRESSURE O2 55.5 mmHg (75.0-100.0); ABG STANDARD HCO3 21.3 MEQ/L (22.0-26.0); ABG TOTAL CO2 23.6 MEQ/L (23.0-31.0); ABG pH (ARTERIAL) 7.332 UNITS (7.350-7.450)
[2021-12-04 19:10] LABS: BILIRUBIN,DIRECT 0.4 MG/DL (0.0-0.2); BILIRUBIN,TOTAL 0.8 MG/DL (0.2-1.0); CALCIUM LEVEL 9.4 MG/DL (8.8-10.2); CREATININE FOR GFR 1.31 MG/DL (0.55-1.30); GLOMERULAR FILTRATION RATE 43.2 (>45); POTASSIUM SERUM 5.1 MEQ/L (3.5-5.1); TOTAL PROTEIN 7.5 GM/DL (6.4-8.2)
[2021-12-04 19:32] LABS: INR 1.03; PROTHROMBIN TIME 13.9 SECONDS (12.7-14.5)
[2021-12-04 19:34] LABS: PARTIAL THROMBOPLASTIN TIME 90.3 SECONDS (25.9-37.0)
[2021-12-04 19:36] LABS: D-DIMER QUANT 510.32 ng/ml (<500)
[2021-12-04] MEDS ORDERED: NS 1,000 ML IV ONE (19:45)
[2021-12-04 19:50] LABS: CK-MB VALUE MASS < 1.0 NG/ML (<3.6); CPK CREATINE PHOSPHOKINASE 52 U/L (26-192); MB/CK RELATIVE INDEX 1.92 (< OR =4)
[2021-12-04] MEDS ORDERED: ACETAMINOPHEN TAB 650MG DOSE (2X325MG) PO PRN (20:30)
[2021-12-04] MEDS: NS 1,000 ML IV SCH (20:30)
[2021-12-04] MEDS ORDERED: guaiFENesin ER 600 MG TAB PO PRN (20:30)
[2021-12-04] MEDS ORDERED: IPRATROPIUM 0.5MG/ALBUTEROL 2.5MG INH SOL UD 3ML (DUONEB) NEB PRN (20:30)
[2021-12-04] MEDS ORDERED: FLOM0.4C39 PO (20:48)
[2021-12-04] MEDS ORDERED: ONDA4TAB6 PO (20:50)
[2021-12-04] MEDS ORDERED: HOME MED LIST COMPLETE! XX SCH (20:55)
[2021-12-04 22:30] VITALS: BP 148/90; O2SAT 98
[2021-12-04 23:34] LABS: HEMOGLOBIN A1c 6.4 %
[2021-12-04 23:36] LABS: C REACTIVE PROTEIN QUANTITATIV 0.74 MG/DL (0.00-0.30); MAGNESIUM LEVEL 1.8 MG/DL (1.8-2.4)
[2021-12-05] MEDS ORDERED: GLUCAGON INJ 1MG VIAL SC PRN (00:15)
[2021-12-05] MEDS ORDERED: GLUCOSE 4GM CHEW TABLET PO PRN (00:15)
[2021-12-05] MEDS ORDERED: **hydrALAZINE** 10 MG TAB PO PRN (00:15)
[2021-12-05] MEDS ORDERED: DEXTROSE 50% 50 ML SYRINGE IV PRN (00:15)
[2021-12-05 02:30] VITALS: O2SAT 100
[2021-12-05 04:00] VITALS: BP 155/80
[2021-12-05] MEDS ORDERED: SODIUM CHLORIDE 0.9% INJ 10 ML SYR IV PRN ×2 (04:45)
[2021-12-05] MEDS: NS 1,000 ML IV SCH (05:08)
[2021-12-05] MEDS: **hydrALAZINE HCL** 25 MG TAB PO SCH ×3 (06:00→21:38)
[2021-12-05 06:30] VITALS: O2SAT 96
[2021-12-05] MEDS: HumaLOG INSULIN (NovoLOG) PER UNIT SC SCH ×3 (07:30→17:24)
[2021-12-05] MEDS: ADVAIR HFA 115/21MCG INHALER INH SCH ×2 (07:45→20:28)
[2021-12-05 08:11] LABS: BASO % 0.2 % (0.0-1.0); EOS % 0.7 % (0.0-3.0); HEMATOCRIT 39.4 % (36.0-47.0); HEMOGLOBIN 12.9 g/dl (12.0-15.5); LYMPH # 1.1 10^3/uL (1.5-5.0); LYMPH % 25.4 % (24.0-44.0); MEAN CORPUSCULAR HEMOGLOBIN 28.4 pg (27.0-33.0); MEAN CORPUSCULAR HGB CONC 32.7 g/dl (32.0-36.5); MEAN CORPUSCULAR VOLUME 86.8 fl (80.0-96.0); MONO # 0.2 10^3/uL (0.0-0.8); MONO % 5.8 % (2.0-8.0); NEUTROPHILS # 2.8 10^3/uL (1.5-8.5); NEUTROPHILS % 67.2 % (36.0-66.0); PLATELET COUNT, AUTOMATED 119 10^3/uL (150-450); RED BLOOD COUNT 4.54 10^6/uL (4.00-5.40); WHITE BLOOD COUNT 4.1 10^3/uL (4.0-10.0)
[2021-12-05 08:19] LABS: BLOOD UREA NITROGEN 33 MG/DL (7-18); CALCIUM LEVEL 8.2 MG/DL (8.8-10.2); CARBON DIOXIDE LEVEL 24 MEQ/L (21-32); CHLORIDE LEVEL 111 MEQ/L (98-107); CREATININE FOR GFR 0.78 MG/DL (0.55-1.30); GLOMERULAR FILTRATION RATE > 60.0 (>45); GLUCOSE, FASTING 112 MG/DL (70-100); MAGNESIUM LEVEL 1.8 MG/DL (1.8-2.4); POTASSIUM SERUM 4.3 MEQ/L (3.5-5.1); SODIUM LEVEL 142 MEQ/L (136-145)
[2021-12-05] MEDS: SODIUM CHLORIDE 0.9% INJ 10 ML SYR IV SCH (09:00)
[2021-12-05] MEDS: PANTOPRAZOLE 40MG TAB (PROTONIX) PO SCH ×2 (09:05→21:38)
[2021-12-05] MEDS: TAMSULOSIN 0.4 MG CAP PO SCH (09:05)
[2021-12-05] MEDS: ATORVASTATIN 20 MG TAB PO SCH (09:05)
[2021-12-05] MEDS: CETIRIZINE (ZyrTEC) 10 MG TAB PO SCH (09:05)
[2021-12-05] MEDS: SERTRALINE HCL 50 MG TAB PO SCH (09:05)
[2021-12-05] MEDS: ENOXAPARIN 40MG/0.4ML SYRINGE (J1650 PER 10MG) SC SCH (09:05)
[2021-12-05 14:00] VITALS: BP 117/58
[2021-12-05 20:00] VITALS: BP 160/72
[2021-12-05] MEDS ORDERED: HumaLOG INSULIN (NovoLOG) PER UNIT SC SCH (21:00)
[2021-12-06 04:00] VITALS: BP 155/81
[2021-12-06 06:30] VITALS: BP 162/79
[2021-12-06] MEDS: **hydrALAZINE HCL** 25 MG TAB PO SCH (06:30)
[2021-12-06] MEDS: HumaLOG INSULIN (NovoLOG) PER UNIT SC SCH ×2 (07:08→12:00)
[2021-12-06] MEDS: ADVAIR HFA 115/21MCG INHALER INH SCH (07:47)
[2021-12-06 08:41] LABS: HEMATOCRIT 38.5 % (36.0-47.0); HEMOGLOBIN 12.3 g/dl (12.0-15.5); MEAN CORPUSCULAR HEMOGLOBIN 27.9 pg (27.0-33.0); MEAN CORPUSCULAR HGB CONC 31.9 g/dl (32.0-36.5); MEAN CORPUSCULAR VOLUME 87.3 fl (80.0-96.0); PLATELET COUNT, AUTOMATED 133 10^3/uL (150-450); RED BLOOD COUNT 4.41 10^6/uL (4.00-5.40); WHITE BLOOD COUNT 4.2 10^3/uL (4.0-10.0)
[2021-12-06 08:55] LABS: INR 1.11; PARTIAL THROMBOPLASTIN TIME 29.7 SECONDS (25.9-37.0); PROTHROMBIN TIME 14.8 SECONDS (12.7-14.5)
[2021-12-06] MEDS: ENOXAPARIN 40MG/0.4ML SYRINGE (J1650 PER 10MG) SC SCH (08:55)
[2021-12-06] MEDS: PANTOPRAZOLE 40MG TAB (PROTONIX) PO SCH (08:56)
[2021-12-06] MEDS: SODIUM CHLORIDE 0.9% INJ 10 ML SYR IV SCH (08:56)
[2021-12-06] MEDS: CETIRIZINE (ZyrTEC) 10 MG TAB PO SCH (08:57)
[2021-12-06] MEDS: TAMSULOSIN 0.4 MG CAP PO SCH (08:57)
[2021-12-06] MEDS: ATORVASTATIN 20 MG TAB PO SCH (08:57)
[2021-12-06] MEDS ORDERED: FLUBLOK(EGG FREE)(QUAD)INFLUENZA VACC 0.5ML SYRINGE 18YRS & OLDER IM ONE (09:00)
[2021-12-06] MEDS ORDERED: PREVNAR 13 VACCINE SYRINGE IM ONE (09:00)
[2021-12-06 09:23] LABS: ATYPICAL LYMPH 4 % (0-5); EOSINOPHILS 1 % (0-3); LYMPHOCYTES 17 % (16-44); MONOCYTES 4 % (0-5); NEUTROPHILS 70 % (28-66)
[2021-12-06 09:26] LABS: ANISOCYTOSIS 1+; PLATELET ESTIMATE DECREASED (NORMAL)
[2021-12-06] MEDS: SERTRALINE HCL 50 MG TAB PO SCH (09:26)
[2021-12-06 09:34] LABS: ALBUMIN 3.2 GM/DL (3.2-5.2); ALT/SGPT 28 U/L (12-78); BILIRUBIN,DIRECT 0.1 MG/DL (0.0-0.2); BILIRUBIN,TOTAL 0.4 MG/DL (0.2-1.0); BLOOD UREA NITROGEN 21 MG/DL (7-18); CALCIUM LEVEL 8.8 MG/DL (8.8-10.2); CARBON DIOXIDE LEVEL 25 MEQ/L (21-32); CHLORIDE LEVEL 108 MEQ/L (98-107); CREATININE FOR GFR 0.81 MG/DL (0.55-1.30); FERRITIN 131 NG/ML (8-252); GLOMERULAR FILTRATION RATE > 60.0 (>45); GLUCOSE, FASTING 99 MG/DL (70-100); LDH LACTATE DEHYDROGENASE 215 U/L (84-246); MAGNESIUM LEVEL 1.7 MG/DL (1.8-2.4); NT-PRO BNP 75 PG/ML (<125); POTASSIUM SERUM 4.4 MEQ/L (3.5-5.1); SODIUM LEVEL 141 MEQ/L (136-145)
[2021-12-06 14:00] VITALS: BP 129/60
[2021-12-06] MEDS ORDERED: MAGNESIUM OXIDE 400MG TAB (MAG-OX) PO ONE (14:00)
== END 2021-12-06 15:45 | disposition home or self-care (01) ==
LOC: M ED 10:39 → M ED INP 10:40 → ENRESERV 21:45 → M 4MAIN 22:41
PROVIDERS: ADMIT Family Medicine; ATTEND Internal Medicine Nephrology
DX: J10.1 Influenza due to other identified influenza virus with other respiratory manifestations (principal); U07.1 COVID-19; N17.9 Acute kidney failure, unspecified; J44.9 Chronic obstructive pulmonary disease, unspecified; J96.11 Chronic respiratory failure with hypoxia; Z99.81 Dependence on supplemental oxygen; I10 Essential (primary) hypertension; E11.9 Type 2 diabetes mellitus without complications; E78.5 Hyperlipidemia, unspecified; I73.9 Peripheral vascular disease, unspecified; N39.3 Stress incontinence (female) (male); E55.9 Vitamin D deficiency, unspecified; F32.9 Major depressive disorder, single episode, unspecified; G89.29 Other chronic pain; K21.9 Gastro-esophageal reflux disease without esophagitis; C34.91 Malignant neoplasm of unspecified part of right bronchus or lung; G25.81 Restless legs syndrome; Z79.899 Other long term (current) drug therapy
CPT/HCPCS: 36415; 36600; 71046; 80048; 80076; 81001; 82550; 82553; 82728; 82803; 83036; 83605; 83615; 83690; 83735; 83880; 84145; 84484; 85025; 85379; 85384; 85610; 85730; 86140; 87040; 87077; 87186; 87880; 90670; 90682; 93005; 93041; 94640; 94664; 96360; 96361; 96372; 99285; G0008; G0009; G0378; J1642; J1650

== ENCOUNTER → 2021-12-18 | Outpatient (CLI) | payer MEDICARE, MEDICAID | LOC: M ONCR 14:01 | PROVIDERS: ATTEND General Practice | DX: C34.11 Malignant neoplasm of upper lobe, right bronchus or lung (principal); Z87.891 Personal history of nicotine dependence; Z86.16 Personal history of COVID-19; Z88.1 Allergy status to other antibiotic agents; Z79.899 Other long term (current) drug therapy ==

== ENCOUNTER → 2022-02-17 | Outpatient (CLI) | payer MEDICARE, MEDICAID | LOC: M RAD 14:31 | PROVIDERS: ATTEND Urology | DX: N20.0 Calculus of kidney (principal); R10.9 Unspecified abdominal pain ==

== ENCOUNTER → 2022-03-17 | Outpatient (CLI) | payer MEDICARE, MEDICAID ==
[2022-03-17 18:07] LABS: CREATININE, URINE 94.9 MG/DL; MALB URINE SIEMENS 28.4 MG/L; MAU/CREAT RATIO 29.9 MCG/MG (0.0-30.0)
[2022-03-17 19:01] LABS: HEMOGLOBIN A1c 6.6 %
== END ==
LOC: M PLALAB 14:35
PROVIDERS: ATTEND Family Medicine
DX: N20.0 Calculus of kidney (principal); E11.40 Type 2 diabetes mellitus with diabetic neuropathy, unspecified

== ENCOUNTER 2022-04-16 15:22 | Emergency (ER) | payer MEDICARE, MEDICAID ==
[~2022-04-16] VITALS: Ht 165.1 cm; Wt 100.9 kg
[2022-04-16] MEDS ORDERED: KETOROLAC 30 MG/ML 1ML VIAL IV ONE (17:40)
[2022-04-16 18:17] LABS: BASO % 0.4 % (0.0-1.0); EOS # 0.2 10^3/uL (0.0-0.5); EOS % 1.8 % (0.0-3.0); HEMATOCRIT 44.7 % (36.0-47.0); HEMOGLOBIN 15.2 g/dl (12.0-15.5); LYMPH # 2.4 10^3/uL (1.5-5.0); LYMPH % 24.1 % (24.0-44.0); MEAN CORPUSCULAR HEMOGLOBIN 29.2 pg (27.0-33.0); MONO # 0.7 10^3/uL (0.0-0.8); NEUTROPHILS # 6.6 10^3/uL (1.5-8.5); NEUTROPHILS % 66.2 % (36.0-66.0); PLATELET COUNT, AUTOMATED 151 10^3/uL (150-450); WHITE BLOOD COUNT 9.9 10^3/uL (4.0-10.0)
[2022-04-16 18:43] LABS: BLOOD UREA NITROGEN 17 MG/DL (7-18); CALCIUM LEVEL 9.6 MG/DL (8.8-10.2); CARBON DIOXIDE LEVEL 27 MEQ/L (21-32); CHLORIDE LEVEL 107 MEQ/L (98-107); CREATININE FOR GFR 0.82 MG/DL (0.55-1.30); GLOMERULAR FILTRATION RATE > 60.0 (>45); GLUCOSE, FASTING 136 MG/DL (70-100); POTASSIUM SERUM 4.1 MEQ/L (3.5-5.1); SODIUM LEVEL 136 MEQ/L (136-145)
[2022-04-16] MEDS ORDERED: HYDR-3713 PO (19:16)
[2022-04-16 19:25] VITALS: BP 170/76
[2022-04-16] MEDS ORDERED: NORCO, ANEXSIA 5/325MG TABLET (HYDROcodone/ACETAMINOPHEN) PO ONE (19:25)
== END 2022-04-16 19:26 | disposition home or self-care (01) ==
LOC: M ED 15:22
DX: R10.9 Unspecified abdominal pain (principal); E11.9 Type 2 diabetes mellitus without complications; I10 Essential (primary) hypertension; Z87.442 Personal history of urinary calculi; Z95.5 Presence of coronary angioplasty implant and graft; J44.9 Chronic obstructive pulmonary disease, unspecified; F41.9 Anxiety disorder, unspecified; F32.A Depression, unspecified; D02.20 Carcinoma in situ of unspecified bronchus and lung; Z79.84 Long term (current) use of oral hypoglycemic drugs; Z88.1 Allergy status to other antibiotic agents; Z79.811 Long term (current) use of aromatase inhibitors; Z79.899 Other long term (current) drug therapy
CPT/HCPCS: 74176; 80048; 81001; 85025; 87088; 87186; 96374; 99283; J1885

== ENCOUNTER → 2022-06-02 | Outpatient (CLI) | payer MEDICARE, MEDICAID ==
[~2022-06-02] MED LIST changes: +HYDR-3713 PO; +LIDO1CRE42; +SODIUM CHLORIDE 0.9% INJ 10 ML SYR IV PRN
[2022-06-02 11:57] LABS: ALBUMIN 3.5 GM/DL (3.2-5.2); ALT/SGPT 34 U/L (12-78); BILIRUBIN,TOTAL 0.5 MG/DL (0.2-1.0); BLOOD UREA NITROGEN 17 MG/DL (7-18); CALCIUM LEVEL 9.6 MG/DL (8.8-10.2); CARBON DIOXIDE LEVEL 29 MEQ/L (21-32); CHLORIDE LEVEL 107 MEQ/L (98-107); CREATININE FOR GFR 0.91 MG/DL (0.55-1.30); GLOMERULAR FILTRATION RATE > 60.0 (>45); GLUCOSE, FASTING 238 MG/DL (70-100); POTASSIUM SERUM 4.4 MEQ/L (3.5-5.1); SODIUM LEVEL 138 MEQ/L (136-145); TOTAL PROTEIN 6.7 GM/DL (6.4-8.2)
== END ==
LOC: M ONCR 10:48
PROVIDERS: ATTEND General Practice
DX: C34.11 Malignant neoplasm of upper lobe, right bronchus or lung (principal)
CPT/HCPCS: 36591; 80053; J1642

== ENCOUNTER → 2022-06-09 | Outpatient (CLI) | payer MEDICARE, MEDICAID ==
[~2022-06-09] MED LIST changes: +PROHANCE 279.3MG/ML 15ML VIAL As Ordered ONE; +PROHANCE 279.3MG/ML 5ML VIAL As Ordered ONE; -SODIUM CHLORIDE 0.9% INJ 10 ML SYR IV PRN
== END ==
LOC: M RAD 10:15
PROVIDERS: ATTEND General Practice
DX: C34.11 Malignant neoplasm of upper lobe, right bronchus or lung (principal)
CPT/HCPCS: 70553; A9576

== ENCOUNTER → 2022-06-23 | Outpatient (CLI) | payer MEDICARE, MEDICAID ==
[~2022-06-23] MED LIST changes: -PROHANCE 279.3MG/ML 15ML VIAL As Ordered ONE; -PROHANCE 279.3MG/ML 5ML VIAL As Ordered ONE
== END ==
LOC: M ONCR 15:01
PROVIDERS: ATTEND General Practice
DX: Z08 Encounter for follow-up examination after completed treatment for malignant neoplasm (principal); Z85.118 Personal history of other malignant neoplasm of bronchus and lung; G62.9 Polyneuropathy, unspecified; G89.29 Other chronic pain; Z87.891 Personal history of nicotine dependence; Z92.21 Personal history of antineoplastic chemotherapy; Z88.1 Allergy status to other antibiotic agents; Z79.51 Long term (current) use of inhaled steroids; Z79.899 Other long term (current) drug therapy

== ENCOUNTER → 2022-07-29 | Outpatient (CLI) | payer MEDICARE, MEDICAID | LOC: M WHC 11:51 | PROVIDERS: ATTEND Physician Assistant | DX: Z12.31 Encounter for screening mammogram for malignant neoplasm of breast (principal); Z13.820 Encounter for screening for osteoporosis; M85.851 Other specified disorders of bone density and structure, right thigh; M85.852 Other specified disorders of bone density and structure, left thigh ==

== ENCOUNTER → 2022-08-06 | Outpatient (CLI) | payer MEDICARE, MEDICAID ==
[2022-08-06 17:40] LABS: BASO % 0.2 % (0.0-1.0); EOS # 0.2 10^3/uL (0.0-0.5); EOS % 2.1 % (0.0-3.0); HEMATOCRIT 42.2 % (36.0-47.0); HEMOGLOBIN 13.8 g/dl (12.0-15.5); LYMPH # 1.9 10^3/uL (1.5-5.0); LYMPH % 22.7 % (24.0-44.0); MEAN CORPUSCULAR HEMOGLOBIN 29.4 pg (27.0-33.0); MEAN CORPUSCULAR HGB CONC 32.7 g/dl (32.0-36.5); MEAN CORPUSCULAR VOLUME 89.8 fl (80.0-96.0); MONO # 0.6 10^3/uL (0.0-0.8); MONO % 6.6 % (2.0-8.0); NEUTROPHILS # 5.8 10^3/uL (1.5-8.5); PLATELET COUNT, AUTOMATED 143 10^3/uL (150-450); WHITE BLOOD COUNT 8.5 10^3/uL (4.0-10.0)
[2022-08-06 18:20] LABS: ALBUMIN 3.8 GM/DL (3.2-5.2); ALT/SGPT 39 U/L (12-78); BILIRUBIN,TOTAL 0.5 MG/DL (0.2-1.0); BLOOD UREA NITROGEN 18 MG/DL (7-18); CALCIUM LEVEL 9.2 MG/DL (8.8-10.2); CARBON DIOXIDE LEVEL 29 MEQ/L (21-32); CHLORIDE LEVEL 106 MEQ/L (98-107); CHOLESTEROL LEVEL 80 MG/DL (<200); CHOLESTEROL RISK RATIO 4.705 (<5); CREATININE FOR GFR 0.79 MG/DL (0.55-1.30); GLOMERULAR FILTRATION RATE > 60.0 (>45); GLUCOSE, FASTING 160 MG/DL (70-100); HDL CHOLESTEROL 17 MG/DL (>40); LDL CHOLESTEROL 2 MG/DL (<100); NON-HDL-C 63 MG/DL; POTASSIUM SERUM 4.3 MEQ/L (3.5-5.1); SODIUM LEVEL 141 MEQ/L (136-145); TOTAL PROTEIN 6.9 GM/DL (6.4-8.2); TRIGLYCERIDES LEVEL 306 MG/DL (<150)
[2022-08-06 18:39] LABS: HEMOGLOBIN A1c 6.9 %
== END ==
LOC: M PLALAB 15:51
PROVIDERS: ATTEND Physician Assistant
DX: E11.40 Type 2 diabetes mellitus with diabetic neuropathy, unspecified (principal); I10 Essential (primary) hypertension

== ENCOUNTER → 2022-08-17 | Outpatient (REF) | payer MEDICARE, MEDICAID ==
[2022-08-17 15:41] LABS: APPEARANCE, URINE MANUAL CLEAR (CLEAR); BILIRUBIN, URINE MANUAL NEGATIVE (NEGATIVE); BLOOD URINE MANUAL NEGATIVE (NEGATIVE); COLOR, URINE MANUAL LT YELLOW (YELLOW); GLUCOSE, URINE (UA) MANUAL NEGATIVE (NEGATIVE); KETONE, URINE MANUAL NEGATIVE (NEGATIVE); LEUKOCYTE ESTERASE, URINE MAN NEGATIVE (NEGATIVE); NITRITE, URINE MANUAL NEGATIVE (NEGATIVE); PROTEIN, URINE MANUAL NEGATIVE (NEGATIVE); UROBILINOGEN, URINE MANUAL NORMAL (NORMAL)
[2022-08-23 15:09] LABS: Ca Ox Monohydrate 10 % (.); Size 6x4 mm (.); Uric Acid 90 % (.)
== END ==
LOC: M SMT 15:22
PROVIDERS: ATTEND Urology
DX: N20.0 Calculus of kidney (principal); R30.0 Dysuria

== ENCOUNTER → 2022-08-18 | Outpatient (CLI) | payer MEDICARE, MEDICAID | LOC: M RAD 14:48 | PROVIDERS: ATTEND Urology | DX: N20.0 Calculus of kidney (principal) ==

== ENCOUNTER → 2022-09-02 | Outpatient (CLI) | payer MEDICARE, MEDICAID ==
[~2022-09-02] MED LIST changes: +GASTROGRAFIN SOLUTION 30ML (Q9963) As Ordered ONE; +ISOVUE-370 76% 100ML VIAL As Ordered ONE
== END ==
LOC: M RAD 14:44
PROVIDERS: ATTEND Internal Medicine Medical Oncology
DX: C34.90 Malignant neoplasm of unspecified part of unspecified bronchus or lung (principal)
CPT/HCPCS: 71260; 74177; Q9963; Q9967

== ENCOUNTER → 2022-09-23 | Outpatient (CLI) | payer MEDICARE, MEDICAID ==
[~2022-09-23] MED LIST changes: -GASTROGRAFIN SOLUTION 30ML (Q9963) As Ordered ONE; -ISOVUE-370 76% 100ML VIAL As Ordered ONE
== END ==
LOC: M PLARAD 12:49
PROVIDERS: ATTEND Internal Medicine Medical Oncology
DX: M48.061 Spinal stenosis, lumbar region without neurogenic claudication (principal)

== ENCOUNTER → 2022-09-23 | Outpatient (CLI) | payer MEDICARE, MEDICAID | LOC: M ONCR 14:51 | PROVIDERS: ATTEND General Practice | DX: R91.1 Solitary pulmonary nodule (principal); M48.061 Spinal stenosis, lumbar region without neurogenic claudication; Z85.118 Personal history of other malignant neoplasm of bronchus and lung; Z92.21 Personal history of antineoplastic chemotherapy; Z79.51 Long term (current) use of inhaled steroids; Z79.899 Other long term (current) drug therapy; Z87.891 Personal history of nicotine dependence; Z88.1 Allergy status to other antibiotic agents | CPT/HCPCS: 72158; G0463 ==

== ENCOUNTER 2022-10-11 14:00 | Outpatient (RCR) | payer MEDICARE, MEDICAID ==
[2022-10-18] MEDS ORDERED: LIDO1CRE42 TOP (11:33)
== END 2022-10-20 ==
LOC: M ONCR 14:00
PROVIDERS: ATTEND General Practice
DX: C34.11 Malignant neoplasm of upper lobe, right bronchus or lung (principal)

== ENCOUNTER 2022-11-05 14:03 | Outpatient (RCR) | payer MEDICARE, MEDICAID ==
[2022-11-25] MEDS ORDERED: LIDO1CRE42 TOP (13:36)
== END 2022-11-20 ==
LOC: M ONCR 14:03
PROVIDERS: ATTEND General Practice
DX: C34.11 Malignant neoplasm of upper lobe, right bronchus or lung (principal)

== ENCOUNTER → 2022-11-23 | Outpatient (CLI) | payer MEDICARE, MEDICAID ==
[2022-11-23 16:14] LABS: ALKALINE PHOSPHATASE 80 U/L (46-116); ALT/SGPT 25 U/L (7.0-40); AST/SGOT 15 U/L (<34); BILIRUBIN,TOTAL 0.7 MG/DL (0.3-1.2); BLOOD UREA NITROGEN 11 MG/DL (9-23); CALCIUM LEVEL 9.1 MG/DL (8.3-10.6); CARBON DIOXIDE LEVEL 26 MMOL/L (20-31); CHLORIDE LEVEL 103 MMOL/L (98-107); CREATININE FOR GFR 0.71 MG/DL (0.55-1.30); GLOMERULAR FILTRATION RATE > 60.0 (>45); GLUCOSE, FASTING 124 MG/DL (74-106); POTASSIUM SERUM 4.3 MMOL/L (3.5-5.1); SODIUM LEVEL 140 MMOL/L (136-145); TOTAL PROTEIN 6.7 G/DL (5.7-8.2)
== END ==
LOC: M ONCR 15:01
PROVIDERS: ATTEND General Practice
DX: C34.11 Malignant neoplasm of upper lobe, right bronchus or lung (principal)

== ENCOUNTER → 2023-01-10 | Outpatient (CLI) | payer MEDICARE, MEDICAID | LOC: M PLARAD 10:30 | PROVIDERS: ATTEND Internal Medicine Medical Oncology | DX: C34.11 Malignant neoplasm of upper lobe, right bronchus or lung (principal) | CPT/HCPCS: 78815; A9552 ==

== ENCOUNTER → 2023-01-14 | Outpatient (CLI) | payer MEDICARE, MEDICAID ==
[~2023-01-14] MED LIST changes: +TRIA1CR80 TOP
[2023-01-14 14:21] LABS: APPEARANCE, URINE HAZY (CLEAR); BACTERIA, URINE AUTO NEGATIVE (NEGATIVE); BILIRUBIN, URINE AUTO NEGATIVE (NEGATIVE); BLOOD, URINE BLOOD NEGATIVE (NEGATIVE); COLOR, URINE YELLOW (YELLOW); GLUCOSE, URINE (UA) AUTO NEGATIVE (NEGATIVE); KETONE, URINE AUTO NEGATIVE (NEGATIVE); LEUKOCYTE ESTERASE, URINE AUTO NEGATIVE (NEGATIVE); MUCUS, URINE SMALL (NEGATIVE); NITRITE, URINE AUTO NEGATIVE (NEGATIVE); PROTEIN, URINE AUTO NEGATIVE (NEGATIVE); RBC, URINE AUTO 0 /HPF (0-3); SPECIFIC GRAVITY URINE AUTO 1.018 (1.002-1.035); SQUAMOUS EPITHELIAL CELL UR AU 2 /HPF (0-6); UROBILINOGEN, URINE AUTO 0.2 mg/dL (0.0-2.0); WBC, URINE AUTO 0 /HPF (0-3)
[2023-01-14 14:27] LABS: BASO % 0.5 % (0.0-1.0); EOS # 0.2 10^3/uL (0.0-0.5); EOS % 2.3 % (0.0-3.0); HEMATOCRIT 42.6 % (36.0-47.0); HEMOGLOBIN 14.1 g/dl (12.0-15.5); LYMPH # 1.4 10^3/uL (1.5-5.0); LYMPH % 21.8 % (24.0-44.0); MEAN CORPUSCULAR HEMOGLOBIN 29.7 pg (27.0-33.0); MEAN CORPUSCULAR HGB CONC 33.1 g/dl (32.0-36.5); MEAN CORPUSCULAR VOLUME 89.9 fl (80.0-96.0); MONO # 0.4 10^3/uL (0.0-0.8); MONO % 5.7 % (2.0-8.0); NEUTROPHILS # 4.5 10^3/uL (1.5-8.5); NEUTROPHILS % 69.2 % (36.0-66.0); PLATELET COUNT, AUTOMATED 127 10^3/uL (150-450); RED BLOOD COUNT 4.74 10^6/uL (4.00-5.40); WHITE BLOOD COUNT 6.5 10^3/uL (4.0-10.0)
[2023-01-14 14:36] LABS: CREATININE, URINE 79.3 MG/DL
[2023-01-14 14:37] LABS: MAU/CREAT RATIO 11.3 MCG/MG (0.0-30.0)
[2023-01-14 14:40] LABS: ALBUMIN 3.9 G/DL (3.2-5.2); ALKALINE PHOSPHATASE 77 U/L (46-116); ALT/SGPT 33 U/L (7.0-40); AST/SGOT 14 U/L (<34); BILIRUBIN,TOTAL 0.6 MG/DL (0.3-1.2); BLOOD UREA NITROGEN 17 MG/DL (9-23); CALCIUM LEVEL 9.9 MG/DL (8.3-10.6); CARBON DIOXIDE LEVEL 29 MMOL/L (20-31); CHLORIDE LEVEL 105 MMOL/L (98-107); CREATININE FOR GFR 0.74 MG/DL (0.55-1.30); GLOMERULAR FILTRATION RATE > 60.0 (>45); GLUCOSE, FASTING 174 MG/DL (74-106); POTASSIUM SERUM 4.6 MMOL/L (3.5-5.1); SODIUM LEVEL 140 MMOL/L (136-145); TOTAL PROTEIN 6.6 G/DL (5.7-8.2)
[2023-01-14 15:33] LABS: HEMOGLOBIN A1c 7.1 % (4.0-6.0)
== END ==
LOC: M PLALAB 11:42
PROVIDERS: ATTEND Physician Assistant
DX: E11.40 Type 2 diabetes mellitus with diabetic neuropathy, unspecified (principal); R10.9 Unspecified abdominal pain

== ENCOUNTER → 2023-01-21 | Outpatient (CLI) | payer MEDICARE, MEDICAID ==
[~2023-01-21] MED LIST changes: +PROHANCE 279.3MG/ML 15ML VIAL As Ordered ONE; +PROHANCE 279.3MG/ML 5ML VIAL As Ordered ONE; -TRIA1CR80 TOP
== END ==
LOC: M RAD 14:45
PROVIDERS: ATTEND General Practice
DX: C34.11 Malignant neoplasm of upper lobe, right bronchus or lung (principal)
CPT/HCPCS: 70553; A9576

== ENCOUNTER → 2023-01-28 | Outpatient (CLI) | payer MEDICARE, MEDICAID ==
[~2023-01-28] MED LIST changes: +ISOVUE-370 76% 100ML VIAL As Ordered ONE; -PROHANCE 279.3MG/ML 15ML VIAL As Ordered ONE; -PROHANCE 279.3MG/ML 5ML VIAL As Ordered ONE
== END ==
LOC: M RAD 13:37
PROVIDERS: ATTEND General Practice
DX: C34.11 Malignant neoplasm of upper lobe, right bronchus or lung (principal)
CPT/HCPCS: 71260; Q9967

== ENCOUNTER → 2023-02-04 | Outpatient (CLI) | payer MEDICARE, MEDICAID ==
[~2023-02-04] MED LIST changes: -ISOVUE-370 76% 100ML VIAL As Ordered ONE; +TRIA1CR80 TOP
== END ==
LOC: M ONCR 14:15
PROVIDERS: ATTEND General Practice
DX: C34.11 Malignant neoplasm of upper lobe, right bronchus or lung (principal); Z79.51 Long term (current) use of inhaled steroids; Z79.899 Other long term (current) drug therapy; Z87.891 Personal history of nicotine dependence; Z88.1 Allergy status to other antibiotic agents; Z92.21 Personal history of antineoplastic chemotherapy; Z92.3 Personal history of irradiation

== ENCOUNTER → 2023-03-10 | Outpatient (CLI) | payer MEDICARE, MEDICAID | LOC: M RAD 15:24 | PROVIDERS: ATTEND Urology | DX: N20.0 Calculus of kidney (principal) ==

== ENCOUNTER → 2023-11-09 | Outpatient (CLI) | payer MEDICARE, MEDICAID ==
[~2023-11-09] MED LIST changes: -K-TA10TA2 PO; -LIDO1CRE42; -LIDO1CRE42 TOP; +LIDO30CR18; +LIDO30CR18 TOP; -OXYB5TAB10 PO; +OXYB5TAB11 PO; +POTA-165 PO
[2023-11-09 17:51] LABS: HEMOGLOBIN A1c 5.2 % (4.0-6.0)
[2023-11-09 18:06] LABS: MAU/CREAT RATIO 6.6 MCG/MG (0.0-30.0)
[2023-11-09 18:06] LABS: CHOLESTEROL RISK RATIO 4.74 (<5); HDL CHOLESTEROL 28.9 MG/DL (>40); LDL CHOLESTEROL 74.7 MG/DL (<100); NON-HDL-C 108.1 MG/DL
== END ==
LOC: M PLALAB 16:52
PROVIDERS: ATTEND Family Medicine
DX: E11.40 Type 2 diabetes mellitus with diabetic neuropathy, unspecified (principal); E78.2 Mixed hyperlipidemia

== ENCOUNTER → 2024-01-09 | Outpatient (CLI) | payer OTHER, MEDICAID ==
[~2024-01-09] MED LIST changes: +GASTROGRAFIN SOLUTION 30ML As Ordered ONE; +ISOVUE-370 76% 100ML VIAL As Ordered ONE; -OXYB5TAB11 PO; +OXYB5TAB14 PO
== END ==
LOC: M RAD 15:13
PROVIDERS: ATTEND General Practice
DX: C34.11 Malignant neoplasm of upper lobe, right bronchus or lung (principal)
CPT/HCPCS: 71260; 74177; Q9963; Q9967

== ENCOUNTER → 2024-01-13 | Outpatient (CLI) | payer OTHER, MEDICAID ==
[~2024-01-13] MED LIST changes: -GASTROGRAFIN SOLUTION 30ML As Ordered ONE; -ISOVUE-370 76% 100ML VIAL As Ordered ONE
== END ==
LOC: M ONCR 14:11
PROVIDERS: ATTEND General Practice
DX: R91.1 Solitary pulmonary nodule (principal); J44.9 Chronic obstructive pulmonary disease, unspecified; N28.89 Other specified disorders of kidney and ureter; R10.9 Unspecified abdominal pain; Z79.51 Long term (current) use of inhaled steroids; Z79.899 Other long term (current) drug therapy; Z85.118 Personal history of other malignant neoplasm of bronchus and lung; Z88.1 Allergy status to other antibiotic agents; Z92.21 Personal history of antineoplastic chemotherapy

== ENCOUNTER → 2024-02-06 | Outpatient (CLI) | payer OTHER, MEDICAID | LOC: M PLARAD 15:08 | PROVIDERS: ATTEND General Practice | DX: C34.11 Malignant neoplasm of upper lobe, right bronchus or lung (principal) | CPT/HCPCS: 78815; A9552 ==

== ENCOUNTER → 2024-02-07 | Outpatient (CLI) | payer OTHER, MEDICAID ==
[~2024-02-07] MED LIST changes: +PROHANCE 279.3MG/ML 15ML VIAL As Ordered ONE; +PROHANCE 279.3MG/ML 5ML VIAL As Ordered ONE
== END ==
LOC: M RAD 13:43
PROVIDERS: ATTEND General Practice
DX: C34.11 Malignant neoplasm of upper lobe, right bronchus or lung (principal); I67.82 Cerebral ischemia; R90.82 White matter disease, unspecified
CPT/HCPCS: 70553; A9576

== ENCOUNTER → 2024-02-14 | Outpatient (CLI) | payer OTHER, MEDICAID ==
[~2024-02-14] MED LIST changes: +CLOT1CRE56 TOP; -PROHANCE 279.3MG/ML 15ML VIAL As Ordered ONE; -PROHANCE 279.3MG/ML 5ML VIAL As Ordered ONE
== END ==
LOC: M ONCR 13:29
PROVIDERS: ATTEND General Practice
DX: C34.11 Malignant neoplasm of upper lobe, right bronchus or lung (principal); R59.0 Localized enlarged lymph nodes; Z79.51 Long term (current) use of inhaled steroids; Z79.899 Other long term (current) drug therapy; Z87.891 Personal history of nicotine dependence; Z88.1 Allergy status to other antibiotic agents; Z92.21 Personal history of antineoplastic chemotherapy; Z92.3 Personal history of irradiation

== ENCOUNTER 2024-04-04 07:35 | Day surgery (SDC) | payer OTHER, MEDICAID ==
[~2024-04-04] VITALS: Ht 152.4 cm; Wt 86.4 kg
[2024-04-04] MEDS ORDERED: LR 1,000 ML IV SCH (07:40)
[2024-04-04] MEDS ORDERED: LIDOCAINE 2% 100MG/5ML SDV (FOR ANES.) As Ordered ONE (08:04)
[2024-04-04] MEDS ORDERED: ROCURONIUM BROMIDE 50MG/5ML VIAL As Ordered ONE (08:04)
[2024-04-04] MEDS ORDERED: ONDANSETRON 4MG 2ML VIAL As Ordered ONE (08:04)
[2024-04-04] MEDS ORDERED: SUGAMMADEX SODIUM 500 MG/5 ML VIAL (BRIDION) As Ordered ONE (08:04)
[2024-04-04] MEDS ORDERED: propofoL 200 MG/20 ML VIAL As Ordered ONE (08:04)
[2024-04-04] MEDS ORDERED: MIDAZOLAM INJ 2MG/2ML VIAL As Ordered ONE (08:04)
[2024-04-04] MEDS ORDERED: fentaNYL 100 MCG/2 ML INJECTION As Ordered ONE (08:05)
[2024-04-04] MEDS ORDERED: PHENYLephrine 500MCG 5ML (100MCG/ML) SYRINGE As Ordered ONE (09:11)
[2024-04-04] MEDS ORDERED: ePHEDrine SULFATE 25 MG/5 ML(5MG/ML) SYRINGE As Ordered ONE (09:11)
[2024-04-04] MEDS: CETACAINE SPRAY 5GM As Ordered ONE (09:39)
[2024-04-04] MEDS ORDERED: fentaNYL 100 MCG/2 ML INJECTION IV PRN (10:00)
[2024-04-04] MEDS ORDERED: MORPHINE 2 MG/ML 1ML VIAL IV PRN (10:00)
[2024-04-04] MEDS ORDERED: oxyCODONE 5MG TAB PO PRN (10:00)
[2024-04-04] MEDS ORDERED: ONDANSETRON 4MG 2ML VIAL IV PRN (10:00)
[2024-04-04] MEDS: EPINEPHrine 1MG/10ML SYRINGE 1.5IN As Ordered ONE (10:02)
[2024-04-04 10:40] VITALS: BP 123/64; TEMP 98; O2SAT 91
== END 2024-04-04 11:12 | disposition home or self-care (01) ==
LOC: M SDC 07:35
PROVIDERS: ATTEND Internal Medicine Critical Care Medicine
DX: C77.1 Secondary and unspecified malignant neoplasm of intrathoracic lymph nodes (principal); C34.11 Malignant neoplasm of upper lobe, right bronchus or lung; J44.9 Chronic obstructive pulmonary disease, unspecified; E11.9 Type 2 diabetes mellitus without complications; E78.00 Pure hypercholesterolemia, unspecified; Z79.899 Other long term (current) drug therapy; Z87.891 Personal history of nicotine dependence
CPT/HCPCS: 31652; 71045; 88173; 88305; 93005; J1100; J2250; J2371; J2405; J3010

== ENCOUNTER 2024-05-18 13:32 | Outpatient (RCR) | payer OTHER, MEDICAID ==
[~2024-05-18 13:32] MED LIST changes: +DEXA4TA PO; +ONDA-282 PO; +ONDA-284 PO; +ONDA-84 PO; -ONDA4TAB6 PO; -ONDA8TAB8 PO; +[UNRECOGNIZED DRUG - CODE] TOP
[2024-05-22] MEDS ORDERED: OLAN1TAB16 PO (14:12)
== END 2024-05-20 ==
LOC: M ONCR 13:32
PROVIDERS: ATTEND General Practice
DX: Z51.0 Encounter for antineoplastic radiation therapy (principal); C34.11 Malignant neoplasm of upper lobe, right bronchus or lung

== ENCOUNTER 2024-06-19 08:17 | Outpatient (RCR) | payer OTHER, MEDICAID ==
[2024-06-13 15:01] LABS: HEMATOCRIT 21.2 % (36.0-47.0); HEMOGLOBIN 7.5 g/dl (12.0-15.5); LYMPH # 0.2 10^3/uL (1.5-5.0); LYMPH % 18.1 % (24.0-44.0); MEAN CORPUSCULAR HEMOGLOBIN 30.4 pg (27.0-33.0); MEAN CORPUSCULAR HGB CONC 35.4 g/dl (32.0-36.5); MEAN CORPUSCULAR VOLUME 85.8 fl (80.0-96.0); MONO % 1.9 % (2.0-8.0); NEUTROPHILS % 77.1 % (36.0-66.0); RED BLOOD COUNT 2.47 10^6/uL (4.00-5.40); WHITE BLOOD COUNT 1.1 10^3/uL (4.0-10.0)
[2024-06-13 15:26] LABS: ALBUMIN 3.6 G/DL (3.2-5.2); BILIRUBIN,TOTAL 1.3 MG/DL (0.3-1.2); CALCIUM LEVEL 8.5 MG/DL (8.3-10.6); CREATININE FOR GFR 1.13 MG/DL (0.55-1.30); POTASSIUM SERUM 4.1 MMOL/L (3.5-5.1); TOTAL PROTEIN 6.1 G/DL (5.7-8.2)
[2024-06-13 15:47] LABS: NEUTROPHILS # 0.8 10^3/uL (1.5-8.5); PLATELET COUNT, AUTOMATED 49 10^3/uL (150-450)
[~2024-06-19 08:17] MED LIST changes: +LOPE2CAP PO; +LORA1TAB23 PO; +OLAN1TAB16 PO
[2024-06-21] MEDS ORDERED: LEVO1TAB39 PO (10:13)
== END 2024-06-20 ==
LOC: M ONCR 08:17
PROVIDERS: ATTEND General Practice
DX: Z51.0 Encounter for antineoplastic radiation therapy (principal); C34.11 Malignant neoplasm of upper lobe, right bronchus or lung

== ENCOUNTER 2024-06-24 20:17 | Emergency (ER) | payer OTHER, MEDICAID ==
[~2024-06-24] VITALS: Ht 152.4 cm; Wt 74.7 kg
[~2024-06-24 20:17] MED LIST changes: +LEVO1TAB39 PO
[2024-06-24] MEDS: NS 1,000 ML IV ONE (21:49)
[2024-06-24 22:07] LABS: BASO % 0.4 % (0.0-1.0); EOS % 0.8 % (0.0-3.0); HEMATOCRIT 27.8 % (36.0-47.0); HEMOGLOBIN 9.3 g/dl (12.0-15.5); LYMPH # 0.5 10^3/uL (1.5-5.0); LYMPH % 18.4 % (24.0-44.0); MEAN CORPUSCULAR HGB CONC 33.5 g/dl (32.0-36.5); MEAN CORPUSCULAR VOLUME 89.7 fl (80.0-96.0); MONO # 0.3 10^3/uL (0.0-0.8); MONO % 11.7 % (2.0-8.0); NEUTROPHILS # 1.7 10^3/uL (1.5-8.5); NEUTROPHILS % 64.2 % (36.0-66.0); PLATELET COUNT, AUTOMATED 120 10^3/uL (150-450); WHITE BLOOD COUNT 2.7 10^3/uL (4.0-10.0)
[2024-06-24 22:16] LABS: INR 1.12; PARTIAL THROMBOPLASTIN TIME 27.8 SECONDS (24.8-34.2); PROTHROMBIN TIME 14.1 SECONDS (12.5-14.5)
[2024-06-24 22:21] LABS: LIPASE 25 U/L (12-53)
[2024-06-24 22:22] LABS: C REACTIVE PROTEIN QUANTITATIV < 0.40 MG/DL (<1.0)
[2024-06-24 22:23] LABS: ALBUMIN 3.2 G/DL (3.2-5.2); ALKALINE PHOSPHATASE 64 U/L (46-116); ALT/SGPT 9 U/L (7.0-40); AST/SGOT 8 U/L (<34); BILIRUBIN,DIRECT 0.2 MG/DL (<0.4); BILIRUBIN,TOTAL 0.5 MG/DL (0.3-1.2); BLOOD UREA NITROGEN 29 MG/DL (9-23); CALCIUM LEVEL 8.6 MG/DL (8.3-10.6); CARBON DIOXIDE LEVEL 28 MMOL/L (20-31); CHLORIDE LEVEL 106 MMOL/L (98-107); CREATININE FOR GFR 1.15 MG/DL (0.55-1.30); GLUCOSE, FASTING 108 MG/DL (74-106); POTASSIUM SERUM 3.8 MMOL/L (3.5-5.1); SODIUM LEVEL 141 MMOL/L (136-145); TOTAL PROTEIN 5.5 G/DL (5.7-8.2)
[2024-06-24] MEDS: SENOKOT S TAB PO ONE (23:19)
[2024-06-24] MEDS: MIRALAX *UNIT DOSE* 17GM PACKET PO ONE (23:19)
[2024-06-24] MEDS ORDERED: SENN1TAB85 PO (23:36)
[2024-06-24 23:40] VITALS: BP 135/78; TEMP 97.9; O2SAT 94
[2024-06-26] MEDS ORDERED: SENN1TAB85 PO (09:55)
== END 2024-06-25 00:54 | disposition home or self-care (01) ==
LOC: M ED 20:17
DX: K59.00 Constipation, unspecified (principal); J44.9 Chronic obstructive pulmonary disease, unspecified; I10 Essential (primary) hypertension; E11.9 Type 2 diabetes mellitus without complications; Z88.1 Allergy status to other antibiotic agents; Z86.16 Personal history of COVID-19; Z85.118 Personal history of other malignant neoplasm of bronchus and lung; Z79.02 Long term (current) use of antithrombotics/antiplatelets; Z79.52 Long term (current) use of systemic steroids; Z79.811 Long term (current) use of aromatase inhibitors; Z79.899 Other long term (current) drug therapy

== ENCOUNTER → 2024-09-10 | Outpatient (CLI) | payer OTHER, MEDICAID ==
[~2024-09-10] MED LIST changes: +GASTROGRAFIN SOLUTION 30ML As Ordered ONE; +ISOVUE-370 76% 100ML VIAL As Ordered ONE; +SENN1TAB85 PO
== END ==
LOC: M RAD 15:37
PROVIDERS: ATTEND Internal Medicine Medical Oncology
DX: C34.11 Malignant neoplasm of upper lobe, right bronchus or lung (principal); Z90.49 Acquired absence of other specified parts of digestive tract; N28.9 Disorder of kidney and ureter, unspecified
CPT/HCPCS: 71260; 74177; Q9963; Q9967

== ENCOUNTER → 2024-09-12 | Outpatient (CLI) | payer OTHER, MEDICAID ==
[~2024-09-12] MED LIST changes: -GASTROGRAFIN SOLUTION 30ML As Ordered ONE; -ISOVUE-370 76% 100ML VIAL As Ordered ONE; +PROHANCE 279.3MG/ML 15ML VIAL As Ordered ONE; +PROHANCE 279.3MG/ML 5ML VIAL As Ordered ONE
== END ==
LOC: M RAD 14:45
PROVIDERS: ATTEND General Practice
DX: C34.11 Malignant neoplasm of upper lobe, right bronchus or lung (principal)
CPT/HCPCS: 70553; A9576

== ENCOUNTER → 2024-09-19 | Outpatient (CLI) | payer OTHER, MEDICAID ==
[~2024-09-19] MED LIST changes: -PROHANCE 279.3MG/ML 15ML VIAL As Ordered ONE; -PROHANCE 279.3MG/ML 5ML VIAL As Ordered ONE
== END ==
LOC: M ONCR 14:03
PROVIDERS: ATTEND General Practice
DX: C34.11 Malignant neoplasm of upper lobe, right bronchus or lung (principal); K08.9 Disorder of teeth and supporting structures, unspecified; Z87.891 Personal history of nicotine dependence; Z92.21 Personal history of antineoplastic chemotherapy; Z92.3 Personal history of irradiation; Z88.1 Allergy status to other antibiotic agents; Z79.51 Long term (current) use of inhaled steroids; Z79.899 Other long term (current) drug therapy

== ENCOUNTER → 2024-12-13 | Outpatient (CLI) | payer OTHER, MEDICAID ==
[~2024-12-13] MED LIST changes: +GABA-1172 PO; +NYST1POW3 TOP
== END ==
LOC: M RAD 14:07
PROVIDERS: ATTEND General Practice
DX: C34.11 Malignant neoplasm of upper lobe, right bronchus or lung (principal)

== ENCOUNTER → 2024-12-18 | Outpatient (CLI) | payer OTHER, MEDICAID ==
[~2024-12-18] MED LIST changes: +MELO15TA28 PO
[2024-12-18 17:47] LABS: APPEARANCE, URINE CLEAR (CLEAR); BACTERIA, URINE AUTO NEGATIVE (NEGATIVE); BILIRUBIN, URINE AUTO NEGATIVE (NEGATIVE); BLOOD, URINE BLOOD NEGATIVE (NEGATIVE); COLOR, URINE YELLOW (YELLOW); GLUCOSE, URINE (UA) AUTO NEGATIVE (NEGATIVE); KETONE, URINE AUTO NEGATIVE (NEGATIVE); LEUKOCYTE ESTERASE, URINE AUTO TRACE (NEGATIVE); MUCUS, URINE SMALL (NEGATIVE); NITRITE, URINE AUTO NEGATIVE (NEGATIVE); PROTEIN, URINE AUTO NEGATIVE (NEGATIVE); RBC, URINE AUTO 0 /HPF (0-3); SPECIFIC GRAVITY URINE AUTO 1.013 (1.002-1.035); SQUAMOUS EPITHELIAL CELL UR AU 1 /HPF (0-6); WBC, URINE AUTO 6 /HPF (0-3)
== END ==
LOC: M RAD 16:39
PROVIDERS: ATTEND Family Medicine
DX: M25.572 Pain in left ankle and joints of left foot (principal); R30.0 Dysuria

== ENCOUNTER → 2024-12-20 | Outpatient (CLI) | payer OTHER, MEDICAID | LOC: M ONCR 13:53 | PROVIDERS: ATTEND General Practice | DX: C34.11 Malignant neoplasm of upper lobe, right bronchus or lung (principal); M43.16 Spondylolisthesis, lumbar region; Z87.891 Personal history of nicotine dependence; Z92.21 Personal history of antineoplastic chemotherapy; Z92.3 Personal history of irradiation; Z88.1 Allergy status to other antibiotic agents; Z79.1 Long term (current) use of non-steroidal anti-inflammatories (NSAID); Z79.899 Other long term (current) drug therapy ==

== ENCOUNTER → 2025-03-12 | Outpatient (CLI) | payer MEDICARE, MEDICAID ==
[~2025-03-12] MED LIST changes: +ISOVUE-370 76% 100ML VIAL As Ordered ONE
== END ==
LOC: M RAD 11:59
PROVIDERS: ATTEND General Practice
DX: C34.90 Malignant neoplasm of unspecified part of unspecified bronchus or lung (principal)
CPT/HCPCS: 70470; 71260; Q9967

== ENCOUNTER → 2025-03-19 | Outpatient (CLI) | payer MEDICARE, MEDICAID ==
[~2025-03-19] MED LIST changes: +DULO1CAP6 PO; -FLOM0.4C39 PO; -ISOVUE-370 76% 100ML VIAL As Ordered ONE; +LISI10TA22 PO; -PREG50CA PO; +PREG50CA87 PO; +TAMS-18 PO
== END ==
LOC: M ONCR 08:58
PROVIDERS: ATTEND General Practice
DX: C34.11 Malignant neoplasm of upper lobe, right bronchus or lung (principal); I10 Essential (primary) hypertension; M54.31 Sciatica, right side; M54.32 Sciatica, left side; Z79.1 Long term (current) use of non-steroidal anti-inflammatories (NSAID); Z79.891 Long term (current) use of opiate analgesic; Z79.51 Long term (current) use of inhaled steroids; Z79.899 Other long term (current) drug therapy; Z87.891 Personal history of nicotine dependence; Z88.1 Allergy status to other antibiotic agents; Z92.21 Personal history of antineoplastic chemotherapy; Z92.29 Personal history of other drug therapy; Z92.3 Personal history of irradiation

== ENCOUNTER → 2025-06-06 | Outpatient (CLI) | payer MEDICARE, MEDICAID ==
[~2025-06-06] MED LIST changes: +PRED50TA57 PO
== END ==
LOC: M RAD 12:41
PROVIDERS: ATTEND Internal Medicine Medical Oncology
DX: C34.90 Malignant neoplasm of unspecified part of unspecified bronchus or lung (principal); N28.89 Other specified disorders of kidney and ureter; N26.1 Atrophy of kidney (terminal); N28.1 Cyst of kidney, acquired

== ENCOUNTER → 2025-06-18 | Outpatient (CLI) | payer MEDICARE, MEDICAID ==
[~2025-06-18] MED LIST changes: +FLUC150T9 PO; +MONI1CRE2 PV
== END ==
LOC: M RAD 15:39
PROVIDERS: ATTEND Internal Medicine Medical Oncology
DX: C34.91 Malignant neoplasm of unspecified part of right bronchus or lung (principal); M25.551 Pain in right hip; M25.552 Pain in left hip; M79.672 Pain in left foot

== ENCOUNTER → 2025-06-28 | Outpatient (CLI) | payer MEDICARE, MEDICAID ==
[~2025-06-28] MED LIST changes: +ISOVUE-370 76% 100 ML VIAL As Ordered ONE
== END ==
LOC: M RAD 14:18
PROVIDERS: ATTEND General Practice
DX: C34.11 Malignant neoplasm of upper lobe, right bronchus or lung (principal); J47.9 Bronchiectasis, uncomplicated; I25.10 Atherosclerotic heart disease of native coronary artery without angina pectoris; Z90.49 Acquired absence of other specified parts of digestive tract

== ENCOUNTER → 2025-07-17 | Outpatient (CLI) | payer MEDICARE, MEDICAID ==
[~2025-07-17] MED LIST changes: +GABA-284 PO; -ISOVUE-370 76% 100 ML VIAL As Ordered ONE
== END ==
LOC: M ONCR 11:50
PROVIDERS: ATTEND General Practice
DX: C34.11 Malignant neoplasm of upper lobe, right bronchus or lung (principal); Z79.620 Long term (current) use of immunosuppressive biologic; Z79.899 Other long term (current) drug therapy; Z87.891 Personal history of nicotine dependence; Z88.1 Allergy status to other antibiotic agents; Z92.21 Personal history of antineoplastic chemotherapy; Z92.3 Personal history of irradiation

== ENCOUNTER → 2025-07-17 | Outpatient (CLI) | payer MEDICARE, MEDICAID ==
[~2025-07-17] VITALS: Ht 149.9 cm; Wt 97.6 kg
[2025-07-17 11:28] VITALS: BP 132/80; O2SAT 96
== END ==
LOC: M PAL 11:02
PROVIDERS: ATTEND Physician Assistant
DX: Z51.5 Encounter for palliative care (principal); Z85.118 Personal history of other malignant neoplasm of bronchus and lung; Z79.891 Long term (current) use of opiate analgesic; Z88.6 Allergy status to analgesic agent; Z79.02 Long term (current) use of antithrombotics/antiplatelets; Z79.899 Other long term (current) drug therapy
CPT/HCPCS: G0463 ×2

== ENCOUNTER → 2025-07-31 | Outpatient (CLI) | payer MEDICARE, MEDICAID | LOC: M RAD 09:44 | PROVIDERS: ATTEND Internal Medicine Medical Oncology | DX: C34.90 Malignant neoplasm of unspecified part of unspecified bronchus or lung (principal); M25.559 Pain in unspecified hip; M19.072 Primary osteoarthritis, left ankle and foot | CPT/HCPCS: 72190; 73552; 73630; 78306; A9503 ==

== ENCOUNTER → 2025-08-13 | Outpatient (REF) | payer MEDICARE, MEDICAID ==
[2025-08-13 10:03] LABS: ESTIMATED AVERAGE GLUCOSE 134.0 MG/DL (60-110)
== END ==
LOC: M LAB REF 09:11
PROVIDERS: ATTEND Family Medicine
DX: E78.2 Mixed hyperlipidemia (principal); R73.03 Prediabetes

== ENCOUNTER → 2025-08-23 | Outpatient (CLI) | payer MEDICAID, MEDICARE ==
[~2025-08-23] MED LIST changes: +ISOVUE-370 76% 100 ML VIAL ONE
== END ==
LOC: M PLAIMG 12:57
PROVIDERS: ATTEND Internal Medicine Medical Oncology
DX: N30.90 Cystitis, unspecified without hematuria (principal)
CPT/HCPCS: 74177; Q9967

== ENCOUNTER 2025-08-29 14:51 | Emergency (ER) | payer MEDICAID, MEDICARE ==
[~2025-08-29] VITALS: Ht 149.9 cm; Wt 99.0 kg
[2025-08-29 15:46] LABS: KETONE, URINE AUTO RFX NEGATIVE (NEGATIVE); MUCUS, URINE RFX SMALL (NEGATIVE); NITRITE, URINE AUTO RFX NEGATIVE (NEGATIVE); RBC, URINE AUTO RFX 4 /HPF (0-3); SQUAM EPITHELIAL CELL UR AURFX 12 /HPF (0-6); WBC, URINE AUTO RFX 10 /HPF (0-3)
[2025-08-29 15:47] LABS: LEUKOCYTE ESTERASE UR AUTO RFX 2+ (NEGATIVE)
[2025-08-29] MEDS: ACETAMINOPHEN *IV* 1,000 MG in IV 1 EA IV ONE (15:58)
[2025-08-29 16:19] LABS: BASO # 0.0 10^3/uL (0.0-0.2); BASO % 0.4 % (0.0-1.0); EOS # 0.2 10^3/uL (0.0-0.5); EOS % 2.9 % (0.0-3.0); LYMPH # 1.1 10^3/uL (1.5-5.0); LYMPH % 16.2 % (24.0-44.0); MONO # 0.5 10^3/uL (0.0-0.8); MONO % 6.8 % (2.0-8.0); NEUTROPHILS # 5.0 10^3/uL (1.5-8.5); NEUTROPHILS % 73.1 % (36.0-66.0); PLATELET COUNT, AUTOMATED 151 10^3/uL (150-450)
[2025-08-29 16:38] LABS: ALT/SGPT 34.0 U/L (7.0-40); AST/SGOT 19.0 U/L (<34); CALCIUM LEVEL 9.5 MG/DL (8.3-10.6); CARBON DIOXIDE LEVEL 29.0 MMOL/L (20-31); CHLORIDE LEVEL 102.0 MMOL/L (98-107); CREATININE FOR GFR 1.27 MG/DL (0.55-1.30); GLOMERULAR FILTRATION RATE 45.5 (>39); POTASSIUM SERUM 4.6 MMOL/L (3.5-5.1); SODIUM LEVEL 140.0 MMOL/L (136-145)
[2025-08-29] MEDS ORDERED: ISOVUE-370 76% 100 ML VIAL As Ordered ONE (17:12)
[2025-08-29 19:04] VITALS: BP 134/86; O2SAT 34
[2025-08-29] MEDS: VITAMIN A & D OINTMENT 42.5GM TOP ONE (19:30)
[2025-08-29 19:37] VITALS: TEMP 96.8
== END 2025-08-29 19:38 | disposition home or self-care (01) ==
LOC: M ED 14:51
DX: R10.9 Unspecified abdominal pain (principal); L30.4 Erythema intertrigo; E11.9 Type 2 diabetes mellitus without complications; K76.0 Fatty (change of) liver, not elsewhere classified; I70.90 Unspecified atherosclerosis; I10 Essential (primary) hypertension; Z79.02 Long term (current) use of antithrombotics/antiplatelets; Z79.52 Long term (current) use of systemic steroids; Z79.899 Other long term (current) drug therapy; Z88.1 Allergy status to other antibiotic agents; Z51.5 Encounter for palliative care; C34.90 Malignant neoplasm of unspecified part of unspecified bronchus or lung; Z85.118 Personal history of other malignant neoplasm of bronchus and lung; Z79.891 Long term (current) use of opiate analgesic; Z88.6 Allergy status to analgesic agent; Z79.83 Long term (current) use of bisphosphonates
CPT/HCPCS: 74177; 80048; 80076; 81001; 83690; 85025; 87086; 96374; 99284; J0131; Q9967

== ENCOUNTER → 2025-08-29 | Outpatient (CLI) | payer MEDICARE, MEDICAID ==
[~2025-08-29] MED LIST changes: -ISOVUE-370 76% 100 ML VIAL ONE
== END ==
LOC: M PAL 13:44
PROVIDERS: ATTEND Physician Assistant
DX: Z51.5 Encounter for palliative care (principal); C34.90 Malignant neoplasm of unspecified part of unspecified bronchus or lung; Z85.118 Personal history of other malignant neoplasm of bronchus and lung; Z79.891 Long term (current) use of opiate analgesic; Z88.6 Allergy status to analgesic agent; Z79.899 Other long term (current) drug therapy; Z79.02 Long term (current) use of antithrombotics/antiplatelets; Z79.83 Long term (current) use of bisphosphonates

== ENCOUNTER → 2025-10-22 | Outpatient (REF) | payer MEDICARE ==
[~2025-10-22] MED LIST changes: +LEVO25CA2 PO
== END ==
LOC: M LABSMT 08:43
PROVIDERS: ATTEND Urology
DX: Z53.9 Procedure and treatment not carried out, unspecified reason (principal)

== ENCOUNTER → 2025-10-28 | Outpatient (REF) | payer MEDICARE ==
[2025-10-28 14:11] LABS: APPEARANCE, URINE HAZY (CLEAR); BACTERIA, URINE AUTO 1+ (NEGATIVE); BILIRUBIN, URINE AUTO NEGATIVE (NEGATIVE); BLOOD, URINE BLOOD NEGATIVE (NEGATIVE); GLUCOSE, URINE (UA) AUTO NEGATIVE (NEGATIVE); KETONE, URINE AUTO NEGATIVE (NEGATIVE); LEUKOCYTE ESTERASE, URINE AUTO 1+ (NEGATIVE); MUCUS, URINE SMALL (NEGATIVE); NITRITE, URINE AUTO NEGATIVE (NEGATIVE); PROTEIN, URINE AUTO NEGATIVE (NEGATIVE); RBC, URINE AUTO 2 /HPF (0-3); SPECIFIC GRAVITY URINE AUTO 1.017 (1.002-1.035); SQUAMOUS EPITHELIAL CELL UR AU 7 /HPF (0-6); UROBILINOGEN, URINE AUTO 0.2 mg/dL (0.0-2.0); WBC, URINE AUTO 3 /HPF (0-3)
== END ==
LOC: M SMT 12:56
PROVIDERS: ATTEND Urology
DX: N39.0 Urinary tract infection, site not specified (principal)